=== PATIENT | male | born 1950 | race Caucasian/White ===

== ENCOUNTER 2024-01-21 08:42 | Inpatient (IN) | payer OTHER, SELFPAY ==
[2024-01-21] VITALS (15 sets, daily range): BP systolic 98–188; BP diastolic 59–109; PULSE 77–139; RESP 16–20; TEMP 36.5–36.8; O2SAT 96–98; BMI 24.4
--- NOTE | ~2024-01-21 | US_ITS ---
EXAMINATION: US arterial duplex LE RT CLINICAL INFORMATION: non healing foot ulcer r/o pad TECHNIQUE: Real-time ultrasound and Doppler techniques (integrating B-mode 2-D vascular images, Doppler spectral analysis and color flow Doppler imaging) were utilized to interrogate the right lower extremity. COMPARISON: None FINDINGS: RIGHT LEG: Common femoral artery: 198 cm/s, Triphasic. Thick eccentric soft plaque seen. Profunda femoris artery: 248 cm/s, Triphasic Superficial femoral artery (proximal): 52.7 cm/s, biphasic. Significant atherosclerotic plaque noted. Superficial femoral artery (mid): 44.1 cm/s, biphasic. Partially occluded. Superficial femoral artery (distal): Occluded Popliteal artery: 34.7 cm/s, monophasic. Significant atherosclerotic plaque noted. Posterior tibial artery: Occluded Peroneal artery: Occluded Anterior tibial artery: 17.8 cm/sec, monophasic Dorsalis pedis artery: 12 cm/sec, monophasic US/US arterial duplex LE RT IMPRESSION: There is occlusion of the distal superficial femoral artery, posterior tibial artery, and peroneal artery. There is reconstitution of flow within the popliteal artery with monophasic flow seen in the anterior tibial and dorsalis pedis arteries. Significant atherosclerotic plaque is seen in the common femoral artery, superficial femoral artery and popliteal artery. This critical result was discussed with Trang Bower MD by telephone on 01/21/2024 at 3:15 PM and it was ascertained that the content and urgency of the report was understood at the time of direct communication.
--- NOTE | ~2024-01-21 | MR_ITS ---
EXAMINATION: MR FOOT WITHOUT AND WITH CONTRAST, RIGHT CLINICAL INFORMATION: Nonhealing right fourth toe wound. Evaluate for osteomyelitis. COMPARISON: Right foot radiographs dated 01/21/2024. TECHNIQUE: MRI of the right foot was performed before and after the intravenous administration of 10 mL Gadavist on a high-field scanner. FINDINGS: Soft tissue ulceration along the distal/lateral aspect of the fourth toe measuring up to 1.9 cm with adjacent skin thickening and subcutaneous edema as well as subcutaneous enhancement, consistent with acute cellulitis. No organized fluid collection or abscess formation. Attenuation and irregularity of the distal phalanx with increased T2 and decreased T1 signal in both the distal and middle phalanges where there is mild postcontrast enhancement. Findings are consistent with acute osteomyelitis. No additional abnormal marrow signal. No metatarsal stress reaction or fracture. No concerning lytic or blastic osseous lesion. The visualized flexor and extensor tendons are intact. No transverse tendon tear or tendon retraction. Dorsal subcutaneous edema without enhancement or abscess formation. Intact Lisfranc ligament. MR/MR foot RT wo/w con IMPRESSION: 1. Soft tissue ulceration and cellulitis along the distal/lateral aspect of the fourth toe with associated acute osteomyelitis in the distal and middle phalanges. No abscess formation. 2. Dorsal subcutaneous edema without enhancement or abscess formation.
--- NOTE | ~2024-01-21 | XR_ITS ---
EXAMINATION: XR FOOT, RIGHT CLINICAL INFORMATION: Fourth toe wound with question of osteomyelitis COMPARISON: None available. TECHNIQUE: AP, lateral, and oblique views of the right foot. FINDINGS: There is loss of soft tissue at the tip of the distal phalanx of the fourth toe with a small area of distal phalanx seen with no overlying soft tissue. No definite bone destruction is seen. No periosteal reaction is noted. The remainder of the foot is unremarkable. XR/XR foot RT 2V IMPRESSION: Soft tissue loss at the tip of the fourth toe with no definite evidence of osteomyelitis.
--- NOTE | ~2024-01-21 | XR_ITS ---
EXAMINATION: XR CHEST CLINICAL INFORMATION: PICC line placement. COMPARISON: None available. TECHNIQUE: Frontal view of the chest was obtained. FINDINGS: Right-sided PICC line tip projects at the level of the superior cavoatrial junction. No evidence of pneumothorax. Enlarged cardiomediastinal silhouette. Diffusely increased interstitial markings. No consolidation, pleural effusion or pneumothorax. No acute osseous findings. XR/XR chest 1V IMPRESSION: 1. Right-sided PICC line tip projects at the level of the superior cavoatrial junction. 2. No pneumothorax. 3. Enlarged cardiomediastinal silhouette. 4. Diffusely increased interstitial markings, nonspecific, could be associated with small airways disease.
[2024-01-21 09:28] LABS: MANUAL DIFF FLAG NO
[2024-01-21 09:30] LABS: Basophils Absolute Auto 0.1 X10*3/uL (0.0-0.2); Basophils Percent Auto 0.6 % (0-2); Eosinophils Absolute Auto 0.1 X10*3/uL (0.0-0.4); Eosinophils Percent Auto 0.9 % (0-4); Hematocrit 48.5 % (42.0-52.0); Hemoglobin 16.4 g/dl (14.0-18.0); Imm Gran Abs Auto 0.05 X10*3/uL (0.00-0.03); Imm Gran Pct Auto 0.5 % (0.0-0.4); Lymphocytes Absolute Auto 1.6 X10*3/uL (1.2-4.9); Mean Corpuscular HGB Conc 33.8 g/dl (31.0-36.0); Mean Corpuscular Hemoglobin 31.1 pg (27.0-33.0); Mean Platelet Volume 11.2 fL (9.4-12.4); Monocytes Absolute Auto 0.6 X10*3/uL (0.1-1.2); Monocytes Percent Auto 5.6 % (2-11); Neutrophils Absolute Auto 7.5 x10*3/uL (2.0-8.3); Neutrophils Percent Auto 76.4 % (45-73); Platelet Count 267 X10*3/uL (160-400); Red Blood Count 5.27 X10*6/uL (4.60-5.80); Red Cell Distribution Width 12.5 % (11.0-16.0); White Blood Count 9.8 X10*3/uL (4.8-10.8)
--- NOTE | 2024-01-21 09:52 | ECG_ITS ---
Test Reason : tachycardia Blood Pressure : / mmHG Vent. Rate : 128 BPM Atrial Rate : 000 BPM P-R Int : 000 ms QRS Dur : 144 ms QT Int : 360 ms P-R-T Axes : 000 180 -22 degrees QTc Int : 525 ms Atrial fibrillation with rapid ventricular response Right bundle branch block T wave abnormality, consider inferior ischemia Abnormal ECG No previous ECGs available Referred By: Carmine Chin Electronically Signed By:DON CARPIO MD
[2024-01-21 09:54] LABS: Alanine Aminotransferase 17 U/L (0-40); Albumin Level 4.1 g/dL (3.5-5.0); Alkaline Phosphatase 90 U/L (39-117); Anion Gap 12 (12-20); Aspartate Amino Transferase 19 U/L (5-37); Bilirubin Total 0.6 mg/dL (0.0-1.0); Blood Urea Nitrogen 14 mg/dL (9-16); C Reactive Protein 0.21 mg/dL (< or = 0.50); Calcium 9.9 mg/dL (8.4-10.2); Carbon Dioxide 29 mmol/L (22-29); Chloride 97 mmol/L (96-108); Creatinine Clr Calc Pharmacy 75.4; Estimated Glomerular Filt Rate > 60; Potassium 5.3 mmol/L (3.3-5.1); Sodium 133 mmol/L (135-145); Total Protein 6.9 g/dL (6.5-8.0)
[2024-01-21 09:56] LABS: Glucose Random 590 mg/dL (60-115)
--- NOTE | 2024-01-21 10:00 | PC.NURSE ---
patient awake and alert. skin pwd, resp even and non labored. speaking in full, clear sentences. presented to ED today for c/o non healing would on right foot 4th toe x 1 month. patient does not see a primary care. upon reassessing vitals patients HR noted to be elevated in the 130's. Patient denies chest pain, palpiations or SOB. EKG completed, shows AFIB w/ RVR. provided aware and new ordered obtained.
--- NOTE | 2024-01-21 10:17 | ED_ITS ---
HPI - General Adult General Chief complaint: Extremity Injury, Lower Stated complaint: unhealed toe , swollen, sensitive to touch Time Seen by Provider: 01/21/24 09:29 Source: patient Mode of arrival: ambulatory Limitations: no limitations History of Present Illness HPI narrative: 74-year-old male who has not been to the doctor in 30 years presents to ED for right 4th toe chronic wound for the past month that has not healed. Patient states he hit his toe 1 month ago and started turning yellow and tender without any discharge pus or bluish black discoloration. Patient states no fever or chills. Patient states no other complaints Related Data Home Medications ?Medication ?Instructions ?Recorded ?Confirmed No Known Home Meds 01/21/24 01/21/24 Allergies Allergy/AdvReac Type Severity Reaction Status Date / Time No Known Allergies Allergy Verified 01/21/24 08:52 Review of Systems 2 Review of Systems: right 4th toe chronic wound not healing after trauma 1 month ago Yes all other systems are reviewed and are negative [facility] Past Medical History Medical History Type 2 diabetes mellitus Atrial fibrillation Social History Social History Household Members: None Housing: House Do you presently have visiting nurse or other home services: No Patient Tobacco Use Status: Current everyday Tobacco user Tobacco use type: Cigarette Smoked in Last 30 Days: Yes e-Cigarette/Vaping Use: Currently Using Patient Interested in Nicotine Replacement: No Use of substances other than those prescribed or required for medical reasons: No Currently Displaying Signs/Symptoms of Drug Intoxication Withdrawal: No Have you been hit, kicked, punched, or otherwise hurt by someone within the past year? If so, by whom?: No Do you feel safe in your current relationship?: No Current Relationship Is there a partner from a previous relationship who is making you feel unsafe now?: No Are you made to feel afraid or neglected: No Advance Directives: No Advance Directives Information Provided: No Recently lost weight without trying: No How much weight loss: Not applicable Eating poorly because of decreased appetite: No Nutrition screen score: 0 Nutrition Risks: No Nutritional Risk Poor oral hygiene: No service: No Physical Exam ED Vital Signs: Vital Signs - 24 hr 01/21/24 08:45 01/21/24 09:48 01/21/24 10:28 Temperature 98.1 F 98.2 F Pulse Rate 101 H 130 H 139 H Pulse Rate [Automated] Respiratory Rate 16 18 Blood Pressure 188/109 H 149/89 H 153/92 H Pulse Oximetry 97 98 Oxygen Delivery Method Room Air Room Air 01/21/24 10:29 01/21/24 10:33 01/21/24 10:49 Temperature Pulse Rate 139 H 123 H 95 Pulse Rate [Automated] Respiratory Rate 18 20 Blood Pressure 153/92 H 145/89 H 138/106 H Pulse Oximetry Oxygen Delivery Method 01/21/24 11:05 01/21/24 11:13 01/21/24 13:17 Temperature Pulse Rate 86 127 H Pulse Rate [Automated] 118 H Respiratory Rate 18 Blood Pressure 127/69 129/79 Pulse Oximetry Oxygen Delivery Method BMI result Body Mass Index 24.4 Const Orientation/consciousness: oriented to person, oriented to place, oriented to time and patient oriented x3 HENMT Head: Yes normal to inspection, Yes No palpable skull fracture present, Yes normocephalic and Yes atraumatic Eyes General: appearance normal, both eyes and all related structures Neck Neck: Yes normal visual inspection, Yes full ROM, Yes no lymphadenopathy, Yes no meningeal signs, Yes trachea midline, Yes supple, No anterior neck swelling and No tender Chest Chest palpation & inspection: normal inspection of the chest and normal palpation of entire chest wall Resp Effort & Inspection: normal respiratory effort and able to speak in complete sentences Auscultation: clear to auscultation bilaterally Cardio Jugular venous distension: no JVD Heart sounds: S1 normal heart sound present and S2 normal heart sound present GI Inspection: Yes normal to inspection Palpation (GI): Soft to palpation, not firm, nontender, no guarding and not rigid General: Yes no CVA tenderness Back/Spine/Pelvis Back: no CVA tenderness and No back tenderness Skin General skin exam: no rashes or lesions noted, elasticity normal and turgor normal Neuro General: oriented to person, oriented to place, oriented to time, patient oriented x3, gait normal, tone normal, moves all extremities, Normal light touch and pain sensation, no meningeal signs, no focal motor deficits, CN's II-XI intact bilaterally and normal sensation to monofilament Extrem Other: vascular motor and neuro exam of extremity intact. Negative for gangrene. Fourth toe tender on palpation. General: Yes normal to inspection, Yes full ROM and Yes capillary refill normal Psych Appearance: grossly normal, well kempt and not disheveled Medications Administered Generic Name Dose Route Start Last Admin Trade Name Freq PRN Reason Stop Dose Admin Acetaminophen 650 mg 01/21/24 13:24 01/22/24 20:55 Acetaminophen 325 Mg Tablet PO 650 mg Q6H PRN Administration Pain, Mild (Pain Scale 1-3) Apixaban 5 mg 01/21/24 13:30 01/22/24 20:49 Apixaban 5 Mg Tablet PO 5 mg BID STEPHANIE Administration Aspirin 81 mg 01/21/24 19:00 01/22/24 07:58 Aspirin Enteric Coated 81 Mg Tablet. PO 81 mg DAILY STEPHANIE Administration Piperacillin Sod/Tazobactam 100 mls @ 200 mls/hr 01/21/24 14:00 01/23/24 03:26 Sod 4.5 gm/ Sodium Chloride IV Infused Q6H STEPHANIE Infusion Vancomycin HCl 1,250 mg/ 250 mls @ 166.667 mls/hr 01/22/24 15:00 01/23/24 03:51 Sodium Chloride IV 166.67 mls/hr Q12H STEPHANIE Administration Insulin Human Lispro 0 unit 01/21/24 16:30 01/22/24 20:50 Insulin Lispro 100 Unit/Ml 3 Ml Vial SUBCUT 4 unit QIDACHS [facility] Administration Protocol Metoprolol Tartrate 50 mg 01/22/24 21:00 01/22/24 20:49 Metoprolol Tartrate 50 Mg Tablet PO 50 mg BID STEPHANIE Administration Protocol Nicotine 21 mg 01/21/24 13:30 01/22/24 08:29 Nicotine 21 Mg Patch.Td24 TRANSDERMA Not Given DAILY [facility] Oxycodone HCl 5 mg 01/23/24 01:09 01/23/24 01:41 Oxycodone Hcl Immed Release 5 Mg Tablet PO 5 mg Q4H PRN Administration Pain, Severe (Pain Scale 7-10) Sodium Chloride 3 ml 01/21/24 16:00 01/23/24 01:43 0.9 % Sodium Chloride Flush 3 Ml Syringe IVFLUSH 3 ml QSHIFT STEPHANIE Administration Discontinued Medications Generic Name Dose Route Start Last Admin Trade Name Freq PRN Reason Stop Dose Admin Diltiazem HCl 20 mg 01/21/24 10:10 01/21/24 10:28 Diltiazem Hcl 50 Mg/10 Ml Vial IVPUSH 01/21/24 10:11 20 mg STAT STA Administration Diltiazem HCl 10 mg 01/21/24 13:08 01/21/24 13:17 Diltiazem Hcl 50 Mg/10 Ml Vial IVPUSH 01/21/24 13:09 10 mg STAT STA Administration Gadobutrol 10 ml 01/21/24 18:44 01/21/24 18:45 Gadobutrol 10 Ml Vial IVPUSH 01/21/24 18:45 10 ml ONCE ONE Administration Sodium Chloride 1,000 mls @ 999 mls/hr 01/21/24 09:58 01/21/24 12:03 Ns IV 01/21/24 10:58 Infused .Q1H1M STA Infusion Sodium Chloride 1,000 mls @ 999 mls/hr 01/21/24 09:59 01/21/24 13:20 Ns IV 01/21/24 10:59 Infused .Q1H1M STA Infusion Sodium Chloride 1,000 mls @ 999 mls/hr 01/21/24 09:59 01/21/24 15:05 Ns IV 01/21/24 10:59 Infused .Q1H1M STA Infusion Sodium Chloride 1,000 mls @ 999 mls/hr 01/21/24 10:02 01/21/24 13:20 Ns IV 01/21/24 11:02 Infused .Q1H1M STA Infusion Vancomycin HCl 2,000 mg in 500 mls @ 250 mls/hr 01/21/24 13:45 01/21/24 17:00 Vancomycin/Ns IV 01/21/24 15:44 Infused ONCE ONE Infusion Vancomycin HCl 750 mg/ Sodium 265 mls @ 265 mls/hr 01/22/24 03:00 01/22/24 04:18 Chloride IV Infused Q12H STEPHANIE Infusion Insulin Glargine 16 unit 01/21/24 13:30 01/22/24 07:59 Insulin Glargine,Hum.Rec.Anlog 100 Unit/Ml 10 Ml Vial SUBCUT 16 unit DAILY STEPHANIE Administration Insulin Human Regular 5 unit 01/21/24 11:13 01/21/24 11:19 Insulin Regular, Human 100 Unit/Ml 3 Ml Vial IVPUSH 01/21/24 11:14 5 unit ONCE ONE Administration Metoprolol Tartrate 25 mg 01/21/24 14:15 01/22/24 07:58 Metoprolol Tartrate 25 Mg Tablet PO 25 mg BID STEPHANIE Administration Protocol Medical Decision Making Medical Decision Making [facility] Narrative: 74-year-old male unknown past medical history presents to ED for right 4th toe chronic nonhealing wound due to trauma a month ago. Patient found to be hyperglycemic of 590. Patient not in DKA. Fluids ordered insulin ordered. Patient found to be in AFib. Cardizem ordered. Thyroid level added. Lactic acid added. Blood cultures added. Negative white blood cell count. Presently no indication for insulin drip. Will re-evaluate patient. Patient admitted for HYperglycemia and Afib RVR. Xray negative oseteomylietits. ESR and CRP negative. NEgative WBC. Hospital state they will order the antibiotics.. Differential Diagnosis Differential Diagnoses: The differential diagnosis associated with the presentation includes (osteomyleitis, cellulitis, Afib, DKA, HHS, DM) Admission/Observation Consideration of admission/observation: Escalation of care including admission/observation considered Consult Healthcare Provider Management of the patient was discussed with: Hospitalist (Batsheva Gibbons) Lab Data [facility] Lab Attestation statement: I reviewed the patient's lab results. 01/22/24 06:15 01/23/24 06:16 Labs: Lab Results 01/21/24 01/21/24 01/21/24 Range/Units 09:14 10:20 10:39 WBC 9.8 (4.8-10.8) X10*3/uL RBC 5.27 (4.60-5.80) X10*6/uL Hgb 16.4 (14.0-18.0) g/dl Hct 48.5 (42.0-52.0) % MCV 92.0 (80.0-98.0) fL MCH 31.1 (27.0-33.0) pg MCHC 33.8 (31.0-36.0) g/dl RDW 12.5 (11.0-16.0) % Plt Count 267 (160-400) X10*3/uL MPV 11.2 (9.4-12.4) fL Immature Gran % (Auto) 0.5 H (0.0-0.4) % Neut % (Auto) 76.4 H (45-73) % Lymph % (Auto) 16.0 L (20-40) % [place] % (Auto) 5.6 (2-11) % Eos % (Auto) 0.9 (0-4) % Baso % (Auto) 0.6 (0-2) % Lymph # (Auto) 1.6 (1.2-4.9) X10*3/uL [place] # (Auto) 0.6 (0.1-1.2) X10*3/uL Eos # (Auto) 0.1 (0.0-0.4) X10*3/uL Baso # (Auto) 0.1 (0.0-0.2) X10*3/uL Abs Immat Gran (auto) 0.05 H (0.00-0.03) X10*3/uL Absolute Neuts (auto) 7.5 (2.0-8.3) x10*3/uL Absolute Nucleated RBC 0.000 (0.0-0.012) X10*3/uL Nucleated RBC % (auto) 0.0 (0.0-0.2) /100WBC ESR 5 (0-15) MM/HR PT 10.6 L (11.1-13.3) SEC INR 0.9 (0.9-1.1) APTT 28.2 (26.0-36.8) SEC Sodium 133 L (135-145) mmol/L Potassium 5.3 H (3.3-5.1) mmol/L Chloride 97 (96-108) mmol/L Carbon Dioxide 29 (22-29) mmol/L Anion Gap 12 (12-20) BUN 14 (9-16) mg/dL Creatinine 0.90 (0.5-1.4) mg/dL Estim Creat Clear Calc 75.4 Estimated GFR > 60 POC Glucose 375 H* (60-115) mg/dL Random Glucose 590 H* (60-115) mg/dL Lactic Acid 2.4 H* (0.5-2.0) mmol/L Calcium 9.9 (8.4-10.2) mg/dL Magnesium 2.2 (1.6-2.6) mg/dL Total Bilirubin 0.6 (0.0-1.0) mg/dL AST 19 (5-37) U/L ALT 17 (0-40) U/L Alkaline Phosphatase 90 (39-117) U/L Troponin I High Sens 13.7 (<3.5-35.0) ng/L C-Reactive Protein 0.21 (< or = 0.50) mg/dL B-Natriuretic Peptide 68 (<100) pg/mL Total Protein 6.9 (6.5-8.0) g/dL Albumin 4.1 (3.5-5.0) g/dL Beta-Hydroxybutyrate 0.18 (0.02-0.27) mmol/L TSH 1.84 (0.32-4.0) uIU/mL 01/21/24 01/21/24 01/21/24 Range/Units 11:13 11:48 13:23 WBC (4.8-10.8) X10*3/uL RBC (4.60-5.80) X10*6/uL Hgb (14.0-18.0) g/dl Hct (42.0-52.0) % MCV (80.0-98.0) fL MCH (27.0-33.0) pg MCHC (31.0-36.0) g/dl RDW (11.0-16.0) % Plt Count (160-400) X10*3/uL MPV (9.4-12.4) fL Immature Gran % (Auto) (0.0-0.4) % Neut % (Auto) (45-73) % Lymph % (Auto) (20-40) % [place] % (Auto) (2-11) % Eos % (Auto) (0-4) % Baso % (Auto) (0-2) % Lymph # (Auto) (1.2-4.9) X10*3/uL [place] # (Auto) (0.1-1.2) X10*3/uL Eos # (Auto) (0.0-0.4) X10*3/uL Baso # (Auto) (0.0-0.2) X10*3/uL Abs Immat Gran (auto) (0.00-0.03) X10*3/uL Absolute Neuts (auto) (2.0-8.3) x10*3/uL Absolute Nucleated RBC (0.0-0.012) X10*3/uL Nucleated RBC % (auto) (0.0-0.2) /100WBC ESR (0-15) MM/HR PT (11.1-13.3) SEC INR (0.9-1.1) APTT (26.0-36.8) SEC Sodium (135-145) mmol/L Potassium (3.3-5.1) mmol/L Chloride (96-108) mmol/L Carbon Dioxide (22-29) mmol/L Anion Gap (12-20) BUN (9-16) mg/dL Creatinine (0.5-1.4) mg/dL Estim Creat Clear Calc Estimated GFR POC Glucose 387 H* 319 H 221 H (60-115) mg/dL Random Glucose (60-115) mg/dL Lactic Acid (0.5-2.0) mmol/L Calcium (8.4-10.2) mg/dL Magnesium (1.6-2.6) mg/dL Total Bilirubin (0.0-1.0) mg/dL AST (5-37) U/L ALT (0-40) U/L Alkaline Phosphatase (39-117) U/L Troponin I High Sens (<3.5-35.0) ng/L C-Reactive Protein (< or = 0.50) mg/dL B-Natriuretic Peptide (<100) pg/mL Total Protein (6.5-8.0) g/dL Albumin (3.5-5.0) g/dL Beta-Hydroxybutyrate (0.02-0.27) mmol/L TSH (0.32-4.0) uIU/mL Independent Interpretation I performed an independent interpretation of an: EKG (Afib RVR 128) and Plain X- Ray Radiology Impression Discussion of test interpretation with radiology: I have reviewed the radiologist's reading. Independent Historian Clinical information obtained from an independent historian. History obtained from or confirmed by: Other (patient) External Record Review External record reviewed: Other (prior visits.) Critical Care Time Critical Care Time Critical Care Time: Yes Total Critical Care Time: 60 Attestation: Patient new onset diabetic hypoglycemic not in DKA. Insulin fluids ordered. Patient new onset AFib RVR. Cardizem ordered. Discharge Plan Discharge Clinical Impression: New onset atrial fibrillation, New onset type 2 diabetes mellitus, Cellulitis of right foot, Non-healing ulcer of foot Patient Disposition: Admitted As Inpatient Interventions: Admission Worksheet (ED) Last Done: 01/21/24 20:14 Discharge Date/Time: 01/21/24 21:05
[2024-01-21] MEDS: dilTIAZem HCL 50 MG/10 ML VIAL 20 MG IVPUSH (10:28)
[2024-01-21] MEDS: 0.9 % Sodium Chloride 1,000 ML 999 ML IV ×4 (10:28→12:31)
[2024-01-21 10:31] LABS: INTERNATIONAL NORM RATIO 0.9 (0.9-1.1); Prothrombin Time 10.6 SEC (11.1-13.3)
[2024-01-21 10:32] LABS: Beta-Hydroxybutyrate 0.18 mmol/L (0.02-0.27)
[2024-01-21 10:34] LABS: Partial Thromboplastin Time 28.2 SEC (26.0-36.8)
[2024-01-21 10:37] LABS: B Type Natriuretic Peptide 68 pg/mL (<100)
[2024-01-21 10:41] LABS: Erythrocyte Sedimentation Rate 5 MM/HR (0-15)
[2024-01-21 10:44] LABS: Glucose, Whole Blood 375 mg/dL (60-115)
[2024-01-21 10:48] LABS: Troponin-I High Sensitivity 13.7 ng/L (<3.5-35.0)
[2024-01-21 10:57] LABS: Lactic Acid 2.4 mmol/L (0.5-2.0)
[2024-01-21 11:02] LABS: TSH reflex Free T4 1.84 uIU/mL (0.32-4.0)
[2024-01-21 11:17] LABS: Glucose, Whole Blood 387 mg/dL (60-115)
[2024-01-21] MEDS: Insulin Regular, Human 100 UNIT/ML 3 ML VIAL IVPUSH (11:19)
[2024-01-21 11:52] LABS: Glucose, Whole Blood 319 mg/dL (60-115)
[2024-01-21 12:24] LABS: Reflex Lactate? Lactic Acid Added
[2024-01-21] MEDS: dilTIAZem HCL 50 MG/10 ML VIAL 10 MG IVPUSH (13:17)
[2024-01-21 13:32] LABS: Glucose, Whole Blood 221 mg/dL (60-115)
--- NOTE | 2024-01-21 13:33 | PM.IMHP ---
History of Present Illness Date of Service: 01/21/24 Attending physician on admission: Joanie Del Rosario Chief Complaint: toe infection 74-year-old male without any known past medical history as patient has not been seen by medical provider in over 30 years presented to the ED earlier today for evaluation of a toe injury/infection. He reports dropped a piece of wood on the right 4th toe and then stopped this toe several days later about 1 month ago. Since then, the toe has been swollen, intermittently painful with intermittent purulent drainage. Denies any fevers or chills. He reports he has been treating this with topical antibiotic ointment, hydrogen peroxide but has experienced no improvement. Since arrival, has been found to be in new onset atrial fibrillation with tachycardia up to 139. No hypotension or fevers. Hematology studies unremarkable. Renal function and electrolyte levels normal except for sodium 133 potassium 5.3. Initial glucose 590. Initial lactic acid 2.4, repeat 2.3. Troponin 13.7. CRP 0.21, ESR 5. Beta hydroxybutyrate 0.18. TSH 1.84, magnesium pending. X-ray of the foot negative for any acute osseous abnormality. EKG shows atrial fibrillation with RVR, rate 128 and right bundle branch block. No DINA or depressions. Pt will be admitted for further management of foot infection new onset afib rvr. In the ED has been treated with 3 L IV NS, 5 units regular insulin, and total of 30 mg IV diltiazem. Review of Systems Review of Systems: General: No fevers, malaise, unintentional weight loss HEENT: No blurred vision, diplopia. No sore throat, nasal congestion, rhinorrhea, sinus pain, ear pain Cardiovascular: No chest pain, palpitations, or leg edema Respiratory: No shortness of breath, wheezing, cough GI: No abdominal pain, nausea, vomiting, diarrhea, constipation, melena, hematochezia : No dysuria, hematuria, increased urinary frequency, decreased urinary output MSK: No myalgia, back pain. +toe infection/wound Neuro: No headaches, weakness, paresthesias Skin: No rashes or lesions [facility] Medical History Type 2 diabetes mellitus Atrial fibrillation Social History Household Members: None Housing: House Do you presently have visiting nurse or other home services: No Patient Tobacco Use Status: Current everyday Tobacco user Tobacco use type: Cigarette Smoked in Last 30 Days: Yes e-Cigarette/Vaping Use: Currently Using Patient Interested in Nicotine Replacement: No Use of substances other than those prescribed or required for medical reasons: No Currently Displaying Signs/Symptoms of Drug Intoxication Withdrawal: No Have you been hit, kicked, punched, or otherwise hurt by someone within the past year? If so, by whom?: No Do you feel safe in your current relationship?: No Current Relationship Is there a partner from a previous relationship who is making you feel unsafe now?: No Are you made to feel afraid or neglected: No Advance Directives: No Advance Directives Information Provided: No Recently lost weight without trying: No How much weight loss: Not applicable Eating poorly because of decreased appetite: No Nutrition screen score: 0 Nutrition Risks: No Nutritional Risk Poor oral hygiene: No service: No Meds Allergies Allergy/AdvReac Type Severity Reaction Status Date / Time No Known Allergies Allergy Verified 01/21/24 08:52 Active Medications: Current Medications Acetaminophen (Acetaminophen 325 Mg Tablet) 650 mg PO Q6H PRN PRN Reason: Pain, Mild (Pain Scale 1-3) Apixaban (Apixaban 5 Mg Tablet) 5 mg PO BID [facility] Glucose (Glucose Gel 15 Gm Gel..Gram.) 15 gm PO Q15M PRN; Protocol PRN Reason: per Hypoglycemia Standing Ord. Dextrose (D10) 250 mls @ 750 mls/hr IV Q15M PRN; Protocol PRN Reason: per Hypoglycemia Standing Ord. Piperacillin Sod/Tazobactam (Sod 4.5 gm/ Sodium Chloride) 100 mls @ 200 mls/hr IV Q6H [facility] Insulin Glargine (Insulin Glargine,Hum.Rec.Anlog 100 Unit/Ml 10 Ml Vial) 16 unit SUBCUT DAILY [facility] Insulin Human Lispro (Insulin Lispro 100 Unit/Ml 3 Ml Vial) 0 unit SUBCUT QIDACHS [facility]; Protocol Nicotine (Nicotine 21 Mg Patch.Td24) 21 mg TRANSDERMA DAILY [facility] Ondansetron HCl (Ondansetron Hcl 4 Mg/2 Ml Vial) 4 mg IVPUSH Q8H PRN PRN Reason: Nausea and Vomiting Pharmacy Consult (Consult Rx Vancomycin Dosing) 1 each MISCELLANE DAILY PRN PRN Reason: Consult order Senna (Sennosides 8.6 Mg Tablet) 17.2 mg PO BEDTIME PRN PRN Reason: Constipation Sodium Chloride (0.9 % Sodium Chloride Flush 3 Ml Syringe) 3 ml IVFLUSH QSHIFT [facility] Home Medications ?Medication ?Instructions ?Recorded ?Confirmed ?Last Taken ?Type No Known Home Meds 01/21/24 01/21/24 Unknown History Physical Exam Vital Signs and Narrative: Vital Signs: Last Vital Signs Temp 98.2 F 01/21/24 09:48 Pulse 127 H 01/21/24 13:17 Resp 18 01/21/24 11:13 BP 129/79 01/21/24 13:17 Pulse Ox 98 01/21/24 09:48 O2 Del Method Room Air 01/21/24 09:48 BMI result Body Mass Index 24.4 Constitutional - Awake and Alert, No apparent distress Eyes - PERRLA, EOMI Cardiovascular - S1S2, RRR, No edema, unable to palpate R pedal pulse due to edema, 1+ L pedal pulse Respiratory - Normal lung expansion, Normal respiratory effort, No respiratory distress, CTA bilaterally Gastrointestinal - NT / ND; +BS; No rebound or guarding Extremities - no calf tenderness bilaterally, no swelling Skin - Warm/Dry, lower extremities cool.Unstageable ulcer right 4th toe with surroudning erythema Neurological - Alert & oriented x3 Psychological - Appropriate affect Results Labs 01/22/24 06:15 01/22/24 06:15 Labs: Laboratory Results - last 24 hr 01/21/24 01/21/24 01/21/24 09:14 10:20 10:39 MCV 92.0 MCH 31.1 MCHC 33.8 RDW 12.5 Plt Count 267 MPV 11.2 Immature Gran % (Auto) 0.5 H Neut % (Auto) 76.4 H Lymph % (Auto) 16.0 L [place] % (Auto) 5.6 Eos % (Auto) 0.9 Baso % (Auto) 0.6 Lymph # (Auto) 1.6 [place] # (Auto) 0.6 Eos # (Auto) 0.1 Baso # (Auto) 0.1 Abs Immat Gran (auto) 0.05 H Absolute Neuts (auto) 7.5 Absolute Nucleated RBC 0.000 Nucleated RBC % (auto) 0.0 ESR 5 PT 10.6 L INR 0.9 APTT 28.2 Anion Gap 12 Estim Creat Clear Calc 75.4 Estimated GFR > 60 POC Glucose 375 H* Random Glucose 590 H* Lactic Acid 2.4 H* Calcium 9.9 Total Bilirubin 0.6 AST 19 ALT 17 Alkaline Phosphatase 90 Troponin I High Sens 13.7 C-Reactive Protein 0.21 B-Natriuretic Peptide 68 Total Protein 6.9 Albumin 4.1 Beta-Hydroxybutyrate 0.18 TSH 1.84 01/21/24 01/21/24 01/21/24 11:13 11:48 13:23 MCV MCH MCHC RDW Plt Count MPV Immature Gran % (Auto) Neut % (Auto) Lymph % (Auto) [place] % (Auto) Eos % (Auto) Baso % (Auto) Lymph # (Auto) [place] # (Auto) Eos # (Auto) Baso # (Auto) Abs Immat Gran (auto) Absolute Neuts (auto) Absolute Nucleated RBC Nucleated RBC % (auto) ESR PT INR APTT Anion Gap Estim Creat Clear Calc Estimated GFR POC Glucose 387 H* 319 H 221 H Random Glucose Lactic Acid Calcium Total Bilirubin AST ALT Alkaline Phosphatase Troponin I High Sens C-Reactive Protein B-Natriuretic Peptide Total Protein Albumin Beta-Hydroxybutyrate TSH Imaging Radiologist's Impressions: Impressions Foot X-Ray 01/21/24 10:42 IMPRESSION: Soft tissue loss at the tip of the fourth toe with no definite evidence of osteomyelitis. Assessment and Plan (1) Non-healing ulcer of foot: Status: Acute (2) Cellulitis of right foot: Status: Acute (3) New onset type 2 diabetes mellitus: Status: Acute (4) New onset atrial fibrillation: Status: Acute Plan 74-year-old male without any known past medical history as patient has not been seen by medical provider in over 30 years admitted for further management of non healing R toe wound with cellulitis and suspected osteomyelitis as well as non onset atrial fibrillation with rvr. #New onset atrial fibrillation with RVR -HR controlled on admission following total 30mg iv diltiazem -tsh/mag wnl -initiate metoprolol 25mg BID -initiate eliquis 5mg BID for AC (chads 2 Vasc score 2- more likely 3 suspected PAD) -echo -cardiac diet -cardiology consult -monitor on telemetry #Nonhealing stage 2 ulcer R 4th toe with cellulitis -IV vanco and zosyn (initiated 01/20) -Arterial doppler pending, suspect underlying PAD -MRI foot pending, suspect osteomyelitis -wound RN consult -Consider vascular vs ID consult pending results #Peripheral arterial disease -Arterial doppler RLE: occlusion of the distal superficial femoral artery, posterior tibial artery, and peroneal artery. There is reconstitution of flow within the popliteal artery with monophasic flow seen in the anterior tibial and dorsalis pedis arteries. Significant atherosclerotic plaque is seen in the common femoral artery, superficial femoral artery and popliteal artery. -discussed with attending. Vascular surgery consult placed. Continue eliquis, asa #New onset type 2 diabetes with hyperglycemia -HGB a1c pending -initial glucose 590, no DKA -Initiate lantus 16 units daily -admelog on ss -poc glucose, diabetic diet #Acute hyperkalemia -given IVF, follow lytes #Acute hyponetramia -likey pseudohyponatremia in setting of hyperglycemia -follow lytes DVT prophylaxis- tonia full code pt requires inpt stay at least 2 midnights for management of new onset atrial fibrillation requiring iv rate control, echo, and close cardiac monitoring. 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
[2024-01-21 13:52] LABS: ~Lactic Acid-LAB USE ONLY 2.3 mmol/L (0.5-2.0)
[2024-01-21 14:09] LABS: Magnesium 2.2 mg/dL (1.6-2.6)
[2024-01-21] MEDS: Insulin Glargine,Hum.rec.anlog 100 UNIT/ML 10 ML VIAL 16 UNIT SUBCUT (14:14)
[2024-01-21] MEDS: Piperacillin Sodium/Tazobactam 4.5 GM in 0.9 % Sodium Chloride 100 ML IV ×2 (14:14→20:08)
[2024-01-21] MEDS: Apixaban 5 MG TABLET PO ×2 (14:14→20:08)
[2024-01-21] MEDS: vancomycin/NS 2,000 MG/500 ML PLAST..BAG 250 MG IV (14:57)
[2024-01-21] MEDS: Metoprolol Tartrate 25 MG TABLET PO ×2 (15:04→20:07)
[2024-01-21 15:28] LABS: Reflex Lactate? 2 Y
--- NOTE | 2024-01-21 15:51 | PHA.MEDREC ---
Pharmacy Consult ? Medication Reconciliation Pharmacy has completed the medication reconciliation. Patient reports no medications at home. Jasmina Queen, LorraineD
[2024-01-21 16:19] LABS: Hemoglobin A1c % > 14.0 % (<6.0)
[2024-01-21 16:22] LABS: ~Lactic Acid-LAB USE ONLY 1.4 mmol/L (0.5-2.0)
[2024-01-21] MEDS: gadobutroL 10 ML VIAL IVPUSH (18:45)
[2024-01-21 19:48] LABS: Glucose, Whole Blood 260 mg/dL (60-115)
[2024-01-21] MEDS: Insulin Lispro 100 UNIT/ML 3 ML VIAL SUBCUT (20:06)
[2024-01-21] MEDS: 0.9 % Sodium Chloride Flush 3 ML SYRINGE IVFLUSH (20:07)
[2024-01-21] MEDS: Aspirin Enteric Coated 81 MG TABLET.DR PO (20:07)
[2024-01-21] MEDS: Acetaminophen 325 MG TABLET 650 MG PO (21:56)
[2024-01-21 23:22] LABS: Glucose, Whole Blood 174 mg/dL (60-115)
[2024-01-22] VITALS (7 sets, daily range): BP systolic 118–157; BP diastolic 59–95; PULSE 72–99; RESP 16–20; TEMP 36.3–37.1; O2SAT 98–99
[2024-01-22] MEDS: Piperacillin Sodium/Tazobactam 4.5 GM in 0.9 % Sodium Chloride 100 ML IV ×4 (02:20→20:50)
[2024-01-22] MEDS: vancomycin HCL 750 MG in 0.9 % Sodium Chloride 250 ML 265 MG IV (03:18)
[2024-01-22 03:49] LABS: Glucose, Whole Blood 115 mg/dL (60-115)
[2024-01-22] MEDS: Acetaminophen 325 MG TABLET 650 MG PO ×3 (06:02→20:55)
[2024-01-22 06:59] LABS: MANUAL DIFF FLAG NO
--- NOTE | 2024-01-22 07:00 | CA_ITS ---
Transthoracic Echocardiogram Patient (Last, First, Middle): Juvenal Kate C Gender: Male Date of : 1950 Age: 74 Procedure Date: 01/22/2024 Procedure Type: [place]ansthoracic [place] [facility] [place]: 177.8 cm Weight: 77.11 kg BSA: 1.95 m2 Heart Rate: bpm BP: 130 / 95 mmHg Advertising Account Executive: SB Referring MD: Trang MCCARTNEY Head Of Visual Merchandising: Jevon Montgomery MD Symptoms: afib rvr Study Quality: Adequate ECG Rhythm: Atrial Fibrillation w RVR Conclusions: - 1. [id number] LV systolic dysfunction with LVEF of 40-45% with mild LVH 2. At least moderate biatrial enlargement 3. Normal cardiac valvular Dopplers 4. Normal RV systolic pressure 5. Mildly dilated ascending aorta 3.7 cm 6. No gross pericardial effusion Findings Left Ventricle Normal left ventricular cavity size. There is mildly increased left ventricular wall thickness. The left ventricular systolic function is mild to moderately decreased. The visually estimated ejection fraction is between 40-45%. Diastolic function is indeterminate on the basis of available data. Right Ventricle Normal right ventricular cavity size. There is moderately decreased right ventricular systolic function. Atria The left atrium is moderately dilated. There is no evidence of interatrial shunt. The right atrium is moderately dilated. Aortic Valve Normal aortic valve structure and function. There is mild calcification of the aortic valve. There is no aortic valve stenosis. There is no aortic valve regurgitation. Mitral Valve Normal mitral valve structure and function. There is trace mitral valve regurgitation. There is no mitral valve stenosis. Pulmonic Valve The pulmonic valve was not well visualized. Tricuspid Valve Likely normal tricuspid valve structure and function. There is trace tricuspid valve regurgitation. The right ventricular systolic pressure is normal. The right ventricular systolic pressure is 27 mmHg. Normal right atrial pressure. There is no evidence of pulmonary hypertension. Great Vessels The pulmonary artery was not well visualized. There is mild dilatation of the ascending aorta measuring 3.70 cm. Venous The inferior vena cava is normal in size and collapses greater than 50% with inspiration. Pericardium/Pleural There is no evidence of pericardial effusion. Prior Study Comparison No prior study available for comparison. Measurements 2D Linear Measurements IVSd: 1.20 0.6-0.9/0.6-1.0 cm LVIDd: 5.15 3.9-5.3/4.2-5.9 cm LVIDd Index: 2.64 2.4-3.2/2.2-3.1 cm/m2 LVIDs: 3.51 2.0-3.6 cm LVPWd: 1.12 0.7-1.1 cm LA Diam: 4.90 2.7-3.8/3.0-4.0 cm LAIDs Index: 2.51 1.5-2.3 cm/m2 LV Mass: 291.45 67-162/88-224 g LV Mass Index: 149.46 43-95/49-115 g/m2 LVOT Diam: 2.20 3.0+(-)1.3 cm Mitral Valve MV Pk E: 0.80 E'Medial: 5.71 E/E' Med: 14.10 Aortic Valve AoV Pk Kan: 1.03 AoV Pk Grad: 4.00 KARLI: 2.79 LVOT LVOT Pk Kan: 0.76 LVOT Mn Kan: 0.56 LVOT VTI: 0.15 LVOT Pk Grad: 2.00 LVOT Mn Grad: 1.00 LVOT Diam: 2.20 LVOT Area: 3.80 Diastolic Function MV Pk E: 0.80 E'Medial: 5.71 E/E' Med: 14.10 Right Ventricle TAPSE (mm): 9.66 TVS' Kan: 9.14 Tricuspid Valve TR Pk Kan: 2.16 TR Pk Grad: 19.00 RA Press: 8.00 RVSP: 27.00 Great Vessels Aorta Sinus of Valsalva: 3.70 2.0-3.5 cm Ao Asc: 3.70 2.1-3.4 cm Pulmonary Valve PV Pk Kan: 0.75 Peak PV Grad: 2.00 Updated in Other Vendor System with Status of Final Jevon Montgomery MD electronically signed on 01/22/2024 12:19:16 PM with status of Final
[2024-01-22 07:17] LABS: Basophils Absolute Auto 0.1 X10*3/uL (0.0-0.2); Basophils Percent Auto 0.6 % (0-2); Eosinophils Absolute Auto 0.1 X10*3/uL (0.0-0.4); Eosinophils Percent Auto 1.2 % (0-4); Hematocrit 45.6 % (42.0-52.0); Hemoglobin 15.1 g/dl (14.0-18.0); Imm Gran Abs Auto 0.04 X10*3/uL (0.00-0.03); Imm Gran Pct Auto 0.4 % (0.0-0.4); Lymphocytes Absolute Auto 2.6 X10*3/uL (1.2-4.9); Lymphocytes Percent Auto 26.6 % (20-40); Mean Corpuscular HGB Conc 33.1 g/dl (31.0-36.0); Mean Corpuscular Hemoglobin 30.6 pg (27.0-33.0); Mean Corpuscular Volume 92.3 fL (80.0-98.0); Mean Platelet Volume 11.2 fL (9.4-12.4); Monocytes Absolute Auto 0.7 X10*3/uL (0.1-1.2); Monocytes Percent Auto 6.7 % (2-11); Neutrophils Absolute Auto 6.4 x10*3/uL (2.0-8.3); Neutrophils Percent Auto 64.5 % (45-73); Platelet Count 233 X10*3/uL (160-400); Red Blood Count 4.94 X10*6/uL (4.60-5.80); Red Cell Distribution Width 12.8 % (11.0-16.0); White Blood Count 9.9 X10*3/uL (4.8-10.8)
[2024-01-22 07:32] LABS: Glucose, Whole Blood 211 mg/dL (60-115)
[2024-01-22] MEDS: Metoprolol Tartrate 25 MG TABLET PO (07:58)
[2024-01-22] MEDS: Apixaban 5 MG TABLET PO ×2 (07:58→20:49)
[2024-01-22] MEDS: Aspirin Enteric Coated 81 MG TABLET.DR PO (07:58)
[2024-01-22] MEDS: Insulin Lispro 100 UNIT/ML 3 ML VIAL SUBCUT ×3 (07:59→20:50)
[2024-01-22] MEDS: Insulin Glargine,Hum.rec.anlog 100 UNIT/ML 10 ML VIAL 16 UNIT SUBCUT (07:59)
[2024-01-22] MEDS: 0.9 % Sodium Chloride Flush 3 ML SYRINGE IVFLUSH ×2 (08:00)
[2024-01-22 08:06] LABS: Anion Gap 9 (12-20); Blood Urea Nitrogen 12 mg/dL (9-16); Calcium 8.7 mg/dL (8.4-10.2); Carbon Dioxide 27 mmol/L (22-29); Chloride 107 mmol/L (96-108); Creatinine Clr Calc Pharmacy 83.8; Estimated Glomerular Filt Rate > 60; Glucose Random 142 mg/dL (60-115); Potassium 3.9 mmol/L (3.3-5.1); Sodium 139 mmol/L (135-145)
--- NOTE | 2024-01-22 09:34 | MHC.CM.PN ---
IMM 01/22/24, Pt lives alone, no home health services or DME. He does not have a HCP, CM discussed this with him and he said he will talk to his family and friend about it. He has a PCP that he has not seen yet, first appt. is 04/28/24. DC plan is home, self care. CM will follow and assist with DC plan.
--- NOTE | 2024-01-22 09:38 | PM.CNGS ---
History of Present Illness Consult details Consult date: 01/22/24 Reason for consult: wound care Narrative: Very pleasant 74-year-old gentleman with history of diabetes has a nonhealing right foot ulcer. It has been present for some time. 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 He is concerned about that toe but is eager to go back to work. Denies any significant pain. He does report difficulty ambulating long distances. Of note he is a smoker and diabetic. Review of Systems Review of Systems: Yes all other systems are reviewed and are negative Constitutional: Constitutional: Reports no additional constitutional complaints ENT: Reports Normal hearing present Cardiovascular: Cardiovascular: Denies chest pain, Denies chest pain at rest, Denies chest pain with activity and Denies pedal edema Respiratory: Respiratory: Denies cough Gastrointestinal: Gastrointestinal: Denies abdominal pain Musculoskeletal: Musculoskeletal: Denies abnormal gait, Denies muscle cramps and Denies radiating pain into limb Integumentary/Breasts: Skin/Breast: Denies skin ulcer and Denies wounds Neurologic: Reports Normal hearing present and Denies abnormal gait Psychiatric: Psychiatric: Reports no additional psychiatric complaints [facility] Past Medical History Medical History Type 2 diabetes mellitus Atrial fibrillation Social History Social History Household Members: None Housing: House Do you presently have visiting nurse or other home services: No Patient Tobacco Use Status: Current everyday Tobacco user Tobacco use type: Cigarette e-Cigarette/Vaping Use: Currently Using service: No Meds Allergies Allergy/AdvReac Type Severity Reaction Status Date / Time No Known Allergies Allergy Verified 01/21/24 08:52 Active Medications: Current Medications Acetaminophen (Acetaminophen 325 Mg Tablet) 650 mg PO Q6H PRN PRN Reason: Pain, Mild (Pain Scale 1-3) Last Admin: 01/22/24 06:02 Dose: 650 mg Apixaban (Apixaban 5 Mg Tablet) 5 mg PO BID [facility] Last Admin: 01/22/24 07:58 Dose: 5 mg Aspirin (Aspirin Enteric Coated 81 Mg Tablet.) 81 mg PO DAILY [facility] Last Admin: 01/22/24 07:58 Dose: 81 mg Glucose (Glucose Gel 15 Gm Gel..Gram.) 15 gm PO Q15M PRN; Protocol PRN Reason: per Hypoglycemia Standing Ord. Dextrose (D10) 250 mls @ 750 mls/hr IV Q15M PRN; Protocol PRN Reason: per Hypoglycemia Standing Ord. Piperacillin Sod/Tazobactam (Sod 4.5 gm/ Sodium Chloride) 100 mls @ 200 mls/hr IV Q6H [facility] Last Admin: 01/22/24 07:58 Dose: 200 mls/hr Vancomycin HCl 750 mg/ Sodium (Chloride) 265 mls @ 265 mls/hr IV Q12H [facility] Last Infusion: 01/22/24 04:18 Dose: Infused Insulin Glargine (Insulin Glargine,Hum.Rec.Anlog 100 Unit/Ml 10 Ml Vial) 16 unit SUBCUT DAILY [facility] Last Admin: 01/22/24 07:59 Dose: 16 unit Insulin Human Lispro (Insulin Lispro 100 Unit/Ml 3 Ml Vial) 0 unit SUBCUT QIDACHS [facility]; Protocol Last Admin: 01/22/24 07:59 Dose: 4 unit Metoprolol Tartrate (Metoprolol Tartrate 25 Mg Tablet) 25 mg PO BID [facility]; Protocol Last Admin: 01/22/24 07:58 Dose: 25 mg Nicotine (Nicotine 21 Mg Patch.Td24) 21 mg TRANSDERMA DAILY [facility] Last Admin: 01/22/24 08:29 Dose: Not Given Ondansetron HCl (Ondansetron Hcl 4 Mg/2 Ml Vial) 4 mg IVPUSH Q8H PRN PRN Reason: Nausea and Vomiting Pharmacy Consult (Consult Rx Vancomycin Dosing) 1 each MISCELLANE DAILY PRN PRN Reason: Consult order Senna (Sennosides 8.6 Mg Tablet) 17.2 mg PO BEDTIME PRN PRN Reason: Constipation Sodium Chloride (0.9 % Sodium Chloride Flush 3 Ml Syringe) 3 ml IVFLUSH QSHIFT [facility] Last Admin: 01/22/24 08:00 Dose: 3 ml Home Medications ?Medication ?Instructions ?Recorded ?Confirmed ?Last Taken ?Type No Known Home Meds 01/21/24 01/21/24 Unknown History Physical Exam Vital Signs: Vital Signs: Last Vital Signs Temp 97.8 F 01/22/24 07:41 Pulse 88 01/22/24 07:58 Resp 20 01/22/24 07:41 BP 130/95 H 01/22/24 07:58 Pulse Ox 99 04/23/24 07:41 O2 Del Method Room Air 01/22/24 07:41 BMI result Body Mass Index 24.4 Const: General: cooperative, healthy appearing and comfortable Orientation/consciousness: oriented to person, oriented to place and oriented to time HEENT: Head: Yes normal to inspection Neck: Neck: Yes normal visual inspection Carotids: no bruits Chest: Chest palpation & inspection: normal inspection of the chest Resp: Effort & Inspection: normal respiratory effort and able to speak in complete sentences Auscultation: clear to auscultation bilaterally, no crackles, no rales, no rhonchi and no wheezes Cardio: Other: Bilateral DP signal Rate: regular rate Rhythm: regular rhythm Heart sounds: S1 normal heart sound present and S2 normal heart sound present Bruits: no carotid bruits Peripheral pulses: Peripheral pulses 2+ throughout GI: Inspection: Yes normal to inspection Skin: Other: Right 3rd and 4th toe nonhealing ulcer Wounds: no wounds Hair: normal Neuro: General: oriented to person, oriented to place and oriented to time Cranial nerves: Yes CN's II-XII intact bilaterally and Yes Normal hearing present Cognition (Neuro): normal cognition Motor exam (neuro): 5/5 motor strength present throughout Extrem: Other: venous exam: No significant superficial varicosities or spider telangiectasias, minimal edema General: No clubbing, No cyanosis and No edema Psych: Appearance: grossly normal Mental Status: mental status grossly normal Speech and movement: Normal speech and movement present Results Labs 01/22/24 06:15 01/22/24 06:15 Labs: Abnormal lab results 01/21/24 01/21/24 01/21/24 Range/Units 09:14 10:20 10:39 Abs Immat Gran (auto) (0.00-0.03) X10*3/uL PT 10.6 L (11.1-13.3) SEC Sodium 133 L (135-145) mmol/L Potassium 5.3 H (3.3-5.1) mmol/L Anion Gap (12-20) POC Glucose 375 H* (60-115) mg/dL Random Glucose 590 H* (60-115) mg/dL Hemoglobin A1c % (<6.0) % Lactic Acid 2.4 H* (0.5-2.0) mmol/L Lactic Acid F/U @ 2Hr (0.5-2.0) mmol/L 01/21/24 01/21/24 01/21/24 Range/Units 11:13 11:48 13:23 Abs Immat Gran (auto) (0.00-0.03) X10*3/uL PT (11.1-13.3) SEC Sodium (135-145) mmol/L Potassium (3.3-5.1) mmol/L Anion Gap (12-20) POC Glucose 387 H* 319 H 221 H (60-115) mg/dL Random Glucose (60-115) mg/dL Hemoglobin A1c % (<6.0) % Lactic Acid (0.5-2.0) mmol/L Lactic Acid F/U @ 2Hr (0.5-2.0) mmol/L 01/21/24 01/21/24 01/21/24 Range/Units 13:24 15:45 19:44 Abs Immat Gran (auto) (0.00-0.03) X10*3/uL PT (11.1-13.3) SEC Sodium (135-145) mmol/L Potassium (3.3-5.1) mmol/L Anion Gap (12-20) POC Glucose 260 H (60-115) mg/dL Random Glucose (60-115) mg/dL Hemoglobin A1c % > 14.0 H (<6.0) % Lactic Acid (0.5-2.0) mmol/L Lactic Acid F/U @ 2Hr 2.3 H* (0.5-2.0) mmol/L 01/21/24 01/22/24 01/22/24 Range/Units 23:17 06:15 07:13 Abs Immat Gran (auto) 0.04 H (0.00-0.03) X10*3/uL PT (11.1-13.3) SEC Sodium (135-145) mmol/L Potassium (3.3-5.1) mmol/L Anion Gap 9 L (12-20) POC Glucose 174 H 211 H (60-115) mg/dL Random Glucose 142 H (60-115) mg/dL Hemoglobin A1c % (<6.0) % Lactic Acid (0.5-2.0) mmol/L Lactic Acid F/U @ 2Hr (0.5-2.0) mmol/L Short CBC 01/22/24 Range/Units 06:15 WBC 9.9 (4.8-10.8) X10*3/uL Hgb 15.1 (14.0-18.0) g/dl Hct 45.6 (42.0-52.0) % Plt Count 233 (160-400) X10*3/uL BMP 01/21/24 01/22/24 09:14 06:15 Sodium 133 L 139 Potassium 5.3 H 3.9 D Chloride 97 107 Carbon Dioxide 29 27 BUN 14 12 Creatinine 0.90 0.81 Calcium 9.9 8.7 D Liver Function 01/21/24 Range/Units 09:14 Total Bilirubin 0.6 (0.0-1.0) mg/dL AST 19 (5-37) U/L ALT 17 (0-40) U/L Alkaline Phosphatase 90 (39-117) U/L Albumin 4.1 (3.5-5.0) g/dL All other labs normal. Imaging Additional studies: Ultrasound demonstrates right SFA occlusion Assessment and Plan (1) PAD (peripheral artery disease): Status: Acute Plan In short patient has peripheral vascular disease with concern of an SFA occlusion. This appears to be chronic in nature. We will await results of the MRI. Should be positive would treat for osteo. In addition he can see us as an outpatient for endovascular intervention. This was all discussed with the patient and the hospitalist team. Thank you for allowing us to assist in his care. If there are any questions or concerns please do not hesitate to contact us. Procedures Date of Service Date of Service: 01/22/24
--- NOTE | 2024-01-22 09:41 | P.CONCA_ITS ---
History of Present Illness History of Present Illness Date of Service: 01/22/24 Requesting physician: Joanie Del Rosario Consult reason: atrial fibrillation Chief complaint: Diabetic Toe Infection Afib RVR New Diabetes Narrative: I was consulted to see Juvenal in cardiology consultation today for management of new onset atrial fibrillation. Patient 74-year-old male came to the hospital because pain in his right foot after stubbing his toe with a nonhealing ulcer and redness. Patient was noted to have nonhealing ulcer along with new onset diabetes. He also has cellulitis of the foot. Subsequent arterial study suggest peripheral vascular disease. Patient also incidentally was noted to be in atrial fibrillation with rapid ventricular response. Patient says he has had no cardiac symptoms in the recent past. He only came to the hospital because he had pain in his right foot after stubbing his toe. Was not aware of any heart condition. The last time he has seen a primary care physician's more than 30 years ago. 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 Denies any symptoms of shortness of breath, chest pain, palpitations, fatigue. Denies any prolonged palpitation irregular heartbeat or fast heart rate. No lightheadedness, syncope. No heart failure symptoms. Currently the heart rate has been better control but still the 90s to 120 range. Cardiology consult was sought for management of new onset atrial fibrillation. Review of Systems 2 Constitutional: Constitutional: Reports no additional constitutional complaints Eyes: Eyes: Reports no additional eye complaints Cardiovascular: Cardiovascular: Reports no additional cardiovascular complaints Respiratory: Respiratory: Reports no additional respiratory complaints Gastrointestinal: Gastrointestinal: Reports no additional gastrointestinal complaints Genitourinary: Genitourinary: Reports no additional male genitourinary complaints Musculoskeletal: Musculoskeletal: Reports no additional musculoskeletal complaints Integumentary/Breasts: Skin/Breast: Reports other (Right foot redness and nonhealing ulcer and pain) Neurologic: Reports system reviewed and no additional complaints, except as documented Psychiatric: Psychiatric: Reports no additional psychiatric complaints Endocrine: Endocrine: Reports no additional endocrine complaints Hematologic/Lymphatic: Hematologic/Lymphatic: Reports no additional hematologic/lymphatic complaints Allergic/Immunologic: Allergic/Immunologic: Reports no additional allergic/immunologic complaints PMFSH Past Medical History Medical History Type 2 diabetes mellitus Atrial fibrillation Social History Social History Household Members: None Housing: House Do you presently have visiting nurse or other home services: No Patient Tobacco Use Status: Current everyday Tobacco user Tobacco use type: Cigarette Smoked in Last 30 Days: Yes e-Cigarette/Vaping Use: Currently Using Patient Interested in Nicotine Replacement: No Use of substances other than those prescribed or required for medical reasons: No Currently Displaying Signs/Symptoms of Drug Intoxication Withdrawal: No Have you been hit, kicked, punched, or otherwise hurt by someone within the past year? If so, by whom?: No Do you feel safe in your current relationship?: No Current Relationship Is there a partner from a previous relationship who is making you feel unsafe now?: No Are you made to feel afraid or neglected: No Advance Directives: No Advance Directives Information Provided: No Recently lost weight without trying: No How much weight loss: Not applicable Eating poorly because of decreased appetite: No Nutrition screen score: 0 Nutrition Risks: No Nutritional Risk Poor oral hygiene: No service: No Meds Allergies Allergy/AdvReac Type Severity Reaction Status Date / Time No Known Allergies Allergy Verified 01/21/24 08:52 Active Medications: Current Medications Acetaminophen (Acetaminophen 325 Mg Tablet) 650 mg PO Q6H PRN PRN Reason: Pain, Mild (Pain Scale 1-3) Last Admin: 01/22/24 06:02 Dose: 650 mg Apixaban (Apixaban 5 Mg Tablet) 5 mg PO BID [facility] Last Admin: 01/22/24 07:58 Dose: 5 mg Aspirin (Aspirin Enteric Coated 81 Mg Tablet.Dr) 81 mg PO DAILY [facility] Last Admin: 01/22/24 07:58 Dose: 81 mg Glucose (Glucose Gel 15 Gm Gel..Gram.) 15 gm PO Q15M PRN; Protocol PRN Reason: per Hypoglycemia Standing Ord. Dextrose (D10) 250 mls @ 750 mls/hr IV Q15M PRN; Protocol PRN Reason: per Hypoglycemia Standing Ord. Piperacillin Sod/Tazobactam (Sod 4.5 gm/ Sodium Chloride) 100 mls @ 200 mls/hr IV Q6H [facility] Last Admin: 01/22/24 07:58 Dose: 200 mls/hr Vancomycin HCl 750 mg/ Sodium (Chloride) 265 mls @ 265 mls/hr IV Q12H [facility] Last Infusion: 01/22/24 04:18 Dose: Infused Insulin Glargine (Insulin Glargine,Hum.Rec.Anlog 100 Unit/Ml 10 Ml Vial) 16 unit SUBCUT DAILY [facility] Last Admin: 01/22/24 07:59 Dose: 16 unit Insulin Human Lispro (Insulin Lispro 100 Unit/Ml 3 Ml Vial) 0 unit SUBCUT QIDACHS [facility]; Protocol Last Admin: 01/22/24 07:59 Dose: 4 unit Metoprolol Tartrate (Metoprolol Tartrate 25 Mg Tablet) 25 mg PO BID [facility]; Protocol Last Admin: 01/22/24 07:58 Dose: 25 mg Nicotine (Nicotine 21 Mg Patch.Td24) 21 mg TRANSDERMA DAILY [facility] Last Admin: 01/22/24 08:29 Dose: Not Given Ondansetron HCl (Ondansetron Hcl 4 Mg/2 Ml Vial) 4 mg IVPUSH Q8H PRN PRN Reason: Nausea and Vomiting Pharmacy Consult (Consult Rx Vancomycin Dosing) 1 each MISCELLANE DAILY PRN PRN Reason: Consult order Senna (Sennosides 8.6 Mg Tablet) 17.2 mg PO BEDTIME PRN PRN Reason: Constipation Sodium Chloride (0.9 % Sodium Chloride Flush 3 Ml Syringe) 3 ml IVFLUSH QSHIFT [facility] Last Admin: 01/22/24 08:00 Dose: 3 ml Home Medications ?Medication ?Instructions ?Recorded ?Confirmed ?Last Taken ?Type No Known Home Meds 01/21/24 01/21/24 Unknown History Physical Exam 2 Vital Signs: Vital Signs: Last Vital Signs Temp 97.8 F 01/22/24 07:41 Pulse 88 01/22/24 07:58 Resp 20 01/22/24 07:41 BP 130/95 H 01/22/24 07:58 Pulse Ox 99 01/22/24 07:41 O2 Del Method Room Air 01/22/24 07:41 BMI result Body Mass Index 24.4 Const: General: cooperative, comfortable, no acute distress, well developed, alert and awake Nutritional Appearance: average body habitus and well nourished Orientation/consciousness: patient oriented x3 Limitations: no limitations HEENT: Head: Yes normocephalic and Yes atraumatic Neck: Neck: Yes trachea midline, Yes supple and Yes no JVD Resp: Effort & Inspection: normal respiratory effort Auscultation: clear to auscultation bilaterally Cardio: Jugular venous distension: no JVD Rate: tachycardic Rhythm: a bnormal rhythm irregularly irregular Heart sounds: S1 normal heart sound present, S2 normal heart sound present, no click, no gallops, no murmurs and no rubs GI: Auscultation: normal bowel sounds Skin: General skin exam: no rashes or lesions noted Neuro: General: patient oriented x3 and no focal motor deficits Extrem: General: Yes no clubbing, cyanosis or edema Objective Labs and Meds 01/22/24 06:15 01/22/24 06:15 Lab results: Laboratory Results - last 24 hr 01/21/24 01/21/24 01/21/24 09:14 10:20 10:39 WBC RBC Hgb Hct MCV MCH MCHC RDW Plt Count MPV Immature Gran % (Auto) Neut % (Auto) Lymph % (Auto) Castro % (Auto) Eos % (Auto) Baso % (Auto) Lymph # (Auto) Castro # (Auto) Eos # (Auto) Baso # (Auto) Abs Immat Gran (auto) Absolute Neuts (auto) Absolute Nucleated RBC Nucleated RBC % (auto) ESR 5 PT 10.6 L INR 0.9 APTT 28.2 Sodium 133 L Potassium 5.3 H Chloride 97 Carbon Dioxide 29 Anion Gap 12 BUN 14 Creatinine 0.90 Estim Creat Clear Calc 75.4 Estimated GFR > 60 POC Glucose 375 H* Random Glucose 590 H* Estimat Average Glucose Hemoglobin A1c % Lactic Acid 2.4 H* Lactic Acid F/U @ 2Hr Lactic Acid F/U @ 4Hr Calcium 9.9 Magnesium 2.2 Total Bilirubin 0.6 AST 19 ALT 17 Alkaline Phosphatase 90 Troponin I High Sens 13.7 C-Reactive Protein 0.21 B-Natriuretic Peptide 68 Total Protein 6.9 Albumin 4.1 Beta-Hydroxybutyrate 0.18 TSH 1.84 01/21/24 01/21/24 01/21/24 11:13 11:48 13:23 WBC RBC Hgb Hct MCV MCH MCHC RDW Plt Count MPV Immature Gran % (Auto) Neut % (Auto) Lymph % (Auto) Castro % (Auto) Eos % (Auto) Baso % (Auto) Lymph # (Auto) Castro # (Auto) Eos # (Auto) Baso # (Auto) Abs Immat Gran (auto) Absolute Neuts (auto) Absolute Nucleated RBC Nucleated RBC % (auto) ESR PT INR APTT Sodium Potassium Chloride Carbon Dioxide Anion Gap BUN Creatinine Estim Creat Clear Calc Estimated GFR POC Glucose 387 H* 319 H 221 H Random Glucose Estimat Average Glucose Hemoglobin A1c % Lactic Acid Lactic Acid F/U @ 2Hr Lactic Acid F/U @ 4Hr Calcium Magnesium Total Bilirubin AST ALT Alkaline Phosphatase Troponin I High Sens C-Reactive Protein B-Natriuretic Peptide Total Protein Albumin Beta-Hydroxybutyrate TSH 01/21/24 01/21/24 01/21/24 13:24 15:45 19:44 WBC RBC Hgb Hct MCV MCH MCHC RDW Plt Count MPV Immature Gran % (Auto) Neut % (Auto) Lymph % (Auto) Castro % (Auto) Eos % (Auto) Baso % (Auto) Lymph # (Auto) Castro # (Auto) Eos # (Auto) Baso # (Auto) Abs Immat Gran (auto) Absolute Neuts (auto) Absolute Nucleated RBC Nucleated RBC % (auto) ESR PT INR APTT Sodium Potassium Chloride Carbon Dioxide Anion Gap BUN Creatinine Estim Creat Clear Calc Estimated GFR POC Glucose 260 H Random Glucose Estimat Average Glucose TNP Hemoglobin A1c % > 14.0 H Lactic Acid Lactic Acid F/U @ 2Hr 2.3 H* Lactic Acid F/U @ 4Hr 1.4 Calcium Magnesium Total Bilirubin AST ALT Alkaline Phosphatase Troponin I High Sens C-Reactive Protein B-Natriuretic Peptide Total Protein Albumin Beta-Hydroxybutyrate TSH 01/21/24 01/22/24 01/22/24 23:17 03:43 06:15 WBC 9.9 RBC 4.94 Hgb 15.1 Hct 45.6 MCV 92.3 MCH 30.6 MCHC 33.1 RDW 12.8 Plt Count 233 MPV 11.2 Immature Gran % (Auto) 0.4 Neut % (Auto) 64.5 Lymph % (Auto) 26.6 Castro % (Auto) 6.7 Eos % (Auto) 1.2 Baso % (Auto) 0.6 Lymph # (Auto) 2.6 Castro # (Auto) 0.7 Eos # (Auto) 0.1 Baso # (Auto) 0.1 Abs Immat Gran (auto) 0.04 H Absolute Neuts (auto) 6.4 Absolute Nucleated RBC 0.000 Nucleated RBC % (auto) 0.0 ESR PT INR APTT Sodium 139 Potassium 3.9 D Chloride 107 Carbon Dioxide 27 Anion Gap 9 L BUN 12 Creatinine 0.81 Estim Creat Clear Calc 83.8 Estimated GFR > 60 POC Glucose 174 H 115 Random Glucose 142 H Estimat Average Glucose Hemoglobin A1c % Lactic Acid Lactic Acid F/U @ 2Hr Lactic Acid F/U @ 4Hr Calcium 8.7 D Magnesium Total Bilirubin AST ALT Alkaline Phosphatase Troponin I High Sens C-Reactive Protein B-Natriuretic Peptide Total Protein Albumin Beta-Hydroxybutyrate TSH 01/22/24 07:13 WBC RBC Hgb Hct MCV MCH MCHC RDW Plt Count MPV Immature Gran % (Auto) Neut % (Auto) Lymph % (Auto) Castro % (Auto) Eos % (Auto) Baso % (Auto) Lymph # (Auto) Castro # (Auto) Eos # (Auto) Baso # (Auto) Abs Immat Gran (auto) Absolute Neuts (auto) Absolute Nucleated RBC Nucleated RBC % (auto) ESR PT INR APTT Sodium Potassium Chloride Carbon Dioxide Anion Gap BUN Creatinine Estim Creat Clear Calc Estimated GFR POC Glucose 211 H Random Glucose Estimat Average Glucose Hemoglobin A1c % Lactic Acid Lactic Acid F/U @ 2Hr Lactic Acid F/U @ 4Hr Calcium Magnesium Total Bilirubin AST ALT Alkaline Phosphatase Troponin I High Sens C-Reactive Protein B-Natriuretic Peptide Total Protein Albumin Beta-Hydroxybutyrate TSH Imaging Radiologist's impression: Impressions Foot X-Ray 01/21/24 10:42 IMPRESSION: Soft tissue loss at the tip of the fourth toe with no definite evidence of osteomyelitis. Duplex Scan Lower Extremity Artery 01/21/24 14:23 IMPRESSION: There is occlusion of the distal superficial femoral artery, posterior tibial artery, and peroneal artery. There is reconstitution of flow within the popliteal artery with monophasic flow seen in the anterior tibial and dorsalis pedis arteries. Significant atherosclerotic plaque is seen in the common femoral artery, superficial femoral artery and popliteal artery. This critical result was discussed with Trang Bower MD by telephone on 01/21/2024 at 3:15 PM and it was ascertained that the content and urgency of the report was understood at the time of direct communication. Assessment and Plan (1) New onset atrial fibrillation: Status: Acute New onset atrial fibrillation of unclear duration. Patient has not seen a physician for long time. Also noted to be diabetic with having peripheral vascular disease with cellulitis/nonhealing ulcer. Patient has no current cardiac symptoms and no signs or symptoms of heart failure. Echocardiogram is being performed. Would need better rate control. Increase metoprolol to 50 mg b.i.d.. Agree with Eliquis 5 mg b.i.d. with CHADSVASc score of at least 3. Discussed with management of atrial fibrillation. At this point time will continue with rate control. Treat his underlying medical/surgical condition. Will set him up for follow-up as outpatient and will discuss about rhythm control approach given his age and better outcomes with normal sinus rhythm. This depends on his underlying structural heart issues as well as left atrial and right atrial chamber size. This was discussed with him. At this point time will sign of the case. Thank you for allowing me to partake in his care Procedures Date of Service Date of Service: 01/22/24
--- NOTE | 2024-01-22 10:35 | HO.WOUND ---
Wound Consult: Initial 74yr old?Male admitted to [facility] on 01/21/24 - See progress notes and H&P for detailed history.? Wound consult placed for Right 4th toe wound POA.? Patient agreeable to assessment and photo documentation.? Patient was seen by Dr. Gonzalez for vascular assessment - pending further testing results. He recommends outpt follow up with him. Recommend Wound Clinic Follow up outpatient. Etiology: ?Diabetic wound Measurements: see charting for detailed measurement Wound Bed: difficult to assess - pt was not able to tolerate cleansing. Animal hair noted along with adherent slough and what appears to be callused edges. Difficult to assess if bone exposed in wound bed or nail - will determine at tomorrows follow up assessment. Of note the whole toe was extremely painful - no dressing was in place - moist xeroform dressing applied to calm nerve endings down and attempt to loosen adherent debris from wound bed for better assessment Drainage / Odor: None noted Edges: ? macerated and callused [place] wound: red erythema and swelling noted, +pp noted - ? No Induration, Fluctuance noted Pain: patient reports significant pain Goals of Treatment: ? moist xeroform dressing applied to calm nerve endings down and attempt to loosen adherent debris from wound bed for better assessment Recommendations: 1. Maintain blood glucose levels per Providers order. 2. Right 4th Toe - Cleanse and irrigate with NS wound wash, pat dry. Cover wound bed with xeroform and dry gauze, ABD pad and wrap secure with tape. Change Daily. Recommend follow up out patient Wound Clinic at [address] [place] [id number] and to call for an appointment at time of discharge. [phone].? Re-consult wound care Nurse for wound deterioration or wound changes.
[2024-01-22 11:02] LABS: Glucose, Whole Blood 289 mg/dL (60-115)
--- NOTE | 2024-01-22 12:38 | HO.PM.IMPN ---
Subjective Subjective Date of Service: 01/22/24 Interval History: Seen and evaluated this morning RLE erythema and toe ulcer no fever or chills heart better controlled no other events Review of Systems Review of Systems: Yes all other systems are reviewed and are negative Physical Exam Vital Signs: Vital Signs: Last Vital Signs Temp 97.7 F 01/22/24 11:01 Pulse 89 01/22/24 11:01 Resp 20 01/22/24 11:01 BP 157/64 H 01/22/24 11:01 Pulse Ox 98 01/22/24 11:01 O2 Del Method Room Air 01/22/24 11:01 BMI result Body Mass Index 24.4 Const: Other: Constitutional : Awake, interactive, not in distress Neck : Normal inspection, Supple Cardiovascular : irregular, no JVP, no lower extremity edema Respiratory : good bilateral air entry, no crackles, wheezes or rhonchi Gastrointestinal: soft, lax, Normal bowel sounds, Non tender Skin : Warm, Dry, RLE erythema extending from foot to above ankle, toe tip ulcer Neurological : Alert & oriented x3, No focal deficit Objective Data Active Medications Acetaminophen (Acetaminophen 325 Mg Tablet) 650 mg PO Q6H PRN PRN Reason: Pain, Mild (Pain Scale 1-3) Last Admin: 01/22/24 06:02 Dose: 650 mg Documented By: EUGENE Apixaban (Apixaban 5 Mg Tablet) 5 mg PO BID [facility] Last Admin: 01/22/24 07:58 Dose: 5 mg Documented By: LATRICE Aspirin (Aspirin Enteric Coated 81 Mg Tablet.) 81 mg PO DAILY [facility] Last Admin: 01/22/24 07:58 Dose: 81 mg Documented By: LATRICE Glucose (Glucose Gel 15 Gm Gel..Gram.) 15 gm PO Q15M PRN; Protocol PRN Reason: per Hypoglycemia Standing Ord. Dextrose (D10) 250 mls @ 750 mls/hr IV Q15M PRN; Protocol PRN Reason: per Hypoglycemia Standing Ord. Piperacillin Sod/Tazobactam (Sod 4.5 gm/ Sodium Chloride) 100 mls @ 200 mls/hr IV Q6H [facility] Last Infusion: 01/22/24 09:43 Dose: Infused Documented By: LATRICE Vancomycin HCl 750 mg/ Sodium (Chloride) 265 mls @ 265 mls/hr IV Q12H [facility] Last Infusion: 01/22/24 04:18 Dose: Infused Documented By: EUGENE Insulin Glargine (Insulin Glargine,Hum.Rec.Anlog 100 Unit/Ml 10 Ml Vial) 16 unit SUBCUT DAILY [facility] Last Admin: 01/22/24 07:59 Dose: 16 unit Documented By: LATRICE Insulin Human Lispro (Insulin Lispro 100 Unit/Ml 3 Ml Vial) 0 unit SUBCUT QIDACHS [facility]; Protocol Last Admin: 01/22/24 11:40 Dose: 6 unit Documented By: LATRICE Metoprolol Tartrate (Metoprolol Tartrate 25 Mg Tablet) 25 mg PO BID [facility]; Protocol Last Admin: 01/22/24 07:58 Dose: 25 mg Documented By: LATRICE Nicotine (Nicotine 21 Mg Patch.Td24) 21 mg TRANSDERMA DAILY [facility] Last Admin: 01/22/24 08:29 Dose: Not Given Documented By: LATRICE Non-Admin Reason: Patient Refused Ondansetron HCl (Ondansetron Hcl 4 Mg/2 Ml Vial) 4 mg IVPUSH Q8H PRN PRN Reason: Nausea and Vomiting Pharmacy Consult (Consult Rx Vancomycin Dosing) 1 each MISCELLANE DAILY PRN PRN Reason: Consult order Senna (Sennosides 8.6 Mg Tablet) 17.2 mg PO BEDTIME PRN PRN Reason: Constipation Sodium Chloride (0.9 % Sodium Chloride Flush 3 Ml Syringe) 3 ml IVFLUSH QSHIFT [facility] Last Admin: 01/22/24 08:00 Dose: 3 ml Documented By: LATRICE Labs 01/22/24 06:15 01/22/24 06:15 Labs: Laboratory Results - last 24 hr 01/21/24 01/21/24 01/21/24 10:20 13:23 13:24 MCV MCH MCHC RDW Plt Count MPV Immature Gran % (Auto) Neut % (Auto) Lymph % (Auto) [place] % (Auto) Eos % (Auto) Baso % (Auto) Lymph # (Auto) [place] # (Auto) Eos # (Auto) Baso # (Auto) Abs Immat Gran (auto) Absolute Neuts (auto) Absolute Nucleated RBC Nucleated RBC % (auto) Anion Gap Estim Creat Clear Calc Estimated GFR POC Glucose 221 H Random Glucose Estimat Average Glucose Hemoglobin A1c % Lactic Acid F/U @ 2Hr 2.3 H* Lactic Acid F/U @ 4Hr Calcium Magnesium 2.2 01/21/24 01/21/24 01/21/24 15:45 19:44 23:17 MCV MCH MCHC RDW Plt Count MPV Immature Gran % (Auto) Neut % (Auto) Lymph % (Auto) [place] % (Auto) Eos % (Auto) Baso % (Auto) Lymph # (Auto) [place] # (Auto) Eos # (Auto) Baso # (Auto) Abs Immat Gran (auto) Absolute Neuts (auto) Absolute Nucleated RBC Nucleated RBC % (auto) Anion Gap Estim Creat Clear Calc Estimated GFR POC Glucose 260 H 174 H Random Glucose Estimat Average Glucose TNP Hemoglobin A1c % > 14.0 H Lactic Acid F/U @ 2Hr Lactic Acid F/U @ 4Hr 1.4 Calcium Magnesium 01/22/24 01/22/24 01/22/24 03:43 06:15 07:13 MCV 92.3 MCH 30.6 MCHC 33.1 RDW 12.8 Plt Count 233 MPV 11.2 Immature Gran % (Auto) 0.4 Neut % (Auto) 64.5 Lymph % (Auto) 26.6 [place] % (Auto) 6.7 Eos % (Auto) 1.2 Baso % (Auto) 0.6 Lymph # (Auto) 2.6 [place] # (Auto) 0.7 Eos # (Auto) 0.1 Baso # (Auto) 0.1 Abs Immat Gran (auto) 0.04 H Absolute Neuts (auto) 6.4 Absolute Nucleated RBC 0.000 Nucleated RBC % (auto) 0.0 Anion Gap 9 L Estim Creat Clear Calc 83.8 Estimated GFR > 60 POC Glucose 115 211 H Random Glucose 142 H Estimat Average Glucose Hemoglobin A1c % Lactic Acid F/U @ 2Hr Lactic Acid F/U @ 4Hr Calcium 8.7 D Magnesium 01/22/24 10:55 MCV MCH MCHC RDW Plt Count MPV Immature Gran % (Auto) Neut % (Auto) Lymph % (Auto) [place] % (Auto) Eos % (Auto) Baso % (Auto) Lymph # (Auto) [place] # (Auto) Eos # (Auto) Baso # (Auto) Abs Immat Gran (auto) Absolute Neuts (auto) Absolute Nucleated RBC Nucleated RBC % (auto) Anion Gap Estim Creat Clear Calc Estimated GFR POC Glucose 289 H Random Glucose Estimat Average Glucose Hemoglobin A1c % Lactic Acid F/U @ 2Hr Lactic Acid F/U @ 4Hr Calcium Magnesium Microbiology Microbiology Results: Microbiology 01/21/24 10:20 Blood Culture - Preliminary Blood - Venous No growth after 24 hours. Assessment and Plan (1) PAD (peripheral artery disease): Status: Acute (2) Non-healing ulcer of foot: Status: Acute (3) Osteomyelitis of toe of right foot: Status: Acute (4) Cellulitis of right foot: Status: Acute (5) New onset type 2 diabetes mellitus: Status: Acute Plan 74-year-old male without any known past medical history as patient has not been seen by medical provider in over 30 years admitted for further management of non healing R toe wound with cellulitis and suspected osteomyelitis as well as non onset atrial fibrillation with rvr. Better controlled Increase metoprolol to 50mg BID eliquis 5mg BID echo pending cardiology input appreciated monitor on telemetry # OSteomyelitis in Rt 4th toe 2/2 Nonhealing stage 2 ulcer with cellulitis continue IV vanco and zosyn (initiated 01/20) MRI foot showing osteomyelitis wound RN consult pending cultures ID consult Place PICC #Peripheral arterial disease Arterial doppler RLE: occlusion of the distal superficial femoral artery, posterior tibial artery, and peroneal artery. There is reconstitution of flow within the popliteal artery with monophasic flow seen in the anterior tibial and dorsalis pedis arteries. Significant atherosclerotic plaque is seen in the common femoral artery, superficial femoral artery and popliteal artery. Vascular surgery to do outpatient procedure for arterial blood supply Continue eliquis, asa #New onset type 2 diabetes with hyperglycemia HGB a1c >14 Increase lantus 20 units daily poc glucose, diabetic diet #Acute hyperkalemia resolved, follow BMP #Acute hyponetramia resolved follow lytes DVT prophylaxis - tonia full code pt requires inpt stay overnight for management of new onset atrial fibrillation requiring iv rate control, echo, and close cardiac monitoring. He will also require iv antibiotics for management of non healing ulcer of rle in uncontrolled type 2 diabetic with associated cellulitis and suspected osteomyelitis which will require expert consultation and probable nursing home amputation vs surgical intervention Quality Stroke Does the patient have a stroke diagnosis?: No VTE Prior VTE?: No VTE Risk Level:: Medical - moderate - high VTE Device Contraindication: Treatment Not Indicated VTE Drug Contraindication: N/A - Med Ordered
[2024-01-22 13:16] LABS: Vancomycin Random 7.8 mcg/mL (15-20)
--- NOTE | 2024-01-22 13:25 | HE.PHANOTE ---
RE: VANCO DOSING Trough came back as 7.8. Dose is increased to 1250 mg q12h, starting @1500 on 01/22/24 with predicted IAW=925 and trough=12.3. Next random is scheduled for 01/23/24 @1300.
[2024-01-22 16:01] LABS: Glucose, Whole Blood 84 mg/dL (60-115)
[2024-01-22] MEDS: vancomycin HCL 1,250 MG in 0.9 % Sodium Chloride 250 ML 166.67 MG IV (16:23)
[2024-01-22 20:20] LABS: Glucose, Whole Blood 222 mg/dL (60-115)
[2024-01-22] MEDS: Metoprolol Tartrate 50 MG TABLET PO (20:49)
--- NOTE | 2024-01-22 23:50 | P.CNID_ITS ---
History of Present Illness Data of Consult Service Date: 01/22/24 Requesting physician: Joanie Del Rosario Primary Care Provider: Josse Zuniga MD [facility] Reason for consult: right foot infection He presents with right foot discomfort and swelling. He has no fever or chills. He stubbed his toe last month and didnt heal fourth digit area. Review of Systems 2 Review of Systems: Yes all other systems are reviewed and are negative PMFSH Past Medical History Medical History Type 2 diabetes mellitus Atrial fibrillation Social History Social History Household Members: None Housing: House Do you presently have visiting nurse or other home services: No Patient Tobacco Use Status: Current everyday Tobacco user Tobacco use type: Cigarette Smoked in Last 30 Days: Yes e-Cigarette/Vaping Use: Currently Using Patient Interested in Nicotine Replacement: No Use of substances other than those prescribed or required for medical reasons: No Currently Displaying Signs/Symptoms of Drug Intoxication Withdrawal: No Have you been hit, kicked, punched, or otherwise hurt by someone within the past year? If so, by whom?: No Do you feel safe in your current relationship?: No Current Relationship Is there a partner from a previous relationship who is making you feel unsafe now?: No Are you made to feel afraid or neglected: No Advance Directives: No Advance Directives Information Provided: No Recently lost weight without trying: No How much weight loss: Not applicable Eating poorly because of decreased appetite: No Nutrition screen score: 0 Nutrition Risks: No Nutritional Risk Poor oral hygiene: No service: No Meds Allergies Allergy/AdvReac Type Severity Reaction Status Date / Time No Known Allergies Allergy Verified 01/21/24 08:52 Active Medications: Current Medications Acetaminophen (Acetaminophen 325 Mg Tablet) 650 mg PO Q6H PRN PRN Reason: Pain, Mild (Pain Scale 1-3) Last Admin: 01/22/24 20:55 Dose: 650 mg Apixaban (Apixaban 5 Mg Tablet) 5 mg PO BID [facility] Last Admin: 01/22/24 20:49 Dose: 5 mg Aspirin (Aspirin Enteric Coated 81 Mg Tablet.) 81 mg PO DAILY [facility] Last Admin: 01/22/24 07:58 Dose: 81 mg Glucose (Glucose Gel 15 Gm Gel..Gram.) 15 gm PO Q15M PRN; Protocol PRN Reason: per Hypoglycemia Standing Ord. Dextrose (D10) 250 mls @ 750 mls/hr IV Q15M PRN; Protocol PRN Reason: per Hypoglycemia Standing Ord. Piperacillin Sod/Tazobactam (Sod 4.5 gm/ Sodium Chloride) 100 mls @ 200 mls/hr IV Q6H [facility] Last Admin: 01/22/24 20:50 Dose: 100 mls/hr Vancomycin HCl 1,250 mg/ (Sodium Chloride) 250 mls @ 166.667 mls/hr IV Q12H [facility] Last Infusion: 01/22/24 18:00 Dose: Infused Insulin Glargine (Insulin Glargine,Hum.Rec.Anlog 100 Unit/Ml 10 Ml Vial) 20 unit SUBCUT DAILY [facility] Insulin Human Lispro (Insulin Lispro 100 Unit/Ml 3 Ml Vial) 0 unit SUBCUT QIDACHS [facility]; Protocol Last Admin: 01/22/24 20:50 Dose: 4 unit Metoprolol Tartrate (Metoprolol Tartrate 50 Mg Tablet) 50 mg PO BID [facility]; Protocol Last Admin: 01/22/24 20:49 Dose: 50 mg Nicotine (Nicotine 21 Mg Patch.Td24) 21 mg TRANSDERMA DAILY [facility] Last Admin: 01/22/24 08:29 Dose: Not Given Ondansetron HCl (Ondansetron Hcl 4 Mg/2 Ml Vial) 4 mg IVPUSH Q8H PRN PRN Reason: Nausea and Vomiting Pharmacy Consult (Consult Rx Vancomycin Dosing) 1 each MISCELLANE DAILY PRN PRN Reason: Consult order Senna (Sennosides 8.6 Mg Tablet) 17.2 mg PO BEDTIME PRN PRN Reason: Constipation Sodium Chloride (0.9 % Sodium Chloride Flush 3 Ml Syringe) 3 ml IVFLUSH QSHIFT [facility] Last Admin: 01/22/24 17:18 Dose: Not Given Home Medications ?Medication ?Instructions ?Recorded ?Confirmed ?Last Taken ?Type No Known Home Meds 01/21/24 01/21/24 Unknown History Physical Exam 2 Vital Signs: Vital Signs: Last Vital Signs Temp 98.7 F 01/22/24 19:06 Pulse 99 01/22/24 19:06 Resp 16 01/22/24 19:06 BP 125/90 H 01/22/24 19:06 Pulse Ox 99 01/22/24 19:06 O2 Del Method Room Air 01/22/24 19:06 BMI result Body Mass Index 24.4 Const: General: cooperative HEENT: Head: Yes normal to inspection Face and sinus: Yes normal facial exam Mouth: Normal oral and palatal mucosa present Teeth and gingiva: d entition normal Eyes: General: appearance normal, both eyes and all related structures P upils: Equal, round and reactive pupils present Resp: Effort & Inspection: normal respiratory effort Cardio: Rate: regular rate Rhythm: regular rhythm GI: Palpation (GI): Soft to palpation and nontender : General: Yes no CVA tenderness Back/Spine/Pelvis: Back: no CVA tenderness Skin: General skin exam: no rashes or lesions noted Neuro: General: moves all extremities Cranial nerves: Yes Equal, round and reactive pupils present Extrem: Other: right foot macerated area forefoot Psych: Appearance: grossly normal Results Labs 01/22/24 06:15 01/22/24 06:15 Labs: Short CBC 01/22/24 Range/Units 06:15 WBC 9.9 (4.8-10.8) X10*3/uL Hgb 15.1 (14.0-18.0) g/dl Hct 45.6 (42.0-52.0) % Plt Count 233 (160-400) X10*3/uL BMP 01/22/24 06:15 Sodium 139 Potassium 3.9 D Chloride 107 Carbon Dioxide 27 BUN 12 Creatinine 0.81 Calcium 8.7 D Microbiology Microbiology Results: Microbiology 01/21/24 10:57 Blood - Venous Blood Culture - Preliminary No growth after 24 hours. 01/21/24 10:20 Blood - Venous Blood Culture - Preliminary No growth after 24 hours. Assessment and Plan (1) Osteomyelitis of toe of right foot: Status: Acute Plan Right diabetic foot OM There is no organism so far Would continue piperacillin/tazobactam and Vancomycin ,duration likely six weeks but antibiotics depends on culture.
[2024-01-23] VITALS (7 sets, daily range): BP systolic 114–138; BP diastolic 57–89; PULSE 74–98; RESP 18–20; TEMP 36.2–36.7; O2SAT 96–100
[2024-01-23] MEDS: oxyCODONE HCl Immed Release 5 MG TABLET PO ×2 (01:41→20:53)
[2024-01-23] MEDS: 0.9 % Sodium Chloride Flush 3 ML SYRINGE IVFLUSH ×4 (01:43→20:54)
[2024-01-23] MEDS: Piperacillin Sodium/Tazobactam 4.5 GM in 0.9 % Sodium Chloride 100 ML IV ×3 (02:56→13:41)
[2024-01-23] MEDS: vancomycin HCL 1,250 MG in 0.9 % Sodium Chloride 250 ML 166.67 MG IV ×2 (03:51→14:29)
[2024-01-23 06:53] LABS: Blood Urea Nitrogen 10 mg/dL (9-16); Calcium 8.9 mg/dL (8.4-10.2); Creatinine Clr Calc Pharmacy 80.8; Estimated Glomerular Filt Rate > 60; Glucose Random 111 mg/dL (60-115)
[2024-01-23 07:11] LABS: Anion Gap 11 (12-20); Carbon Dioxide 28 mmol/L (22-29); Chloride 106 mmol/L (96-108); Potassium 4.9 mmol/L (3.3-5.1); Sodium 140 mmol/L (135-145)
[2024-01-23] MEDS: Apixaban 5 MG TABLET PO ×2 (07:52→20:53)
[2024-01-23] MEDS: Aspirin Enteric Coated 81 MG TABLET.DR PO (07:52)
[2024-01-23] MEDS: Metoprolol Tartrate 50 MG TABLET PO ×2 (07:53→20:53)
[2024-01-23] MEDS: Insulin Glargine,Hum.rec.anlog 100 UNIT/ML 10 ML VIAL 20 UNIT SUBCUT (07:54)
[2024-01-23 07:56] LABS: Glucose, Whole Blood 114 mg/dL (60-115)
--- NOTE | 2024-01-23 10:40 | MHC.CM.PN ---
Pt requires IV ABX for 6 weeks, he would like to have care for this at home. The barrier to this is that he is not active with a PCP, appt. is scheduled for March. CM has referred to [facility] and [facility], and attempting to call PCP office to determine if new appt can be moved to a sooner date.
[2024-01-23 12:04] LABS: Glucose, Whole Blood 205 mg/dL (60-115)
[2024-01-23] MEDS: Insulin Lispro 100 UNIT/ML 3 ML VIAL SUBCUT ×2 (12:08→17:48)
[2024-01-23 13:29] LABS: Vancomycin Random 14.2 mcg/mL (15-20)
--- NOTE | 2024-01-23 15:02 | HO.PM.IMPN ---
Subjective Subjective Date of Service: 01/23/24 Interval History: Seen and evaluated this morning MRI showing OM of right 4th toe no fever or chills heart rate better controlled no other events Review of Systems Review of Systems: Yes all other systems are reviewed and are negative Physical Exam Vital Signs: Vital Signs: Last Vital Signs Temp 97.6 F 01/23/24 12:16 Pulse 74 01/23/24 12:16 Resp 18 01/23/24 12:16 BP 135/66 01/23/24 12:16 Pulse Ox 96 01/23/24 12:16 O2 Del Method Room Air 01/23/24 12:16 BMI result Body Mass Index 24.4 Const: Other: Constitutional : Awake, interactive, not in distress Neck : Normal inspection, Supple Cardiovascular : irregular, no JVP, no lower extremity edema Respiratory : good bilateral air entry, no crackles, wheezes or rhonchi Gastrointestinal: soft, lax, Normal bowel sounds, Non tender Skin : Warm, Dry, RLE erythema extending from foot to above ankle, toe tip ulcer Neurological : Alert & oriented x3, No focal deficit Objective Data Active Medications Acetaminophen (Acetaminophen 325 Mg Tablet) 650 mg PO Q6H PRN PRN Reason: Pain, Mild (Pain Scale 1-3) Last Admin: 01/22/24 20:55 Dose: 650 mg Documented By: EUGENE Apixaban (Apixaban 5 Mg Tablet) 5 mg PO BID [facility] Last Admin: 01/23/24 07:52 Dose: 5 mg Documented By: ESTHER Aspirin (Aspirin Enteric Coated 81 Mg Tablet.) 81 mg PO DAILY [facility] Last Admin: 01/23/24 07:52 Dose: 81 mg Documented By: ESTHER Glucose (Glucose Gel 15 Gm Gel..Gram.) 15 gm PO Q15M PRN; Protocol PRN Reason: per Hypoglycemia Standing Ord. Dextrose (D10) 250 mls @ 750 mls/hr IV Q15M PRN; Protocol PRN Reason: per Hypoglycemia Standing Ord. Piperacillin Sod/Tazobactam (Sod 4.5 gm/ Sodium Chloride) 100 mls @ 200 mls/hr IV Q6H [facility] Last Infusion: 01/23/24 14:12 Dose: Infused Documented By: ESTHER Vancomycin HCl 1,250 mg/ (Sodium Chloride) 250 mls @ 166.667 mls/hr IV Q12H [facility] Last Admin: 01/23/24 14:29 Dose: 166.67 mls/hr Documented By: ESTHER Insulin Glargine (Insulin Glargine,Hum.Rec.Anlog 100 Unit/Ml 10 Ml Vial) 20 unit SUBCUT DAILY [facility] Last Admin: 01/23/24 07:54 Dose: 20 unit Documented By: ESTHER Insulin Human Lispro (Insulin Lispro 100 Unit/Ml 3 Ml Vial) 0 unit SUBCUT QIDACHS [facility]; Protocol Last Admin: 01/23/24 12:08 Dose: 4 unit Documented By: ESTHER Metoprolol Tartrate (Metoprolol Tartrate 50 Mg Tablet) 50 mg PO BID [facility]; Protocol Last Admin: 01/23/24 07:53 Dose: 50 mg Documented By: ESTHER Nicotine (Nicotine 21 Mg Patch.Td24) 21 mg TRANSDERMA DAILY [facility] Last Admin: 01/23/24 07:56 Dose: Not Given Documented By: ESTHER Non-Admin Reason: Patient Refused Ondansetron HCl (Ondansetron Hcl 4 Mg/2 Ml Vial) 4 mg IVPUSH Q8H PRN PRN Reason: Nausea and Vomiting Oxycodone HCl (Oxycodone Hcl Immed Release 5 Mg Tablet) 5 mg PO Q4H PRN PRN Reason: Pain, Severe (Pain Scale 7-10) Last Admin: 01/23/24 01:41 Dose: 5 mg Documented By: EUGENE Pharmacy Consult (Consult Rx Vancomycin Dosing) 1 each MISCELLANE DAILY PRN PRN Reason: Consult order Senna (Sennosides 8.6 Mg Tablet) 17.2 mg PO BEDTIME PRN PRN Reason: Constipation Sodium Chloride (0.9 % Sodium Chloride Flush 3 Ml Syringe) 3 ml IVFLUSH QSHIFT [facility] Last Admin: 01/23/24 07:53 Dose: 3 ml Documented By: ESTHER Labs 01/22/24 06:15 01/23/24 06:16 Labs: Laboratory Results - last 24 hr 01/22/24 01/22/24 01/23/24 15:49 20:07 06:16 Anion Gap 11 L Estim Creat Clear Calc 80.8 Estimated GFR > 60 POC Glucose 84 222 H Random Glucose 111 Calcium 8.9 Random Vancomycin 01/23/24 01/23/24 01/23/24 07:20 11:34 12:49 Anion Gap Estim Creat Clear Calc Estimated GFR POC Glucose 114 205 H Random Glucose Calcium Random Vancomycin 14.2 L Microbiology Microbiology Results: Microbiology 01/21/24 10:57 Blood Culture - Preliminary Blood - Venous No growth after 48 hours. 01/21/24 10:20 Blood Culture - Preliminary Blood - Venous No growth after 48 hours. Assessment and Plan (1) Osteomyelitis of toe of right foot: Status: Acute (2) Non-healing ulcer of foot: Status: Acute (3) Cellulitis of right foot: Status: Acute (4) New onset type 2 diabetes mellitus: Status: Acute (5) New onset atrial fibrillation: Status: Acute Plan 74-year-old male without any known past medical history as patient has not been seen by medical provider in over 30 years admitted for further management of non healing R toe wound with cellulitis and suspected osteomyelitis as well as non onset atrial fibrillation with rvr. # New diagnosed Afib w RvR Better controlled metoprolol to 50mg BID eliquis 5mg BID echo w decrease EF 40-45% cardiology input appreciated monitor on telemetry # OSteomyelitis in Rt 4th toe 2/2 Nonhealing stage 2 ulcer with cellulitis continue IV vanco and zosyn (initiated 01/20) MRI foot showing osteomyelitis wound RN consult negative cultures ID consult Place PICC #Peripheral arterial disease Arterial doppler RLE: occlusion of the distal superficial femoral artery, posterior tibial artery, and peroneal artery. There is reconstitution of flow within the popliteal artery with monophasic flow seen in the anterior tibial and dorsalis pedis arteries. Significant atherosclerotic plaque is seen in the common femoral artery, superficial femoral artery and popliteal artery. Vascular surgery to do outpatient procedure for arterial blood supply Continue eliquis, asa #New onset type 2 diabetes with hyperglycemia HGB a1c >14 Increase lantus 20 units daily poc glucose, diabetic diet #Acute hyperkalemia resolved, follow BMP #Acute hyponetramia resolved follow lytes DVT prophylaxis - eliquis full code pt requires inpt stay overnight for management of new onset atrial fibrillation requiring iv rate control, echo, and close cardiac monitoring. He will also require iv antibiotics for management of non healing ulcer of rle in uncontrolled type 2 diabetic with associated cellulitis and suspected osteomyelitis which will require expert consultation and probable senior care amputation vs surgical intervention Quality Stroke Does the patient have a stroke diagnosis?: No VTE Prior VTE?: No VTE Risk Level:: Medical - moderate - high VTE Device Contraindication: Treatment Not Indicated VTE Drug Contraindication: N/A - Med Ordered
--- NOTE | 2024-01-23 15:28 | P.CDIM_ITS ---
PROVIDER RESPONSE TEXT: To clarify, the appropriate diagnosis supported by the clinical indicators: Acute QUERY TEXT: PHYSICIAN'S DOCUMENTATION REQUEST Date of Query: 01/23/2024 10:03 AM EDT Patient Name: Juvenal Kate Admit Date: 01/21/2024 Dear Joanie Del Rosario, A review of the medical record indicates additional documentation may be needed. Please review below and update the documentation accordingly. Clinical Indicators: Per Hospitalist Progress Note 01/22/24: Osteomyelitis in Rt 4th toe 2/2 Nonhealing stage 2 ulcer with cellulitis continue IV vanco and zosyn (initiated 01/20) MRI foot showing osteomyelitis Clarify which of the following accurately represents the acuity of the Osteomyelitis. Possible options might include: Acute Acute on chronic Compensated Chronic stable condition Remission Other (explain) Clinically unable to determine (explain) Thank you, Eden Plascencia RN Use of terms such as suspected, likely, concern for, or probable (associated with a specific diagnosi s that is being evaluated, monitored, or treated as if it exists) are acceptable and can be coded in the inpatient se tting, when documented at the time of discharge. Please use your independent medical judgment in providing your response. THIS QUERY IS PART OF THE PERMANENT MEDICAL RECORD
--- NOTE | 2024-01-23 15:48 | PC.NURSE ---
pt to IR for PICC line
--- NOTE | 2024-01-23 17:07 | P.PICC_ITS ---
PICC Line Insertion NPICC Diagnosis: Osteomyelitis Indication: 6wks ABT Pertinent Labs: Reviewed Technique: Following informed consent including risks, benefits and alternatives and using sterile technique including cap and mask, sterile gown, glove and drape, the right arm was prepped and draped in the usual sterile fashion of full barrier technique with CHG. Following completion of [place] Protocol the skin and soft tissues were anesthetized with 1% Lidocaine plain. Using ultrasound guidance, right basilic vein access was obtained. Over an 0.018 wire through peel-away sheath, a 4FR single lumen PASV Power PICC line was positioned. Catheter length is 40cm internal length, 0cm external length, for a total trimmed length of 40cm . The procedure was performed in rm 272. Tip verification was with chest Xray as pt has history of A-fib. Tip located in SVC by Chest xray. Ultrasound was used to document vein patency and for needle entry. A formal ultrasound picture and cardiac rhythm strip was recorded. Dr Melgar notified of chest Xray, read and released the line for use and it is currently dressed with a StatLock, Tegaderm, and CHG disc. Verification has been performed for blood return and line patency. Arm Circumference: 29cm Equipment: Kickboard PowerPICC SOLO catheter Catheter Type: 4fr single lumen PASV PICC line catheter Lot #: [id number]
[2024-01-23 17:43] LABS: Glucose, Whole Blood 175 mg/dL (60-115)
[2024-01-23 20:50] LABS: Glucose, Whole Blood 118 mg/dL (60-115)
[2024-01-23] MEDS: 0.9 % Sodium Chloride Flush 10 ML SYRINGE 5 ML IVFLUSH (21:11)
[2024-01-24 03:48] VITALS: BP 144/73; PULSE 77; RESP 18; TEMP 36.7; O2SAT 95
[2024-01-24 07:04] LABS: Anion Gap 9 (12-20); Blood Urea Nitrogen 10 mg/dL (9-16); Carbon Dioxide 29 mmol/L (22-29); Chloride 107 mmol/L (96-108); Creatinine Clr Calc Pharmacy 88.2; Estimated Glomerular Filt Rate > 60; Glucose Random 93 mg/dL (60-115); Potassium 4.3 mmol/L (3.3-5.1); Sodium 141 mmol/L (135-145)
[2024-01-24 07:10] VITALS: BP 146/70; PULSE 89; RESP 18; TEMP 36.3; O2SAT 96
[2024-01-24] MEDS: Aspirin Enteric Coated 81 MG TABLET.DR PO (07:56)
[2024-01-24] MEDS: Apixaban 5 MG TABLET PO (07:57)
[2024-01-24] MEDS: Metoprolol Tartrate 50 MG TABLET PO (07:57)
[2024-01-24] MEDS: 0.9 % Sodium Chloride Flush 3 ML SYRINGE IVFLUSH (07:59)
[2024-01-24] MEDS: 0.9 % Sodium Chloride Flush 10 ML SYRINGE 5 ML IVFLUSH (08:00)
[2024-01-24 08:09] LABS: Glucose, Whole Blood 94 mg/dL (60-115)
[2024-01-24] MEDS: Insulin Glargine,Hum.rec.anlog 100 UNIT/ML 10 ML VIAL 20 UNIT SUBCUT (09:39)
--- NOTE | 2024-01-24 10:49 | MHC.CM.PN ---
Patient has declined STR. Per Daughter/HCP/Pamella, Patient lives with her and one of her children are with her at all times; MD is aware of and has approved home with services instead of STR. A referral has been made to [facility] and they are aware of today's dc.Pamella will transport Patient home today at 1PM.
[2024-01-24 10:56] LABS: Glucose, Whole Blood 199 mg/dL (60-115)
[2024-01-24 11:15] VITALS: BP 135/94; PULSE 98; RESP 18; TEMP 36.4; O2SAT 98
[2024-01-24] MEDS: Insulin Lispro 100 UNIT/ML 3 ML VIAL SUBCUT (11:34)
--- NOTE | 2024-01-24 12:35 | MHC.CM.PN ---
Dr. Chen has agreed to write orders for home IV ABT only. [facility] provided Patient with a bedside teach for the IV and per MD in ROUNDS, diabetic teaching (new DM) will be provided here at bedside. CM will follow.
[2024-01-24] MEDS: Ertapenem Sodium 1 GM in 0.9 % Sodium Chloride 50 ML IV (12:38)
[2024-01-24 13:37] LABS: Vancomycin Random 7.5 mcg/mL (15-20)
--- NOTE | 2024-01-24 14:06 | MHC.CM.PN ---
Per MD, Patient is medically cleared for dc to home today with [facility] for 6 weeks of IV ABT.
--- NOTE | 2024-01-24 14:16 | MHC.CM.PN ---
Last IMM addressed on 01/22/2024.
--- NOTE | 2024-01-24 14:35 | PC.NURSE ---
teaching was done with the pt how to inject insulin ,how to recognize s&s hypo and hyperglycemia , how to do wound care . pt was able to demonstrate back and verbalized understanding
--- NOTE | 2024-01-24 14:44 | MHC.CM.PN ---
[facility] pharmacy contacted by this CM, they will bring pt a glucometer that was ordered by and provide teaching for it at the bedside prior to pt discharging.
--- NOTE | 2024-01-24 15:01 | P.DS_ITS ---
DS: Providers Provider Date of Service: 01/24/24 Date of admission: 01/21/24 13:24 Date of discharge: 01/24/24 Primary care physician: Josse Zuniga MD Consults: 01/21/24 13:24 Consult to Cardiology Routine Consulting Provider: [facility] Cardiovascular Services Reason for consultation: new onset afib rvr 01/21/24 14:04 Consult to Wound Care Routine Reason for consultation: non healing ulcer right 4th toe 01/21/24 15:17 Consult to Vascular Surgery Routine Consulting Provider: [facility] Vascular Services Reason for consultation: singificant PAD RLE, nonhealing ulcer 01/22/24 12:36 Consult to Infectious Diseases Routine Consulting Provider: [facility] Infectious Disease Reason for consultation: Osteomyelitis for eval and rec. DS: Diagnosis Discharge Diagnosis (1) Osteomyelitis of toe of right foot: Status: Acute (2) Non-healing ulcer of foot: Status: Acute (3) Cellulitis of right foot: Status: Acute (4) New onset type 2 diabetes mellitus: Status: Acute (5) New onset atrial fibrillation: Status: Acute (6) Diabetic foot ulcer with osteomyelitis: Status: Acute (7) PAD (peripheral artery disease): Status: Acute (8) Chronic HFrEF (heart failure with reduced ejection fraction): Status: Acute DS: Summary Hospital Course Hospital Course: From the history and physical by the admitting hospitalist, BIB Diehl, 01/21/24: 74-year-old male without any known past medical history as patient has not been seen by medical provider in over 30 years presented to the ED earlier today for evaluation of a toe injury/infection. He reports dropped a piece of wood on the right 4th toe and then stopped this toe several days later about 1 month ago. Since then, the toe has been swollen, intermittently painful with intermittent purulent drainage. Denies any fevers or chills. He reports he has been treating this with topical antibiotic ointment, hydrogen peroxide but has experienced no improvement. Since arrival, has been found to be in new onset atrial fibrillation with tachycardia up to 139. No hypotension or fevers. Hematology studies unremarkable. Renal function and electrolyte levels normal except for sodium 133 potassium 5.3. Initial glucose 590. Initial lactic acid 2.4, repeat 2.3. Troponin 13.7. CRP 0.21, ESR 5. Beta hydroxybutyrate 0.18. TSH 1.84, magnesium pending. X-ray of the foot negative for any acute osseous abnormality. EKG shows atrial fibrillation with RVR, rate 128 and right bundle branch block. No DINA or depressions. Pt will be admitted for further management of foot infection new onset afib rvr. In the ED has been treated with 3 L IV NS, 5 units regular insulin, and total of 30 mg IV diltiazem. He was admitted to the telemetry for nonhealing ulcer suspicious for underlying osteomyelitis, new-onset AF, and new-onset DM2. Hospital course by problem: AF/RVR - Started on metoprolol for rate control and apixaban for stroke prevention. TTE showed EF decreased to 40-45% with mild LVH. Cardiology was consulted and he will need outpatient follow-up. He remained in persistent AF with good rate control. osteomyelitis of right 4th toe due to nonhealing diabetic ulcer - Started on IV vancomycin and piperacillin-tazobactam. Cultures negative. MRI showed underlying osteomyelitis. Wound Care and Infectious Disease were consulted. PICC was placed and he was discharged on 39 days of ertapenem. Wound Care instructions as below under Discharge Plan and will need follow-up with ID and the [facility] Wound Care Clinic. He was set up with outpatient daily ertapenem infusion services at home. PAD - RLE arterial duplex showed occlusion of the distal SFA, posterior tibila artery, and peroneal artery. Vascular Surgery was consulted and will see him as an outpatient for revascularization. He was started on aspirin and atorvastatin New-onset DM2 - A1c was >14. He was started on Lantus and discharged on Lantus plus metformin. He underwent diabetic education. He will follow-up with his new PCP on 01/30/24 and at that time, VNA services may be considered. Time Attestation Discharge Coordination Time (in mins): 35 Quality: Safe Use of Opioids Does Pt have an Active Cancer Diagnosis on the Problem List?: No Quality: Stroke Does the patient have a stroke diagnosis?: No Physical Exam Vital Signs: Vital Signs: Last Vital Signs Temp 97.6 F 01/24/24 11:15 Pulse 98 01/24/24 11:15 Resp 18 01/24/24 11:15 BP 135/94 H 01/24/24 11:15 Pulse Ox 98 01/24/24 11:15 O2 Del Method Room Air 01/24/24 11:15 BMI result Body Mass Index 24.4 Gen: in no acute distress HEENT: sclera anicteric, moist mucus membranes Neck: supple Lungs: clear to auscultation bilaterally Heart: regular rate and rhythm, no murmurs Abd: soft, non-tender, non-distended Ext: no edema Skin: warm/well-perfused, R 4th toe with dry ulcer Neuro: alert and oriented x3, no focal findings Psych: appropriate affect DS: Data Data Completed and Pending Completed studies during hospitalization [Text1]: Laboratory Results WBC 9.9 X10*3/uL (4.8-10.8) 01/22/24 06:15 RBC 4.94 X10*6/uL (4.60-5.80) 01/22/24 06:15 Hgb 15.1 g/dl (14.0-18.0) 01/22/24 06:15 Hct 45.6 % (42.0-52.0) 01/22/24 06:15 MCV 92.3 fL (80.0-98.0) 01/22/24 06:15 MCH 30.6 pg (27.0-33.0) 01/22/24 06:15 MCHC 33.1 g/dl (31.0-36.0) 01/22/24 06:15 RDW 12.8 % (11.0-16.0) 01/22/24 06:15 Plt Count 233 X10*3/uL (160-400) 01/22/24 06:15 MPV 11.2 fL (9.4-12.4) 01/22/24 06:15 Immature Gran % (Auto) 0.4 % (0.0-0.4) 01/22/24 06:15 Neut % (Auto) 64.5 % (45-73) 01/22/24 06:15 Lymph % (Auto) 26.6 % (20-40) 01/22/24 06:15 Hamilton % (Auto) 6.7 % (2-11) 01/22/24 06:15 Eos % (Auto) 1.2 % (0-4) 01/22/24 06:15 Baso % (Auto) 0.6 % (0-2) 01/22/24 06:15 Lymph # (Auto) 2.6 X10*3/uL (1.2-4.9) 01/22/24 06:15 Hamilton # (Auto) 0.7 X10*3/uL (0.1-1.2) 01/22/24 06:15 Eos # (Auto) 0.1 X10*3/uL (0.0-0.4) 01/22/24 06:15 Baso # (Auto) 0.1 X10*3/uL (0.0-0.2) 01/22/24 06:15 Abs Immat Gran (auto) 0.04 X10*3/uL (0.00-0.03) H 01/22/24 06:15 Absolute Neuts (auto) 6.4 x10*3/uL (2.0-8.3) 01/22/24 06:15 Absolute Nucleated RBC 0.000 X10*3/uL (0.0-0.012) 01/22/24 06:15 Nucleated RBC % (auto) 0.0 /100WBC (0.0-0.2) 01/22/24 06:15 ESR 5 MM/HR (0-15) 01/21/24 09:14 PT 10.6 SEC (11.1-13.3) L 01/21/24 10:20 INR 0.9 (0.9-1.1) 01/21/24 10:20 APTT 28.2 SEC (26.0-36.8) 01/21/24 10:20 Sodium 141 mmol/L (135-145) 01/24/24 06:01 Potassium 4.3 mmol/L (3.3-5.1) 01/24/24 06:01 Chloride 107 mmol/L (96-108) 01/24/24 06:01 Carbon Dioxide 29 mmol/L (22-29) 01/24/24 06:01 Anion Gap 9 (12-20) L 01/24/24 06:01 BUN 10 mg/dL (9-16) 01/24/24 06:01 Creatinine 0.77 mg/dL (0.5-1.4) 01/24/24 06:01 Estim Creat Clear Calc 88.2 01/24/24 06:01 Estimated GFR > 60 01/24/24 06:01 POC Glucose 199 mg/dL (60-115) H 01/24/24 10:51 Random Glucose 93 mg/dL (60-115) 01/24/24 06:01 Estimat Average Glucose TNP 01/21/24 15:45 Hemoglobin A1c % > 14.0 % (<6.0) H 01/21/24 15:45 Lactic Acid 2.4 mmol/L (0.5-2.0) H* 01/21/24 10:20 Lactic Acid F/U @ 2Hr 2.3 mmol/L (0.5-2.0) H* 01/21/24 13:24 Lactic Acid F/U @ 4Hr 1.4 mmol/L (0.5-2.0) 01/21/24 15:45 Calcium 9.0 mg/dL (8.4-10.2) 01/24/24 06:01 Magnesium 2.2 mg/dL (1.6-2.6) 01/21/24 10:20 Total Bilirubin 0.6 mg/dL (0.0-1.0) 01/21/24 09:14 AST 19 U/L (5-37) 01/21/24 09:14 ALT 17 U/L (0-40) 01/21/24 09:14 Alkaline Phosphatase 90 U/L (39-117) 01/21/24 09:14 Troponin I High Sens 13.7 ng/L (<3.5-35.0) 01/21/24 10:20 C-Reactive Protein 0.21 mg/dL (< or = 0.50) 01/21/24 09:14 B-Natriuretic Peptide 68 pg/mL (<100) 01/21/24 09:14 Total Protein 6.9 g/dL (6.5-8.0) 01/21/24 09:14 Albumin 4.1 g/dL (3.5-5.0) 01/21/24 09:14 Beta-Hydroxybutyrate 0.18 mmol/L (0.02-0.27) 01/21/24 09:14 TSH 1.84 uIU/mL (0.32-4.0) 01/21/24 10:20 Random Vancomycin 7.5 mcg/mL (15-20) L 01/24/24 13:00 Impressions Foot X-Ray 01/21/24 10:42 IMPRESSION: Soft tissue loss at the tip of the fourth toe with no definite evidence of osteomyelitis. Duplex Scan Lower Extremity Artery 01/21/24 14:23 IMPRESSION: There is occlusion of the distal superficial femoral artery, posterior tibial artery, and peroneal artery. There is reconstitution of flow within the popliteal artery with monophasic flow seen in the anterior tibial and dorsalis pedis arteries. Significant atherosclerotic plaque is seen in the common femoral artery, superficial femoral artery and popliteal artery. This critical result was discussed with Trang Bower MD by telephone on 01/21/2024 at 3:15 PM and it was ascertained that the content and urgency of the report was understood at the time of direct communication. Foot MRI 01/21/24 18:53 IMPRESSION: 1. Soft tissue ulceration and cellulitis along the distal/lateral aspect of the fourth toe with associated acute osteomyelitis in the distal and middle phalanges. No abscess formation. 2. Dorsal subcutaneous edema without enhancement or abscess formation. Chest X-Ray 01/23/24 17:17 IMPRESSION: 1. Right-sided PICC line tip projects at the level of the superior cavoatrial junction. 2. No pneumothorax. 3. Enlarged cardiomediastinal silhouette. 4. Diffusely increased interstitial markings, nonspecific, could be associated with small airways disease. TTE 01/22/24 1. [id number]-bn-sbscuyjt LV systolic dysfunction with LVEF of 40-45% with mild LVH 2. At least moderate biatrial enlargement 3. Normal cardiac valvular Dopplers 4. Normal RV systolic pressure 5. Mildly dilated ascending aorta 3.7 cm 6. No gross pericardial effusion Discharge Plan Discharge Anticipated Discharge Date/Time: 01/24/24 14:53 Patient Disposition: Home Health Service Discharge Diagnosis: diabetic osteomyelitis of toe peripheral arterial disease new-onset type 2 diabetes mellitus new-onset atrial fibrillation Referrals: [facility] [Other] - 1 Week [facility] Wound Care Management [Provider Group] - 1 Week Josse Zuniga MD [Primary Care Provider] - 1 Week Sarah Chen MD [Physician] - 1 Week Garret Gonzalez MD [Physician] - 1 Month Jevon Montgomery MD [Physician] - 2 Weeks Discharge Medications: New (DME) FreeStyle Lite Strips Strip Qty: 100 5RF Rx Instructions: Test four times a day or as directed. (DME) blood-glucose meter [FreeStyle Lite Meter] Kit Qty: 1 0RF Rx Instructions: As Directed alcohol swabs Pads, Medicated 1 pad TOPICAL QIDACHS Qty: 100 5RF Rx Instructions: Use four times a day or as directed. insulin glargine [Lantus Solostar U-100 Insulin] 100 unit/mL (3 mL) insulin pen 20 unit SUBCUT DAILY Qty: 15 5RF (DME) pen needle, diabetic 32 gauge x 1/4 needle Qty: 100 5RF Rx Instructions: Use four times a day or as directed. (DME) lancets [FreeStyle Lancets] 28 gauge misc Qty: 100 5RF Rx Instructions: Test four times a day or as directed. nicotine 21 mg/24 hr Patch 24 Hour 21 mg transdermal DAILY Qty: 30 0RF Eliquis 5 mg Tablet 5 mg PO BID Qty: 60 0RF aspirin 81 mg Tablet,Delayed Release (Dr/Ec) 81 mg PO DAILY Qty: 60 0RF metoprolol tartrate 50 mg Tablet 50 mg PO BID Qty: 60 0RF Protocol: Hold for SBP/HR < HOLD for SBP < : 90 HOLD for HR < : 60 oxycodone 5 mg Tablet 5 mg PO Q4H PRN (Reason: Pain, Severe (Pain Scale 7-10)) Qty: 12 0RF Rx Instructions: Partial Fill upon patient request. metformin 500 mg tablet 500 mg PO BID Qty: 60 0RF ertapenem 1 gram recon soln 1 g IV DAILY Qty: 39 0RF atorvastatin 40 mg tablet 40 mg PO BEDTIME Qty: 30 0RF Discharge Orders: Discharge Order (Routine); Ordered 01/24/24 Ordered By: Ghanshyam Gupta Diet: Diabetic diet Activity on Discharge: As tolerated Stand Alone Forms: Patient Portal Discharge page Print Language: Bengali Activity Restrictions/Additional Instructions: Recommend follow up out patient Wound Clinic at [address] [place] [id number] and to call for an appointment at time of discharge. [phone].? Care Plan Goals: cure of infection Health Concerns: diabetic osteomyelitis of toe peripheral arterial disease new-onset type 2 diabetes mellitus new-onset atrial fibrillation Plan of Treatment: ertapenem 1 gram daily via PICC line, end date 03/03/24; follow up with Dr Ruth Chen from [facility] Infectious Disease in 1 week follow up with [facility] Wound Care in 1 week. in the meanwhile: Right 4th Toe - Cleanse and irrigate with NS wound wash, pat dry. Cover wound bed with xeroform and dry gauze, ABD pad and wrap secure with tape. Change Da adali. take acetaminophen for mild-moderate pain, oxycodone for severe pain take aspirin 81 mg daily plus atorvastatin 40 mg daily follow up with Dr Garret Gonzalez from [facility] Vascular Surgery in 1 month take apixaban 5 mg twice daily to prevent strokes take metoprolol tartrate 50 mg twice daily to control heart rate follow up with Dr Jevon Montgomery from [facility] Cardiology in 2 weeks diabetic diet and exercise metformin 500 mg twice daily Lantus 20 units daily check blood glucose daily before breakfast; goal 80-140 check blood glucose 2 hours after largest meal of day; goal 80-200 Please follow up with your primary care doctor within 1 week. Return to the hospital if you experience recurrent or worsening symptoms. Assessment: See Discharge Summary. Patient Instructions: Metoprolol (By mouth), Aspirin (By mouth), Nicotine (Absorbed through the skin), Oxycodone, Rapid Release (By mouth), Metformin (By mouth), Atorvastatin (By mouth), Ertapenem (By injection), Insulin Glargine (By injection), Apixaban (By mouth), How to Stop Smoking (GEN), Hypoglycemia in a Person with Diabetes (GEN), Type 2 Diabetes in Adults: New Diagnosis (GEN), Type 2 Diabetes in Adults: New Diagnosis (IP)
== END 2024-01-24 16:28 | disposition home health service (06) | DRG 300 ==
LOC: HO.ED 09:33 → HO.EDOVER 13:41 → HO.IMC 19:26
PROVIDERS: Physician Assistant; Student in an Organized Health Care Education/Training Program; Admitting Provider Physician Assistant; Emergency Provider Emergency Medicine; PCP Family Medicine; Visit Provider Family Medicine
DX: E11.51 Type 2 diabetes mellitus with diabetic peripheral angiopathy without gangrene (principal); I48.19 Other persistent atrial fibrillation; I50.22 Chronic systolic (congestive) heart failure; L03.115 Cellulitis of right lower limb; M86.171 Other acute osteomyelitis, right ankle and foot; L97.519 Non-pressure chronic ulcer of other part of right foot with unspecified severity; E11.69 Type 2 diabetes mellitus with other specified complication; E11.628 Type 2 diabetes mellitus with other skin complications; L03.031 Cellulitis of right toe; I70.235 Atherosclerosis of native arteries of right leg with ulceration of other part of foot; E11.65 Type 2 diabetes mellitus with hyperglycemia; F17.210 Nicotine dependence, cigarettes, uncomplicated; E87.5 Hyperkalemia; Z71.6 Tobacco abuse counseling; Z79.4 Long term (current) use of insulin; Z79.84 Long term (current) use of oral hypoglycemic drugs; Z79.01 Long term (current) use of anticoagulants; Z79.899 Other long term (current) drug therapy
CPT/HCPCS: 36415; 36573; 71045; 73620; 73720; 80048; 80053; 80202; 82010; 82947; 83036; 83605; 83735; 83880; 84443; 84484; 85025; 85610; 85652; 85730; 86140; 87040; 93005; 93306; 93926; 99285; A9585; C1751; J1335; J2185; J2543; J3370; J3371

== ENCOUNTER → 2024-01-21 09:52 | Outpatient (BNV) | payer OTHER, SELFPAY | PROVIDERS: Admitting Provider Physician Assistant; Emergency Provider Emergency Medicine; PCP Family Medicine; Visit Provider Internal Medicine Cardiovascular Disease | DX: R00.0 Tachycardia, unspecified (principal); I48.0 Paroxysmal atrial fibrillation; I45.10 Unspecified right bundle-branch block | CPT/HCPCS: 93010 ==

== ENCOUNTER 2024-01-21 13:24 | Outpatient (BNV) | payer OTHER, SELFPAY | END 2024-01-22 07:00 | PROVIDERS: Admitting Provider Physician Assistant; Emergency Provider Emergency Medicine; PCP Family Medicine; Visit Provider Internal Medicine Cardiovascular Disease | DX: I35.8 Other nonrheumatic aortic valve disorders (principal) | CPT/HCPCS: 93306 ==

== ENCOUNTER → 2024-01-21 13:24 | Outpatient (BNV) | payer OTHER, SELFPAY | PROVIDERS: Admitting Provider Physician Assistant; Emergency Provider Emergency Medicine; PCP Family Medicine; Visit Provider Surgery Vascular Surgery | DX: I73.9 Peripheral vascular disease, unspecified (principal) | CPT/HCPCS: 99222 ==

== ENCOUNTER → 2024-01-21 13:24 | Outpatient (BNV) | payer OTHER, SELFPAY | PROVIDERS: Admitting Provider Physician Assistant; Emergency Provider Emergency Medicine; PCP Family Medicine; Visit Provider Internal Medicine | DX: M86.9 Osteomyelitis, unspecified (principal) | CPT/HCPCS: 99222 ==

== ENCOUNTER → 2024-01-21 13:24 | Outpatient (BNV) | payer OTHER, SELFPAY | PROVIDERS: Admitting Provider Physician Assistant; Emergency Provider Emergency Medicine; PCP Family Medicine; Visit Provider Physician Assistant | DX: E11.621 Type 2 diabetes mellitus with foot ulcer (principal); M86.9 Osteomyelitis, unspecified; L97.519 Non-pressure chronic ulcer of other part of right foot with unspecified severity; L03.115 Cellulitis of right lower limb; I48.91 Unspecified atrial fibrillation; I73.9 Peripheral vascular disease, unspecified; I50.22 Chronic systolic (congestive) heart failure | CPT/HCPCS: 99223; 99232; 99233; 99239 ==

== ENCOUNTER → 2024-01-21 13:24 | Outpatient (BNV) | payer OTHER, SELFPAY | PROVIDERS: Admitting Provider Physician Assistant; Emergency Provider Emergency Medicine; PCP Family Medicine; Visit Provider Internal Medicine Cardiovascular Disease | DX: I48.91 Unspecified atrial fibrillation (principal) | CPT/HCPCS: 99222 ==

== ENCOUNTER 2024-01-29 10:03 | Outpatient (AMB) | payer OTHER, SELFPAY ==
--- NOTE | 2024-01-29 10:12 | A.OFFVIS_ITS ---
Intake Visit Reasons: stat follow up per Lisa R 4th toe wound Intake Note: follow up right 4th toe non-healing wound, after stubbing his toe at home about a month ago. While inpt was dx w/ diabetes and AFIB. He is on IV Abx and does his own dressing changes. Had arterial US and foot MRI. Accompanied by: Self / Same As Patient Allergies No Known Allergies Allergy (Verified 01/29/24 10:20) HPI HPI stat follow up per Lisa R 4th toe wound: Details: Very pleasant 74-year-old gentleman who had seen in the hospital for nonhealing right 4th toe now presents for follow-up evaluation. Of note he had not seen a doctor in several years. He is a newly diagnosed diabetic. It appears that he was newly diagnosed with AFib as well. Has been on IV vanco and Zosyn in the hospital and was discharged on ertapenem. He has been following up with Infectious Disease as well. Now presents for vascular follow-up. [facility] Medical History New onset atrial fibrillation New onset type 2 diabetes mellitus Type 2 diabetes mellitus Atrial fibrillation Social History (Updated 01/29/24 @ 10:21 by LESLY Londono) Household Members: None Housing: House Do you presently have visiting nurse or other home services: No Patient Tobacco Use Status: Former Tobacco user Quit Date: 01/21/24 Tobacco use type: Cigarette e-Cigarette/Vaping Use: Currently Using service: No Review of Systems Const All systems reviewed & are unremarkable except as noted in HPI and below Reports no additional complaints ENT Reports Normal hearing present Card Denies chest pain, Denies chest pain at rest, Denies chest pain with activity and Denies pedal edema Resp Denies cough GI Denies abdominal pain Musc Denies abnormal gait, Denies muscle cramps and Denies radiating pain into limb Skin/Breast Denies skin ulcer and Denies wounds Neuro Reports Normal hearing present and Denies abnormal gait Psych Reports no additional complaints Physical Exam Const General: cooperative, healthy appearing and comfortable Orientation/consciousness: oriented to person, oriented to place and oriented to time HEENT Head: Yes normal to inspection Neck Neck: Yes normal visual inspection Carotids: no bruits Chest Chest palpation & inspection: normal inspection of the chest Resp Effort & Inspection: normal respiratory effort and able to speak in complete sentences Auscultation: clear to auscultation bilaterally, no crackles, no rales, no rhonchi and no wheezes Cardio Other: Bilateral DP signals Rate: regular rate Rhythm: regular rhythm Heart sounds: S1 normal heart sound present and S2 normal heart sound present Bruits: no carotid bruits Peripheral pulses: Peripheral pulses 2+ throughout GI Inspection: Yes normal to inspection Skin Other: Right 4th toe nonhealing ulcer Wounds: no wounds Hair: normal Neuro General: oriented to person, oriented to place and oriented to time Cranial nerves: Yes CN's II-XII intact bilaterally and Yes Normal hearing present Cognition (Neuro): normal cognition Motor exam (neuro): 5/5 motor strength present throughout Extrem Other: venous exam: No significant superficial varicosities or spider telangiectasias, minimal edema General: No clubbing, No cyanosis and No edema Psych Appearance: grossly normal Mental Status: mental status grossly normal Speech and movement: Normal speech and movement present Results Reviewed Results Reviewed: Arterial testing dated 01/21/2024 demonstrates SFA occlusion. Assessment & Plan Assessment & Plan (1) PAD (peripheral artery disease): Code(s): I73.9 - Peripheral vascular disease, unspecified Category: Medical Plan: Patient has a nonhealing right 4th toe ulcer. I have discussed the pathophysiology of peripheral vascular disease with the patient. I have also discussed risk factor modification. I have reviewed the patient's arterial testing which reveals right SFA disease. the patient would benefit from a right leg endovascular peripheral angiogram with possible angioplasty, stent, and/or atherectomy. This has been discussed in detail with the patient along with risks, benefits, and complications. This includes but is not limited to bleeding, infection, heart attack, need for emergent surgical repair, limb ischemia, blood vessel damage, bleeding, puncture, kidney injury, bruising, allergic reaction, and skin reaction. The patient demonstrates a clear understanding. We will schedule for the next appropriate time. In addition we have tried to expedite his outpatient primary care follow-up as he has not had a primary care doctor in some time. Thank you for allowing us to assist in this patient's care. Coding Level of Care Code Est Pt Level 4 (34308) Diagnoses PAD (peripheral artery disease) I73.9
== END 2024-01-29 10:52 | disposition home or self-care (01) ==
PROVIDERS: PCP Family Medicine; Visit Provider Surgery Vascular Surgery
DX: I73.9 Peripheral vascular disease, unspecified (principal)
CPT/HCPCS: 99214

== ENCOUNTER → 2024-01-29 10:03 | Outpatient (BNVA) | payer OTHER, SELFPAY | PROVIDERS: PCP Family Medicine; Visit Provider Surgery Vascular Surgery | DX: I73.9 Peripheral vascular disease, unspecified (principal) | CPT/HCPCS: 99212 ==

== ENCOUNTER 2024-02-01 13:02 | Outpatient (AMB) | payer OTHER, SELFPAY ==
--- NOTE | 2024-02-01 13:02 | A.OFFVIS_ITS ---
Vital Signs 02/01/24 13:10 Height 6 ft 1 in Weight 203 lb BMI 26.8 Pulse 63 Pulse Source Pulse Oximeter Temp 97.9 F Temp Source Oral Pulse Oximetry (%) 98 Oxygen Delivery Method Room Air Intake Visit Reasons: ref.[facility],Osteomyelitis Allergies No Known Allergies Allergy (Verified 02/01/24 13:11) HPI HPI ref.[facility],Osteomyelitis: Details: He finishes Ertapenem for right foot OM on 03/03. He has no complaints [facility] Medical History New onset atrial fibrillation New onset type 2 diabetes mellitus Type 2 diabetes mellitus Atrial fibrillation Social History Household Members: None Housing: House Do you presently have visiting nurse or other home services: No Patient Tobacco Use Status: Current everyday Tobacco user Tobacco use type: Cigarette e-Cigarette/Vaping Use: Currently Using service: No Review of Systems Const All systems reviewed & are unremarkable except as noted in HPI and below Physical Exam Vital Signs: Last Vital Signs Temp 97.9 F 02/01/24 13:10 Pulse 63 02/01/24 13:10 Pulse Ox 98 02/01/24 13:10 Oxygen Delivery Method Room Air 02/01/24 13:10 BMI result Body Mass Index 26.8 Const General: cooperative HEENT Head: Yes normal to inspection Face and sinus: Yes normal facial exam Mouth: Normal oral and palatal mucosa present Teeth and gingiva: dentition normal Eyes General: appearance normal, both eyes and all related structures Pupils: Equal, round and reactive pupils present Resp Effort & Inspection: normal respiratory effort Cardio Rate: regular rate Rhythm: regular rhythm GI Palpation (GI): Soft to palpation and nontender General: Yes no CVA tenderness Back/Spine/Pelvis Back: no CVA tenderness Skin General skin exam: no rashes or lesions noted Neuro General: moves all extremities Cranial nerves: Yes Equal, round and reactive pupils present Extrem General: Yes normal to inspection Psych Appearance: grossly normal Assessment & Plan Assessment & Plan (1) Diabetic osteomyelitis: Comment: He has been improving Code(s): E11.69 - Type 2 diabetes mellitus with other specified complication; M86.9 - Osteomyelitis, unspecified Category: Medical Plan Finish 03/03 See as scheduled. Coding Level of Care Code Est Pt Level 3 (66473) Diagnoses Diabetic osteomyelitis E11.69; M86.9
[2024-02-01 13:10] VITALS: PULSE 63; TEMP 36.6; O2SAT 98; BMI 26.8
== END 2024-02-01 13:44 | disposition home or self-care (01) ==
PROVIDERS: PCP Family Medicine; Visit Provider Internal Medicine
DX: E11.69 Type 2 diabetes mellitus with other specified complication (principal); M86.9 Osteomyelitis, unspecified
CPT/HCPCS: 99213

== ENCOUNTER → 2024-02-01 13:02 | Outpatient (BNVA) | payer OTHER, SELFPAY | PROVIDERS: PCP Family Medicine; Visit Provider Internal Medicine | DX: E11.69 Type 2 diabetes mellitus with other specified complication (principal); M86.9 Osteomyelitis, unspecified | CPT/HCPCS: 99212 ==

== ENCOUNTER 2024-02-06 07:12 | Day surgery (SDC) | payer OTHER, SELFPAY ==
[2024-02-06 07:27] VITALS: BMI 26.4
[2024-02-06 08:03] LABS: MANUAL DIFF FLAG NO
[2024-02-06 08:06] LABS: Basophils Absolute Auto 0.1 X10*3/uL (0.0-0.2); Basophils Percent Auto 0.7 % (0-2); Eosinophils Absolute Auto 0.1 X10*3/uL (0.0-0.4); Eosinophils Percent Auto 1.2 % (0-4); Imm Gran Abs Auto 0.04 X10*3/uL (0.00-0.03); Imm Gran Pct Auto 0.4 % (0.0-0.4); Lymphocytes Absolute Auto 1.8 X10*3/uL (1.2-4.9); Lymphocytes Percent Auto 19.8 % (20-40); Mean Corpuscular HGB Conc 33.3 g/dl (31.0-36.0); Mean Corpuscular Hemoglobin 31.2 pg (27.0-33.0); Mean Corpuscular Volume 93.6 fL (80.0-98.0); Monocytes Absolute Auto 0.5 X10*3/uL (0.1-1.2); Monocytes Percent Auto 5.7 % (2-11); Neutrophils Absolute Auto 6.5 x10*3/uL (2.0-8.3); Neutrophils Percent Auto 72.2 % (45-73); Platelet Count 237 X10*3/uL (160-400); Red Blood Count 5.13 X10*6/uL (4.60-5.80); Red Cell Distribution Width 12.5 % (11.0-16.0)
[2024-02-06 08:17] LABS: Blood Urea Nitrogen 22 mg/dL (9-16); Creatinine Clr Calc Pharmacy 74.3; Estimated Glomerular Filt Rate > 60
[2024-02-06 08:50] LABS: Glucose, Whole Blood 154 mg/dL (60-115)
--- NOTE | 2024-02-06 08:51 | PC.NURSE ---
pt with afib 110-130's asymptomatic bp 144/64
--- NOTE | 2024-02-06 08:52 | PC.NURSE ---
?'d if iv metoprolol to be given @ 1034
--- NOTE | 2024-02-06 08:53 | PC.NURSE ---
nonsustained returns to low 100's
--- NOTE | 2024-02-06 08:57 | PC.NURSE ---
coretext to Jed lu rn, who spoke to Dr. Garvey, to give no meds at this time.
--- NOTE | 2024-02-06 11:52 | W.PM.OPN ---
Operative Note Operative Note Date of Service: 02/06/24 Narrative: Angiogram report from [facility] Preoperative diagnosis: Atherosclerosis of right lower extremity with nonhealing ulcer Postoperative diagnosis: Same Procedure: 1. Ultrasound-guided left common femoral access 2. Aortogram with right lower extremity runoff 3. Right SFA plasty and stent placement Surgeon:Garret Gonzalez M.D., FACS, RPVI Flagsetter:None Anesthesia: Local with moderate conscious sedation. Total intraservice moderate sedation time was 67 minutes. I monitored the patient's level of consciousness and physiologic status continuously throughout the procedure. Specimens:none Drains:none Estimated blood loss: Less than 10 ml Implant: Medtronic Ev 3 stent 6 x 200; 6 x 150; 6 x 60. Medtronic Impact DCB 6 x 200; 6 x 200 Indications: Pleasant 74-year-old newly diagnosed diabetic presented with nonhealing ulcer of the right leg. It was discovered that he had SFA disease on ultrasound. He now presents for right lower extremity endovascular intervention The patient has signed the informed consent after reviewing risks, complications, benefits, and alternatives previously discussed with the patient. The patient was given the opportunity to ask any additional questions or voice any concerns. All questions were answered to the patient's satisfaction. Procedure in detail: Patient was brought to the angiography suite prior to which a time-out was called for patient identification and site verification. Bilateral groins were prepped and draped in the standard surgical fashion. Under ultrasound guidance left common femoral was punctured with micro puncture needle and wire. Subsequently a precision 4 Prydeinig sheath was then placed. Bentson wire was advanced to the level of the aorta. 4 Prydeinig Flush catheter was brought up and parked at the level of the renal arteries. Aortogram was then undertaken. Catheter was brought down to the level of the iliac bifurcation. Iliacs were subsequently imaged. Catheter was then brought in up and over to the right side SFA. Runoff study was then undertaken. It was discovered that he had a total SFA occlusion. Brought in up and over 6 Prydeinig sheath. Wire was brought through the SFA down to the popliteal. It took some difficulty but we were able to traverse this occlusion with a Glidewire Advantage. At this time we gave 7000 units of systemic heparin. Up and over 6 Prydeinig sheath was then placed. We 1st plasty this entire region with a 6 x 150 balloon. He was still significant stenosis. We then stented SFA. We 1st placed a more distally 6 x 200 stent then as we went more proximal it was 6 x 150 and finally 6 x 60. There was small regions of overlap. Once this was all accomplished we then post plasty to all the stents to obtain good wall apposition. We used a Medtronic DCB 6 x 200 more distally. This was brought into position in under 3 minutes and insufflated for a total of 3 minutes in duration. We did this more proximally as well. Once again with a 6 x 200 drug coated balloon. Once this was accomplished completion angiogram demonstrated excellent result. Catheter wire sheath was brought back to the ipsilateral side. We then placed a short 6 Prydeinig sheath. We then used a CELT closure device. Adequate hemostasis was achieved. Dermabond was used as sterile dressing. At the end the case sponge instrument counts were correct. Patient tolerated the procedure well Interpretation of films: 1. Ultrasound demonstrates appropriate femoral puncture. Image of which was saved. 2. Aortogram demonstrates appropriate caliber aorta. Minimal disease. Appropriate take-off of the renals. 3. Iliac images demonstrate no significant disease 4. Right Leg Common femoral artery: No significant disease Profundus Femoris: No significant disease Superficial femoral artery: Total occlusion Popliteal artery (p1,p2,p3): Reconstitutes between the P1 P2 Anterior tibial artery: Patent some mild stenosis at the origin goes down to the foot Peroneal artery: Occludes after the proximal 3rd Posterior tibial artery: Occluded Dorsalis pedis/plantar arch: Incomplete arch but does supply by the anterior tibial Conclusion: 1. Successful right SFA plasty and stent 2. Anticoagulation status: Will continue with Eliquis and will add baby aspirin to daily regimen This note is constructed using voice recognition software. While every effort has been made to ensure accuracy, acetylene burner errors may have been included. Thank you for allowing me to participate in the care of your patient. Yours sincerely, Garret Gonzalez MD, FACS, R.P.V.I.
[2024-02-06 12:05] VITALS: BP 140/93; PULSE 101; RESP 16; TEMP 36.2; O2SAT 99
[2024-02-06 12:20] VITALS: BP 127/59; PULSE 83; RESP 18; O2SAT 99
[2024-02-06 12:35] VITALS: BP 139/71; PULSE 80; RESP 17; O2SAT 97
[2024-02-06 12:50] VITALS: BP 148/85; PULSE 86; RESP 17; O2SAT 100
[2024-02-06 13:05] VITALS: BP 156/63; PULSE 96; RESP 17; O2SAT 100
[2024-02-06 13:20] VITALS: BP 160/70; PULSE 79; RESP 17; O2SAT 100
== END 2024-02-06 13:34 | disposition home or self-care (01) ==
PROVIDERS: PCP Family Medicine; Visit Provider Surgery Vascular Surgery
DX: E11.51 Type 2 diabetes mellitus with diabetic peripheral angiopathy without gangrene (principal); I70.235 Atherosclerosis of native arteries of right leg with ulceration of other part of foot; E11.621 Type 2 diabetes mellitus with foot ulcer; L97.519 Non-pressure chronic ulcer of other part of right foot with unspecified severity; I70.92 Chronic total occlusion of artery of the extremities; Z79.4 Long term (current) use of insulin; Z79.84 Long term (current) use of oral hypoglycemic drugs; I48.91 Unspecified atrial fibrillation; F17.210 Nicotine dependence, cigarettes, uncomplicated
CPT/HCPCS: 36415; 37226; 76937; 82565; 82947; 84520; 85025; 99152; 99153; A4364; C1760; C1769; C1876; C1887; C1894; C2623; J1644; J2250; J2270; J2310; J3010; Q9967

== ENCOUNTER → 2024-02-06 07:12 | Outpatient (BNV) | payer OTHER, SELFPAY | PROVIDERS: PCP Family Medicine; Visit Provider Surgery Vascular Surgery | DX: I70.239 Atherosclerosis of native arteries of right leg with ulceration of unspecified site (principal) | CPT/HCPCS: 37226; 75625; 75710; 76937; 99152 ==

== ENCOUNTER 2024-02-18 09:30 | Outpatient (AMB) | payer OTHER, SELFPAY ==
--- NOTE | 2024-02-18 09:37 | A.OFFPC_ITS ---
Vital Signs 02/18/24 09:45 Height 5 ft 9.29 in Weight 192 lb 6 oz BMI 28.2 BP 130/68 Blood Pressure Location Lt brachial Position Sitting Respiration 14 Pulse 60 Pulse Source Palpation Temp 97.3 F Temp Source Oral Intake Visit Reasons: [facility] discharge Intake Note: Hospital discharge. Infected toe on the right. Need refill on Eliquis, aspirin, Atorvastatin, Metformin, Metoprolol. Hands were too cold to get O2. Horse Racetrack Manager Required: No Allergies No Known Allergies Allergy (Verified 02/18/24 09:56) Medication List - Last Reconciled 02/18/24 by Lizzeth Beatty, SECONDARY ART TEACHER- alcohol swabs 1 pad topical QIDACHS apixaban (Eliquis) 5 mg PO BID aspirin 81 mg PO DAILY atorvastatin 40 mg PO BEDTIME blood sugar diagnostic (FreeStyle Lite Strips) Test four times a day or as directed. blood-glucose meter (FreeStyle Lite Meter kit) As Directed ertapenem 1 g IV DAILY insulin glargine (Lantus Solostar U-100 Insulin) 20 units (0.2 mL) subcut DAILY lancets (FreeStyle Lancets) Test four times a day or as directed. metformin 500 mg PO BID metoprolol tartrate 50 mg See Protocol PO BID pen needle, diabetic Use four times a day or as directed. Tobacco use date assessed: 02/18/24 Fall risk assessment: No Falls in past year Last assessed Fall Risk: 02/18/24 Dental Screening Dental Screen Date: 02/18/24 Did you have a dental visit in the last 12 months?: No Did you have a dental problem in the last 6 months where you did not have access to dental care?: No Was dental information given to patient?: No (Going through [facility]) HPI HPI Comments History of Present Illness Details 74-year-old male admitted to [facility] 01/21/2024 for osteomyelitis of toe of right foot. He was found to have a new onset of AFib with RVR and a right bundle branch block as well as new onset type 2 diabetes. For his AFib with RVR he was started on metoprolol for rate control and apixaban for stroke prevention. He had an echocardiogram which showed a decreased EF of 40-45% with mild LVH and mild dilated ascending aorta 3.7 cm. For the osteomyelitis of the right 4th toe due to nonhealing diabetic ulcer he was treated with IV vanco and Zosyn. Cultures were negative. A PICC line was placed and he was discharged home 01/24/24 on ertapenem. He had a right lower extremity arterial duplex which showed an occlusion of the distal SFA, posterior tibial artery, peroneal artery. Vascular surgery was consulted and he will need to follow up with him outpatient for revascularization. He was started on aspirin atorvastatin. His A1c was greater than 14 he was started on Lantus and discharged home on Lantus plus metformin. Referrals: [facility] - active, will complete therapy 03/03/24 [facility] W[facility] Management [Provider Group] - States he did not f/u with them, managing the dressings on his own. Sarah Chen MD [Physician] - 02/01/24 has f/u appt scheduled 02/29/24 Garret Gonzalez MD [Physician] - 01/29/24 & 02/06/24, next appt 02/21/24 Jevon Montgomery MD [Physician] - 2 Weeks -> no visit yet, has nuc stress test scheduled 03/27/24 with OV to follow Discharge Medications: New (DME) FreeStyle Lite Strips Strip Qty: 100 5RF Rx Instructions: Test four times a day or as directed. (DME) blood-glucose meter [FreeStyle Lite Meter] Kit Qty: 1 0RF Rx Instructions: As Directed alcohol swabs Pads, Medicated 1 pad TOPICAL QIDACHS Qty: 100 5RF Rx Instructions: Use four times a day or as directed. insulin glargine [Lantus Solostar U-100 Insulin] 100 unit/mL (3 mL) insulin pen 20 unit SUBCUT DAILY Qty: 15 5RF (DME) pen needle, diabetic 32 gauge x 1/4 needle Qty: 100 5RF Rx Instructions: Use four times a day or as directed. (DME) lancets [FreeStyle Lancets] [facility] Q[facility]: 100 5RF Rx Instructions: Test four times a day or as directed. nicotine 21 mg/24 hr Patch 24 Hour 21 mg transdermal DAILY Qty: 30 0RF Eliquis 5 mg Tablet 5 mg PO BID Qty: 60 0RF aspirin 81 mg Tablet,Delayed Release (Dr/Ec) 81 mg PO DAILY Qty: 60 0RF metoprolol tartrate 50 mg Tablet 50 mg PO BID Qty: 60 0RF Protocol: Hold for SBP/HR < HOLD for SBP < : 90 HOLD for HR < : 60 oxycodone 5 mg Tablet 5 mg PO Q4H PRN (Reason: Pain, Severe (Pain Scale 7-10)) Qty: 12 0RF Rx Instructions: Partial Fill upon patient request. metformin 500 mg tablet 500 mg PO BID Qty: 60 0RF ertapenem 1 gram recon soln 1 g IV DAILY Qty: 39 0RF atorvastatin 40 mg tablet 40 mg PO BEDTIME Qty: 30 0RF Plan of Treatment: ertapenem 1 gram daily via PICC line, end date 03/03/24; follow up with Dr Ruth Chen from [facility] Infectious Disease in 1 week follow up with [facility] Wound Care in 1 week. in the meanwhile: Right 4th Toe - Cleanse and irrigate with NS wound wash, pat dry. Cover wound bed with xeroform and dry gauze, ABD pad and wrap secure with tape. Change Daily. take acetaminophen for mild-moderate pain, oxycodone for severe pain take aspirin 81 mg daily plus atorvastatin 40 mg daily follow up with Dr Garret Gonzalez from [facility] Vascular Surgery in 1 month take apixaban 5 mg twice daily to prevent strokes take metoprolol tartrate 50 mg twice daily to control heart rate follow up with Dr Jevon Montgomery from [facility] Cardiology in 2 weeks diabetic diet and exercise metformin 500 mg twice daily Lantus 20 units daily check blood glucose daily before breakfast; goal 80-140 check blood glucose 2 hours after largest meal of day; goal 80-200 On 02/06/[address] Gonzalez Angiogram report from [facility] Preoperative diagnosis: Atherosclerosis of right lower extremity with nonhealing ulcer Procedure: 1. Ultrasound-guided left common femoral access 2. Aortogram with right lower extremity runoff 3. Right SFA plasty and stent placement Conclusion: 1. Successful right SFA plasty and stent 2. Anticoagulation status: Will continu e with Eliquis and will add baby aspirin to daily regimen Here today tolerant and compliant with treatments Testing glucose as directed, highest was 212mg/dl and lowest has been 80 mg/dl. Sister is a nurse so is helping him. No longer needing any medication for pain. Not weighing himself daily. Denies any swelling in his legs. Reports weight loss given his dietary changes. He is committed to the ADA diet. Health maintenance: Referred for DM eye exam today - [facility] TD[facility] 2022 Colon - has cologaurd at home. Has not completed as of this time. No longer smoking. Quit once admitted. Admits his health conditions scared him. Refer to lung cancer screening program. 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 1. Little interest or pleasure in doing things: not at all 2. Feeling down, depressed, or hopeless: not at all 3. Trouble falling or staying asleep, or sleeping too much: not at all 4. Feeling tired or having little energy: not at all 5. Poor appetite or overeating: not at all 6. Feeling bad about yourself - or that you are a failure or have let yourself or your family down: not at all 7. Trouble concentrating on things, such as reading the newspaper or watching television: not at all 8. Moving or speaking so slowly that other people could have noticed. Or the opposite - being so fidgety or restless that you have been moving around a lot more than usual: not at all 9. Thoughts that you would be better off or of hurting yourself in some way: not at all Total score: 0 Depression Screening Interpretation: Negative Depression Screening Done: Yes 05269 - PHQ-9 Billing: Yes Source: Developed by Drs. Pravin Reese, Tanya Benitez, Enoch Reno and colleagues, with an educational simeon from [employer]. Thrive Questionnaire Date Thrive assessed: 01/22/24 I am a: Patient What is your living situation today?: I have a steady place to live Within the past 12 months, did the food you bought not last and you didn't have the money to get more?: Never true Within the past 12 months, did you worry whether your food would run out before you got money to buy more?: Never true Do you have trouble paying for medicines?: No Do you have trouble getting transportation to medical appointments?: No Do you have trouble paying your heating and electricity bill?: No Do you have trouble taking care of your child, family member or friend?: No Do you have trouble with day-to-day activities such as bathing, preparing meals, shopping, managing finances, etc.?: No Are you currently unemployed and looking for a job?: No Are you interested in more education?: No Please select the resources that you would like help with: None Currently or been in a relationship where the following occur: no concerns reported THRIVE Score: 0 AUDIT C Alcohol Use Questionnaire (AUDIT-C) 1. How often do you have a drink containing alcohol?: Never 2. How many drinks containing alcohol do you have on a typical day when you are drinking?: 1 or 2 3. How often do you have six or more drinks on one occasion?: Never Total Score: 0 Score Reviewed/Action Taken: Yes CHING-7 AMB Questionnaire CHING-7 Date CHING - 7 assessed: 02/18/24 Feeling nervous, anxious, or on edge: 1 = Several days Not being able to stop or control worryin = Not at all Worrying too much about different things: 1 = Several days Trouble relaxin = Not at all Being so restless that it is hard to sit still: 0 = Not at all Becoming easily annoyed or irritable: 0 = Not at all Feeling afraid as if something awful might happen: 0 = Not at all Total CHING-7 score (0-4 normal; 5-9 mild; 10-14 moderate; 15-21 severe): 2 Source: Developed by Tanya Breaux, Enoch Reno and colleagues, with an educational simeon from [employer]. CHING-7 Assessment Billing CHING-7 Assessment Tool: CHING-7 Assessment 64181 Review of Systems Const All systems reviewed & are unremarkable except as noted in HPI and below Physical exam (Primary Care) Vital Signs: Last Vital Signs Temp 97.3 F 02/18/24 09:45 Pulse 60 02/18/24 09:45 Resp 14 02/18/24 09:45 BP 130/68 02/18/24 09:45 BMI result Body Mass Index 28.2 Tobacco/Smoking Status: Tobacco use Status Tobacco use date assessed 02/18/24 02/18/24 09:42 Patient Tobacco Use Status Former Tobacco user 02/18/24 09:44 Tobacco use type Cigarette 02/18/24 09:40 e-Cigarette/Vaping Use Never Used 02/18/24 09:44 PHQ-9: PHQ-9 Score PHQ-9: Total score 0 02/18/24 12:43 Depression Screening Interpretation: Negative Thrive Assessment: Date of Thrive Assessment Date Thrive assessed 01/22/24 02/18/24 09:40 Currently or been in a relationship where the following occur: no concerns reported Const Other: awake alert oriented PERRLA Hard to appreciate heart sounds as they are distant LS dim throughout w/ faint ins wheeze that clears w/ deep breathing, no cough PICC line in right arm without signs of infection Nonpalp pedal pulses bilat, skin hairless, dusky and cool to LLE and RLE. Right 4th toe with ulceration, thickened toe nails Assessment and Plan Assessment & Plan (1) Hospital discharge follow-up: Code(s): Z09 - Encounter for follow-up examination after completed treatment for conditions other than malignant neoplasm (2) CAD (coronary artery disease): Comment: On aspirin and atorvastatin. Active with Cardiology. Code(s): I25.10 - Atherosclerotic heart disease of [place] coronary artery without angina pectoris Qualifiers: Associated angina: without angina Coronary Disease-Associated Artery/Lesion type: [place] artery [place] vs. transplanted heart: grand [place] heart Qualified Code(s): I25.10 - Atherosclerotic heart disease of [place] coronary artery without angina pectoris (3) Atrial fibrillation: Comment: Rate controlled with metoprolol 50 mg p.o. b.i.d., on Eliquis 5 mg p.o. b.i.d.. Active with Cardiology. Code(s): I48.91 - Unspecified atrial fibrillation Qualifiers: Atrial fibrillation type: paroxysmal Qualified Code(s): I48.0 - Paroxysmal atrial fibrillation (4) DM (diabetes mellitus), type 2 with complications: Comment: diabetic diet and exercise metformin 500 mg twice daily Lantus 20 units daily check blood glucose daily before breakfast; goal 80-140 check blood glucose 2 hours after largest meal of day; goal 80-200 HgA1c 12/2023 14% Referred for diabetic eye exam Code(s): E11.8 - Type 2 diabetes mellitus with unspecified complications (5) Anticoagulated: Comment: On Eliquis due to secondary hypercoagulable state related to AFib Code(s): Z79.01 - medical terminologist (current) use of anticoagulants (6) Aortic aneurysm without rupture: Comment: mild dilated ascending aorta 3.7 cm 12/2023 Managed by cardiology as well as vascular. Goal will be to control blood pressure and hyperlipidemia. On statin, aspirin, Eliquis. We will need follow up imaging in the future. Code(s): I71.9 - Aortic aneurysm of unspecified site, without rupture Qualifiers: Aortic location: thoracic aorta Thoracic aorta location: ascending ao rta Qualified Code(s): I71.21 - Aneurysm of the ascending aorta, without rupture (7) Tobacco user: Comment: quit 12/2023, referred to lung ca screening program Code(s): Z72.0 - Tobacco use (8) Chronic HFrEF (heart failure with reduced ejection fraction): Comment: 12/2023 echocardiogram which showed a decreased EF of 40-45% with mild LVH Not weighing self QD Wt 192 lbs today, advised to weigh daily and call if 3 lbs gain in 24 hours or 5 lbs/week. Currently euvolemic, not on any anticoagulation. On beta-sae. Code(s): I50.22 - Chronic systolic (congestive) heart failure (9) Diabetic foot ulcer with osteomyelitis: Comment: Affecting the right 4th toe currently being treated with IV antibiotics. Managed by Infectious Disease. We will complete IV antibiotic therapy 03/03/2024. I have advised him to follow up with the wound care center at [facility]. He wishes to ask Dr. Amador if this is necessary. I have placed a referral for him. If he does not wish to keep this he can cancel the appointment. Until then he can continue the current dressing care. Code(s): E11.621 - Type 2 diabetes mellitus with foot ulcer; E11.69 - Type 2 diabetes mellitus with other specified complication; L97.509 - Non-pressure chronic ulcer of other part of unspecified foot with unspecified severity; M86.9 - Osteomyelitis, unspecified (10) Secondary hypercoagulable state: Comment: On Eliquis due to secondary hypercoagulable state related to AFib Code(s): D68.69 - Other thrombophilia Plan This note is constructed using voice recognition software. While every effort has been made to ensure accuracy in smoke and flame specialist, still errors may have been included Sometimes, these errors may affect the content or meaning of the given sentence . Total time spent caring for the patient today was 55 minutes. This includes time spent before the visit reviewing the chart, time spent during the visit, and time spent after the visit on documentation Orders: Orders Lipid Panel 03/24/24 E11.8 - Type 2 diabetes mellitus with unspecified co mplications, I25.10 - Atherosclerotic heart disease of [place] coronary artery without angina pectoris, I50.22 - Chronic systolic (congestive) heart failure Comprehensive [place]. Panel Fast 03/24/24 E11.8 - Type 2 diabetes mellitus with unspecified complications, I25.10 - Atherosclerotic heart disease of [place] coronary artery without angina pectoris, I50.22 - Chronic systolic (congestive) heart failure Hemoglobin A1c 03/24/24 E11.8 - Type 2 diabetes mellitus with unspecified complications, I25.10 - Atherosclerotic heart disease of [place] coronary artery without angina pectoris, I50.22 - Chronic systolic (congestive) heart failure Microalbumin, Random (w Creat) 03/24/24 E11.8 - Type 2 diabetes mellitus with unspecified complications, I25.10 - Atherosclerotic heart disease of [place] coronary artery without angina pectoris, I50.22 - Chronic systolic (congestive) heart failure Referrals Ophthalmology Referral E11.8 - Type 2 diabetes mellitus with unspecified complications Lung Cancer Screening Referral Z72.0 - Tobacco use Wound Care Referral E11.69 - Type 2 diabetes mellitus with other specified complication, M86.9 - Osteomyelitis, unspecified Medications: Changed From atorvastatin 40 mg PO BEDTIME 30 tabs 0RF To atorvastatin 40 mg PO BEDTIME 90 tabs 0RF 3 months From metformin 500 mg PO BID 60 tabs 0RF To metformin 500 mg PO BID 180 tabs 0RF 3 months From apixaban (Eliquis) 5 mg PO BID 60 tabs 0RF To apixaban (Eliquis) 5 mg PO BID 180 tabs 0RF 3 months From aspirin 81 mg PO DAILY 60 tabs 0RF To aspirin 81 mg PO DAILY 90 tabs 2RF 3 months From metoprolol tartrate 50 mg See Protocol PO BID 60 tabs 0RF To metoprolol tartrate 50 mg See Protocol PO BID 180 tabs 0RF 3 months Patient Instructions: RTO FIRST WEEK OF MARCH WITH ME FU CHRONIC CONDITIONS, SOONER NEEDED. PLEASE BE SURE TO GET LABS DONE 1 WEEK BEFORE, FASTING. Coding Level of Care Code New Pt Level 5 (90916) Complex EM visit Add On G2211 Diagnoses Hospital discharge follow-up Z09 Coronary artery disease involving [place] coronary artery of [place] heart without angina pectoris I25.10 Associated angina: without angina Coronary Disease-Associated Artery/Lesion type: [place] artery [place] vs. transplanted heart: [place] heart Paroxysmal atrial fibrillation I48.0 Atrial fibrillation type: paroxysmal DM (diabetes mellitus), type 2 with complications E11.8 Anticoagulated Z79.01 Aneurysm of ascending aorta without rupture I71.21 Aortic location: thoracic aorta Thoracic aorta location: ascending aorta Tobacco user Z72.0 Chronic HFrEF (heart failure with reduced ejection fraction) I50.22 Diabetic foot ulcer with osteomyelitis E11.621; E11.69; L97.509; M86.9 Secondary hypercoagulable state D68.69 Additional Codes CHING-7 Assessment Billing - CHING-7 Assessment Tool: CHING-7 Assessment 83030 ([id number])
[2024-02-18 09:45] VITALS: BP 130/68; PULSE 60; RESP 14; TEMP 36.3; BMI 28.2
== END 2024-02-18 10:31 | disposition home or self-care (01) ==
PROVIDERS: PCP Family Medicine; Visit Provider Nurse Practitioner Family
DX: I48.0 Paroxysmal atrial fibrillation (principal); E11.8 Type 2 diabetes mellitus with unspecified complications; I71.21 Aneurysm of the ascending aorta, without rupture; E11.621 Type 2 diabetes mellitus with foot ulcer; I50.22 Chronic systolic (congestive) heart failure; E11.69 Type 2 diabetes mellitus with other specified complication; L97.509 Non-pressure chronic ulcer of other part of unspecified foot with unspecified severity; D68.69 Other thrombophilia; M86.9 Osteomyelitis, unspecified; Z09 Encounter for follow-up examination after completed treatment for conditions other than malignant neoplasm; I25.10 Atherosclerotic heart disease of native coronary artery without angina pectoris; Z79.01 Long term (current) use of anticoagulants
CPT/HCPCS: 99205; G2211

== ENCOUNTER 2024-02-21 10:12 | Outpatient (AMB) | payer OTHER, SELFPAY ==
[2024-02-21 10:14] VITALS: BMI 28.4
--- NOTE | 2024-02-21 10:14 | MHC.OFFVIS ---
Vital Signs 02/21/24 10:14 Height 5 ft 9 in Weight 192 lb BMI 28.4 Intake Visit Reasons: Right angio follow up Intake Note: follow up Right Angio 02/06/24, pt states that he is walking better and sleeping better. STates that his toe is still a bit painful but the procedure pain itself is gone. Right 4th toe wound dressing daily. Xeroform over the wound. Accompanied by: Self / Same As Patient Allergies No Known Allergies Allergy (Verified 02/21/24 10:18) HPI HPI Right angio follow up: Details: Pleasant 74-year-old gentleman presents for follow-up status post endovascular intervention. Reports he is doing significantly better and pain has decreased. He is currently getting antibiotics through a PICC line and has 3 weeks remaining. Continues to have a nonhealing right 4th toe. He is newly diagnosed diabetic and appears to be doing better with that. Scheduled for hemoglobin A1c soon. 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 Current occupational exposures/hazards: No Cognitive needs: No Hearing needs: No Vision needs: No Review of Systems Const All systems reviewed & are unremarkable except as noted in HPI and below Reports no additional complaints ENT Reports Normal hearing present Card Denies chest pain, Denies chest pain at rest, Denies chest pain with activity and Denies pedal edema Resp Denies cough GI Denies abdominal pain Musc Denies abnormal gait, Denies muscle cramps and Denies radiating pain into limb Skin/Breast Denies skin ulcer and Denies wounds Neuro Reports Normal hearing present and Denies abnormal gait Psych Reports no additional complaints Physical Exam Vital Signs: BMI result Body Mass Index 28.4 Const General: cooperative, healthy appearing and comfortable Orientation/consciousness: oriented to person, oriented to place and oriented to time HEENT Head: Yes normal to inspection Neck Neck: Yes normal visual inspection Carotids: no bruits Chest Chest palpation & inspection: normal inspection of the chest Resp Effort & Inspection: normal respiratory effort and able to speak in complete sentences Auscultation: clear to auscultation bilaterally, no crackles, no rales, no rhonchi and no wheezes Cardio Rate: regular rate Rhythm: regular rhythm Heart sounds: S1 normal heart sound present and S2 normal heart sound present Bruits: no carotid bruits Peripheral pulses: Peripheral pulses 2+ throughout GI Inspection: Yes normal to inspection Skin Other: Right 4th toe bone exposed Wounds: no wounds Hair: normal Neuro General: oriented to person, oriented to place and oriented to time Cranial nerves: Yes CN's II-XII intact bilaterally and Yes Normal hearing present Cognition (Neuro): normal cognition Motor exam (neuro): 5/5 motor strength present throughout Extrem Other: venous exam: No significant superficial varicosities or spider telangiectasias, minimal edema General: No clubbing, No cyanosis and No edema Psych Appearance: grossly normal Mental Status: mental status grossly normal Speech and movement: Normal speech and movement present Assessment & Plan Assessment & Plan (1) PAD (peripheral artery disease): Comment: 02/06/2024 - right SFA plasty and stent placement Code(s): I73.9 - Peripheral vascular disease, unspecified Category: Medical Plan: In short patient is doing well status post endovascular intervention. The concern here is the right 4th toe. It does have exposed bone and may need resection. He continues to be on antibiotics. We will allow for trial of conservative management. Should it not be healing will amputate that toe. This was discussed in detail with the patient. He agreed. We will see him back in approximately 3 weeks time. Coding Level of Care Code Est Pt Level 3 (28833) Diagnoses PAD (peripheral artery disease) I73.9
== END 2024-02-21 10:52 | disposition home or self-care (01) ==
PROVIDERS: PCP Family Medicine; Visit Provider Surgery Vascular Surgery
DX: I73.9 Peripheral vascular disease, unspecified (principal)
CPT/HCPCS: 99213

== ENCOUNTER → 2024-02-21 10:12 | Outpatient (BNVA) | payer OTHER, SELFPAY | PROVIDERS: PCP Family Medicine; Visit Provider Surgery Vascular Surgery | DX: I73.9 Peripheral vascular disease, unspecified (principal) | CPT/HCPCS: 99212 ==

== ENCOUNTER 2024-02-29 13:08 | Outpatient (AMB) | payer OTHER, SELFPAY ==
--- NOTE | 2024-02-29 13:10 | MHC.OFFVISPN ---
Intake Vital Signs 02/29/24 13:20 Height 5 ft 9 in Weight 200 lb BMI 29.5 Temp 97.5 F Temp Source Oral Intake Visit Reasons: F/U 3 WKS Allergies No Known Allergies Allergy (Verified 02/29/24 13:20) [facility] Medical History (Updated 02/28/24 @ 15:16 by Trang Emery PA-C) New onset atrial fibrillation (~12/2023) New onset type 2 diabetes mellitus (~12/2023) Type 2 diabetes mellitus Atrial fibrillation Nicotine dependence, cigarettes, uncomplicated Surgical History (Updated 02/28/24 @ 15:16 by Trang Emery PA-C) History of angioplasty Social History Household Members: None Housing: House Do you presently have visiting nurse or other home services: No Patient Tobacco Use Status: Former Tobacco user Tobacco use type: Cigarette Years Smoked: 30 e-Cigarette/Vaping Use: Never Used Second Hand Smoke Exposure: No service: No Current occupational status: employed and retired 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
[2024-02-29 13:20] VITALS: TEMP 36.4; BMI 29.5
[2024-02-29 13:26] VITALS: TEMP 36.4; BMI 29.5
--- NOTE | 2024-02-29 13:26 | A.OFFVIS_ITS ---
Vital Signs 3 02/29/24 13:20 02/29/24 13:26 Height 5 ft 9 in 5 ft 9 in Weight 200 lb 200 lb BMI 29.5 29.5 Temp 97.5 F 97.5 F Temp Source Oral Oral Intake Visit Reasons: F/U 3 WKS Allergies No Known Allergies Allergy (Verified 02/29/24 13:30) HPI HPI F/U 3 WKS: Details: He has area healing COUNT [facility]CLUD[facility] Medical History New onset atrial fibrillation (~12/2023) New onset type 2 diabetes mellitus (~12/2023) Type 2 diabetes mellitus Atrial fibrillation Nicotine dependence, cigarettes, uncomplicated Surgical History History of angioplasty Social History Household Members: None Housing: House Do you presently have visiting nurse or other home services: No Patient Tobacco Use Status: Former Tobacco user Tobacco use type: Cigarette Years Smoked: 30 e-Cigarette/Vaping Use: Never Used Second Hand Smoke Exposure: No service: No Current occupational status: employed and retired 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 Current occupational exposures/hazards: No Cognitive needs: No Hearing needs: No Vision needs: No Review of Systems Const All systems reviewed & are unremarkable except as noted in HPI and below Physical Exam Vital Signs: Last Vital Signs Temp 97.5 F 02/29/24 13:26 BMI result Body Mass Index 29.5 Const General: cooperative Orientation/consciousness: patient oriented x3 HEENT Head: Yes normal to inspection Mouth: Normal oral and palatal mucosa present Eyes General: appearance normal, both eyes and all related structures Pupils: Equal, round and reactive pupils present Resp Effort & Inspection: normal respiratory effort Cardio Rate: regular rate Rhythm: regular rhythm GI Palpation (GI): Soft to palpation and nontender General: Yes no CVA tenderness Back/Spine/Pelvis Back: no CVA tenderness Skin General skin exam: no rashes or lesions noted Neuro General: patient oriented x3 Cranial nerves: Yes CN's II-XII intact bilaterally and Yes Equal, round and reactive pupils present Extrem Other: foot about same General: Yes normal to inspection Psych Appearance: grossly normal Assessment & Plan Assessment & Plan (1) Diabetic osteomyelitis: Comment: Same Code(s): E11.69 - Type 2 diabetes mellitus with other specified complication; M86.9 - Osteomyelitis, unspecified Category: Medical Plan: He may have need of surgical treatment. Finish antibiotics Coding Level of Care Code Est Pt Level 3 (59442) Diagnoses Diabetic osteomyelitis E11.69; M86.9
== END 2024-02-29 13:38 | disposition home or self-care (01) ==
LOC: HO.HID 13:08
PROVIDERS: PCP Family Medicine; Visit Provider Internal Medicine
DX: E11.69 Type 2 diabetes mellitus with other specified complication (principal); M86.9 Osteomyelitis, unspecified
CPT/HCPCS: 99213

== ENCOUNTER → 2024-02-29 13:08 | Outpatient (BNVA) | payer OTHER, SELFPAY | PROVIDERS: PCP Family Medicine; Visit Provider Internal Medicine | DX: E11.69 Type 2 diabetes mellitus with other specified complication (principal); M86.9 Osteomyelitis, unspecified | CPT/HCPCS: 99212 ==

== ENCOUNTER 2024-03-18 07:56 | Outpatient (RCR) | payer OTHER, SELFPAY ==
--- NOTE | ~2024-03-18 | XR_ITS ---
EXAMINATION: XR FOOT, RIGHT CLINICAL INFORMATION: 4th toe infection. Evaluate for osteomyelitis. COMPARISON: 01/21/2024 TECHNIQUE: AP, lateral, and oblique views of the right foot. FINDINGS: Soft tissue irregularity and air at the distal aspect of the 4th toe status post amputation of the distal phalanx. There is lucency and cortical disruption at the lateral/distal aspect of the middle phalanx compatible with osteomyelitis. Otherwise unremarkable. XR/XR foot RT min 3V IMPRESSION: Soft tissue irregularity and air at the distal aspect of the 4th toe status post amputation of the distal phalanx. Osteomyelitis of the 4th middle phalanx. Electronically signed by: Cosmo Tan MD 06/18/2024 10:00 AM EDT
== END 2024-08-08 15:05 | disposition admitted as inpatient to this hospital (09) ==
LOC: HO.WCC 07:56
PROVIDERS: PCP Family Medicine; Visit Provider Physician Assistant
DX: E11.621 Type 2 diabetes mellitus with foot ulcer (principal); E11.51 Type 2 diabetes mellitus with diabetic peripheral angiopathy without gangrene; L97.514 Non-pressure chronic ulcer of other part of right foot with necrosis of bone; E11.69 Type 2 diabetes mellitus with other specified complication; M86.471 Chronic osteomyelitis with draining sinus, right ankle and foot; I25.10 Atherosclerotic heart disease of native coronary artery without angina pectoris; Z79.84 Long term (current) use of oral hypoglycemic drugs; Z79.899 Other long term (current) drug therapy
CPT/HCPCS: 11042; 11044; 73630; 88304; 88305; 88311; 97597; 99212

== ENCOUNTER 2024-03-24 07:43 | Outpatient (REF) | payer OTHER, SELFPAY ==
[2024-03-24 12:45] LABS: Estimated Average Glucose 209 mg/dL; Hemoglobin A1c % 8.9 % (<6.0)
[2024-03-24 12:58] LABS: Alanine Aminotransferase 38 U/L (0-40); Albumin Level 4.2 g/dL (3.5-5.0); Alkaline Phosphatase 60 U/L (39-117); Anion Gap 14 (12-20); Aspartate Amino Transferase 29 U/L (5-37); Bilirubin Total 0.9 mg/dL (0.0-1.0); Blood Urea Nitrogen 24 mg/dL (9-16); Calcium 9.5 mg/dL (8.4-10.2); Carbon Dioxide 27 mmol/L (22-29); Chloride 104 mmol/L (96-108); Cholesterol 135 mg/dL (<200); Estimated Glomerular Filt Rate > 60; Glucose Fasting 119 mg/dL (60-99); HDL Cholesterol 42 mg/dL (>40); LDL Cholesterol Calculated 82 mg/dL (<100); Potassium 4.4 mmol/L (3.3-5.1); Sodium 141 mmol/L (135-145); Total Protein 6.7 g/dL (6.5-8.0); Triglycerides 58 mg/dL (<150)
[2024-03-24 13:54] LABS: Creatinine Urine 57.12 mg/dL; Microalbum/Creatinine Ratio Ur 10.5 ug/mg cr (<30)
== END 2024-03-24 07:44 | disposition home or self-care (01) ==
LOC: HO.WFDLDS 07:43
PROVIDERS: Visit Provider Nurse Practitioner Family
DX: E11.8 Type 2 diabetes mellitus with unspecified complications (principal); I25.10 Atherosclerotic heart disease of native coronary artery without angina pectoris; I50.22 Chronic systolic (congestive) heart failure
CPT/HCPCS: 36415; 80053; 80061; 82043; 82570; 83036

== ENCOUNTER → 2024-03-27 10:21 | Outpatient (REF) | payer OTHER, SELFPAY ==
--- NOTE | ~2024-03-27 | NM_ITS ---
Myocardial perfusion study Indication: Atherosclerotic heart disease to evaluate for myocardial ischemia Technique: The patient was brought in for a Lexiscan perfusion study on 03/27/2024. Patient performed low-level exercise and was injected 0.4 mg of Lexiscan intravenously. Within a minute of injection, 35 mCi of sestamibi was given intravenously. Images were obtained using the SPECT gamma camera interlaced with the gating device. Images were obtained in supine position. Resting perfusion study was performed on 03/28/2024. Patient was administered 35 mCi of sestamibi intravenously at rest. Images were then obtained in supine position. Images obtained with and without CT attenuation. Total DLP 91 mGy-cm. Images were processed with the software and compared side to side in short axis, horizontal long axis and vertical long axis views. Findings: The stress perfusion study showed non attenuated images show focal mildly reduced uptake in the apex of the LV myocardium. Attenuation corrected images also show focal reduced uptake in the apex of the LV myocardium.. The gated study shows normal LV systolic function with visually estimated LVEF of greater than 50%. LV cavity is mildly dilated size. The gated study shows normal systolic wall thickening and contraction of segments. Resting study shows no change in perfusion pattern compared to stress perfusion study. Gating at rest reveals normal systolic wall motion with ejection fraction at 55%. The findings are consistent with fixed apical defect most likely attenuation artifact. Nontransmural infarct cannot be ruled out. There is no evidence of reversible ischemia. AL/AL cardiolite stress test Impression: 1. Myocardial perfusion imaging study shows no reversible ischemia 2. Gated LVEF is 55% 3. Transient ischemic dilatation not present but LV cavity is dilated EKG is nondiagnostic for ischemia
--- NOTE | 2024-03-27 10:24 | CA_ITS ---
Acquisition Time: 2024-03-27 10:20:29 Total Exercise Time: 00:02:00 Test Indications: HEART FAILURE AFIB Medications: SEE DISCHSRGE SUMMARY Protocol: LEXISCAN Max HR: 139 BPM 94% of Pred: 147 BPM Max BP: 128/064 mmHG Max Work Load: 1.0 METS Pharmacological stress test with Lexiscan injection while sitting without movement, without anginal symptoms, with isolayed PVCs, with normotensive response to injection, with nondiagonstic EKGs. Aminophylline 75mg IVP given to reverse Lexiscan. Nuclear images pending, Test reviewed with Dr. Montgomery Patient took medications at end of test. Referred By: Jevon Montgomery Overread By: Soco Jenkins
--- NOTE | 2024-03-27 10:24 | HM_ITS ---
Conclusion: 1. Patient was monitored for total period of 3 days 2. Baseline was normal atrial fibrillation with average heart of 83 beats per minute with adequate rate control 3. No significant pauses greater than 3 seconds noted 4. Occasional PVCs noted with 1 4 beat run of nonsustained VT at 167 beats per minute 5. Patient did not lula any events MTDD
== END ==
LOC: HO.CARD 10:21
PROVIDERS: PCP Family Medicine; Visit Provider Internal Medicine Cardiovascular Disease
DX: I25.10 Atherosclerotic heart disease of native coronary artery without angina pectoris (principal); I48.91 Unspecified atrial fibrillation; I50.22 Chronic systolic (congestive) heart failure
CPT/HCPCS: 78452; 93017; 93242; 99212; A9500; J0280; J2785

== ENCOUNTER 2024-03-27 11:52 | Outpatient (AMB) | payer OTHER, SELFPAY ==
[2024-03-27 11:57] VITALS: BMI 29.5
--- NOTE | 2024-03-27 11:57 | A.OFFVIS_ITS ---
Vital Signs 03/27/24 11:57 Height 5 ft 9 in Weight 200 lb BMI 29.5 Intake Visit Reasons: 3w wound check Intake Note: 3 wk follow up Right 4th toe wound, pt goes to wound care 1 time per week, changes dressing daily. Pt states [facility] may discharge him next week, they took the bone that was sticking out, out of his toe in the office at bedside and has been healing well since. Accompanied by: Self / Same As Patient Allergies No Known Allergies Allergy (Verified 03/27/24 11:59) HPI HPI 3w wound check: Details: Very pleasant 74-year-old gentleman presents for follow-up regarding his right 4th toe. Reports that he is toe remains nonhealing. He did report that the [facility] did take off the distal bone. Continues to be nonhealing. He has nearly a 2 cm opening. Now presents for routine follow-up [facility] Medical History CAD (coronary artery disease) Chronic HFrEF (heart failure with reduced ejection fraction) PAD (peripheral artery disease) Atrial fibrillation (~12/2023) Anticoagulated Aortic aneurysm without rupture DM (diabetes mellitus), type 2 with complications (~12/2023) Diabetic foot ulcer with osteomyelitis Nicotine dependence, cigarettes, uncomplicated Surgical History History of angioplasty Social History Household Members: None Housing: House Do you presently have visiting nurse or other home services: No Patient Tobacco Use Status: Former Tobacco user Tobacco use type: Cigarette Years Smoked: 30 e-Cigarette/Vaping Use: Never Used Second Hand Smoke Exposure: No service: No Current occupational status: employed and retired 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 Current occupational exposures/hazards: No Cognitive needs: No Hearing needs: No Vision needs: No Review of Systems Const All systems reviewed & are unremarkable except as noted in HPI and below Reports no additional complaints ENT Reports Normal hearing present Card Denies chest pain, Denies chest pain at rest, Denies chest pain with activity and Denies pedal edema Resp Denies cough GI Denies abdominal pain Musc Denies abnormal gait, Denies muscle cramps and Denies radiating pain into limb Skin/Breast Denies skin ulcer and Denies wounds Neuro Reports Normal hearing present and Denies abnormal gait Psych Reports no additional complaints Physical Exam Vital Signs: BMI result Body Mass Index 29.5 Const General: cooperative, healthy appearing and comfortable Orientation/consciousness: oriented to person, oriented to place and oriented to time HEENT Head: Yes normal to inspection Neck Neck: Yes normal visual inspection Carotids: no bruits Chest Chest palpation & inspection: normal inspection of the chest Resp Effort & Inspection: normal respiratory effort and able to speak in complete sentences Auscultation: clear to auscultation bilaterally, no crackles, no rales, no rhonchi and no wheezes Cardio Rate: regular rate Rhythm: regular rhythm Heart sounds: S1 normal heart sound present and S2 normal heart sound present Bruits: no carotid bruits Peripheral pulses: Peripheral pulses 2+ throughout GI Inspection: Yes normal to inspection Skin Other: Right 4th toe 2 cm opening. Bone still present in wound bed. Wounds: no wounds Hair: normal Neuro General: oriented to person, oriented to place and oriented to time Cranial nerves: Yes CN's II-XII intact bilaterally and Yes Normal hearing present Cognition (Neuro): normal cognition Motor exam (neuro): 5/5 motor strength present throughout Extrem Other: venous exam: No significant superficial varicosities or spider telangiectasias, minimal edema General: No clubbing, No cyanosis and No edema Psych Appearance: grossly normal Mental Status: mental status grossly normal Speech and movement: Normal speech and movement present Assessment & Plan Assessment & Plan (1) PAD (peripheral artery disease): Comment: (02/06/2024 - right SFA plasty and stent placement) Code(s): I73.9 - Peripheral vascular disease, unspecified Category: Medical Plan: In short patient has nonhealing right 4th toe. I do think the end result will be an amputation of the toe I did discuss this in detail with the patient as there is bone present in the wound bed. I have taken the liberty of ordering repeat arterial testing as it is nearly 3 months since his initial intervention. We will continue to monitor the status of this wound. Once again should it be nonhealing will plan for amputation. Thank you for allowing us to assist in his care. Orders: Orders US arterial duplex LE BI 1 Month I73.9 - Peripheral vascular disease, unspecified Coding Level of Care Code Est Pt Level 4 (96454) Diagnoses PAD (peripheral artery disease) I73.9
== END 2024-03-27 12:09 | disposition home or self-care (01) ==
LOC: HO.HVS 11:52
PROVIDERS: PCP Family Medicine; Visit Provider Surgery Vascular Surgery
DX: I73.9 Peripheral vascular disease, unspecified (principal)
CPT/HCPCS: 99214

== ENCOUNTER 2024-03-28 10:24 | Outpatient (AMB) | payer OTHER, SELFPAY ==
--- NOTE | 2024-03-28 07:52 | MHC.OFFVIS ---
Intake Visit Reasons: Former Smoker Allergies No Known Allergies Allergy (Verified 03/27/24 11:59) HPI HPI Former Smoker: Details: Initial visit for this 74yo former smoker with a 40PYH. Patient started smoking at age 31 for 43 years at 1ppd. Quit 12/2023 . Denies marijuana use. Denies second hand smoke exposure. 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 . Denies known family history of lung cancer. Denies personal history of cancers. Denies chest CT in last year. . Denies recent travel outside the [place]. Denies recent respiratory illness or recent hospitalization for respiratory issues. Denies testing positive for COVID. Admits receiving COVID Vaccine. x 2. . New onset Afib and DM2 dx 12/2023 leading him to quit smoking. Currently has holter monitor as part of work up Denies fever, chills, new/worsening cough, hemoptysis, hoarseness or dysphagia. Denies significant chest pain, significant dyspnea or unintentional weight loss. Patient Lung Cancer Screening Questionnaire reviewed with patient by provider. . Shared Decision Making Completed. Patient meets criteria. Discussed in detail with patient, the risk vs benefit of LDCT screening. Patient consents to proceed with scan. Discussed and encouraged continued smoking cessation. [facility] Medical History CAD (coronary artery disease) Chronic HFrEF (heart failure with reduced ejection fraction) PAD (peripheral artery disease) Atrial fibrillation (~12/2023) Anticoagulated Aortic aneurysm without rupture DM (diabetes mellitus), type 2 with complications (~12/2023) Diabetic foot ulcer with osteomyelitis Nicotine dependence, cigarettes, uncomplicated Surgical History (Updated 03/28/24 @ 10:52 by Trang Emery PA-C) History of angioplasty Social History Household Members: None Housing: House Do you presently have visiting nurse or other home services: No Patient Tobacco Use Status: Former Tobacco user Tobacco use type: Cigarette Years Smoked: 30 e-Cigarette/Vaping Use: Never Used Second Hand Smoke Exposure: No service: No Current occupational status: employed and retired 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 - Patient meets criteria for LDCT for lung cancer screening purposes and is asymptomatic. - Smoking cessation counseling offered. Patients can always call [phone]. - Will arrange for a LDCT scan of the chest for screening purposes at [facility]. - Risks, benefits, and alternatives were discussed in detail and the patient agrees to proceed. - Risks discussed include but are not limited to: radiation exposure, anxiety during testing and while awaiting results, false negatives, false positives and possibility of additional intervention such as further imaging or surgical procedures for benign disease. - Benefits are obviously detection of lung cancer at an early stage which can lead to improved outcomes. - Discussed the importance of screening program compliance with adherence to yearly LDCT scan as scheduled - or sooner interval scans for personalized screening regimen. - Discussed follow up plan. Our office will send a letter discussing results and if needed set up phone call and office visit based on CT findings. - Patient educated on results categorization and the management decisions for suspicious findings potentially found on the screening LDCT scan. Any patient with a Lung RADS score of 3 or 4 will be reviewed by a multidisciplinary team at [facility] to form a plan of action in regards to scan findings. - If further work up is warranted for a suspicious lung finding this will be followed by the Lung Cancer Screening program in conjunction with the Thoracic Surgery Department at [facility]. - A copy of the office note and LDCT will be sent to the patient's PCP - as well as documentation on any associated further plans of care. - Incidental findings on LDCT are the PCP's responsibility. These findings are indicated with an S finding on the LDCT Assessment. A note discussing the findings will be sent to the PCP who is then responsible for further management. - All questions answered.? Coding Level of Care Code Lung Cancer Screening G0296 Diagnoses Nicotine dependence, cigarettes, uncomplicated F17.210
== END 2024-03-28 10:44 | disposition home or self-care (01) ==
PROVIDERS: PCP Family Medicine; Referring Provider Family Medicine; Visit Provider Physician Assistant Medical
DX: F17.210 Nicotine dependence, cigarettes, uncomplicated (principal)
CPT/HCPCS: G0296

== ENCOUNTER 2024-03-28 10:55 | Outpatient (REF) | payer OTHER, SELFPAY ==
--- NOTE | ~2024-03-28 | CT_ITS ---
EXAMINATION: CT LOW-DOSE SCREENING CHEST WITHOUT CONTRAST CLINICAL INFORMATION: Nicotine dependence, cigarettes, uncomplicated. The patient has a 32 pack-year history of smoking, having quit 2 months ago. COMPARISON: X-ray chest 01/23/2024. TECHNIQUE: Multidetector volumetric CT imaging of the chest is performed on a Siemens SOMATOM Definition scanner without contrast using low dose technique. Additional 2D coronal and sagittal reformatted images and axial 3D maximum intensity projection (MIP) images are generated on the CT workstation. This CT examination was performed using dose optimization techniques as appropriate, variously including the following: *Automated exposure control *Adjustment of mA and/or kV according to patient size (this includes techniques or standardized protocols for targeted exams where dose is matched to indication/reason for exam; i.e. extremities or head) *Use of iterative reconstruction technique TOTAL EXAM DLP: 70 mGy-cm. CTDIvol: 1.88 mGy. FINDINGS: PULMONARY NODULES: Scattered punctate calcified granulomas are seen. There is a single noncalcified left lower lobe 3 mm nodule (5:360). No worrisome lung masses are seen. LUNGS: Lungs bilaterally symmetrically expanded. Minimal emphysematous changes are seen. Guud-de-soxzwodh bronchial thickening is present. There is some minimal subpleural reticulation along with minimal ground-glass change. No effusion or pneumothorax. Central airways patent. MEDIASTINUM: No mediastinal, hilar or axillary adenopathy or free fluid collection. CORONARY ARTERY CALCIFICATION: Moderate. THYROID GLAND: Unremarkable to the extent seen. CARDIOVASCULAR STRUCTURES: Aortic and heart size normal. No pericardial effusion. CHEST WALL/AXILLA: Unremarkable. UPPER ABDOMEN: Included portions of the solid organs in the upper abdomen unremarkable on noncontrast imaging. OSSEOUS STRUCTURES: No suspicious focal findings. CT/CT lung screening IMPRESSION: No evidence of pulmonary malignancy. ASSESSMENT: 1. Lung-RADS Category 2: Benign appearance or behavior of nodules. N/A 2. Lung-RADS Category S: Negative. There are no clinically significant or potentially clinically significant findings not related to the lungs requiring urgent additional evaluation. RECOMMENDATION: Continued routine annual low-dose CT lung screening in 1 year is recommended. An order for CT CHEST LOW-DOSE CANCER SCREENING ([id number]) can be placed.
== END 2024-03-28 10:56 | disposition home or self-care (01) ==
LOC: HO.CT 10:55
PROVIDERS: PCP Family Medicine; Visit Provider Physician Assistant Medical
DX: Z12.2 Encounter for screening for malignant neoplasm of respiratory organs (principal); F17.210 Nicotine dependence, cigarettes, uncomplicated
CPT/HCPCS: 71271; G0296

== ENCOUNTER 2024-03-31 08:19 | Outpatient (AMB) | payer OTHER, SELFPAY ==
--- NOTE | 2024-03-31 08:23 | MHC.PC.OV ---
Vital Signs 03/31/24 08:24 03/31/24 09:00 Height 6 ft 1 in Weight 196 lb BMI 25.9 BP 102/62 110/58 L Blood Pressure Location Lt brachial Rt brachial Position Sitting Sitting Respiration 12 Pulse 86 Pulse Source Pulse Oximeter Pulse Oximetry (%) 98 Oxygen Delivery Method Room Air Intake Visit Reasons: fu complex Dz Intake Note: Patient is here to discuss having dizzy spells he states may be because his blood pressure is low at times. Patient states his dizzy spells begins after taking morning medications and insulin. Appliances Sample Maker Required: No Allergies No Known Allergies Allergy (Verified 03/31/24 08:32) Medication List - Last Reconciled 03/31/24 by MARYCRUZ Cabral-MARTA alcohol swabs 1 pad topical QIDACHS apixaban (Eliquis) 5 mg PO BID 3 months aspirin 81 mg PO DAILY 3 months atorvastatin 40 mg PO BEDTIME 3 months blood sugar diagnostic (FreeStyle Lite Strips) Test four times a day or as directed. blood-glucose meter (FreeStyle Lite Meter kit) As Directed doxycycline hyclate 100 mg PO BID 30 days insulin glargine (Lantus Solostar U-100 Insulin) 20 units (0.2 mL) subcut DAILY lancets (FreeStyle Lancets) Test four times a day or as directed. metformin 500 mg PO BID 3 months metoprolol tartrate 50 mg See Protocol PO BID 3 months pen needle, diabetic Use four times a day or as directed. Tobacco use date assessed: 02/18/24 Fall risk assessment: No Falls in past year Last assessed Fall Risk: 03/31/24 Dental Screening Dental Screen Date: 02/18/24 HPI HPI Comments History of Present Illness Details 74-year-old male with AFib with secondary hypercoagulable state, diabetes type 2 with complication, dilated ascending aorta 3.7 cm, CAD, former tobacco user, CHF with reduced ejection fraction and secondary hyperaldosteronism, diabetic foot ulcer with osteomyelitis, PAD Health maintenance: Referred for DM eye exam today - [facility] TDap 2022 Colon - has cologaurd at home. Has not completed as of this time. Lung cancer screening: CT scan 03/28/2024, read is pending at this time No longer smoking. Quit once admitted. Specialists: [facility] - completed therapy 03/03/24 [facility] [place] Management: March consult note reviewed next appointment in 2 weeks Sarah Chen MD - January consult note reviewed, next appointment in March Garret Gonzalez MD -note from 02/20 and 03/27 reviewed > arterial imaging ordered Jevon Montgomery MD: Stress test complete 03/28/2020 Optho - [facility], has not made appt yet, encouraged to do so KIMO Here today for chronic disease mgmt: He is tolerating compliant of his current medications. He has routine follow up with his care team. Today he reports feeling dizzy at times, liseth in the AM and after being active. Has not tested glucose at the time of these events, however admits he feels much better after eating an apple or crackers. Does not endorse any symptoms related to orthostasis. Has not made eye Dr appt yet - his sister in [place] 1 week ago and he reports he has been distracted. He remains at risk for right 4th toe amputation. This is being managed by wound care as well as vascular. Labs from 03/24/2024 show hemoglobin A1c of 8.9%, normal electrolytes, normal renal function, normal LFTs, total cholesterol 135, LDL 82, HDL 42, triglycerides 58, normal urine microalbumin creatinine ratio Plan His A1c has improved to 8.9%. It sounds like he was having some symptomatic hypoglycemia even with an A1c of 8.9%. The plan will be to discontinue the Lantus and the metformin. Start Synjardy XR 5 mg-a 1000 mg 1 tab p.o. daily. Recheck A1c in 3 months. Schedule eye exam Continue follow up with wound care as well as vascular Continue all other medications as ordered RTO in 3 months w/ fasting labs done 1 week before, sooner as needed. [facility] Medical History CAD (coronary artery disease) Chronic HFrEF (heart failure with reduced ejection fraction) PAD (peripheral artery disease) Atrial fibrillation (~12/2023) Anticoagulated Aortic aneurysm without rupture DM (diabetes mellitus), type 2 with complications (~12/2023) Diabetic foot ulcer with osteomyelitis Nicotine dependence, cigarettes, uncomplicated Surgical History (Updated 03/28/24 @ 10:52 by Trang Emery PA-C) History of angioplasty Social History Household Members: None Housing: House Do you presently have visiting nurse or other home services: No Patient Tobacco Use Status: Former Tobacco user Tobacco use type: Cigarette Years Smoked: 30 e-Cigarette/Vaping Use: Never Used Second Hand Smoke Exposure: No service: No Current occupational status: employed and retired 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 Pravin Reese, Tanya Benitez, Enoch Reno and colleagues, with an educational simeon from [employer]. Review of Systems Const All systems reviewed & are unremarkable except as noted in HPI and below Physical exam (Primary Care) Vital Signs: Last Vital Signs Pulse 86 03/31/24 08:24 Resp 12 03/31/24 08:24 BP 102/62 03/31/24 08:24 Pulse Ox 98 03/31/24 08:24 Oxygen Delivery Method Room Air 03/31/24 08:24 BMI result Body Mass Index 25.9 Tobacco/Smoking Status: Tobacco use Status Tobacco use date assessed 02/18/24 02/18/24 09:42 Patient Tobacco Use Status Former Tobacco user 02/18/24 09:44 Tobacco use type Cigarette 02/18/24 09:40 e-Cigarette/Vaping Use Never Used 02/18/24 09:44 Thrive Assessment: Date of Thrive Assessment Date Thrive assessed 01/22/24 02/18/24 09:40 Const Other: awake alert oriented PERRLA Afib LS CTAB Nonpalp pedal pulses bilat, skin hairless, dusky and cool to LLE and RLE. Right 4th toe with ulceration NOT EXAMINED TODAY, thickened toe nails Assessment and Plan Assessment & Plan (1) PAD (peripheral artery disease): Comment: (02/06/2024 - right SFA plasty and stent placement) Code(s): I73.9 - Peripheral vascular disease, unspecified (2) DM (diabetes mellitus), type 2 with complications: Onset Date: ~12/2023 Comment: diabetic diet and exercise metformin 500 mg twice daily Lantus 20 units daily check blood glucose daily before breakfast; goal 80-140 check blood glucose 2 hours after largest meal of day; goal 80-200 HgA1c 12/2023 14% Referred for diabetic eye exam Code(s): E11.8 - Type 2 diabetes mellitus with unspecified complications Plan: This note is constructed using voice recognition software. While every effort has been made to ensure accuracy in encephalographer, still errors may have been included Sometimes, these errors may affect the content or meaning of the given sentence . Total time spent caring for the patient today was 42 minutes. This includes time spent before the visit reviewing the chart, time spent during the visit, and time spent after the visit on documentation Orders: Orders Hemoglobin A1c 07/01/24 E11.8 - Type 2 diabetes mellitus with unspecified complications, I73.9 - Peripheral vascular disease, unspecified Lipid Panel 07/01/24 E11.8 - Type 2 diabetes mellitus with unspecified complications, I73.9 - Peripheral vascular disease, unspecified Comprehensive Met. Panel 07/01/24 E11.8 - Type 2 diabetes mellitus with unspecified complications, I73.9 - Peripheral vascular disease, unspecified Medications: New empagliflozin-metformin 5-1,000 mg ER (Synjardy XR) 1 tab PO DAILY 90 ea 1RF Discontinued insulin glargine (Lantus Solostar U-100 Insulin) Discontinued Reason: Doctor's Order 20 units (0.2 mL) subcut DAILY 15 mL 5RF pen needle, diabetic Discontinued Reason: Doctor's Order Use four times a day or as directed. 100 ea 5RF E11.9 - Type 2 diabetes mellitus without complications metformin Discontinued Reason: Doctor's Order 500 mg PO BID 3 months 180 tabs 0RF Patient Instructions: Plan His A1c has improved to 8.9%. It sounds like he was having some symptomatic hypoglycemia even with an A1c of 8.9%. The plan will be to discontinue the Lantus and the metformin. Start Synjardy XR 5 mg-a 1000 mg 1 tab p.o. daily. Recheck A1c in 3 months. Schedule eye exam Continue follow up with wound care as well as vascular Continue all other medications as ordered RTO in 3 months w/ fasting labs done 1 week before, sooner as needed. Coding Level of Care Code Est Pt Level 5 (15141) Complex EM visit Add On G2211 Diagnoses PAD (peripheral artery disease) I73.9 DM (diabetes mellitus), type 2 with complications E11.8
[2024-03-31 08:24] VITALS: BP 102/62; PULSE 86; RESP 12; O2SAT 98; BMI 25.9
[2024-03-31 09:00] VITALS: BP 110/58
== END 2024-03-31 08:57 | disposition home or self-care (01) ==
PROVIDERS: PCP Family Medicine; Visit Provider Nurse Practitioner Family
DX: I73.9 Peripheral vascular disease, unspecified (principal); E11.8 Type 2 diabetes mellitus with unspecified complications
CPT/HCPCS: 99215; G2211

== ENCOUNTER 2024-04-14 13:26 | Outpatient (AMB) | payer OTHER, SELFPAY ==
--- NOTE | 2024-04-14 13:48 | MHC.OFFVIS ---
Vital Signs 04/14/24 13:49 Height 5 ft 9 in Weight 194 lb BMI 28.6 Pulse 74 Pulse Source Pulse Oximeter Temp 97.5 F Temp Source Oral Pulse Oximetry (%) 99 Oxygen Delivery Method Room Air Intake Visit Reasons: f/u 6 wks osteomyelitis Allergies No Known Allergies Allergy (Verified 04/14/24 13:59) HPI HPI f/u 6 wks osteomyelitis: Details: He has right foot infection. He feels improved. He has yet to find Market Research Consultant [facility] Medical History CAD (coronary artery disease) Chronic HFrEF (heart failure with reduced ejection fraction) PAD (peripheral artery disease) Atrial fibrillation (~12/2023) Anticoagulated Aortic aneurysm without rupture DM (diabetes mellitus), type 2 with complications (~12/2023) Diabetic foot ulcer with osteomyelitis Nicotine dependence, cigarettes, uncomplicated Surgical History History of angioplasty Social History Household Members: None Housing: House Do you presently have visiting nurse or other home services: No Patient Tobacco Use Status: Former Tobacco user Tobacco use type: Cigarette Years Smoked: 30 e-Cigarette/Vaping Use: Never Used Second Hand Smoke Exposure: No service: No Current occupational status: employed and retired 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 Current occupational exposures/hazards: No Cognitive needs: No Hearing needs: No Vision needs: No Physical Exam Vital Signs: Last Vital Signs Temp 97.5 F 04/14/24 13:49 Pulse 74 04/14/24 13:49 Pulse Ox 99 04/14/24 13:49 Oxygen Delivery Method Room Air 04/14/24 13:49 BMI result Body Mass Index 28.6 Const Other: General: cooperative Orientation/consciousness: patient oriented x3 HEENT Head: Yes normal to inspection Face and sinus: Yes normal facial exam Mouth: Normal oral and palatal mucosa present Teeth and gingiva: dentition normal Eyes General: appearance normal, both eyes and all related structures Pupils: Equal, round and reactive pupils present Resp Effort & Inspection: normal respiratory effort Cardio Rate: regular rate Rhythm: regular rhythm GI Palpation (GI): Soft to palpation and nontender General: Yes no CVA tenderness Back/Spine/Pelvis Back: no CVA tenderness Skin General skin exam: no rashes or lesions noted Neuro General: patient oriented x3 and moves all extremities Cranial nerves: Yes Equal, round and reactive pupils present Extrem Other: improving foot General: Yes normal to inspection Psych Appearance: grossly normal Assessment & Plan Assessment & Plan (1) Diabetic foot ulcer with osteomyelitis: Comment: Stable at this time Code(s): E11.621 - Type 2 diabetes mellitus with foot ulcer; E11.69 - Type 2 diabetes mellitus with other specified complication; L97.509 - Non-pressure chronic ulcer of other part of unspecified foot with unspecified severity; M86.9 - Osteomyelitis, unspecified Category: Medical Plan: Finish antibiotics. Coding Level of Care Code Est Pt Level 3 (08944) Diagnoses Diabetic foot ulcer with osteomyelitis E11.621; E11.69; L97.509; M86.9
[2024-04-14 13:49] VITALS: PULSE 74; TEMP 36.4; O2SAT 99; BMI 28.6
== END 2024-04-14 14:27 | disposition home or self-care (01) ==
LOC: HO.HID 13:26
PROVIDERS: PCP Nurse Practitioner Family; Visit Provider Internal Medicine
DX: E11.621 Type 2 diabetes mellitus with foot ulcer (principal); E11.69 Type 2 diabetes mellitus with other specified complication; L97.509 Non-pressure chronic ulcer of other part of unspecified foot with unspecified severity; M86.9 Osteomyelitis, unspecified
CPT/HCPCS: 99213

== ENCOUNTER → 2024-04-14 13:26 | Outpatient (BNVA) | payer OTHER, SELFPAY | PROVIDERS: PCP Nurse Practitioner Family; Visit Provider Internal Medicine | DX: E11.621 Type 2 diabetes mellitus with foot ulcer (principal); E11.69 Type 2 diabetes mellitus with other specified complication; L97.509 Non-pressure chronic ulcer of other part of unspecified foot with unspecified severity; M86.9 Osteomyelitis, unspecified | CPT/HCPCS: 99212 ==

== ENCOUNTER 2024-04-22 08:44 | Outpatient (AMB) | payer OTHER, SELFPAY ==
[2024-04-22 08:49] VITALS: BP 114/62; PULSE 68; BMI 28.6
--- NOTE | 2024-04-22 08:49 | A.OFFVIS_ITS ---
Vital Signs 04/22/24 08:49 Height 5 ft 9 in Weight 193 lb 9.054 oz BMI 28.6 BP 114/62 Blood Pressure Location Rt brachial Position Sitting Pulse 68 Pulse Source Monitor Intake Visit Reasons: follow-up [facility] [place] Helmet Binder Required: No Allergies No Known Allergies Allergy (Verified 04/22/24 08:51) Medication List - Last Reconciled 04/22/24 by HARIS King alcohol swabs 1 pad topical QIDACHS apixaban (Eliquis) 5 mg PO BID 3 months aspirin 81 mg PO DAILY 3 months atorvastatin 40 mg PO BEDTIME 3 months blood sugar diagnostic (FreeStyle Lite Strips) Test four times a day or as directed. blood-glucose meter (FreeStyle Lite Meter kit) As Directed empagliflozin-metformin 5-1,000 mg ER (Synjardy XR) 1 tab PO DAILY lancets (FreeStyle Lancets) Test four times a day or as directed. metoprolol tartrate 50 mg See Protocol PO BID 3 months HPI HPI follow-up [facility] [place]kg: Details: Juvenal is a 74-year-old male with past medical history of smoking who was recently admitted to [facility] with a nonhealing wound on his foot, then diagnosed with diabetes, peripheral vascular disease and new finding atrial fibrillation. For his AFib he was treated with heart rate control using metoprolol. He was put on Eliquis for anticoagulation. He was set up with vascular for his peripheral vascular disease and has undergone right SFA stent placement. Outpatient Holter monitor and stress test have been completed any now presents for follow-up. Today he reports he has been feeling well with no concerning symptoms. He denies any chest discomfort at rest or with activity. No shortness of breath, palpitations, lightheadedness, presyncope, syncope, falls. No bleeding issues reported. 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 He has been tolerating this well. He continues to have issues with a wound on his right foot. He is following with [facility]. [facility] Medical History CAD (coronary artery disease) Chronic HFrEF (heart failure with reduced ejection fraction) PAD (peripheral artery disease) Atrial fibrillation (~12/2023) Anticoagulated Aortic aneurysm without rupture DM (diabetes mellitus), type 2 with complications (~12/2023) Diabetic foot ulcer with osteomyelitis Nicotine dependence, cigarettes, uncomplicated Surgical History History of angioplasty Social History Household Members: None Housing: House Do you presently have visiting nurse or other home services: No Patient Tobacco Use Status: Former Tobacco user Tobacco use type: Cigarette Years Smoked: 30 e-Cigarette/Vaping Use: Never Used Second Hand Smoke Exposure: No service: No Current occupational status: employed and retired 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 Current occupational exposures/hazards: No Cognitive needs: No Hearing needs: No Vision needs: No Review of Systems Const All systems reviewed & are unremarkable except as noted in HPI and below ENT Denies dizziness Card Denies chest pain, Denies chest pain at rest, Denies chest pain with activity, Denies rapid heart rate, Denies pedal edema, Denies edema, Denies leg edema, Denies lightheadedness, Denies palpitations, Denies dyspnea, Denies dyspnea on exertion and Denies orthopnea Resp Denies cough, Denies dyspnea and Denies dyspnea on exertion GI Denies hematochezia and Denies change in stool character Musc Denies abnormal gait, Denies limited range of motion, Denies muscle cramps, Denies muscle weakness, Denies numbness, Denies radiating pain into limb, Denies stiffness and Denies tingling Neuro Denies abnormal gait, Denies dizziness, Denies numbness and Denies tingling Endo Denies palpitations Physical Exam Vital Signs: Last Vital Signs Pulse 68 04/22/24 08:49 BP 114/62 04/22/24 08:49 BMI result Body Mass Index 28.6 Const General: cooperative, healthy appearing, comfortable and no acute distress Orientation/consciousness: patient oriented x3 Neck Neck: Yes normal visual inspection and Yes no JVD Resp Effort & Inspection: normal respiratory effort Auscultation: clear to auscultation bilaterally, no rales, no rhonchi and no wheezes Cardio Jugular venous distension: no JVD Rate: regular rate Rhythm: abnormal rhythm Heart sounds: S1 normal heart sound present, S2 normal heart sound present, no murmurs and no rubs Neuro General: patient oriented x3 Extrem General: Yes normal to inspection, No no pedal edema and No calf tenderness Psych Appearance: grossly normal Mental Status: mental status grossly normal Speech and movement: Normal speech and movement present Office Procedures EKG Details: Today, read by me, atrial fibrillation, right bundle branch block, rate 68, QTC 427 milliseconds [id number], Complete Assessment & Plan Assessment & Plan (1) Atrial fibrillation: Onset Date: ~12/2023 Comment: Rate controlled with metoprolol 50 mg p.o. b.i.d., on Eliquis 5 mg p.o. b.i.d.. Active with Cardiology. Code(s): I48.91 - Unspecified atrial fibrillation Category: Medical Qualifiers: Atrial fibrillation type: paroxysmal Qualified Code(s): I48.0 - Paroxysmal atrial fibrillation Plan: Newer finding of atrial fibrillation during hospitalization December 2023. It was an incidental finding. He presented with noncardiac issue. An echocardiogram showed EF 40-45%, mild LVH, moderate biatrial enlargement. Unknown how long the AFib has been present. Patient denied any issues with fatigue, palpitations or shortness of breath. He was not in heart failure. He was put on metoprolol for heart rate control. He was started on Eliquis for anticoagulation. Outpatient Holter monitor done 03/27/2024 for 3 days shows AFib average heart rate 83, occasional PVCs, one 4 beat NSVT. A pharmacological nuclear stress test done 03/27/2024 shows no ischemia, there is a fixed apical defect most likely attenuation artifact. Today he reports feeling well with no concerning symptoms. EKG shows atrial fibrillation with right bundle branch block, rate 68. He has been on anticoagulation without interruption for greater than 1 month. He did hold it for his vascular procedure in January. Since then he tells me he has not missed any doses. Will set him up for a cardioversion with Dr. Montgomery in the near future. Procedure, risks reviewed with patient in detail and he is agreeable to proceed. Cardiology follow-up 2 weeks post procedure. (2) Cardiomyopathy: Code(s): I42.9 - Cardiomyopathy, unspecified Category: Medical Plan: New finding of cardiomyopathy with EF 40-45%. He has new finding of AFib. It is possible that he was having issues with heart rate control prior to diagnosis. Rate is now well controlled with use of metoprolol. We will be doing cardioversion as above. Will plan to recheck a limited echo in the near future to reassess EF. 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 Orders: Orders Cardioversion Today I48.0 - Paroxysmal atrial fibrillation Coding Level of Care Code Est Pt Level 4 (72758) Diagnoses Paroxysmal atrial fibrillation I48.0 Atrial fibrillation type: paroxysmal Cardiomyopathy I42.9 Anticoagulated Z79.01 Hospital discharge follow-up Z09 CPT Codes EKG - CPT: 38121-[id number], Complete ([id number]) Time Spent (min) 30
== END 2024-04-22 09:28 | disposition home or self-care (01) ==
PROVIDERS: PCP Nurse Practitioner Family; Visit Provider Nurse Practitioner Family
DX: I48.0 Paroxysmal atrial fibrillation (principal); I42.9 Cardiomyopathy, unspecified; Z79.01 Long term (current) use of anticoagulants; Z09 Encounter for follow-up examination after completed treatment for conditions other than malignant neoplasm
CPT/HCPCS: 93010; 99214

== ENCOUNTER → 2024-04-22 08:44 | Outpatient (BNVA) | payer OTHER, SELFPAY | PROVIDERS: PCP Nurse Practitioner Family; Visit Provider Nurse Practitioner Family | DX: I48.0 Paroxysmal atrial fibrillation (principal); I42.9 Cardiomyopathy, unspecified; Z79.01 Long term (current) use of anticoagulants | CPT/HCPCS: 93005; 99212 ==

== ENCOUNTER 2024-04-28 09:59 | Outpatient (AMB) | payer OTHER, SELFPAY ==
--- NOTE | 2024-04-28 10:03 | MHC.PC.OV ---
Vital Signs 04/28/24 10:07 Height 5 ft 9 in Weight 190 lb BMI 28.1 BP 110/82 Blood Pressure Location Lt brachial Position Sitting Respiration 16 Pulse 56 Pulse Source Pulse Oximeter Pulse Oximetry (%) 98 Oxygen Delivery Method Room Air Intake Visit Reasons: Cardiac surgery 05/03 Intake Note: Cardioversion on 05/07/24 at [facility] [employer]. Patient is being asked to hold Diabetic medication 4 days prior. Allergies No Known Allergies Allergy (Verified 04/28/24 10:06) Medication List - Last Reconciled 04/28/24 by MARYCRUZ Cabral- alcohol swabs 1 pad topical QIDACHS apixaban (Eliquis) 5 mg PO BID 3 months aspirin 81 mg PO DAILY 3 months atorvastatin 40 mg PO BEDTIME 3 months blood sugar diagnostic (FreeStyle Lite Strips) Test four times a day or as directed. blood-glucose meter (FreeStyle Lite Meter kit) As Directed empagliflozin-metformin 5-1,000 mg ER (Synjardy XR) 1 tab PO DAILY lancets (FreeStyle Lancets) Test four times a day or as directed. metoprolol tartrate 50 mg See Protocol PO BID 3 months Tobacco use date assessed: 02/18/24 Dental Screening Dental Screen Date: 02/18/24 HPI HPI Comments History of Present Illness Details 74-year-old male with AFib with secondary hypercoagulable state, diabetes type 2 with complication, dilated ascending aorta 3.7 cm, CAD, former tobacco user, CHF with reduced ejection fraction and secondary hyperaldosteronism, diabetic foot ulcer with osteomyelitis, PAD, cataracts Health maintenance: DM eye exam today [facility], 04/25/24 + cataracts he states negative retinopathy bilat * report pending TDap 2022 Colon - has cologaurd at home. Has not completed as of this time. Lung cancer screening: CT scan 03/28/2024, read is pending at this time No longer smoking. Quit once admitted. Specialists: [facility] Wound Care Management: March consult note reviewed next appointment in 2 weeks Sarah Chen MD - March consult note reviewed, cleared from further f/u Garret Gonzalez MD -note from 02/20 and 03/27 reviewed > arterial imaging ordered, remains at risk of losing distal right 5th toe Jevon Montgomery MD: Stress test complete, 03/2024 consult note reviewed. Optho Here today for routine follow up of chronic conditions. Tolerating compliant of all of his medications. Has a appropriate follow up with his specialists. Of note today he would like to discuss the need for cardioversion for his AFib scheduled with Dr. Montgomery 05/07/24. He is very nervous about this procedure. He wonders if he really needs this. He feels like he does not have any cardiac symptoms. He reports that he is feeling well. He is ready to get back to work. He is very fearful worsening outcome. In regards to cardiac symptoms, he endorses some short-lived dizziness upon standing 1st thing in the morning. He was has a his blood glucose at the time of the dizziness, reports that it is normal. He has never monitored his blood pressure. Other than that he denies any cardiac symptoms. In regards to his diabetes, he has great concern about holding his Synjardy for 3 days prior with his last dose being Sunday05/03/24. He has worked really hard to gain control of his diabetes and does not want to have hyperglycemia. He is testing as directed, reports his fasting glucose was 147 mg/dL this morning. Denies any hypoglycemia. He does admit a fungal rash of the tip of his penis has started a few days ago. He is on an SGLT2. He is interested in speaking with the diabetic fuel cell assembler. He is currently receiving meals on wears. He would like to start cooking for himself and prepare proper diabetic meals. He continues with intentional weight loss related to lifestyle changes. Of note he has not had a colonoscopy. Encouraged strongly to get his Cologuard done KIMO to rule out any other cause for his weight loss, although he has been very active in changing his lifestyle, to include being smoke-free since December of 2023. Made aware that he remains at risk for amputation of the distal part of his right toe after review of the note from vascular as well as wound care. Reviewed this with him. Talked about the benefits of having this prophylactically removed versus watching and waiting and potentially having complications. He states that he will follow up with vascular and Wound Care as directed, however he is considering having this removed sooner rather than later. The following were reviewed with him today: Labs from 03/24/2024 show hemoglobin A1c of 8.9%, normal electrolytes, normal renal function, normal LFTs, total cholesterol 135, LDL 82, HDL 42, triglycerides 58, normal urine microalbumin creatinine ratio Plan: Lots of time was spent reviewing the need for cardioversion, the risks and benefits. Answered all of his questions. After this, was agreeable to proceed. Reassured about holding Synjardy for a few days; hold his Synjardy for 3 days prior with his last dose being Sunday05/03/24 Referral to diabetes education New RX for diflucan x 2 doses, increase h20 intake. Complete cologaurd FU with vascular and wound care for right toe. RTO in Jul as scheduled, sooner PRN EXAM: awake alert oriented PERRLA Afib LS wih faint exp wheezes scattered, improved w/ cont deep breaths Nonpalp pedal pulses bilat, skin hairless, dusky and cool to LLE and RLE. Right 4th toe with ulceration NOT EXAMINED TODAY, thickened toe nails This note is constructed using voice recognition software. While every effort has been made to ensure accuracy in chip drier, still errors may have been included Sometimes, these errors may affect the content or meaning of the given sentence . Total time spent caring for the patient today was 46 minutes. This includes time spent before the visit reviewing the chart, time spent during the visit, and time spent after the visit on documentation [facility] Medical History (Updated 04/28/24 @ 15:12 by Lizzeth Beatty, [facility]) CAD (coronary artery disease) Chronic HFrEF (heart failure with reduced ejection fraction) PAD (peripheral artery disease) Atrial fibrillation (~12/2023) Anticoagulated Aortic aneurysm without rupture DM (diabetes mellitus), type 2 with complications (~12/2023) Diabetic foot ulcer with osteomyelitis Nicotine dependence, cigarettes, uncomplicated Surgical History History of angioplasty Social History Household Members: None Housing: House Do you presently have visiting nurse or other home services: No Patient Tobacco Use Status: Former Tobacco user Tobacco use type: Cigarette Years Smoked: 30 e-Cigarette/Vaping Use: Never Used Second Hand Smoke Exposure: No service: No Current occupational status: employed and retired 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 Pravin Reese, Tanya Benitez, Enoch Reno and colleagues, with an educational simeon from [employer]. Physical exam (Primary Care) Vital Signs: Last Vital Signs Pulse 56 04/28/24 10:07 Resp 16 04/28/24 10:07 BP 110/82 04/28/24 10:07 Pulse Ox 98 04/28/24 10:07 Oxygen Delivery Method Room Air 04/28/24 10:07 BMI result Body Mass Index 28.1 Tobacco/Smoking Status: Tobacco use Status Tobacco use date assessed 02/18/24 04/28/24 10:13 Patient Tobacco Use Status Former Tobacco user 04/28/24 10:13 Tobacco use type Cigarette 04/28/24 10:13 e-Cigarette/Vaping Use Never Used 04/28/24 10:13 Thrive Assessment: Date of Thrive Assessment Date Thrive assessed 01/22/24 04/28/24 10:13 Assessment and Plan Assessment & Plan (1) DM (diabetes mellitus), type 2 with complications: Onset Date: ~12/2023 Code(s): E11.8 - Type 2 diabetes mellitus with unspecified complications (2) Emphysema with chronic bronchitis: Comment: noted on ct of chest 03/28/24 Code(s): J44.89 - Other specified chronic obstructive pulmonary disease (3) Lung nodule seen on imaging study: Comment: ct chest 03/28/24 benign; annual LDCT Code(s): R91.1 - Solitary pulmonary nodule (4) Atrial fibrillation: Onset Date: ~12/2023 Comment: Rate controlled with metoprolol 50 mg p.o. b.i.d., on Eliquis 5 mg p.o. b.i.d.. Active with Cardiology. Code(s): I48.91 - Unspecified atrial fibrillation Qualifiers: Atrial fibrillation type: paroxysmal Qualified Code(s): I48.0 - Paroxysmal atrial fibrillation Orders: Referrals Service Att[employer] Referral E11.8 - Type 2 diabetes mellitus with unspecified complications Medications: New fluconazole take 1 tab day 1, repeat second dose on day 3 150 mg PO Q3D 2 tabs 0RF 2 doses Refilled metoprolol tartrate 50 mg See Protocol PO BID 180 tabs 0RF 3 months apixaban (Eliquis) 5 mg PO BID 180 tabs 0RF 3 months atorvastatin 40 mg PO BEDTIME 90 tabs 0RF 3 months aspirin 81 mg PO DAILY 90 tabs 2RF 3 months Coding Level of Care Code Est Pt Level 5 (01076) Diagnoses DM (diabetes mellitus), type 2 with complications E11.8 Emphysema with chronic bronchitis J44.89 Lung nodule seen on imaging study R91.1 Paroxysmal atrial fibrillation I48.0 Atrial fibrillation type: paroxysmal
[2024-04-28 10:07] VITALS: BP 110/82; PULSE 56; RESP 16; O2SAT 98; BMI 28.1
== END 2024-04-28 12:04 | disposition home or self-care (01) ==
PROVIDERS: PCP Nurse Practitioner Family; Visit Provider Nurse Practitioner Family
DX: E11.8 Type 2 diabetes mellitus with unspecified complications (principal); J44.89 Other specified chronic obstructive pulmonary disease; R91.1 Solitary pulmonary nodule; I48.0 Paroxysmal atrial fibrillation
CPT/HCPCS: 99215

== ENCOUNTER 2024-04-29 08:07 | Outpatient (REF) | payer OTHER, SELFPAY ==
--- NOTE | ~2024-04-29 | US_ITS ---
EXAMINATION: Noninvasive assessment of the bilateral lower extremities with ARTERIAL DUPLEX and ANKLE BRACHIAL INDICES (ABIs). CLINICAL INFORMATION: PVD TECHNIQUE: Duplex Doppler techniques with waveform analysis and measurement of velocities in the bilateral common femoral, profunda femoris, superficial femoral, popliteal and tibial arteries were performed. Additionally, ankle pulse volume recordings, ankle pressure measurements and ankle brachial indices were obtained of the lower extremity arterial system bilaterally. The study was performed only at rest. COMPARISON: Ultrasound arterial duplex of the left lower extremity dated 01/21/2024 FINDINGS: DIRECT DUPLEX DOPPLER FINDINGS: RIGHT LEG: Common femoral artery: 124 cm/s, phasicity: Biphasic Profunda femoris artery: 71 cm/s, phasicity: Biphasic There is a stent graft from the proximal superficial femoral artery to the distal superficial femoral artery. [place] artery proximal to stent: 124 cm/s, phasicity: Biphasic Proximal stent: 86 cm/s, phasicity: Biphasic Mid stent: 53 cm/s, phasicity: Biphasic Distal stent: 48 cm/s, phasicity: Biphasic [place] artery distal to stent: 61 cm/s, phasicity: Biphasic Popliteal artery: 154 cm/s, phasicity: Biphasic Posterior tibial artery: 24 cm/s, phasicity: Monophasic Peroneal artery: 44 cm/s, phasicity: Biphasic Anterior tibial artery: 38 cm/s, phasicity: Biphasic LEFT LEG: Common femoral artery: 88 cm/s, phasicity: Biphasic Profunda femoris artery: 81 cm/s, phasicity: Monophasic Superficial femoral artery (proximal): Occluded Superficial femoral artery (mid): Occluded Superficial femoral artery (distal): 41 cm/s, phasicity: Monophasic Popliteal artery: 33 cm/s, phasicity: Monophasic Posterior tibial artery: 14 cm/s, phasicity: Monophasic Peroneal artery: 18 cm/s, phasicity: Monophasic Anterior tibial artery: Occluded ANKLE-BRACHIAL INDEX: Right: 0.89? Left: 0.52 ANKLE PRESSURES: Right: Brachial 123, PT 109, DP 91 Left: Brachial 114, PT?64, DP?61 ANKLE PVR WAVEFORMS: Right: Abnormal Left: Abnormal US/US JADE complete IMPRESSION: Right leg: Patent right superficial femoral artery stent. Diffuse dampening waveforms in the arteries of the right lower extremity, including dampened velocity and monophasic waveform of the right posterior tibial artery. Left leg: Occluded proximal and mid left superficial femoral artery, which was previously only occluded in the distal segment. However, the distal segment now appears patent but with a dampened velocity and monophasic waveform. There is reconstitution of the left popliteal artery, however with a dampened and monophasic waveform. The left anterior tibial artery is newly occluded when compared to prior. Dampened velocities and monophasic waveforms of the posterior tibial artery and peroneal artery. JADE Reference: - >1.4 = calcified vessels - 0.9 - 1.4 = normal - no significant arterial disease - 0.7 - 0.89 = mild peripheral arterial disease - 0.51 - 0.69 = moderate peripheral arterial disease - ? 0.50 = severe peripheral arterial disease - < .30 = critical arterial disease
--- NOTE | ~2024-04-29 | US_ITS ---
EXAMINATION: Noninvasive assessment of the bilateral lower extremities with ARTERIAL DUPLEX and ANKLE BRACHIAL INDICES (ABIs). CLINICAL INFORMATION: PVD TECHNIQUE: Duplex Doppler techniques with waveform analysis and measurement of velocities in the bilateral common femoral, profunda femoris, superficial femoral, popliteal and tibial arteries were performed. Additionally, ankle pulse volume recordings, ankle pressure measurements and ankle brachial indices were obtained of the lower extremity arterial system bilaterally. The study was performed only at rest. COMPARISON: Ultrasound arterial duplex of the left lower extremity dated 01/21/2024 FINDINGS: DIRECT DUPLEX DOPPLER FINDINGS: RIGHT LEG: Common femoral artery: 124 cm/s, phasicity: Biphasic Profunda femoris artery: 71 cm/s, phasicity: Biphasic There is a stent graft from the proximal superficial femoral artery to the distal superficial femoral artery. [place] artery proximal to stent: 124 cm/s, phasicity: Biphasic Proximal stent: 86 cm/s, phasicity: Biphasic Mid stent: 53 cm/s, phasicity: Biphasic Distal stent: 48 cm/s, phasicity: Biphasic [place] artery distal to stent: 61 cm/s, phasicity: Biphasic Popliteal artery: 154 cm/s, phasicity: Biphasic Posterior tibial artery: 24 cm/s, phasicity: Monophasic Peroneal artery: 44 cm/s, phasicity: Biphasic Anterior tibial artery: 38 cm/s, phasicity: Biphasic LEFT LEG: Common femoral artery: 88 cm/s, phasicity: Biphasic Profunda femoris artery: 81 cm/s, phasicity: Monophasic Superficial femoral artery (proximal): Occluded Superficial femoral artery (mid): Occluded Superficial femoral artery (distal): 41 cm/s, phasicity: Monophasic Popliteal artery: 33 cm/s, phasicity: Monophasic Posterior tibial artery: 14 cm/s, phasicity: Monophasic Peroneal artery: 18 cm/s, phasicity: Monophasic Anterior tibial artery: Occluded ANKLE-BRACHIAL INDEX: Right: 0.89? Left: 0.52 ANKLE PRESSURES: Right: Brachial 123, PT 109, DP 91 Left: Brachial 114, PT?64, DP?61 ANKLE PVR WAVEFORMS: Right: Abnormal Left: Abnormal US/US arterial duplex LE BI IMPRESSION: Right leg: Patent right superficial femoral artery stent. Diffuse dampening waveforms in the arteries of the right lower extremity, including dampened velocity and monophasic waveform of the right posterior tibial artery. Left leg: Occluded proximal and mid left superficial femoral artery, which was previously only occluded in the distal segment. However, the distal segment now appears patent but with a dampened velocity and monophasic waveform. There is reconstitution of the left popliteal artery, however with a dampened and monophasic waveform. The left anterior tibial artery is newly occluded when compared to prior. Dampened velocities and monophasic waveforms of the posterior tibial artery and peroneal artery. JADE Reference: - >1.4 = calcified vessels - 0.9 - 1.4 = normal - no significant arterial disease - 0.7 - 0.89 = mild peripheral arterial disease - 0.51 - 0.69 = moderate peripheral arterial disease - ? 0.50 = severe peripheral arterial disease - < .30 = critical arterial disease
== END 2024-04-29 08:08 | disposition home or self-care (01) ==
LOC: HO.US 08:07
PROVIDERS: PCP Nurse Practitioner Family; Visit Provider Surgery Vascular Surgery
DX: I73.9 Peripheral vascular disease, unspecified (principal)
CPT/HCPCS: 93923; 93925

== ENCOUNTER 2024-05-07 11:47 | Day surgery (SDC) | payer OTHER, SELFPAY ==
--- NOTE | 2024-05-05 14:10 | P.CONAN_ITS ---
Documented by User: Loly Garcia NP 05/05/24 14:11 HPI - Anesthesia Eval Consult details Narrative: 74yo M for Cardioversion PMFSH Active Problems Active Problems: All Active Problems Lung nodule seen on imaging study (Acute) Emphysema with chronic bronchitis (Acute) Cardiomyopathy (Acute) CAD (coronary artery disease) (Acute) Chronic HFrEF (heart failure with reduced ejection fraction) (Acute) PAD (peripheral artery disease) (Acute) Atrial fibrillation (Acute ~12/2023) Anticoagulated (Acute) Secondary hypercoagulable state (Acute) Aortic aneurysm without rupture (Acute) DM (diabetes mellitus), type 2 with complications (Acute ~12/2023) Diabetic foot ulcer with osteomyelitis (Acute) Diabetic osteomyelitis (Acute) Osteomyelitis of toe of right foot (Acute) Non-healing ulcer of foot (Acute) Nicotine dependence, cigarettes, uncomplicated (Acute) Tobacco user (Acute) Past Medical History Medical History Nicotine dependence, cigarettes, uncomplicated CAD (coronary artery disease) DM (diabetes mellitus), type 2 with complications (~12/2023) Anticoagulated Aortic aneurysm without rupture Chronic HFrEF (heart failure with reduced ejection fraction) Diabetic foot ulcer with osteomyelitis PAD (peripheral artery disease) Atrial fibrillation (~12/2023) Surgical History Surgical History History of tonsillectomy History of angioplasty Social History Social History Household Members: None Housing: House Do you presently have visiting nurse or other home services: No Patient Tobacco Use Status: Former Tobacco user Tobacco use type: Cigarette Years Smoked: 30 e-Cigarette/Vaping Use: Never Used Second Hand Smoke Exposure: No Are you DNR?: No Advance Directives: No Advance Directives Information Provided: Yes Nutrition Risks: No Nutritional Risk service: No Current occupational status: employed and retired 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 Myocardial perfusion imaging study shows no reversible ischemia 2. Gated LVEF is 55% 3. Transient ischemic dilatation not present but LV cavity is dilated EKG is nondiagnostic for ischemia Assessment and Plan Assessment Anesthesia Assessment: Chart Reviewed Documented by User: Yu Adams MD 05/07/24 14:11 [facility] Past Medical History Medical History Nicotine dependence, cigarettes, uncomplicated CAD (coronary artery disease) DM (diabetes mellitus), type 2 with complications (~12/2023) Anticoagulated Aortic aneurysm without rupture Chronic HFrEF (heart failure with reduced ejection fraction) Diabetic foot ulcer with osteomyelitis PAD (peripheral artery disease) Atrial fibrillation (~12/2023) Surgical History Surgical History History of tonsillectomy History of angioplasty History of Problems with Anesthesia: No Social History Social History Household Members: None Housing: House Do you presently have visiting nurse or other home services: No Patient Tobacco Use Status: Former Tobacco user Tobacco use type: Cigarette Years Smoked: 30 e-Cigarette/Vaping Use: Never Used Second Hand Smoke Exposure: No Are you DNR?: No Advance Directives: No Advance Directives Information Provided: Yes Nutrition Risks: No Nutritional Risk service: No Current occupational status: employed and retired 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 Current occupational exposures/hazards: No Cognitive needs: No Hearing needs: No Vision needs: No Meds Allergies Allergy/AdvReac Type Severity Reaction Status Date / Time No Known Allergies Allergy Verified 05/07/24 12:06 Exam Airway Mallampati Class: III (globally poor dentition) TM Dist: >3cm Loose/Missing/Broken Teeth: Yes, Upper and Lower Heart: RRR Lungs: CTA Assessment and Plan Assessment Anesthesia Assessment: Anesthesia Plan Discussed Final Anesthetic Review History of Problems with Anesthesia: No NPO: Yes ASA Class: III Final Preanesthetic Review: Meds/Allgs Chart Reviewed, Consent Obtained/Reviewed and Anes Risks/Benef Reviewed Patient Risk: Intermediate Procedure Risk: Low Anesthetic Plan Anesthetic Plan: MAC: Disposition: Standard PACU
[2024-05-07 12:02] VITALS: BMI 24.8
[2024-05-07] MEDS: Lactated Ringers 1,000 ML 50 ML IVCONT (12:16)
[2024-05-07 12:25] LABS: Glucose, Whole Blood 113 mg/dL (60-115)
[2024-05-07 12:41] VITALS: BP 155/89; PULSE 90; RESP 18; TEMP 36.7; O2SAT 96
--- NOTE | 2024-05-07 12:56 | MHC.SHP ---
Pre-Procedural Eval Section A - 24 Hr Update-Section A only Date of Service: 05/07/24 The patient is an INPATIENT: No Changes since office visit: Yes Patient answered all questions; No Cold of Flu in the past 2 weeks, No New Medical Problems and No Changes in Medication The patient has been examined within 24 hours of the surgical procedure. The History & Physical has been completed within 30 days and I have reviewed it.: Yes Section B - Complete if H&P > 30 days Chief Complaint: Paroxysmal atrial fibrillation Allergies: Allergies Allergy/AdvReac Type Severity Reaction Status Date / Time No Known Allergies Allergy Verified 05/07/24 12:06 Plan I have reviewed the history and physical and performed a pertinent physical examination on my patient. No changes have occurred unless specified. Time Spent With Patient Time: Total time managing care of this patient today ____ minutes.
--- NOTE | 2024-05-07 14:31 | ECG_ITS ---
Test Reason : s/p cardioversion Blood Pressure : / mmHG Vent. Rate : 064 BPM Atrial Rate : 064 BPM P-R Int : 216 ms QRS Dur : 144 ms QT Int : 484 ms P-R-T Axes : 036 046 -54 degrees QTc Int : 499 ms Sinus rhythm with 1st degree A-V block with premature supra-ventricular complexes Right bundle branch block T wave abnormality, consider inferior ischemia Abnormal ECG When compared with ECG of 21-JAN-2024 09:55, Sinus rhythm has replaced Atrial fibrillation Vent. rate has decreased BY 64 BPM T wave inversion no longer evident in Anterior leads Referred By: Jevon Montgomery Electronically Signed By:JEVON MONTGOMERY MD
--- NOTE | 2024-05-07 14:31 | HO.CARDIVERS ---
Cardioversion Procedure Note Cardioversion Date of Procedure: Today Ordering Provider: Brina Taylor Performing Provider: Braulio Wild Indication for Procedure: Persistent atrial fibrillation and cardiomyopathy Pre-Op Diagnosis: Same Performed with Transesophageal Echo: No History: See the office note Consent: Verbal and Written consent was obtained from the patient before starting. The patient was made aware of the risk of synchronized cardioversion including benefits and alternatives Procedure: After consent obtained, cardioversion pads were attached and the patient was sedated by the anesthesia team. Once adequate sedation achieved, patient was delivered 200 joules of biphasic synchronized energy in anteroposterior configuration. Subsequently patient was noted to be back in atrial fibrillation was given another synchronized attempt. Complications: None Impression: Successful conversion with sinus bradycardia with PACs and junctional escape Recommendations: 1. 12 lead EKG 2. Continue full oral anticoagulation 3. Follow up in the office after Holter monitor
[2024-05-07 14:32] VITALS: BP 119/62; PULSE 54; RESP 18; TEMP 36.3; O2SAT 100
[2024-05-07 14:35] VITALS: BP 121/54; PULSE 49; RESP 18; O2SAT 100
[2024-05-07 14:40] VITALS: BP 112/53; PULSE 49; RESP 18; O2SAT 100
[2024-05-07 14:45] VITALS: BP 122/62; PULSE 65; RESP 18; O2SAT 100
[2024-05-07 15:00] VITALS: BP 133/63; PULSE 53; RESP 16; TEMP 36.1; O2SAT 99
== END 2024-05-07 15:40 | disposition home or self-care (01) ==
PROVIDERS: PCP Nurse Practitioner Family; Visit Provider Internal Medicine Cardiovascular Disease
PROC: 5A2204Z Restoration of Cardiac Rhythm, Single (ICD-10-PCS; principal; 2024-05-07 13:30)
DX: I48.19 Other persistent atrial fibrillation (principal); I42.9 Cardiomyopathy, unspecified; I48.0 Paroxysmal atrial fibrillation; Z79.01 Long term (current) use of anticoagulants
CPT/HCPCS: 82947; 92960; 93005; J2704

== ENCOUNTER → 2024-05-07 11:47 | Outpatient (BNV) | payer OTHER, SELFPAY | PROVIDERS: PCP Nurse Practitioner Family; Visit Provider Internal Medicine Cardiovascular Disease | DX: I48.91 Unspecified atrial fibrillation (principal) | CPT/HCPCS: 92960; 93010 ==

== ENCOUNTER → 2024-05-16 08:25 | Outpatient (BNVA) | payer OTHER, SELFPAY | PROVIDERS: PCP Nurse Practitioner Family; Visit Provider Nurse Practitioner | DX: I48.91 Unspecified atrial fibrillation (principal) ==

== ENCOUNTER 2024-05-22 08:25 | Outpatient (AMB) | payer OTHER, SELFPAY ==
[2024-05-22 08:29] VITALS: BP 124/62; PULSE 76; BMI 24.8
--- NOTE | 2024-05-22 08:29 | MHC.OFFVIS ---
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 blood-glucose meter (FreeStyle Lite Meter kit) As Directed empagliflozin-metformin 5-1,000 mg ER (Synjardy XR) 1 tab PO DAILY lancets (FreeStyle Lancets) Test four times a day or as directed. metoprolol tartrate 50 mg See Protocol PO BID 3 months HPI HPI 2 wk fu after cv: Details: Juvenal is a 74-year-old male with past medical history of smoking who was admitted to [facility], December 2023, with a nonhealing wound on his foot, then diagnosed with diabetes, peripheral vascular disease and new finding atrial fibrillation. For his AFib he was treated with heart rate control using metoprolol. He was put on Eliquis for anticoagulation. He was set up with vascular for his peripheral vascular disease and has undergone right SFA stent placement. Outpatient Holter monitor confirmed ongoing atrial fibrillation. He underwent a cardioversion on 05/07/2024 and now presents for follow-up. Today he reports he noticed that his pulse was steady for about 1-2 days after the cardioversion then it went back to feeling irregular. He does not notice any heart palpitations. He has been checking his pulse radially to feel how steady it is. He tells me that when his pulse was steady he felt absolutely no different. Describes good activity tolerance, no fatigue or shortness of breath. He denies any chest discomfort at rest or with activity. No lightheadedness, presyncope, syncope, falls. No bleeding issues reported. 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 He has been tolerating this well. [facility] Medical History Nicotine dependence, cigarettes, uncomplicated CAD (coronary artery disease) DM (diabetes mellitus), type 2 with complications (~12/2023) Anticoagulated Aortic aneurysm without rupture Chronic HFrEF (heart failure with reduced ejection fraction) Diabetic foot ulcer with osteomyelitis PAD (peripheral artery disease) Atrial fibrillation (~12/2023) Surgical History History of tonsillectomy History of angioplasty Social History Household Members: None Housing: House Do you presently have visiting nurse or other home services: No Patient Tobacco Use Status: Former Tobacco user Tobacco use type: Cigarette Years Smoked: 30 e-Cigarette/Vaping Use: Never Used Second Hand Smoke Exposure: No service: No Current occupational status: employed and retired 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 Current occupational exposures/hazards: No Cognitive needs: No Hearing needs: No Vision needs: No Review of Systems Const All systems reviewed & are unremarkable except as noted in HPI and below ENT Denies dizziness Card Denies chest pain, Denies chest pain at rest, Denies chest pain with activity, Denies rapid heart rate, Denies pedal edema, Denies edema, Denies leg edema, Denies lightheadedness, Denies palpitations, Denies dyspnea, Denies dyspnea on exertion and Denies orthopnea Resp Denies cough, Denies dyspnea and Denies dyspnea on exertion GI Denies hematochezia and Denies change in stool character Musc Denies abnormal gait, Denies limited range of motion, Denies muscle cramps, Denies muscle weakness, Denies numbness, Denies radiating pain into limb, Denies stiffness and Denies tingling Neuro Denies abnormal gait, Denies dizziness, Denies numbness and Denies tingling Endo Denies palpitations Physical Exam Vital Signs: Last Vital Signs Pulse 76 05/22/24 08:29 BP 124/62 05/22/24 08:29 BMI result Body Mass Index 24.8 Const General: cooperative, healthy appearing, comfortable and no acute distress Orientation/consciousness: patient oriented x3 Neck Neck: Yes normal visual inspection and Yes no JVD Resp Effort & Inspection: normal respiratory effort Auscultation: clear to auscultation bilaterally, no crackles, no rales, no rhonchi and no wheezes Cardio Jugular venous distension: no JVD Rate: regular rate Rhythm: abnormal rhythm Heart sounds: S1 normal heart sound present, S2 normal heart sound present, no gallops, no murmurs and no rubs Neuro General: patient oriented x3 Extrem General: Yes normal to inspection, No no pedal edema and No calf tenderness Psych Appearance: grossly normal Mental Status: mental status grossly normal Speech and movement: Normal speech and movement present Office Procedures EKG Details: Today, read by me, atrial fibrillation with right bundle branch block, ST and T-wave abnormality inferior lateral leads, rate 76, QTC 481 millisecond [id number], Complete Assessment & Plan Assessment & Plan (1) Atrial fibrillation: Onset Date: ~12/2023 Comment: Rate controlled with metoprolol 50 mg p.o. b.i.d., on Eliquis 5 mg p.o. b.i.d.. Active with Cardiology. Code(s): I48.91 - Unspecified atrial fibrillation Category: Medical Qualifiers: Atrial fibrillation type: paroxysmal Qualified Code(s): I48.0 - Paroxysmal atrial fibrillation Plan: Newer finding of atrial fibrillation during hospitalization December 2023. It was an incidental finding. He presented with noncardiac issue. An echocardiogram showed EF 40-45%, mild LVH, moderate biatrial enlargement. Unknown how long the AFib has been present. Patient denied any issues with fatigue, palpitations or shortness of breath. He was not in heart failure. He was put on metoprolol for heart rate control. He was started on Eliquis for anticoagulation. Outpatient Holter monitor done 03/27/2024 for 3 days shows AFib average heart rate 83, occasional PVCs, one 4 beat NSVT. A pharmacological nuclear stress test done 03/27/2024 shows no ischemia, there is a fixed apical defect most likely attenuation artifact. He did undergo a cardioversion with Dr. Montgomery on 05/07/2024. It required 2 shocks in order to achieve sinus rhythm. Patient tells me that his pulse was steady for 1-2 days after the cardioversion during which time he felt completely unchanged. He then started to notice irregular radial pulses. EKG done today confirms atrial fibrillation with right bundle branch block, rate 76. He reports no concerning symptoms and has good activity tolerance. Discussed options for rate versus rhythm control. He says he is fine the way he is. His initial echo did show mildly reduced EF. Will recheck a limited echo to assess EF. EF reduction could have been rate related. Will recheck a Holter monitor to reassess rate control. If EF has normalized and heart rate well controlled and will continue to pursue rate control. If EF has not improved then will check a CTA of the coronary arteries to better ensure there is no obstructive CAD and will need further medication for neurohormonal modulation. He is agreeable to this plan. Continue metoprolol and Eliquis. Cardiology follow-up 2-3 months, sooner if needed. (2) Cardiomyopathy: Code(s): I42.9 - Cardiomyopathy, unspecified Category: Medical Plan: New finding of cardiomyopathy with EF 40-45%. He has new finding of AFib. It is possible that he was having issues with heart rate control prior to diagnosis. Rate is now well controlled with use of metoprolol. Will plan to recheck a limited echo in the near future to reassess EF. (3) Anticoagulated: Comment: On Eliquis due to secondary hypercoagulable state related to AFib Code(s): Z79.01 - assisted (current) use of anticoagulants Category: Medical Plan: As above Plan Time spent on chart review, documentation, interview and assessment. Orders: Orders ECG 3 day holter monitor Today I48.0 - Paroxysmal atrial fibrillation CA Echo Limited Today I42.9 - Cardiomyopathy, unspecified Coding Level of Care Code Est Pt Level 4 (31037) Diagnoses Paroxysmal atrial fibrillation I48.0 Atrial fibrillation type: paroxysmal Cardiomyopathy I42.9 Anticoagulated Z79.01 CPT Codes EKG - CPT: 88532-[id number], Complete ([id number]) Time Spent (min) 30
== END 2024-05-22 09:07 | disposition home or self-care (01) ==
PROVIDERS: PCP Nurse Practitioner Family; Visit Provider Nurse Practitioner Family
DX: I48.0 Paroxysmal atrial fibrillation (principal); I42.9 Cardiomyopathy, unspecified; Z79.01 Long term (current) use of anticoagulants
CPT/HCPCS: 93010; 99214

== ENCOUNTER → 2024-05-22 08:25 | Outpatient (BNVA) | payer OTHER, SELFPAY | PROVIDERS: PCP Nurse Practitioner Family; Visit Provider Nurse Practitioner Family | DX: I48.19 Other persistent atrial fibrillation (principal); I42.9 Cardiomyopathy, unspecified; Z79.01 Long term (current) use of anticoagulants; Z87.891 Personal history of nicotine dependence | CPT/HCPCS: 93005; 99212 ==

== ENCOUNTER 2024-05-27 08:43 | Outpatient (AMB) | payer OTHER, SELFPAY ==
[2024-05-27 09:12] VITALS: BMI 25.1
--- NOTE | 2024-05-27 09:12 | A.OFFVIS_ITS ---
VS Expanded 05/27/24 09:12 06/03/24 12:24 Height 6 ft 1 in 6 ft 1 in Weight 190 lb 0.615 oz 190 lb BMI 25.1 25.1 Intake Visit Reasons: T2DM/CONFIRMED Allergies No Known Allergies Allergy (Verified 05/27/24 09:51) Nutrition Presentation Details: Pt presents for MNT for T2DM BS Monitoring Most Recent Diabetes Results: No Data to Display MLW-Wuzuqxw-Lq.Jeor Equation Height: 6 ft 1 in Weight: 190 lb Resting Metabolic Rate: 1665.68 Calculated Activity Level: Mild Activity Calories Needed to Maintain Weight: 2290.31 Diagnosis Nutrition problem #1: food nutri know defi As related to (etiology) #1: diagnosis As evidenced by (sign/symptom) #1: knowledge deficit of diet [facility] Medical History Nicotine dependence, cigarettes, uncomplicated CAD (coronary artery disease) DM (diabetes mellitus), type 2 with complications (~12/2023) Anticoagulated Aortic aneurysm without rupture Chronic HFrEF (heart failure with reduced ejection fraction) Diabetic foot ulcer with osteomyelitis PAD (peripheral artery disease) Atrial fibrillation (~12/2023) Surgical History History of tonsillectomy History of angioplasty Social History Household Members: None Housing: House Do you presently have visiting nurse or other home services: No Patient Tobacco Use Status: Former Tobacco user Tobacco use type: Cigarette Years Smoked: 30 e-Cigarette/Vaping Use: Never Used Second Hand Smoke Exposure: No service: No Current occupational status: employed and retired 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 Current occupational exposures/hazards: No Cognitive needs: No Hearing needs: No Vision needs: No Assessment & Plan Assessment & Plan (1) Diabetic osteomyelitis: Comment: Same Code(s): E11.69 - Type 2 diabetes mellitus with other specified complication; M86.9 - Osteomyelitis, unspecified Category: Medical Plan: Wt: 86 Kg ( 06/2024 ) Est kcal needs as per MSJ: 2300 (40% carb, 30% protein/fat) Est fluid needs as per 25-30 ml/d: 2600 Est prot per day as per 1 g/kg bw: 86 Recommend fiber intake : 8-10 g per day and gradually increase to 25-28 g per day for women and 35-38 g for men or as tolerated Recommend sodium intake per day : less than 2000 mg Educated patient on: ( R = reviewed V = verbalizes understanding N/R = needs review N/A = not applicable * Food sources of carbohydrate, adequate serving sizes and its role in various health conditions: R * Differences between complex carbohydrates a simple carbohydrates, role of fiber in diet: R V N/R * Lean protein sources of foods: R V NR * Differences between types of fats and role in diet (mono on saturated fat fatty acids, saturated fatty acids, trans fats): R V N/R * Food sources of sodium in salt and healthy modifications for heart health in kidney health: R V R/V * Vitamins and minerals: R V N/R * Healthy plate method concept: R * Physical activity: Benefits a precaution: R V N/R * Hypoglycemia protocol (rule of 15): R V N/R * Dietary prevention of Hyperglycemia: R Patient Instructions: Follow healthy plate method Include unsalted nuts /seeds as snack ,r educing on high sugar/high salt snacks Keep hydrated , choosing water/infused beverages Coding Level of Care Code Nutr Indiv Intake (21415) Diagnoses Diabetic osteomyelitis E11.69; M86.9 Time Spent (min) 30
[2024-06-03 12:24] VITALS: BMI 25.1
== END 2024-05-27 09:37 | disposition home or self-care (01) ==
PROVIDERS: PCP Nurse Practitioner Family; Visit Provider Dietitian, Registered
DX: E11.69 Type 2 diabetes mellitus with other specified complication (principal); M86.9 Osteomyelitis, unspecified

== ENCOUNTER → 2024-05-27 08:43 | Outpatient (BNVA) | payer OTHER, SELFPAY | PROVIDERS: PCP Nurse Practitioner Family; Visit Provider Dietitian, Registered | DX: E11.621 Type 2 diabetes mellitus with foot ulcer (principal); E11.51 Type 2 diabetes mellitus with diabetic peripheral angiopathy without gangrene; E11.69 Type 2 diabetes mellitus with other specified complication; M86.9 Osteomyelitis, unspecified; L97.519 Non-pressure chronic ulcer of other part of right foot with unspecified severity; I48.91 Unspecified atrial fibrillation; Z71.3 Dietary counseling and surveillance; Z79.01 Long term (current) use of anticoagulants | CPT/HCPCS: 97802; 99212 ==

== ENCOUNTER 2024-05-27 09:42 | Outpatient (AMB) | payer OTHER, SELFPAY ==
[2024-05-27 09:43] VITALS: BMI 25.1
--- NOTE | 2024-05-27 09:43 | MHC.OFFVIS ---
Vital Signs 05/27/24 09:43 Height 6 ft 1 in Weight 190 lb BMI 25.1 Intake Visit Reasons: follow up Arterial US 04/29/24 Intake Note: Follow up Right 4th toe wound, goes to wound care every week. They are waiting for a prior authorization for a skin substitute. Today following up on Arterial US 04/29/24 results. Accompanied by: Self / Same As Patient Allergies No Known Allergies Allergy (Verified 05/27/24 09:51) HPI HPI follow up Arterial US 04/29/24: Details: Very pleasant 74-year-old gentleman presents for follow-up regarding nonhealing right 4th toe ulcer. He has been followed by the [facility]. It appears that they are suggesting skin substitute. He has undergone endovascular intervention by us nearly 3 months ago and now presents for routine surveillance. Of note in the interim he has developed AFib and has undergone cardioversion. He is currently being maintained on Eliquis [facility] Medical History Nicotine dependence, cigarettes, uncomplicated CAD (coronary artery disease) DM (diabetes mellitus), type 2 with complications (~12/2023) Anticoagulated Aortic aneurysm without rupture Chronic HFrEF (heart failure with reduced ejection fraction) Diabetic foot ulcer with osteomyelitis PAD (peripheral artery disease) Atrial fibrillation (~12/2023) Surgical History History of tonsillectomy History of angioplasty Social History Household Members: None Housing: House Do you presently have visiting nurse or other home services: No Patient Tobacco Use Status: Former Tobacco user Tobacco use type: Cigarette Years Smoked: 30 e-Cigarette/Vaping Use: Never Used Second Hand Smoke Exposure: No service: No Current occupational status: employed and retired 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 Current occupational exposures/hazards: No Cognitive needs: No Hearing needs: No Vision needs: No Review of Systems Const All systems reviewed & are unremarkable except as noted in HPI and below Reports no additional complaints ENT Reports Normal hearing present Card Denies chest pain, Denies chest pain at rest, Denies chest pain with activity and Denies pedal edema Resp Denies cough GI Denies abdominal pain Musc Denies abnormal gait, Denies muscle cramps and Denies radiating pain into limb Skin/Breast Denies skin ulcer and Denies wounds Neuro Reports Normal hearing present and Denies abnormal gait Psych Reports no additional complaints Physical Exam Vital Signs: BMI result Body Mass Index 25.1 Const General: cooperative, healthy appearing and comfortable Orientation/consciousness: oriented to person, oriented to place and oriented to time HEENT Head: Yes normal to inspection Neck Neck: Yes normal visual inspection Carotids: no bruits Chest Chest palpation & inspection: normal inspection of the chest Resp Effort & Inspection: normal respiratory effort and able to speak in complete sentences Auscultation: clear to auscultation bilaterally, no crackles, no rales, no rhonchi and no wheezes Cardio Other: Bilateral DP signals Rate: regular rate Rhythm: regular rhythm Heart sounds: S1 normal heart sound present and S2 normal heart sound present Bruits: no carotid bruits Peripheral pulses: Peripheral pulses 2+ throughout GI Inspection: Yes normal to inspection Skin Other: Right 4th toe opening measuring 0.7 x 0.7 x 0.5 cm it does penetrate down to bone. Wounds: no wounds Hair: normal Neuro General: oriented to person, oriented to place and oriented to time Cranial nerves: Yes CN's II-XII intact bilaterally and Yes Normal hearing present Cognition (Neuro): normal cognition Motor exam (neuro): 5/5 motor strength present throughout Extrem Other: venous exam: No significant superficial varicosities or spider telangiectasias, minimal edema General: No clubbing, No cyanosis and No edema Psych Appearance: grossly normal Mental Status: mental status grossly normal Speech and movement: Normal speech and movement present Results Reviewed Results Reviewed: Noninvasive arterial testing measure JADE on the right of 0.89 and on the left of 0.52 right stent is patent with biphasic flow. Written report and images were reviewed. Assessment & Plan Assessment & Plan (1) PAD (peripheral artery disease): Comment: 02/06/2024 - right SFA plasty and stent placement Code(s): I73.9 - Peripheral vascular disease, unspecified Category: Medical Plan: In short patient appears to be doing relatively well from a vascular standpoint. Wound is being followed by wound care center. In terms of his left lower extremity I would like to revisit this once his AFib situation appears to be in better control. And I would like to ensure that the right foot goes on to heal. We did discuss routine risk factor modification. Patient will follow up with us in approximately 3 months time to ensure that the wound is progressing in the right direction and will need a surveillance arterial follow-up in approximately 6 months time. Thank you for allowing us to assist in his care. If there are any questions or concerns please do not hesitate to contact us Please note a longitudinal relationship has been created with the patient and we have been following and surveillance this chronic condition. Coding Level of Care Code Est Pt Level 4 (53579) Complex EM visit Add On G2211 Diagnoses PAD (peripheral artery disease) I73.9
== END 2024-05-27 10:26 | disposition home or self-care (01) ==
PROVIDERS: PCP Nurse Practitioner Family; Visit Provider Surgery Vascular Surgery
DX: I73.9 Peripheral vascular disease, unspecified (principal)
CPT/HCPCS: 99214; G2211

== ENCOUNTER 2024-06-12 10:06 | Outpatient (AMB) | payer OTHER, SELFPAY ==
--- NOTE | 2024-06-12 10:13 | A.OFFVIS_ITS ---
Intake Visit Reasons: toe amp consultation/scheduled 06/16/24 Intake Note: Patient presents for non healing 4th right toe. Patient has been seeing wound care every 1-2 weeks. Accompanied by: Self / Same As Patient Allergies No Known Allergies Allergy (Verified 06/12/24 10:15) [facility] toe amp consultation/scheduled 06/16/24: Details: Very pleasant 74-year-old gentleman presents for follow-up regarding nonhealing right 4th toe. He has undergone previous endovascular intervention has been followed by the [facility]. Wound care center notes that it is penetrating down to bone and is nonhealing. Of note he did get an x-ray this morning. He now presents for follow-up. [facility] Medical History Nicotine dependence, cigarettes, uncomplicated CAD (coronary artery disease) DM (diabetes mellitus), type 2 with complications (~12/2023) Anticoagulated Aortic aneurysm without rupture Chronic HFrEF (heart failure with reduced ejection fraction) Diabetic foot ulcer with osteomyelitis PAD (peripheral artery disease) Atrial fibrillation (~12/2023) Surgical History History of tonsillectomy History of angioplasty Social History Household Members: None Housing: House Do you presently have visiting nurse or other home services: No Patient Tobacco Use Status: Former Tobacco user Tobacco use type: Cigarette Years Smoked: 30 e-Cigarette/Vaping Use: Never Used Second Hand Smoke Exposure: No service: No Current occupational status: employed and retired 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 Current occupational exposures/hazards: No Cognitive needs: No Hearing needs: No Vision needs: No Review of Systems Const All systems reviewed & are unremarkable except as noted in HPI and below Reports no additional complaints ENT Reports Normal hearing present Card Denies chest pain, Denies chest pain at rest, Denies chest pain with activity and Denies pedal edema Resp Denies cough GI Denies abdominal pain Musc Denies abnormal gait, Denies muscle cramps and Denies radiating pain into limb Skin/Breast Denies skin ulcer and Denies wounds Neuro Reports Normal hearing present and Denies abnormal gait Psych Reports no additional complaints Physical Exam Const General: cooperative, healthy appearing and comfortable Orientation/consciousness: oriented to person, oriented to place and oriented to time HEENT Head: Yes normal to inspection Neck Neck: Yes normal visual inspection Carotids: no bruits Chest Chest palpation & inspection: normal inspection of the chest Resp Effort & Inspection: normal respiratory effort and able to speak in complete sentences Auscultation: clear to auscultation bilaterally, no crackles, no rales, no rhonchi and no wheezes Cardio Rate: regular rate Rhythm: regular rhythm Heart sounds: S1 normal heart sound present and S2 normal heart sound present Bruits: no carotid bruits Peripheral pulses: Peripheral pulses 2+ throughout GI Inspection: Yes normal to inspection Skin Other: Nonhealing right 4th toe ulcer Wounds: no wounds Hair: normal Neuro General: oriented to person, oriented to place and oriented to time Cranial nerves: Yes CN's II-XII intact bilaterally and Yes Normal hearing present Cognition (Neuro): normal cognition Motor exam (neuro): 5/5 motor strength present throughout Extrem Other: venous exam: No significant superficial varicosities or spider telangiectasias, minimal edema General: No clubbing, No cyanosis and No edema Psych Appearance: grossly normal Mental Status: mental status grossly normal Speech and movement: Normal speech and movement present Results Reviewed Results Reviewed: Noninvasive testing demonstrates right JADE of 0.89 Assessment & Plan Assessment & Plan (1) Diabetic foot ulcer with osteomyelitis: Code(s): E11.621 - Type 2 diabetes mellitus with foot ulcer; E11.69 - Type 2 diabetes mellitus with other specified complication; L97.509 - Non-pressure chronic ulcer of other part of unspecified foot with unspecified severity; M86.9 - Osteomyelitis, unspecified Category: Medical Plan: In short patient has nonhealing right 4th toe ulcer with underlying osteomyelitis. He will require right 4th toe amputation. Risks benefits complications were discussed in detail with the patient. He understood and consented. Please note a longitudinal relationship has been created with the patient and we have been following and surveillance this chronic condition. Coding Level of Care Code Est Pt Level 4 (93803) Complex EM visit Add On G2211 Diagnoses Diabetic foot ulcer with osteomyelitis E11.621; E11.69; L97.509; M86.9
== END 2024-06-12 10:32 | disposition home or self-care (01) ==
PROVIDERS: PCP Nurse Practitioner Family; Visit Provider Surgery Vascular Surgery
DX: E11.621 Type 2 diabetes mellitus with foot ulcer (principal); E11.69 Type 2 diabetes mellitus with other specified complication; L97.509 Non-pressure chronic ulcer of other part of unspecified foot with unspecified severity; M86.9 Osteomyelitis, unspecified
CPT/HCPCS: 99214; G2211

== ENCOUNTER → 2024-06-12 10:06 | Outpatient (BNVA) | payer OTHER, SELFPAY | PROVIDERS: PCP Nurse Practitioner Family; Visit Provider Surgery Vascular Surgery | DX: E11.621 Type 2 diabetes mellitus with foot ulcer (principal); E11.69 Type 2 diabetes mellitus with other specified complication; L97.519 Non-pressure chronic ulcer of other part of right foot with unspecified severity; M86.9 Osteomyelitis, unspecified; I73.9 Peripheral vascular disease, unspecified | CPT/HCPCS: 99212 ==

== ENCOUNTER 2024-06-16 09:40 | Day surgery (SDC) | payer OTHER, SELFPAY ==
--- NOTE | 2024-06-13 14:30 | P.CONAN_ITS ---
Documented by User: Loly Garcia NP 06/13/24 14:35 HPI - Anesthesia Eval Consult details Narrative: 74yo M for Right 4th Toe Amputation s/p cardioversion 05/2024 with MAC Follows [facility] [place] Cardiology for afib on eliquis, CAD, chronic HF, PAD Pt returned to afib 2 days post CV. Eval by cardiology. Pending ECHO and holter, but ok to proceed with toe amp. Last office visit note will be addended by MICHELLE Gonsalves. Anesthesia Pre-Procedure Meds Is the patient on any of the following meds?: SGLT2 Inhib PMFSH Active Problems Active Problems: All Active Problems Lung nodule seen on imaging study (Acute) Emphysema with chronic bronchitis (Acute) Cardiomyopathy (Acute) Secondary hypercoagulable state (Acute) Tobacco user (Acute) Diabetic osteomyelitis (Acute) Osteomyelitis of toe of right foot (Acute) Non-healing ulcer of foot (Acute) CAD (coronary artery disease) (Acute) Chronic HFrEF (heart failure with reduced ejection fraction) (Acute) PAD (peripheral artery disease) (Acute) Atrial fibrillation (Acute ~12/2023) Anticoagulated (Acute) Aortic aneurysm without rupture (Acute) DM (diabetes mellitus), type 2 with complications (Acute ~12/2023) Diabetic foot ulcer with osteomyelitis (Acute) Nicotine dependence, cigarettes, uncomplicated (Acute) Past Medical History Medical History History of cardioversion Nicotine dependence, cigarettes, uncomplicated CAD (coronary artery disease) DM (diabetes mellitus), type 2 with complications (~12/2023) Anticoagulated Aortic aneurysm without rupture Chronic HFrEF (heart failure with reduced ejection fraction) Diabetic foot ulcer with osteomyelitis PAD (peripheral artery disease) Atrial fibrillation (~12/2023) Surgical History Surgical History History of tonsillectomy History of angioplasty History of Problems with Anesthesia: No Social History Social History Household Members: None Housing: House Are you a primary urgent care nurse practitioner to a significant other at home: No Do you presently have visiting nurse or other home services: No Patient Tobacco Use Status: Former Tobacco user Tobacco use type: Cigarette Years Smoked: 30 e-Cigarette/Vaping Use: Never Used Second Hand Smoke Exposure: No Have you been hit, kicked, punched, or otherwise hurt by someone within the past year? 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 Current occupational exposures/hazards: No Cognitive needs: No Hearing needs: No Vision needs: No Meds Allergies Allergy/AdvReac Type Severity Reaction Status Date / Time No Known Allergies Allergy Verified 06/16/24 10:03 Exam Pertinent Lab Results Pertinent Lab Results: Laboratory Tests 02/06/24 03/24/24 08:00 07:44 WBC 9.0 Hgb 16.0 Hct 48.0 Plt Count 237 Sodium 141 Potassium 4.4 Chloride 104 Carbon Dioxide 27 BUN 24 H Creatinine 0.86 Narrative Narrative: EKG 05/2024 atrial fibrillation with right bundle branch block, ST and T-wave abnormality inferior lateral leads, rate 76, QTC 481 millisecond ECHO 12/2023 Conclusions: - 1. [id number] LV systolic dysfunction with LVEF of 40-45% with mild LVH 2. At least moderate biatrial enlargement 3. Normal cardiac valvular Dopplers 4. Normal RV systolic pressure 5. Mildly dilated ascending aorta 3.7 cm 6. No gross pericardial effusion Holter 03/2024 1. Patient was monitored for total period of 3 days 2. Baseline was normal atrial fibrillation with average heart of 83 beats per minute with adequate rate control 3. No significant pauses greater than 3 seconds noted 4. Occasional PVCs noted with 1 4 beat run of nonsustained VT at 167 beats per minute 5. Patient did not lula any events Assessment and Plan Assessment Anesthesia Assessment: Chart Reviewed Final Anesthetic Review History of Problems with Anesthesia: No Documented by User: Lupe Billings MD 06/16/24 11:54 PMFSH Past Medical History Medical History History of cardioversion Nicotine dependence, cigarettes, uncomplicated CAD (coronary artery disease) DM (diabetes mellitus), type 2 with complications (~12/2023) Anticoagulated Aortic aneurysm without rupture Chronic HFrEF (heart failure with reduced ejection fraction) Diabetic foot ulcer with osteomyelitis PAD (peripheral artery disease) Atrial fibrillation (~12/2023) Family History Family history of problems with anesthesia: No Surgical History Surgical History History of tonsillectomy History of angioplasty Social History Social History Household Members: None Housing: House Are you a primary urgent care nurse practitioner to a significant other at home: No Do you presently have visiting nurse or other home services: No Patient Tobacco Use Status: Former Tobacco user Tobacco use type: Cigarette Years Smoked: 30 e-Cigarette/Vaping Use: Never Used Second Hand Smoke Exposure: No Have you been hit, kicked, punched, or otherwise hurt by someone within the past year? 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 Current occupational exposures/hazards: No Cognitive needs: No Hearing needs: No Vision needs: No Meds Allergies Allergy/AdvReac Type Severity Reaction Status Date / Time No Known Allergies Allergy Verified 06/16/24 10:03 Exam Airway Mallampati Class: II TM Dist: >3cm Neck ROM: Limited Heart: rrr Lungs: cta Assessment and Plan Assessment Anesthesia Assessment: Anesthesia Plan Discussed Final Anesthetic Review Family History of Problems with Anesthesia: No NPO: Yes ASA Class: III Final Preanesthetic Review: No Changes in Pt Med Stat, Meds/Allgs Chart Reviewed, Consent Obtained/Reviewed and Anes Risks/Benef Reviewed Patient Risk: Intermediate Procedure Risk: Low Anesthetic Plan Anesthetic Plan: GA Disposition: Standard PACU
[2024-06-16] VITALS (10 sets, daily range): BP systolic 109–139; BP diastolic 64–88; PULSE 66–105; RESP 12–18; TEMP 36.3–36.7; O2SAT 97–100; BMI 23.7
--- NOTE | 2024-06-16 07:27 | MHC.SHP ---
Pre-Procedural Eval Section A - 24 Hr Update-Section A only Date of Service: 06/16/24 The patient is an INPATIENT: No Changes since office visit: Yes Patient answered all questions The patient has been examined within 24 hours of the surgical procedure. The History & Physical has been completed within 30 days and I have reviewed it.: Yes Section B - Complete if H&P > 30 days Chief Complaint: Osteomyelitis, unspecified Allergies: Allergies Allergy/AdvReac Type Severity Reaction Status Date / Time No Known Allergies Allergy Verified 06/12/24 10:15 Plan I have reviewed the history and physical and performed a pertinent physical examination on my patient. No changes have occurred unless specified. Time Spent With Patient Time: Total time managing care of this patient today ____ minutes.
[2024-06-16 10:28] LABS: Glucose, Whole Blood 144 mg/dL (60-115)
--- NOTE | 2024-06-16 12:14 | P.OP_ITS ---
Operative Note Operative Note Date of Service: 06/16/24 Narrative: Operative note by [facility] Preoperative diagnosis: 1. Nonhealing right foot diabetic ulcer of the 4th toe 2. Osteomyelitis Postoperative diagnosis: Same Procedure: Right 4th toe amputation Surgeon:Garret Gonzalez M.D. Assembler Billiard Table: Viet Anesthesia: General Specimens: 1 Drains: None Estimated blood loss: Minimal Indications: 74-year-old gentleman with a known history of peripheral vascular disease nonhealing ulcer right 4th toe which penetrated down to bone. It was identified to have osteomyelitis. He now presents for amputation. The patient has signed the informed consent after reviewing risks, complications, benefits, and alternatives previously discussed with the patient. The patient was given the opportunity to ask any additional questions or voice any concerns. All questions were answered to the patient's satisfaction. Procedure in detail: Patient was brought to the operating room prior to which a time-out was called for patient identification and site verification. [place] incision was carried out over the right 4th toe. This was taken down through the skin subcu tissue down to the metatarsal head. We used then electrocautery to dissect around. Once through we are able to remove this. There was minimal bleeding. But it did look like healthy viable tissue. We then once we removed the specimen the wound was thoroughly irrigated out. Deep layer was r eapproximated using 2-0 Polysorb. Superficial layer with a 3-0 nylon in a mattress fashion and finally skin with skin clips. Xeroform and a sterile dressing were applied. At the end the case sponge instrument counts were correct. Patient tolerated the procedure well. Returned to recovery with stable vitals. This note is constructed using voice recognition software. While every effort has been made to ensure accuracy, boilermaker central steam plant errors may have been included. Thank you for allowing me to participate in the care of your patient. Yours sincerely, Garret Gonzalez MD, FACS, R.P.V.I.
== END 2024-06-16 14:11 | disposition home or self-care (01) ==
PROVIDERS: PCP Nurse Practitioner Family; Visit Provider Surgery Vascular Surgery
PROC: (CPT 28820; principal; 2024-06-16 11:30)
DX: M86.9 Osteomyelitis, unspecified (principal); E11.621 Type 2 diabetes mellitus with foot ulcer; I73.9 Peripheral vascular disease, unspecified; L97.516 Non-pressure chronic ulcer of other part of right foot with bone involvement without evidence of necrosis; Z79.84 Long term (current) use of oral hypoglycemic drugs
CPT/HCPCS: 28820; 82947; 88305; 88311; J0690; J1596; J2250; J2405; J2704; J3010

== ENCOUNTER → 2024-06-16 09:40 | Outpatient (BNV) | payer OTHER, SELFPAY | PROVIDERS: PCP Nurse Practitioner Family; Visit Provider Surgery Vascular Surgery | DX: E11.621 Type 2 diabetes mellitus with foot ulcer (principal); L97.514 Non-pressure chronic ulcer of other part of right foot with necrosis of bone | CPT/HCPCS: 28810 ==

== ENCOUNTER 2024-06-20 09:53 | Outpatient (AMB) | payer OTHER, SELFPAY ==
--- NOTE | 2024-06-20 09:59 | AM.OFFWIN_ITS ---
Intake Vital Signs 06/20/24 10:08 Weight 191 lb 6 oz BP 114/68 Blood Pressure Location Lt brachial Position Sitting Respiration 16 Pulse 62 Pulse Source Pulse Oximeter Temp 97.4 F Temp Source Oral Pulse Oximetry (%) 94 Oxygen Delivery Method Room Air Intake Visit Reasons: est/ right toe possibly infected Intake Note: patient here c/o possible infected right toe. Patient Tobacco Use Status: Former Tobacco user Industrial Refrigeration Mechanic Required: No Allergies No Known Allergies Allergy (Verified 06/20/24 10:23) Medication List - Last Reconciled 06/20/24 by Lizzeth Beatty, DRIER BELT CONVEYOR- apixaban (Eliquis) 5 mg PO BID 3 months atorvastatin 40 mg PO BEDTIME 3 months blood sugar diagnostic (FreeStyle Lite Strips) Test four times a day or as directed. blood-glucose meter (FreeStyle Lite Meter kit) As Directed empagliflozin-metformin 5-1,000 mg ER (Synjardy XR) 1 tab PO DAILY lancets (FreeStyle Lancets) Test four times a day or as directed. metoprolol tartrate 50 mg See Protocol PO BID 3 months Do you need a note to return to daycare/school/sports/work: No HPI HPI Comments History of Present Illness Details 74-year-old male with AFib with secondar y hypercoagulable state, diabetes type 2 with complication, dilated ascending aorta 3.7 cm, CAD, former tobacco user, CHF with reduced ejection fraction and secondary hyperaldosteronism, diabetic foot ulcer with osteomyelitis, PAD Here today with concerns for infection in his right foot. On Sunday the he underwent amputation of his right 4th toe due to a nonhealing diabetic ulcer which did have a complication of osteomyelitis which did require IV antibiotics in the past. He reports that over the last 24-48 hours he has noticed redness on the top of the foot. He has been performing dressing changes himself. He denies any drainage. He denies any fever. He has a follow up with the surgeon scheduled. He also tells me that his insurance will not be offered in the state [facility] in the year of 2024. EXAM: awake alert oriented Nonpalp pedal pulses bilat, skin hairless, dusky and cool to LLE and RLE. Right 4th toe amp site with intact juliet, edges well approx, no drainage, on the top of the foot there is a 59o80st area of erythema that is mildly arm to the touch. There is no streaking. +1 edema to the foot, thickened toe nails. He denies pain with palp. The area was cleansed, a nonadherent pad was placed followed by a gauze wrap and secured with tape at the time of the visit. PLAN Discussed with him today that this could be an infection or it could be deep tissue injury from the surgery, as he is on Eliquis. But given his history of the osteomyelitis in the quick decompensation, the decision is made to start him on, Doxycycline p.o. b.i.d. times 10 days. Dressing care instructions provided. Educated to monitor for extending redness outside of the resendiz placed on the foot today. Return to office in 1 week for a close interim follow up, sooner as needed. Information given for the [facility] program at the [facility] on aging to help him pick an insurance plan that will work for him. This note is constructed using voice recognition software. While every effort has been made to ensure accuracy in malt house operator, still errors may have been included Sometimes, these errors may affect the content or meaning of the given sentence . Total time spent caring for the patient today was 45 minutes. This includes time spent before the visit reviewing the chart, time spent during the visit, and time spent after the visit on documentation [facility] Medical History History of cardioversion Nicotine dependence, cigarettes, uncomplicated CAD (coronary artery disease) DM (diabetes mellitus), type 2 with complications (~12/2023) Anticoagulated Aortic aneurysm without rupture Chronic HFrEF (heart failure with reduced ejection fraction) Diabetic foot ulcer with osteomyelitis PAD (peripheral artery disease) Atrial fibrillation (~12/2023) Surgical History History of tonsillectomy History of angioplasty Social History Household Members: None Housing: House Are you a primary children's zoo caretaker to a significant other at home: No Do you presently have visiting nurse or other home services: No Patient Tobacco Use Status: Former Tobacco user Tobacco use type: Cigarette Years Smoked: 30 e-Cigarette/Vaping Use: Never Used Second Hand Smoke Exposure: No service: No Current occupational status: employed and retired 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 (2) PAD (peripheral artery disease): Comment: 02/06/2024 - right SFA plasty and stent placement Code(s): I73.9 - Peripheral vascular disease, unspecified Plan: . Medications: New doxycycline hyclate 100 mg PO BID 10 days 20 caps 0RF Coding Level of Care Code Est Pt Level 5 (24323) Diagnoses Status post amputation of toe Z89.429 PAD (peripheral artery disease) I73.9
[2024-06-20 10:08] VITALS: BP 114/68; PULSE 62; RESP 16; TEMP 36.3; O2SAT 94
== END 2024-06-20 10:47 | disposition home or self-care (01) ==
PROVIDERS: PCP Nurse Practitioner Family; Visit Provider Nurse Practitioner Family
DX: I73.9 Peripheral vascular disease, unspecified (principal); Z89.421 Acquired absence of other right toe(s)

== ENCOUNTER → 2024-06-20 09:53 | Outpatient (BNVA) | payer OTHER, SELFPAY | PROVIDERS: PCP Nurse Practitioner Family | DX: I73.9 Peripheral vascular disease, unspecified (principal); Z89.429 Acquired absence of other toe(s), unspecified side | CPT/HCPCS: 99212 ==

== ENCOUNTER 2024-06-27 08:26 | Outpatient (AMB) | payer OTHER, SELFPAY ==
--- NOTE | 2024-06-27 08:28 | MHC.PC.OV ---
Vital Signs 06/27/24 08:30 Height 6 ft 1 in Weight 187 lb 2 oz BMI 24.7 BP 132/70 Blood Pressure Location Rt brachial Position Sitting Respiration 14 Temp 97.8 F Temp Source Oral Comment unable to get patient o2 or pulse Intake Visit Reasons: 1 week fu RLE cellulitis Intake Note: one week follow up Allergies No Known Allergies Allergy (Verified 06/27/24 08:30) Medication List - Last Reconciled 06/27/24 by Lizzeth Beatty, RESOURCE DIRECTOR- apixaban (Eliquis) 5 mg PO BID 3 months atorvastatin 40 mg PO BEDTIME 3 months blood sugar diagnostic (FreeStyle Lite Strips) Test four times a day or as directed. blood-glucose meter (FreeStyle Lite Meter kit) As Directed doxycycline hyclate 100 mg PO BID 10 days empagliflozin-metformin 5-1,000 mg ER (Synjardy XR) 1 tab PO DAILY lancets (FreeStyle Lancets) Test four times a day or as directed. metoprolol tartrate 50 mg See Protocol PO BID 3 months Tobacco use date assessed: 02/18/24 Dental Screening Dental Screen Date: 02/18/24 HPI HPI Comments History of Present Illness Details 74-year-old male with AFib with secondary hypercoagulable state, diabetes type 2 with complication, dilated ascending aorta 3.7 cm, CAD, former tobacco user, CHF with reduced ejection fraction and secondary hyperaldosteronism, diabetic foot ulcer with osteomyelitis, PAD Here today for close f/u R foot Taking doxy as prescribed. Redness decreased. Has been doing DCD dressings at home. Has noticed increase in drainage and some opening of the surgical site. Denies fever, chills. Other notes: c/o urinary yeast. He is on Synjardy. This is second c/o yeast since starting. EXAM: awake alert oriented Nonpalp pedal pulses bilat, skin hairless, dusky and cool to LLE and RLE. Right 4th toe amp site with intact juliet and sutures, there is moist healthy tissue noted, scant serosang drainage on dressing, the area on the top of the foot [id number] area of erythema is resolved, trace edema to the foot, thickened toe nails. He denies pain with palp. The area was cleansed, a nonadherent pad was placed followed by a gauze wrap and secured with tape at the time of the visit. Plan: Ogilvie Text with image sent to Dr Gonzalez - no treatment change indicated. FU with Dr Gonzalez 07/01 Cont doxy until complete. Cont wound care. Start fluconazole STOP Synjardy as this is causing recurrent yeast START Metformin ER 1000mg po BID RTO as scheduled for routine fu, sooner PRN This note is constructed using voice recognition software. While every effort has been made to ensure accuracy in butcher's assistant, still errors may have been included Sometimes, these errors may affect the content or meaning of the given sentence . Total time spent caring for the patient today was 30 minutes. This includes time spent before the visit reviewing the chart, time spent during the visit, and time spent after the visit on documentation [facility] Medical History History of cardioversion Nicotine dependence, cigarettes, uncomplicated CAD (coronary artery disease) DM (diabetes mellitus), type 2 with complications (~12/2023) Anticoagulated Aortic aneurysm without rupture Chronic HFrEF (heart failure with reduced ejection fraction) Diabetic foot ulcer with osteomyelitis PAD (peripheral artery disease) Atrial fibrillation (~12/2023) Surgical History History of tonsillectomy History of angioplasty Social History Household Members: None Housing: House Are you a primary healthcare science specialist to a significant other at home: No Do you presently have visiting nurse or other home services: No Patient Tobacco Use Status: Former Tobacco user Tobacco use type: Cigarette Years Smoked: 30 e-Cigarette/Vaping Use: Never Used Second Hand Smoke Exposure: No service: No Current occupational status: employed and retired 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 Pravin Reese, Tanya Benitez, Enoch Reno and colleagues, with an educational simeon from [employer]. Physical exam (Primary Care) Vital Signs: Last Vital Signs Temp 97.8 F 06/27/24 08:30 Resp 14 06/27/24 08:30 BP 132/70 06/27/24 08:30 BMI result Body Mass Index 24.7 Tobacco/Smoking Status: Tobacco use Status Tobacco use date assessed 02/18/24 06/27/24 08:31 Patient Tobacco Use Status Former Tobacco user 06/27/24 08:31 Tobacco use type Cigarette 06/27/24 08:31 e-Cigarette/Vaping Use Never Used 06/27/24 08:31 Thrive Assessment: Date of Thrive Assessment Date Thrive assessed 01/22/24 06/27/24 08:31 Results AMB Hemoglobin A1c AMB Hemoglobin A1c 7.1 % Last Edit by Fausto Crystal MA on 06/27/24 09:08 Results Reviewed Results Reviewed: Laboratory Last Values Hgb A1c (Clinic) 7.1 % (4.0-6.0) H 06/27/24 08:51 Assessment and Plan Assessment & Plan (1) Status post amputation of toe: Comment: right 4th toe, 06/16/24 Dr Gonzalez [facility] Code(s): Z89.429 - Acquired absence of other toe(s), unspecified side (2) DM (diabetes mellitus), type 2 with complications: Onset Date: ~12/2023 Code(s): E11.8 - Type 2 diabetes mellitus with unspecified complications (3) PAD (peripheral artery disease): Comment: 02/06/2024 - right SFA plasty and stent placement Code(s): I73.9 - Peripheral vascular disease, unspecified (4) Medication side effect: Comment: recurrent yeast caused by SGLT2 Code(s): T88.7XXA - Unspecified adverse effect of drug or medicament, initial encounter (5) Yeast infection: Code(s): B37.9 - Candidiasis, unspecified Orders: Orders AMB Hemoglobin A1c Today E11.8 - Type 2 diabetes mellitus with unspecified complications Medications: New fluconazole take 1 tab day 1, repeat second dose on day 3 150 mg PO Q3D 2 tabs 0RF 2 doses metformin ER 1,000 mg (2 x 500 mg) PO BID 360 tabs 1RF 90 days Discontinued empagliflozin-metformin 5-1,000 mg ER (Synjardy XR) Discontinued Reason: Doctor's Order 1 tab PO DAILY 90 ea 1RF Coding Level of Care Code Est Pt Level 4 (58070) Complex EM visit Add On G2211 Diagnoses Status post amputation of toe Z89.429 DM (diabetes mellitus), type 2 with complications E11.8 PAD (peripheral artery disease) I73.9 Medication side effect T88.7XXA Yeast infection B37.9
[2024-06-27 08:30] VITALS: BP 132/70; RESP 14; TEMP 36.6; BMI 24.7
== END 2024-06-27 14:00 | disposition home or self-care (01) ==
PROVIDERS: PCP Nurse Practitioner Family; Visit Provider Nurse Practitioner Family
DX: E11.8 Type 2 diabetes mellitus with unspecified complications (principal); I73.9 Peripheral vascular disease, unspecified; Z89.421 Acquired absence of other right toe(s); B37.9 Candidiasis, unspecified

== ENCOUNTER → 2024-06-27 08:26 | Outpatient (BNVA) | payer OTHER, SELFPAY | PROVIDERS: PCP Nurse Practitioner Family; Visit Provider Nurse Practitioner Family | DX: E11.8 Type 2 diabetes mellitus with unspecified complications (principal); I73.9 Peripheral vascular disease, unspecified; B37.9 Candidiasis, unspecified; Z79.84 Long term (current) use of oral hypoglycemic drugs | CPT/HCPCS: 83036; 99212 ==

== ENCOUNTER → 2024-07-02 07:42 | Outpatient (REF) | payer OTHER, SELFPAY ==
--- NOTE | 2024-07-02 07:47 | CA_ITS ---
Transthoracic Echocardiogram Limited Patient (Last, First, Middle): Juvenal Kate C Gender: Male Date of : 1950 Age: 74 Procedure Date: 07/02/2024 Procedure Type: Transthoracic Echocardiogram Limited Location: OP Height: 185.42 cm Weight: 87.09 kg BSA: 2.11 m2 Heart Rate: bpm BP: 124 / 70 mmHg Hay Stacker Operator: Referring MD: Brina Taylor FLEXOGRAPHIC PRINTING MACHINIST-C Vocational Training Director: Jevon Montgomery MD Symptoms: I42.9 - Cardiomyopathy, unspecified Study Quality: Good ECG Rhythm: Atrial Fibrillation Conclusions: - Low normal LVEF, 50-55% with mild LVH Findings Left Ventricle Normal left ventricular cavity size. There is mildly increased left ventricular wall thickness. The left ventricular systolic function is low normal. The visually estimated ejection fraction is between 50-55%. Diastolic function is indeterminate on the basis of available data. Prior Study Comparison Changes noted compared to prior study dated: 01/22/2024. LVEF is improved Measurements 2D Linear Measurements IVSd: 1.36 0.6-0.9/0.6-1.0 cm LVIDd: 4.01 3.9-5.3/4.2-5.9 cm LVIDd Index: 1.90 2.4-3.2/2.2-3.1 cm/m2 LVIDs: 3.14 2.0-3.6 cm LVPWd: 1.34 0.7-1.1 cm LV Mass: 247.14 67-162/88-224 g LV Mass Index: 117.13 43-95/49-115 g/m2 LVOT Diam: 2.00 3.0+(-)1.3 cm 2D Systolic Function EF 4C: 55.00 >55% EF 2C: 50.10 >55% EF BiP: 51.70 >55% LVOT LVOT Pk Kan: 0.86 LVOT Mn Kan: 0.50 LVOT VTI: 0.15 LVOT Pk Grad: 3.00 LVOT Mn Grad: 1.00 LVOT Diam: 2.00 LVOT Area: 3.14 Updated in Other Vendor System with Status of Final Jevon Montgomery MD electronically signed on 07/03/2024 11:57:20 AM with status of Final
--- NOTE | 2024-07-02 07:47 | HM_ITS ---
* Total monitoring time 3 days. * Underlying rhythm is atrial fibrillation. Average ventricular rate 93/Min. About 28% of the time, rate >100/min. * Rare ventricular ectopy. Cannot exclude aberrantly conducted beats. Very brief runs, longest 3 beats. * Brief pauses noted in the morning hours; unclear if sleep time or not. Longest 2.9 seconds. Does not reach significance. * No patient markers or diary events. * Overall, atrial fibrillation with inadequate rate control. MTDD
== END ==
LOC: HO.CARD 07:42
PROVIDERS: PCP Nurse Practitioner Family; Visit Provider Nurse Practitioner Family
DX: I48.0 Paroxysmal atrial fibrillation (principal); I42.9 Cardiomyopathy, unspecified
CPT/HCPCS: 93242; 93308

== ENCOUNTER → 2024-07-02 07:47 | Outpatient (BNV) | payer OTHER, SELFPAY | PROVIDERS: PCP Nurse Practitioner Family; Visit Provider Internal Medicine Cardiovascular Disease | DX: I48.91 Unspecified atrial fibrillation (principal) | CPT/HCPCS: 93244; 93308 ==

== ENCOUNTER 2024-07-03 14:45 | Outpatient (AMB) | payer OTHER, SELFPAY ==
--- NOTE | 2024-07-03 14:51 | MHC.OFFVIS ---
Intake Visit Reasons: 2w follow up s/p toe amp Intake Note: Patient presents for right second toe amp follow up. States he is doing fine . Questioning when he will be healed as to return to work. Accompanied by: Self / Same As Patient Allergies No Known Allergies Allergy (Verified 07/03/24 14:53) HPI HPI 2w follow up s/p toe amp: Details: Very pleasant 74-year-old gentleman status post right 4th toe amputation. Overall appears to be doing relatively well. He did have some concerns of an infection and did get antibiotics from primary care team. Overall appears to be doing extremely well. No interval issues. [facility] Medical History History of cardioversion Nicotine dependence, cigarettes, uncomplicated CAD (coronary artery disease) DM (diabetes mellitus), type 2 with complications (~12/2023) Anticoagulated Aortic aneurysm without rupture Chronic HFrEF (heart failure with reduced ejection fraction) Diabetic foot ulcer with osteomyelitis PAD (peripheral artery disease) Atrial fibrillation (~12/2023) Surgical History History of tonsillectomy History of angioplasty Social History Household Members: None Housing: House Are you a primary childcare provider to a significant other at home: No Do you presently have visiting nurse or other home services: No Patient Tobacco Use Status: Former Tobacco user Tobacco use type: Cigarette Years Smoked: 30 e-Cigarette/Vaping Use: Never Used Second Hand Smoke Exposure: No service: No Current occupational status: employed and retired 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 Current occupational exposures/hazards: No Cognitive needs: No Hearing needs: No Vision needs: No Review of Systems Const All systems reviewed & are unremarkable except as noted in HPI and below Reports no additional complaints ENT Reports Normal hearing present Card Denies chest pain, Denies chest pain at rest, Denies chest pain with activity and Denies pedal edema Resp Denies cough GI Denies abdominal pain Musc Denies abnormal gait, Denies muscle cramps and Denies radiating pain into limb Skin/Breast Denies skin ulcer and Denies wounds Neuro Reports Normal hearing present and Denies abnormal gait Psych Reports no additional complaints Physical Exam Const General: cooperative, healthy appearing and comfortable Orientation/consciousness: oriented to person, oriented to place and oriented to time HEENT Head: Yes normal to inspection Neck Neck: Yes normal visual inspection Carotids: no bruits Chest Chest palpation & inspection: normal inspection of the chest Resp Effort & Inspection: normal respiratory effort and able to speak in complete sentences Auscultation: clear to auscultation bilaterally, no crackles, no rales, no rhonchi and no wheezes Cardio Rate: regular rate Rhythm: regular rhythm Heart sounds: S1 normal heart sound present and S2 normal heart sound present Bruits: no carotid bruits Peripheral pulses: Peripheral pulses 2+ throughout GI Inspection: Yes normal to inspection Skin Other: Right 4th toe nonhealing incision line approximately 0.2 cm some mild serous drainage but overall appears to be doing extremely well. Wounds: no wounds Hair: normal Neuro General: oriented to person, oriented to place and oriented to time Cranial nerves: Yes CN's II-XII intact bilaterally and Yes Normal hearing present Cognition (Neuro): normal cognition Motor exam (neuro): 5/5 motor strength present throughout Extrem Other: venous exam: No significant superficial varicosities or spider telangiectasias, minimal edema General: No clubbing, No cyanosis and No edema Psych Appearance: grossly normal Mental Status: mental status grossly normal Speech and movement: Normal speech and movement present Assessment & Plan Assessment & Plan (1) PAD (peripheral artery disease): Comment: 02/06/2024 - right SFA plasty and stent placement In their 06/16/2024 - right 4th toe amputation Code(s): I73.9 - Peripheral vascular disease, unspecified Category: Medical Plan: In short patient has right 4th toe amputation appears to be doing relatively well. Will continue with local wound care. Will start with alginate dressings. Follow-up in 2 weeks with us for routine wound check. Thank you for allowing us to assist in his care. Please note a longitudinal relationship has been created with the patient and we have been following and surveillance this chronic condition. Coding Level of Care Code Est Pt Level 3 (12695) Complex EM visit Add On G2211 Diagnoses PAD (peripheral artery disease) I73.9
== END 2024-07-03 15:03 | disposition home or self-care (01) ==
PROVIDERS: PCP Nurse Practitioner Family; Visit Provider Surgery Vascular Surgery
DX: I73.9 Peripheral vascular disease, unspecified (principal)
CPT/HCPCS: 99024

== ENCOUNTER → 2024-07-03 14:45 | Outpatient (BNVA) | payer OTHER, SELFPAY | PROVIDERS: PCP Nurse Practitioner Family; Visit Provider Surgery Vascular Surgery | DX: I73.9 Peripheral vascular disease, unspecified (principal) | CPT/HCPCS: 99212 ==

== ENCOUNTER 2024-07-07 09:12 | Outpatient (AMB) | payer OTHER, SELFPAY ==
--- NOTE | 2024-07-07 09:19 | MHC.PC.OV ---
Vital Signs 07/07/24 09:22 Height 6 ft 1 in Weight 191 lb BMI 25.2 BP 118/68 Blood Pressure Location Lt brachial Position Sitting Respiration 14 Temp 96.9 F Temp Source Oral Comment unable to get a o2 and pulse on patient. Intake Visit Reasons: fu chronic DZ Intake Note: follow up on his toe and patient is wondering if he needs blood work today. Allergies No Known Allergies Allergy (Verified 07/07/24 09:49) Medication List - Last Reconciled 07/07/24 by Lizzeth Beatty, DIRECTOR [employer]IGENCE- apixaban (Eliquis) 5 mg PO BID 3 months atorvastatin 40 mg PO BEDTIME 3 months blood sugar diagnostic (FreeStyle Lite Strips) Test four times a day or as directed. blood-glucose meter (FreeStyle Lite Meter kit) As Directed lancets (FreeStyle Lancets) Test four times a day or as directed. metformin ER 1,000 mg (2 x 500 mg) PO BID 90 days metoprolol tartrate 50 mg See Protocol PO BID 3 months Tobacco use date assessed: 02/18/24 Dental Screening Dental Screen Date: 02/18/24 HPI HPI Comments History of Present Illness Details 74-year-old male with AFib with secondary hypercoagulable state, diabetes type 2 with complication, dilated ascending aorta 3.7 cm, CAD, former tobacco user, CHF with reduced ejection fraction and secondary hyperaldosteronism, diabetic foot ulcer with osteomyelitis, PAD s/p cardioversion for Afib with Dr Montgomery 05/07/24 - reverted back to Afib, status post right 4th toe amputation 06/16/24 Dr Gonzalez Health maintenance: DM eye exam today [facility]: DM Eye Exam: 04/25/24 [facility], negative for DM retinopathy bilat TDap 2022, Declined flu shot. Recommend Shingles at the pharmacy. Declined PCV. Colon - has cologaurd at home. Has not completed as of this time. Lung cancer screening: CT scan 03/28/2024, There is a single noncalcified left lower lobe 3 mm nodule 03/28/[address] Specialists: [facility] Wound Care Management Sarah Chen MD - March consult note reviewed, cleared from further f/u Garret Gonzalez MD -note from 02/20 and 03/27 reviewed > arterial imaging ordered, remains at risk of losing distal right 5th toe Jevon Montgomery MD: Stress test complete, 03/2024 consult note reviewed. Optho Podiatry Here today for routine fu chronic conditions: Cont healing from R 4th toe amp, cont to be managed by Vasc Note 07/03/24 reviewed Next visit in 2 weeks Referred today to Dr Tyler for DM foot care, recommended Diabetic shoes Completed 2 doses of fluconazole for yeast caused by SGLT which was stopped. His metformin was increased at the last office visit and he is taking as directed. He is testing as directed. 140-150mg/dl in the AM. At current regimen, he is not having any hypoglycemia. Wt is stable. Cont to be smoke free. Has routine follow up with his care team Isn't active with Podiatry, does not have diabetic shoes. Has fungal toenails Exam: awake alert oriented PERRLA No carotid bruit Afib LS clear throughout Abd soft, nontedner Nonpalp pedal pulses bilat, skin hairless, dusky and cool to LLE and RLE. R 4th toe amp site looks good, thickened toe nails Plan Labs done today after the office visit and reviewed after the patient left. Labs are stable and acceptable. Continue all medications as currently prescribed. Discussed goal today for a1c, I would like to see him between 6.7-7.5% Refer to podiatry for diabetic foot care and to prescribe diabetic shoes and treat toenails Continue routine follow up with care team Return to office in 4-5 months for routine follow up, sooner as needed This note is constructed using voice recognition software. While every effort has been made to ensure accuracy in training and development assistant, still errors may have been included Sometimes, these errors may affect the content or meaning of the given sentence . Total time spent caring for the patient today was 45 minutes. This includes time spent before the visit reviewing the chart, time spent during the visit, and time spent after the visit on documentation [facility] Medical History (Updated 07/07/24 @ 17:59 by Lizzeth Beatty, [facility]-) Yeast infection History of cardioversion Nicotine dependence, cigarettes, uncomplicated CAD (coronary artery disease) DM (diabetes mellitus), type 2 with complications (~12/2023) Anticoagulated Aortic aneurysm without rupture Chronic HFrEF (heart failure with reduced ejection fraction) Diabetic foot ulcer with osteomyelitis PAD (peripheral artery disease) Atrial fibrillation (~12/2023) Surgical History History of tonsillectomy History of angioplasty Social History Household Members: None Housing: House Are you a primary medical care manager to a significant other at home: No Do you presently have visiting nurse or other home services: No Patient Tobacco Use Status: Former Tobacco user Tobacco use type: Cigarette Years Smoked: 30 e-Cigarette/Vaping Use: Never Used Second Hand Smoke Exposure: No service: No Current occupational status: employed and retired 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 Pravin Reese, Tanya Benitez, Enoch Reno and colleagues, with an educational simeon from [employer]. Physical exam (Primary Care) Vital Signs: Last Vital Signs Temp 96.9 F 07/07/24 09:22 Resp 14 07/07/24 09:22 BP 118/68 07/07/24 09:22 BMI result Body Mass Index 25.2 Tobacco/Smoking Status: Tobacco use Status Tobacco use date assessed 02/18/24 07/07/24 09:20 Patient Tobacco Use Status Former Tobacco user 07/07/24 09:20 Tobacco use type Cigarette 07/07/24 09:20 e-Cigarette/Vaping Use Never Used 07/07/24 09:20 Thrive Assessment: Date of Thrive Assessment Date Thrive assessed 01/22/24 07/07/24 09:20 Results Reviewed Results Reviewed: [address] [address] Cardiology Report Signed Patient: Juvenal Kate MR#: [id number] : 1950 Acct:[id number] Age/Sex: 74 / M ADM Date: 07/02/24 Loc: HO.CARD Attending Dr: Brina CARBALLO Ordering Physician: Brina Taylor Date of Service: 07/02/24 Procedure(s): CA Echo Limited Accession Number(s): cc: Brina Taylor~ Transthoracic Echocardiogram Limited Patient (Last, First, Middle): Juvenal Kate C Gender: Male Date of : 1950 Age: 74 Procedure Date: 07/02/2024 Procedure Type: Transthoracic Echocardiogram Limited Location: OP Height: 185.42 cm Weight: 87.09 kg BSA: 2.11 m2 Heart Rate: bpm BP: 124 / 70 mmHg Facilitator: BINH Referring MD: Brina CARBALLO Outcomes Specialist: Jevon Montgomery MD Symptoms: I42.9 - Cardiomyopathy, unspecified Study Quality: Good ECG Rhythm: Atrial Fibrillation Conclusions: - Low normal LVEF, 50-55% with mild LVH Findings Left Ventricle Normal left ventricular cavity size. There is mildly increased left ventricular wall thickness. The left ventricular systolic function is low normal. The visually estimated ejection fraction is between 50-55%. Diastolic function is indeterminate on the basis of available data. Prior Study Comparison Changes noted compared to prior study dated: 01/22/2024. LVEF is improved Measurements 2D Linear Measurements IVSd: 1.36 0.6-0.9/0.6-1.0 cm LVIDd: 4.01 3.9-5.3/4.2-5.9 cm LVIDd Index: 1.90 2.4-3.2/2.2-3.1 cm/m2 LVIDs: 3.14 2.0-3.6 cm LVPWd: 1.34 0.7-1.1 cm LV Mass: 247.14 67-162/88-224 g LV Mass Index: 117.13 43-95/49-115 g/m2 LVOT Diam: 2.00 3.0+(-)1.3 cm 2D Systolic Function EF 4C: 55.00 >55% EF 2C: 50.10 >55% EF BiP: 51.70 >55% LVOT LVOT Pk Kan: 0.86 LVOT Mn Kan: 0.50 LVOT VTI: 0.15 LVOT Pk Grad: 3.00 LVOT Mn Grad: 1.00 LVOT Diam: 2.00 LVOT Area: 3.14 Updated in Other Vendor System with Status of Final Jevon Montgomery MD electronically signed on 07/03/2024 11:57:20 AM with status of Final Dictated By: Jevon Montgomery MD Signed By: <Electronically signed by Jevon Montgomery MD in OV> 07/03/24 1157 DD/ 0758 TD/TT: Supervisor [employer] Rec[employer]: Coding Level of Care Code Est Pt Level 5 (73786) Complex EM visit Add On G2211 Diagnoses DM (diabetes mellitus), type 2 with complications E11.8 Onychomycosis B35.1 Medication side effect T88.7XXA Status post amputation of toe Z89.429 Assessment & Plan Assessment & Plan (1) DM (diabetes mellitus), type 2 with complications: Onset Date: ~12/2023 Code(s): E11.8 - Type 2 diabetes mellitus with unspecified complications Category: Medical Plan: . (2) Onychomycosis: Code(s): B35.1 - Tinea unguium Category: Medical Plan: . (3) Medication side effect: Comment: recurrent yeast caused by SGLT2 Code(s): T88.7XXA - Unspecified adverse effect of drug or medicament, initial encounter Category: Medical Plan: . (4) Status post amputation of toe: Comment: right 4th toe, 06/16/24 Dr Gonzalez [facility] Code(s): Z89.429 - Acquired absence of other toe(s), unspecified side Category: Surgical Plan: . Orders: Referrals Podiatry Referral B35.1 - Tinea unguium, E11.8 - Type 2 diabetes mellitus with unspecified complications
[2024-07-07 09:22] VITALS: BP 118/68; RESP 14; TEMP 36.1; BMI 25.2
== END 2024-07-07 10:14 | disposition home or self-care (01) ==
PROVIDERS: PCP Nurse Practitioner Family; Visit Provider Nurse Practitioner Family
DX: E11.8 Type 2 diabetes mellitus with unspecified complications (principal); T88.7XXA Unspecified adverse effect of drug or medicament, initial encounter; B35.1 Tinea unguium; Z89.421 Acquired absence of other right toe(s)

== ENCOUNTER → 2024-07-07 09:12 | Outpatient (BNVA) | payer OTHER, SELFPAY | PROVIDERS: PCP Nurse Practitioner Family; Visit Provider Nurse Practitioner Family | DX: E11.8 Type 2 diabetes mellitus with unspecified complications (principal); B35.1 Tinea unguium; Z89.429 Acquired absence of other toe(s), unspecified side | CPT/HCPCS: 99212 ==

== ENCOUNTER 2024-07-07 10:16 | Outpatient (REF) | payer OTHER, SELFPAY ==
[2024-07-07 14:39] LABS: Alanine Aminotransferase 46 U/L (0-40); Albumin Level 4.2 g/dL (3.5-5.0); Alkaline Phosphatase 139 U/L (39-117); Anion Gap 12 (12-20); Aspartate Amino Transferase 34 U/L (5-37); Bilirubin Total 0.7 mg/dL (0.0-1.0); Blood Urea Nitrogen 24 mg/dL (9-16); Calcium 9.8 mg/dL (8.4-10.2); Carbon Dioxide 27 mmol/L (22-29); Chloride 103 mmol/L (96-108); Cholesterol 130 mg/dL (<200); Estimated Glomerular Filt Rate > 60; Glucose Random 195 mg/dL (60-115); HDL Cholesterol 45 mg/dL (>40); LDL Cholesterol Calculated 61 mg/dL (<100); Potassium 4.3 mmol/L (3.3-5.1); Sodium 138 mmol/L (135-145); Total Protein 7.1 g/dL (6.5-8.0); Triglycerides 120 mg/dL (<150)
== END 2024-07-07 10:17 | disposition home or self-care (01) ==
LOC: HO.WFDLDS 10:16
PROVIDERS: Visit Provider Nurse Practitioner Family
DX: E11.8 Type 2 diabetes mellitus with unspecified complications (principal); I73.9 Peripheral vascular disease, unspecified
CPT/HCPCS: 36415; 80053; 80061

== ENCOUNTER 2024-07-10 14:09 | Outpatient (AMB) | payer OTHER, SELFPAY ==
[2024-07-10 14:18] VITALS: BP 114/62; PULSE 113; BMI 25.0
--- NOTE | 2024-07-10 14:18 | A.OFFVIS_ITS ---
Vital Signs 07/10/24 14:18 Height 6 ft 1 in Weight 189 lb 9.561 oz BMI 25.0 BP 114/62 Blood Pressure Location Lt brachial Position Sitting Pulse 113 H Pulse Source Pulse Oximeter Intake Visit Reasons: 2-3m follow up [employer] Required: No Allergies No Known Allergies Allergy (Verified 07/10/24 14:20) Medication List - Last Reconciled 07/10/24 by HARIS King apixaban (Eliquis) 5 mg PO BID 3 months atorvastatin 40 mg PO BEDTIME 3 months blood sugar diagnostic (FreeStyle Lite Strips) Test four times a day or as directed. blood-glucose meter (FreeStyle Lite Meter kit) As Directed lancets (FreeStyle Lancets) Test four times a day or as directed. metformin ER 1,000 mg (2 x 500 mg) PO BID 90 days metoprolol tartrate 50 mg See Protocol PO BID 3 months HPI HPI 2-3m follow up: Details: Juvenal is a 74-year-old male with past medical history of smoking who was admitted to [facility], December 2023, with a nonhealing wound on his foot, then diagnosed with diabetes, peripheral vascular disease and new finding atrial fibrillation. For his AFib he was treated with heart rate control using metoprolol. He was put on Eliquis for anticoagulation. He was set up with vascular for his peripheral vascular disease and has undergone right SFA stent placement. Outpatient Holter monitor confirmed ongoing atrial fibrillation. He underwent a cardioversion on 05/07/2024 and on follow-up was noted to have recurrent AFib that was treated with heart rate control. Today he reports that since his last visit he underwent amputation of 1 of his toes on right foot. He says he has been feeling well otherwise. No heart palpitations, shortness of breath, PND, orthopnea or edema. No chest discomfort at rest or with activity. No lightheadedness, presyncope, syncope. He reports good activity tolerance. He states he helped his friend load his truck with would today. He did wear the Holter monitor and sent it back a few days ago. He has had no bleeding issues. He takes his meds as directed. 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 He has been tolerating this well. [facility] Medical History Yeast infection History of cardioversion Nicotine dependence, cigarettes, uncomplicated CAD (coronary artery disease) DM (diabetes mellitus), type 2 with complications (~12/2023) Anticoagulated Aortic aneurysm without rupture Chronic HFrEF (heart failure with reduced ejection fraction) Diabetic foot ulcer with osteomyelitis PAD (peripheral artery disease) Atrial fibrillation (~12/2023) Surgical History History of tonsillectomy History of angioplasty Social History Household Members: None Housing: House Are you a primary anesthesiologist and critical care to a significant other at home: No Do you presently have visiting nurse or other home services: No Patient Tobacco Use Status: Former Tobacco user Tobacco use type: Cigarette Years Smoked: 30 e-Cigarette/Vaping Use: Never Used Second Hand Smoke Exposure: No service: No Current occupational status: employed and retired 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 Current occupational exposures/hazards: No Cognitive needs: No Hearing needs: No Vision needs: No Review of Systems Const All systems reviewed & are unremarkable except as noted in HPI and below ENT Denies dizziness Card Denies chest pain, Denies chest pain at rest, Denies chest pain with activity, Denies rapid heart rate, Denies pedal edema, Denies edema, Denies leg edema, Denies lightheadedness, Denies palpitations, Denies dyspnea, Denies dyspnea on exertion and Denies orthopnea Resp Denies cough, Denies dyspnea and Denies dyspnea on exertion GI Denies hematochezia and Denies change in stool character Musc Denies abnormal gait, Denies limited range of motion, Denies muscle cramps, Denies muscle weakness, Denies numbness, Denies radiating pain into limb, Denies stiffness and Denies tingling Neuro Denies abnormal gait, Denies dizziness, Denies numbness and Denies tingling Endo Denies palpitations Physical Exam Vital Signs: Last Vital Signs Pulse 113 H 07/10/24 14:18 BP 114/62 07/10/24 14:18 BMI result Body Mass Index 25.0 Const General: cooperative, healthy appearing, comfortable and no acute distress Orientation/consciousness: patient oriented x3 Neck Neck: Yes normal visual inspection and Yes no JVD Resp Effort & Inspection: normal respiratory effort Auscultation: clear to auscultation bilaterally, no rales, no rhonchi and no wheezes Cardio Rate: regular rate Heart sounds: S1 normal heart sound present, S2 normal heart sound present, no murmurs and no rubs Neuro General: patient oriented x3 Extrem General: Yes normal to inspection, No no pedal edema and No calf tenderness Psych Appearance: grossly normal Mental Status: mental status grossly normal Speech and movement: Normal speech and movement present Assessment & Plan Assessment & Plan (1) Atrial fibrillation: Onset Date: ~12/2023 Comment: Rate controlled with metoprolol 50 mg p.o. b.i.d., on Eliquis 5 mg p.o. b.i.d.. Active with Cardiology. Code(s): I48.91 - Unspecified atrial fibrillation Category: Medical Qualifiers: Atrial fibrillation type: paroxysmal Qualified Code(s): I48.0 - Paroxysmal atrial fibrillation Plan: Newer finding of atrial fibrillation during hospitalization December 2023. It was an incidental finding. He presented with noncardiac issue. An echocardiogram showed EF 40-45%, mild LVH, moderate biatrial enlargement. Unknown how long the AFib has been present. Patient denied any issues with fatigue, palpitations or shortness of breath. He was not in heart failure. He was put on metoprolol for heart rate control. He was started on Eliquis for anticoagulation. Outpatient Holter monitor done 03/27/2024 for 3 days shows AFib average heart rate 83, occasional PVCs, one 4 beat NSVT. A pharmacological nuclear stress test done 03/27/2024 shows no ischemia, there is a fixed apical defect most likely attenuation artifact. He did undergo a cardioversion with Dr. Montgomery on 05/07/2024. It required 2 shocks in order to achieve sinus rhythm. Patient tells me that his pulse was steady for 1-2 days after the cardioversion during which time he felt completely unchanged. He then started to notice irregular radial pulses. EKG done last visit confirms atrial fibrillation with right bundle branch block, rate 76. He reported no concerning symptoms and had good activity tolerance. Plan was for rate control. A repeat echocardiogram done 07/02/2024 showed EF 50-55%. A Holter monitor was ordered to re-evaluate rate control however result is not available at the time of this visit. His pulse was elevated at the start of the visit, recheck done by me was 92 beats per minute. Plan to review Holter results once available and call him with any adjustment to his metoprolol. Continue metoprolol and Eliquis. Cardiology follow-up 4 months, sooner if needed. (2) Cardiomyopathy: Code(s): I42.9 - Cardiomyopathy, unspecified Category: Medical Plan: New finding of cardiomyopathy with EF 40-45%. He has new finding of AFib. It is most likely that he was having issues with heart rate control prior to diagnosis. Rate is now better controlled with use of metoprolol. Holter results pending. Repeat echo shows improvement in EF up to 50-55%. Patient informed. (3) Anticoagulated: Comment: On Eliquis due to secondary hypercoagulable state related to AFib Code(s): Z79.01 - longterm (current) use of anticoagulants Category: Medical Plan: As above. No bleeding issues reported. Plan Time spent on chart review, documentation, interview and assessment. Coding Level of Care Code Est Pt Level 4 (20748) Complex EM visit Add On G2211 Diagnoses Paroxysmal atrial fibrillation I48.0 Atrial fibrillation type: paroxysmal Cardiomyopathy I42.9 Anticoagulated Z79.01 Time Spent (min) 28
== END 2024-07-10 14:55 | disposition home or self-care (01) ==
PROVIDERS: PCP Nurse Practitioner Family; Visit Provider Nurse Practitioner Family
DX: I48.0 Paroxysmal atrial fibrillation (principal); I42.9 Cardiomyopathy, unspecified; Z79.01 Long term (current) use of anticoagulants
CPT/HCPCS: 99214; G2211

== ENCOUNTER → 2024-07-10 14:09 | Outpatient (BNVA) | payer OTHER, SELFPAY | PROVIDERS: PCP Nurse Practitioner Family; Visit Provider Nurse Practitioner Family | DX: I48.0 Paroxysmal atrial fibrillation (principal); I42.9 Cardiomyopathy, unspecified; I73.9 Peripheral vascular disease, unspecified; Z79.01 Long term (current) use of anticoagulants | CPT/HCPCS: 99212 ==

== ENCOUNTER 2024-07-17 09:26 | Outpatient (AMB) | payer OTHER, SELFPAY ==
[2024-07-17 09:27] VITALS: BMI 24.9
--- NOTE | 2024-07-17 09:27 | A.OFFVIS_ITS ---
Vital Signs 07/17/24 09:27 Height 6 ft 1 in Weight 189 lb BMI 24.9 Intake Visit Reasons: 2w wound check Intake Note: 2 wk follow up for Right 4th toe amp wound check. Pt uses alginate over wound and does dressing. Accompanied by: Self / Same As Patient Allergies No Known Allergies Allergy (Verified 07/17/24 09:31) HPI HPI 2w wound check: Details: Pleasant 74-year-old gentleman presents for follow-up status post right 4th toe amputation overall appears to be doing well. He did have concerns of infection was given antibiotics by the primary care team. Appears to have been completed he now presents for routine follow-up. He reports no discomfort in terms of the amputation. His only concern is his inability to work and pay bills. He is anxious to return to work. [facility] Medical History Yeast infection History of cardioversion Nicotine dependence, cigarettes, uncomplicated CAD (coronary artery disease) DM (diabetes mellitus), type 2 with complications (~12/2023) Anticoagulated Aortic aneurysm without rupture Chronic HFrEF (heart failure with reduced ejection fraction) Diabetic foot ulcer with osteomyelitis PAD (peripheral artery disease) Atrial fibrillation (~12/2023) Surgical History History of tonsillectomy History of angioplasty Social History Household Members: None Housing: House Are you a primary neonatal intensive care unit nurse to a significant other at home: No Do you presently have visiting nurse or other home services: No Patient Tobacco Use Status: Former Tobacco user Tobacco use type: Cigarette Years Smoked: 30 e-Cigarette/Vaping Use: Never Used Second Hand Smoke Exposure: No service: No Current occupational status: employed and retired 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 Current occupational exposures/hazards: No Cognitive needs: No Hearing needs: No Vision needs: No Review of Systems Const All systems reviewed & are unremarkable except as noted in HPI and below Reports no additional complaints ENT Reports Normal hearing present Card Denies chest pain, Denies chest pain at rest, Denies chest pain with activity and Denies pedal edema Resp Denies cough GI Denies abdominal pain Musc Denies abnormal gait, Denies muscle cramps and Denies radiating pain into limb Skin/Breast Denies skin ulcer and Denies wounds Neuro Reports Normal hearing present and Denies abnormal gait Psych Reports no additional complaints Physical Exam Vital Signs: BMI result Body Mass Index 24.9 Const General: cooperative, healthy appearing and comfortable Orientation/consciousness: oriented to person, oriented to place and oriented to time HEENT Head: Yes normal to inspection Neck Neck: Yes normal visual inspection Carotids: no bruits Chest Chest palpation & inspection: normal inspection of the chest Resp Effort & Inspection: normal respiratory effort and able to speak in complete sentences Auscultation: clear to auscultation bilaterally, no crackles, no rales, no rhonchi and no wheezes Cardio Rate: regular rate Rhythm: regular rhythm Heart sounds: S1 normal heart sound present and S2 normal heart sound present Bruits: no carotid bruits Peripheral pulses: Peripheral pulses 2+ throughout GI Inspection: Yes normal to inspection Skin Other: Right 4th toe amputation site measures 2 x 1 x 0.3 cm. It does have some depth to it reasonable granulation bed. There is some bleeding. Wounds: no wounds Hair: normal Neuro General: oriented to person, oriented to place and oriented to time Cranial nerves: Yes CN's II-XII intact bilaterally and Yes Normal hearing present Cognition (Neuro): normal cognition Motor exam (neuro): 5/5 motor strength present throughout Extrem Other: venous exam: No significant superficial varicosities or spider telangiectasias, minimal edema General: No clubbing, No cyanosis and No edema Psych Appearance: grossly normal Mental Status: mental status grossly normal Speech and movement: Normal speech and movement present Assessment & Plan Assessment & Plan (1) PAD (peripheral artery disease): Comment: 02/06/2024 - right SFA plasty and stent placement In their 06/16/2024 - right 4th toe amputation Code(s): I73.9 - Peripheral vascular disease, unspecified Category: Medical Plan: In short patient is doing well status post 4th toe amp. He has about a month out. At the current time would continue local wound care with alginate dressings. We did discuss routine conservative measures including increasing nutrition and protein. Appropriate wound care. And he will follow up with us in approximately 2 weeks time. I did okay him to return to limited work. Thank you for allowing us to assist in his care. If there are any questions or concerns please do not hesitate to contact us. Please note a longitudinal relationship has been created with the patient and we have been following and surveillance this chronic condition. Coding Level of Care Code Est Pt Level 3 (90248) Complex EM visit Add On G2211 Diagnoses PAD (peripheral artery disease) I73.9
== END 2024-07-17 09:47 | disposition home or self-care (01) ==
PROVIDERS: PCP Nurse Practitioner Family; Visit Provider Surgery Vascular Surgery
DX: I73.9 Peripheral vascular disease, unspecified (principal)
CPT/HCPCS: 99024

== ENCOUNTER → 2024-07-17 09:26 | Outpatient (BNVA) | payer OTHER, SELFPAY | PROVIDERS: PCP Nurse Practitioner Family; Visit Provider Surgery Vascular Surgery | DX: I73.9 Peripheral vascular disease, unspecified (principal); Z09 Encounter for follow-up examination after completed treatment for conditions other than malignant neoplasm; Z89.421 Acquired absence of other right toe(s) | CPT/HCPCS: 99212 ==

== ENCOUNTER 2024-07-22 08:22 | Outpatient (AMB) | payer OTHER, SELFPAY ==
--- NOTE | 2024-07-22 08:58 | A.OFFVIS_ITS ---
VS Expanded 07/22/24 11:23 Height 6 ft 1 in Weight 189 lb 2.4 oz BMI 25.0 Intake Visit Reasons: T2DM Allergies No Known Allergies Allergy (Verified 07/17/24 09:31) Nutrition Presentation Details: Pt presents for MNT f/u for T2DM Pt has questions regarding nutrition for wound healing, Pt has 4th right toe amputated. Pt did not bring BG record to this appt Pt reports working on meal planning and following healthy plate method Verbalizes understanding relationship of some carbs to BG level Verbalizes food sources of carbs and foods sources of protein. Pt reports working on reducing empty calorie snacks for its high content of sodium and carbs Today will review role of protein, amino acids and glucose control for wound healing and glucose control BS Monitoring Most Recent Diabetes Results: Cholesterol 130 mg/dL (<200) 07/07/24 HDL Cholesterol 45 mg/dL (>40) 07/07/24 Triglycerides 120 mg/dL (<150) 07/07/24 Creatinine 0.85 mg/dL (0.5-1.4) 07/07/24 Blood Urea Nitrogen 24 mg/dL (9-16) H 07/07/24 Sodium 138 mmol/L (135-145) 07/07/24 Potassium 4.3 mmol/L (3.3-5.1) 07/07/24 Chloride 103 mmol/L (96-108) 07/07/24 Carbon Dioxide 27 mmol/L (22-29) 07/07/24 Calcium 9.8 mg/dL (8.4-10.2) 07/07/24 AST 34 U/L (5-37) 07/07/24 ALT 46 U/L (0-40) H 07/07/24 Total Protein 7.1 g/dL (6.5-8.0) 07/07/24 Albumin 4.2 g/dL (3.5-5.0) 07/07/24 [facility] Medical History Yeast infection History of cardioversion Nicotine dependence, cigarettes, uncomplicated CAD (coronary artery disease) DM (diabetes mellitus), type 2 with complications (~12/2023) Anticoagulated Aortic aneurysm without rupture Chronic HFrEF (heart failure with reduced ejection fraction) Diabetic foot ulcer with osteomyelitis PAD (peripheral artery disease) Atrial fibrillation (~12/2023) Surgical History History of tonsillectomy History of angioplasty Social History Household Members: None Housing: House Are you a primary childcare center administrator to a significant other at home: No Do you presently have visiting nurse or other home services: No Patient Tobacco Use Status: Former Tobacco user Tobacco use type: Cigarette Years Smoked: 30 e-Cigarette/Vaping Use: Never Used Second Hand Smoke Exposure: No service: No Current occupational status: employed and retired 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 Current occupational exposures/hazards: No Cognitive needs: No Hearing needs: No Vision needs: No Assessment & Plan Assessment & Plan (1) Diabetic osteomyelitis: Code(s): E11.69 - Type 2 diabetes mellitus with other specified complication; M86.9 - Osteomyelitis, unspecified Category: Medical Plan: Wt: 86 Kg ( 06/2024 ) Est kcal needs as per MSJ: 2300 (40% carb, 30% protein/fat) Est fluid needs as per 25-30 ml/d: 2600 Est prot per day as per 1 g/kg bw: 86 Recommend fiber intake : 8-10 g per day and gradually increase to 25-28 g per day for women and 35-38 g for men or as tolerated Recommend sodium intake per day : less than 2000 mg Educated patient on: ( R = reviewed V = verbalizes understanding N/R = needs review N/A = not applicable * Food sources of carbohydrate, adequate serving sizes and its role in various health conditions: R * Differences between complex carbohydrates a simple carbohydrates, role of fiber in diet: R V N/R * Lean protein sources of foods: R * Differences between types of fats and role in diet (mono on saturated fat fatty acids, saturated fatty acids, trans fats): R * Food sources of sodium in salt and healthy modifications for heart health in kidney health: R * Vitamins and minerals: R V N/R * Healthy plate method concept: R * Physical activity: Benefits a precaution: R V N/R * Hypoglycemia protocol (rule of 15): R V N/R * Dietary prevention of Hyperglycemia: R Patient Instructions: Choose low sodium protein sources of foods (low sodium cheese, low sodium tuna , eggs with no added salt as example) Work on reducing total carb at bedtime snack to less than 45 g example: 1 cup of milk , 1 apple and 1 cup of low sodium cottage cheese or 1 cup of milk and 1/2 egg salad sandwich on whole wheat bread or 1 cup of yogurt and 1 fruit Consider taking Tito 2 packets per day for 4-6 weeks for wound healing Coding Level of Care Code Nutr Indiv Subseq (81332) Diagnoses Diabetic osteomyelitis E11.69; M86.9 Time Spent (min) 30
[2024-07-22 11:23] VITALS: BMI 25.0
== END 2024-07-22 09:11 | disposition home or self-care (01) ==
PROVIDERS: PCP Nurse Practitioner Family; Visit Provider Dietitian, Registered
DX: E11.69 Type 2 diabetes mellitus with other specified complication (principal); M86.9 Osteomyelitis, unspecified

== ENCOUNTER → 2024-07-22 08:22 | Outpatient (BNVA) | payer OTHER, SELFPAY | PROVIDERS: PCP Nurse Practitioner Family; Visit Provider Dietitian, Registered | DX: E11.69 Type 2 diabetes mellitus with other specified complication (principal); E11.621 Type 2 diabetes mellitus with foot ulcer; M86.9 Osteomyelitis, unspecified; I73.9 Peripheral vascular disease, unspecified; Z71.3 Dietary counseling and surveillance | CPT/HCPCS: 97803 ==

== ENCOUNTER 2024-07-31 08:42 | Outpatient (AMB) | payer OTHER, SELFPAY ==
--- NOTE | 2024-07-31 08:44 | A.OFFVIS_ITS ---
Intake Visit Reasons: 2w wound check Intake Note: Patient presents for 2 week wound check . Patient states no pain. Small amount of discharge upon removing bandage. Allergies No Known Allergies Allergy (Verified 07/31/24 08:46) HPI HPI 2w wound check: Details: Juvenal is doing well. He is here for 2 week follow-up status post R4 toe amp on June 16. He continues to have daily dressing changes with calcium alginate and Kerlix wrap. He states the pain has decreased significantly. He states he has been working carefully and trying not to drop anything on his foot. He does continue to use the boot for the shower. He states he is a little frustrated that the site has not healed by now. [facility] Medical History Yeast infection History of cardioversion Nicotine dependence, cigarettes, uncomplicated CAD (coronary artery disease) DM (diabetes mellitus), type 2 with complications (~12/2023) Anticoagulated Aortic aneurysm without rupture Chronic HFrEF (heart failure with reduced ejection fraction) Diabetic foot ulcer with osteomyelitis PAD (peripheral artery disease) Atrial fibrillation (~12/2023) Surgical History History of tonsillectomy History of angioplasty Social History Household Members: None Housing: House Are you a primary rn wound care to a significant other at home: No Do you presently have visiting nurse or other home services: No Patient Tobacco Use Status: Former Tobacco user Tobacco use type: Cigarette Years Smoked: 30 e-Cigarette/Vaping Use: Never Used Second Hand Smoke Exposure: No service: No Current occupational status: employed and retired 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 Current occupational exposures/hazards: No Cognitive needs: No Hearing needs: No Vision needs: No Review of Systems Const Reports as per HPI and Denies weakness ENT Reports Normal hearing present and Denies dizziness Card Reports as per HPI, Denies chest pain, Denies chest pain at rest, Denies chest pain with activity, Denies dyspnea and Denies dyspnea on exertion Resp Reports as per HPI, Denies cough, Denies dyspnea and Denies dyspnea on exertion GI Reports as per HPI, Denies abdominal pain, Denies nausea and Denies vomiting Musc Denies numbness Skin/Breast Reports as per HPI, Denies erythema and Denies wounds Neuro Reports Normal hearing present, Denies dizziness, Denies numbness, Denies Sensory deficit (Neuro) and Denies weakness Psych Reports no additional complaints Endo Reports no additional complaints Physical Exam Const General: healthy appearing and no acute distress Orientation/consciousness: patient oriented x3 HEENT Head: Yes normal to inspection Ears: hearing grossly normal bilaterally Mouth: Normal oral and palatal mucosa present Resp Effort & Inspection: normal respiratory effort and able to speak in complete sentences Auscultation: clear to auscultation bilaterally Cardio Jugular venous distension: no JVD Rate: regular rate Rhythm: regular rhythm Heart sounds: S1 normal heart sound present and S2 normal heart sound present Bruits: no abdominal aortic bruits, no carotid bruits, no femoral bruits and no renal bruits Peripheral pulses: Peripheral pulses 2+ throughout GI Inspection: Yes normal to inspection Palpation (GI): No Abdominal aortic bruit present Skin General skin exam: no rashes or lesions noted Wounds: no wounds Hair: normal Neuro General: patient oriented x3 Cranial nerves: Yes Normal hearing present Cognition (Neuro): normal cognition Gait exam (Neuro): Normal gait present Motor exam (neuro): 5/5 motor strength present throughout Sensory Exam: No Sensory deficit (Neuro) Extrem Other: R4 toe: Proximally 1.5 cm circumferential open area. [place] granulation tissue for wound bed. No bleeding noted. Minimal drainage noted on bandage. General: Yes normal to inspection, Yes full ROM, Yes capillary refill normal and Yes normal gait Assessment & Plan Assessment & Plan (1) Status post amputation of toe: Comment: right 4th toe, 06/16/24 Dr Gonzalez [facility] Code(s): Z89.429 - Acquired absence of other toe(s), unspecified side Category: Surgical Plan: Juvenal is doing well status post R4 toe amputation on June 16. The site is healing in the granulation tissue is nice and pink. There is minimal drainage. We will have him continue with the alginate dressing with Kerlix wrap daily. We will have him continue to wear the boot while he is taking a shower until the site completely closes over. He can continue to work as long as he is careful. I did discuss with him that healing from these type of surgeries can take upwards of several months, which can be frustrating. We will have him follow up in 2 weeks. If there are any questions or concerns please do not hesitate to reach out to our office. Coding Level of Care Code Global (45454) Diagnoses Status post amputation of toe Z89.429
== END 2024-07-31 08:56 | disposition home or self-care (01) ==
LOC: HO.HVS 08:42
PROVIDERS: PCP Nurse Practitioner Family; Visit Provider Physician Assistant Surgical
DX: Z89.429 Acquired absence of other toe(s), unspecified side (principal)
CPT/HCPCS: 99024

== ENCOUNTER → 2024-07-31 08:42 | Outpatient (BNVA) | payer OTHER, SELFPAY | PROVIDERS: PCP Nurse Practitioner Family; Visit Provider Physician Assistant Surgical | DX: Z47.81 Encounter for orthopedic aftercare following surgical amputation (principal); Z89.421 Acquired absence of other right toe(s) | CPT/HCPCS: 99212 ==

== ENCOUNTER 2024-08-14 09:02 | Outpatient (AMB) | payer OTHER, SELFPAY ==
[2024-08-14 09:06] VITALS: BMI 24.9
--- NOTE | 2024-08-14 09:06 | A.OFFVIS_ITS ---
Vital Signs 08/14/24 09:06 Height 6 ft 1 in Weight 189 lb BMI 24.9 Intake Visit Reasons: 2 week wound check Intake Note: 2 week follow up Right 4th toe amp 06/16/24, pt states no pain and seems to be fine, still not healed. Accompanied by: Self / Same As Patient Allergies No Known Allergies Allergy (Verified 08/14/24 09:09) HPI HPI 2 week wound check: Details: Juvenal is presenting today as a wound care check status post R4 toe amputation on 06/16. He states he is doing really well he is doing his daily dressing changes and wrapping it daily. He states he is wrapping up his foot when he takes a shower and is not getting it wet. He states he continues to work in his wearing work boots and denies any issues. He is very safe at work and making sure he is not dropping anything on that foot. He denies any pain at the site [facility] Medical History Yeast infection History of cardioversion Nicotine dependence, cigarettes, uncomplicated CAD (coronary artery disease) DM (diabetes mellitus), type 2 with complications (~12/2023) Anticoagulated Aortic aneurysm without rupture Chronic HFrEF (heart failure with reduced ejection fraction) Diabetic foot ulcer with osteomyelitis PAD (peripheral artery disease) Atrial fibrillation (~12/2023) Surgical History History of tonsillectomy History of angioplasty Social History Household Members: None Housing: House Are you a primary hospice care sales consultant to a significant other at home: No Do you presently have visiting nurse or other home services: No Patient Tobacco Use Status: Former Tobacco user Tobacco use type: Cigarette Years Smoked: 30 e-Cigarette/Vaping Use: Never Used Second Hand Smoke Exposure: No service: No Current occupational status: employed and retired 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 Current occupational exposures/hazards: No Cognitive needs: No Hearing needs: No Vision needs: No Review of Systems Const Reports as per HPI and Denies weakness ENT Reports Normal hearing present and Denies dizziness Card Reports as per HPI, Denies chest pain, Denies chest pain at rest, Denies chest pain with activity, Denies dyspnea and Denies dyspnea on exertion Resp Reports as per HPI, Denies cough, Denies dyspnea and Denies dyspnea on exertion GI Reports as per HPI, Denies abdominal pain, Denies nausea and Denies vomiting Musc Denies numbness Skin/Breast Reports as per HPI, Denies erythema and Denies wounds Neuro Reports Normal hearing present, Denies dizziness, Denies numbness, Denies Sensory deficit (Neuro) and Denies weakness Psych Reports no additional complaints Endo Reports no additional complaints Physical Exam Vital Signs: BMI result Body Mass Index 24.9 Const General: healthy appearing and no acute distress Orientation/consciousness: patient oriented x3 HEENT Head: Yes normal to inspection Ears: hearing grossly normal bilaterally Mouth: Normal oral and palatal mucosa present Resp Effort & Inspection: normal respiratory effort and able to speak in complete sentences Auscultation: clear to auscultation bilaterally Cardio Jugular venous distension: no JVD Rate: regular rate Rhythm: regular rhythm Heart sounds: S1 normal heart sound present and S2 normal heart sound present Bruits: no abdominal aortic bruits, no carotid bruits, no femoral bruits and no renal bruits Peripheral pulses: Peripheral pulses 2+ throughout GI Inspection: Yes normal to inspection Palpation (GI): No Abdominal aortic bruit present Skin General skin exam: no rashes or lesions noted Wounds: no wounds Hair: normal Neuro General: patient oriented x3 Cranial nerves: Yes Normal hearing present Cognition (Neuro): normal cognition Gait exam (Neuro): Normal gait present Motor exam (neuro): 5/5 motor strength present throughout Sensory Exam: No Sensory deficit (Neuro) Extrem Other: R4 toe amp site: Approximate 1.5 cm circumferential open area. [place] granulation tissue in the wound bed. No bleeding noted. No drainage noted on the bandage. General: Yes normal to inspection, Yes full ROM, Yes capillary refill normal and Yes normal gait Assessment & Plan Assessment & Plan (1) Status post amputation of toe: Comment: right 4th toe, 06/16/24 Dr Gonzalez [facility] [place] Code(s): Z89.429 - Acquired absence of other toe(s), unspecified side Category: Surgical Plan: Juvenal is status post R4 toe amputation on 06/[address] Gonzalez. Patient is a little frustrated with how long the site is taking to heal; however, we talked about due to the diabetes healing takes much longer and it could be months before it completely heals over. We discussed continued wound care daily. We discussed keeping the area clean and dry and covering it when he takes a shower. The site is healing and there is no discharge or bleeding noted on the bandage this morning. We had a discussion about follow up and the patient would like to follow up with us in about 3w - 1m. We did discuss that if there are any concerns or questions, he can call our office and get in sooner. If he gets any redness, swelling, or any other issues with the site, he is to reach out to our office immediately. Coding Level of Care Code Global (62747) Diagnoses Status post amputation of toe Z89.429
== END 2024-08-14 09:30 | disposition home or self-care (01) ==
PROVIDERS: PCP Nurse Practitioner Family; Visit Provider Physician Assistant Surgical
DX: Z89.429 Acquired absence of other toe(s), unspecified side (principal)
CPT/HCPCS: 99024

== ENCOUNTER → 2024-08-14 09:02 | Outpatient (BNVA) | payer OTHER, SELFPAY | PROVIDERS: PCP Nurse Practitioner Family; Visit Provider Physician Assistant Surgical | DX: Z89.421 Acquired absence of other right toe(s) (principal) | CPT/HCPCS: 99212 ==

== ENCOUNTER 2024-08-22 11:13 | Emergency (ER) | payer OTHER, SELFPAY ==
[2024-08-22] VITALS (7 sets, daily range): BP systolic 118–155; BP diastolic 55–75; PULSE 65–75; RESP 18–20; TEMP 36.4–36.9; O2SAT 97–98; BMI 26.7
[2024-08-22 11:22] LABS: Glucose, Whole Blood 181 mg/dL (60-115)
[2024-08-22 11:23] LABS: Prothrombin Time Whole Bld POC 13.3 sec (11.1-13.5); ~PT, ~INR - Anti Coag Clinic 1.1 (0.9-1.1)
--- NOTE | 2024-08-22 11:35 | ECG_ITS ---
Test Reason : SYNCOPE Blood Pressure : / mmHG Vent. Rate : 072 BPM Atrial Rate : 000 BPM P-R Int : 000 ms QRS Dur : 134 ms QT Int : 434 ms P-R-T Axes : 000 108 -50 degrees QTc Int : 475 ms Atrial fibrillation Right bundle branch block T wave abnormality, consider inferior ischemia Abnormal ECG When compared with ECG of 07-MAY-2024 14:46, Atrial fibrillation has replaced Sinus rhythm Referred By: Generic ED Physician Electronically Signed By:DON CARPIO MD
--- NOTE | 2024-08-22 11:49 | PC.NURSE ---
pt comes to ED via EMS. He was hanging out with some fiends and when walking to his car he felt dizzy, lightheaded and that he was about to pass out. He quickly sat down and did not lose consciousness. He did not his his head. He takes eliquis for afib, also metoprolol, lipitor and metformin. EMS called in a stroke alert. Upon arrival symptoms had subsided. He no longer reports dizziness. Neuros intact, no unilateral weakness or facial deficits. AOx4. GCS 15. Dr. Espinal evaluated pt and did not order stroke workup. Pt brought to ED 09 for triage. Labs and EKG done.
[2024-08-22 12:12] LABS: MANUAL DIFF FLAG NO
[2024-08-22 12:16] LABS: Basophils Percent Auto 0.6 % (0-2); Eosinophils Absolute Auto 0.1 X10*3/uL (0.0-0.4); Eosinophils Percent Auto 1.7 % (0-4); Hematocrit 41.7 % (42.0-52.0); Hemoglobin 14.1 g/dl (14.0-18.0); Imm Gran Abs Auto 0.02 X10*3/uL (0.00-0.03); Imm Gran Pct Auto 0.3 % (0.0-0.4); Lymphocytes Absolute Auto 1.6 X10*3/uL (1.2-4.9); Mean Corpuscular HGB Conc 33.8 g/dl (31.0-36.0); Mean Corpuscular Hemoglobin 31.2 pg (27.0-33.0); Mean Corpuscular Volume 92.3 fL (80.0-98.0); Mean Platelet Volume 11.1 fL (9.4-12.4); Monocytes Absolute Auto 0.5 X10*3/uL (0.1-1.2); Monocytes Percent Auto 7.3 % (2-11); Neutrophils Absolute Auto 4.9 x10*3/uL (2.0-8.3); Neutrophils Percent Auto 68.1 % (45-73); Platelet Count 186 X10*3/uL (160-400); Red Blood Count 4.52 X10*6/uL (4.60-5.80); White Blood Count 7.2 X10*3/uL (4.8-10.8)
--- NOTE | 2024-08-22 12:16 | ED_ITS ---
HPI - Syncope General Chief Complaint: Syncope Stated Complaint: sudden dizziness Time Seen by Provider: 08/22/24 12:16 Source: patient and EMS Mode of arrival: EMS Limitations: no limitations History of Present Illness ED Provider: Asiya Stewart PA-C HPI narrative: 74 yo male with history of permanent afib/aflutter on eliquis, COPD, CAD, PAD, CHF (EF 50%), DM with history of osteomyelitis of the right foot s/p toe amputation who presents to the ER via EMS for evaluation of dizziness and lightheadedness. He states he was at the gas station with his friends this morning when he stood up from sitting and went to walk to his car, he became dizzy and lightheaded. He states he felt off balance and his legs became wobbly. he got to his car and symptoms persisted so his friends helped lower him to the ground. No LOC. He then sat in his car for 5 minutes while EMS was called. He states by the time he was transferred to the stretcher his symptoms resolved. He denies any associated chest pain, SOB, numbness, tingling, N/V, abdominal pain, headache. He reports intermittent episodes of dizziness that last 10 seconds or so but not this long. He had a Holter monitor in July and follows w/ cardiology here. he states his metoprolol dose was increased about 2 months ago. He has had unsuccessful cardioversions in the past. complaint: felt faint and almost passed out Onset (ago): minute(s) Duration of episode: 10 -: minutes(s) Prodromal symptoms: lightheaded Witnessed: Yes - by Bystander Context: standing up Injuries sustained associated with event: none Current symptoms: back to baseline Treatments prior to arrival: none Related Data Previous Rx's ?Medication ?Instructions ?Recorded blood sugar diagnostic (FreeStyle #100 ea 01/24/24 Lite Strips) blood-glucose meter (FreeStyle #1 ea 01/24/24 Lite Meter kit) lancets 28 gauge (FreeStyle #100 ea 01/24/24 Lancets) metformin 500 mg tablet,extended 1,000 mg (2 x 500 mg) PO BID 90 06/27/24 release 24 hr days #360 tabs metoprolol tartrate 50 mg tablet 75 mg PO BID 90 days #270 tabs 07/21/24 apixaban 5 mg tablet (Eliquis) 5 mg PO BID #180 tabs 07/30/24 atorvastatin 40 mg tablet 40 mg PO BEDTIME #90 ea 07/30/24 Allergies Allergy/AdvReac Type Severity Reaction Status Date / Time No Known Allergies Allergy Verified 08/22/24 11:31 Review of Systems 2 Review of Systems: Yes all other systems are reviewed and are negative [facility] Past Medical History Medical History Yeast infection History of cardioversion Nicotine dependence, cigarettes, uncomplicated CAD (coronary artery disease) DM (diabetes mellitus), type 2 with complications (~12/2023) Anticoagulated Aortic aneurysm without rupture Chronic HFrEF (heart failure with reduced ejection fraction) Diabetic foot ulcer with osteomyelitis PAD (peripheral artery disease) Atrial fibrillation (~12/2023) Surgical History History of tonsillectomy History of angioplasty Social History Social History Household Members: None Housing: House Are you a primary child care worker to a significant other at home: No Do you presently have visiting nurse or other home services: No Patient Tobacco Use Status: Former Tobacco user Tobacco use type: Cigarette Years Smoked: 30 Smoked in Last 30 Days: Yes e-Cigarette/Vaping Use: Never Used Second Hand Smoke Exposure: No Use of substances other than those prescribed or required for medical reasons: No Advance Directives: No Advance Directives Information Provided: Yes service: No Current occupational status: employed and retired 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 Oriented X3. No acute distress. Head: normocephalic, atraumatic. Eyes: Pupils equal, round and reactive to light. EOMI, no nystagmus ENT: Pharynx normal. No tonsillar swelling or exudate. normal TMs bilaterally. Neck: Normal inspection. Neck supple. CVS: irreguarly irregular, regular rate. no appreciated murmur Pulses normal. Respiratory: No respiratory distress. Breath sounds diminished at the bases. Abdomen: Soft and nontender. +BS x4 Skin: Skin warm and dry. Normal skin color. Normal skin turgor. No rashes. Extremities: No lower extremity edema. No joint swelling. hand cool wtih 1+ radial pulses bilaterally. Neuro/psych: Oriented X 3. No motor deficit. No sensory deficit. CN II-XII intact. Normal speech and cognition. steady gait NIH Stroke Scale Internal: Initial- Upon Arrival Level of Consciousness: Alert Level of Consciousness Questions: Answers both questions correctly Level of Consciousness Commands: Performs both tasks correctly Best Gaze: Normal Visual: No visual loss Facial Palsy: Normal Motor Arm (Right): No drift Motor Arm (Left): No drift Motor Leg (Right): No drift Motor Leg (Left): No drift Limb Ataxia: Absent Sensory: Normal Best Language: No aphasia Dysarthia: Normal Extinction and Inattention: No abnormality Score: 0 Medical Decision Making Medical Decision Making MDM Narrative: 74 yo male with history of permanent afib/aflutter on eliquis, COPD, CAD, PAD, CHF (EF 50%), DM with history of osteomyelitis of the right foot s/p toe amputation who presents to the ER via EMS for evaluation of dizziness and lightheadedness after standing up. symptoms resolved on arrival to the ER. NIH is 0. He is nonfocal and back to baseline. He reports episodes of dizziness in the past but they did not last as long. His vital signs are stable. He remains in AFib. He is anticoagulated. Lab workup today shows no major metabolic derangement. No signs of dehydration. His orthostatic vital signs are negative. He had a Holter monitor done in July that showed episodes of AFib up to the 160s. His Lopressor dose has been increased. His blood pressure is stable in the 120s. He is due to see Cardiology again in October. Doubt TIA. Patient's symptoms most likely related to episode of orthostatic hypotension versus transient AFib with RVR causing dizziness. Case d/w Dr. Espinal. patient would like to be discharged home. We discussed the importance changing positions slowly, staying adequately hydrated and following up with his supervisor pleating closely. Was advised to return to the ER if he had any recurrent or worsening symptoms. Comfortable w/ discharge home Differential Diagnosis Differential Diagnoses: The differential diagnosis associated with the presentation includes pre-syncope, orthostatic hypotension, transient afib w/ RVR, dehydration, cardiac arrythmia, TIA, vasovagal episode Admission/Observation Consideration of admission/observation: Escalation of care including admission/observation considered Lab Data MDM Lab Attestation statement: I reviewed the patient's lab results. nonischemic trop 08/22/24 12:07 08/22/24 12:07 Labs: Lab Results 08/22/24 08/22/24 08/22/24 Range/Units 11:18 11:19 12:07 WBC 7.2 (4.8-10.8) X10*3/uL RBC 4.52 L (4.60-5.80) X10*6/uL Hgb 14.1 (14.0-18.0) g/dl Hct 41.7 L (42.0-52.0) % MCV 92.3 (80.0-98.0) fL MCH 31.2 (27.0-33.0) pg MCHC 33.8 (31.0-36.0) g/dl RDW 13.0 (11.0-16.0) % Plt Count 186 (160-400) X10*3/uL MPV 11.1 (9.4-12.4) fL Immature Gran % (Auto) 0.3 (0.0-0.4) % Neut % (Auto) 68.1 (45-73) % Lymph % (Auto) 22.0 (20-40) % Cook % (Auto) 7.3 (2-11) % Eos % (Auto) 1.7 (0-4) % Baso % (Auto) 0.6 (0-2) % Lymph # (Auto) 1.6 (1.2-4.9) X10*3/uL Cook # (Auto) 0.5 (0.1-1.2) X10*3/uL Eos # (Auto) 0.1 (0.0-0.4) X10*3/uL Baso # (Auto) 0.0 (0.0-0.2) X10*3/uL Abs Immat Gran (auto) 0.02 (0.00-0.03) X10*3/uL Absolute Neuts (auto) 4.9 (2.0-8.3) x10*3/uL Absolute Nucleated RBC 0.000 (0.0-0.012) X10*3/uL Nucleated RBC % (auto) 0.0 (0.0-0.2) /100WBC PT 14.0 H (10.9-12.4) SEC Whole Blood PT 13.3 (11.1-13.5) sec INR 1.2 H (0.9-1.1) Whole Blood INR 1.1 (0.9-1.1) Sodium 137 (135-145) mmol/L Potassium 4.6 (3.3-5.1) mmol/L Chloride 105 (96-108) mmol/L Carbon Dioxide 26 (22-29) mmol/L Anion Gap 11 L (12-20) BUN 21 H (9-16) mg/dL Creatinine 0.87 (0.5-1.4) mg/dL Estim Creat Clear Calc 85.4 Estimated GFR > 60 POC Glucose 181 H (60-115) mg/dL Random Glucose 184 H (60-115) mg/dL Calcium 9.4 (8.4-10.2) mg/dL Magnesium 2.0 (1.6-2.6) mg/dL Troponin I High Sens 11.5 (<3.5-35.0) ng/L Independent Interpretation I performed an independent interpretation of an: EKG Interpretation: EKG with atrial fibrillation with right bundle-branch block, ventricular rate 72 beats per minute, no ST segment elevations Independent Historian Clinical information obtained from an independent historian. History obtained from or confirmed by: EMS External Record Review External record reviewed: Office record, Outpatient record, Prior outpatient labs and Prior outpatient radiology Tests considered The following testing was considered but not selected: CT head considered Chronic Conditions Patient?s care impacted by: Other (afib, DM) Critical Care Time Critical Care Time Critical Care Time: No Discharge Plan Discharge Clinical Impression: Pre-syncope, Dizziness Patient Disposition: Home, Self-Care Instructions: Dizziness (ED), Near Syncope (ED) Additional Instructions: Your workup today in the emergency department was unremarkable and reassuring. Recommend changing positions slowly, drinking plenty of fluids and staying hydrated. Following up with your supervisor pleating as important as well as your primary care doctor. You have any new or worsening symptoms call 911 or come back to the ER for further evaluation Prescriptions: No Action metoprolol tartrate 50 mg tablet 75 mg PO BID 90 Days Qty: 270 1RF Protocol: Hold for SBP/HR < HOLD for SBP < : 90 HOLD for HR < : 60 Rx Instructions: Dose increased: 1.5 tablets twice daily Eliquis 5 mg tablet 5 mg PO BID Qty: 180 2RF atorvastatin 40 mg tablet 40 mg PO BEDTIME Qty: 90 2RF (DME) FreeStyle Lite Strips Strip Qty: 100 5RF Rx Instructions: Test four times a day or as directed. (DME) blood-glucose meter [FreeStyle Lite Meter] Kit Qty: 1 0RF Rx Instructions: As Directed (DME) lancets [FreeStyle Lancets] 28 gauge misc Qty: 100 5RF Rx Instructions: Test four times a day or as directed. metformin 500 mg tablet extended release 24 hr 1,000 mg PO BID 90 Days Qty: 360 1RF Referrals: [facility] [place] [Provider Group] Josse Zuniga MD [Primary Care Provider] - Print Language: Bruneian
[2024-08-22 12:26] LABS: Anion Gap 11 (12-20); Blood Urea Nitrogen 21 mg/dL (9-16); Calcium 9.4 mg/dL (8.4-10.2); Carbon Dioxide 26 mmol/L (22-29); Chloride 105 mmol/L (96-108); Creatinine Clr Calc Pharmacy 85.4; Estimated Glomerular Filt Rate > 60; Glucose Random 184 mg/dL (60-115); Potassium 4.6 mmol/L (3.3-5.1); Sodium 137 mmol/L (135-145)
[2024-08-22 12:28] LABS: INTERNATIONAL NORM RATIO 1.2 (0.9-1.1)
[2024-08-22 12:33] LABS: Troponin-I High Sensitivity 11.5 ng/L (<3.5-35.0)
[2024-08-22 12:57] LABS: Influenza A PCR NEGATIVE (Negative); Influenza B PCR NEGATIVE (Negative); Resp Syncy Virus RNA Qual PCR NEGATIVE (Negative); SARS COV2 PCR INHOUSE NEGATIVE (Negative)
== END 2024-08-22 13:17 | disposition home or self-care (01) ==
PROVIDERS: Emergency Provider Emergency Medicine; PCP Family Medicine
DX: R55 Syncope and collapse (principal); R42 Dizziness and giddiness; Z03.818 Encounter for observation for suspected exposure to other biological agents ruled out; R29.700 NIHSS score 0; E11.9 Type 2 diabetes mellitus without complications; J44.9 Chronic obstructive pulmonary disease, unspecified; I48.91 Unspecified atrial fibrillation; Z79.01 Long term (current) use of anticoagulants; Z87.891 Personal history of nicotine dependence
CPT/HCPCS: 0241U; 36415; 80048; 82947; 83735; 84484; 85025; 85610; 93005; 99283; 99284

== ENCOUNTER → 2024-08-22 11:35 | Outpatient (BNV) | payer OTHER, SELFPAY | PROVIDERS: Emergency Provider Emergency Medicine; PCP Family Medicine; Visit Provider Internal Medicine Cardiovascular Disease | DX: R55 Syncope and collapse (principal); I48.91 Unspecified atrial fibrillation; I45.10 Unspecified right bundle-branch block; R94.31 Abnormal electrocardiogram [ECG] [EKG] | CPT/HCPCS: 93010 ==

== ENCOUNTER 2024-09-02 08:30 | Outpatient (AMB) | payer OTHER, SELFPAY ==
[2024-09-02 08:44] VITALS: BMI 26.1
--- NOTE | 2024-09-02 08:44 | A.OFFVIS_ITS ---
VS Expanded 09/02/24 08:44 Height 6 ft 1 in Weight 198 lb 3 oz BMI 26.1 Intake Visit Reasons: T2DM Allergies No Known Allergies Allergy (Verified 08/22/24 11:31) Nutrition Presentation Details: Pt presents for MNT f/u for T2DM Pt reports doing well. Pt did not bring glucometer to this appt, reports bg in the morning in the 150s. Admits to diet indiscretion during holiday celebration. Food frequency fish: twice/wk fruits: 0-1/d veg: daily , reports including salads, spinach 4-5 times/wk dairy: 5+ physical activity: daily life activities BS Monitoring Most Recent Diabetes Results: Cholesterol 130 mg/dL (<200) 07/07/24 HDL Cholesterol 45 mg/dL (>40) 07/07/24 Triglycerides 120 mg/dL (<150) 07/07/24 Creatinine 0.87 mg/dL (0.5-1.4) 08/22/24 Blood Urea Nitrogen 21 mg/dL (9-16) H 08/22/24 Sodium 137 mmol/L (135-145) 08/22/24 Potassium 4.6 mmol/L (3.3-5.1) 08/22/24 Chloride 105 mmol/L (96-108) 08/22/24 Carbon Dioxide 26 mmol/L (22-29) 08/22/24 Calcium 9.4 mg/dL (8.4-10.2) 08/22/24 AST 34 U/L (5-37) 07/07/24 ALT 46 U/L (0-40) H 07/07/24 Total Protein 7.1 g/dL (6.5-8.0) 07/07/24 Albumin 4.2 g/dL (3.5-5.0) 07/07/24 [facility] Medical History Yeast infection History of cardioversion Nicotine dependence, cigarettes, uncomplicated CAD (coronary artery disease) DM (diabetes mellitus), type 2 with complications (~12/2023) Anticoagulated Aortic aneurysm without rupture Chronic HFrEF (heart failure with reduced ejection fraction) Diabetic foot ulcer with osteomyelitis PAD (peripheral artery disease) Atrial fibrillation (~12/2023) Surgical History History of tonsillectomy History of angioplasty Social History Household Members: None Housing: House Are you a primary care partner to a significant other at home: No Do you presently have visiting nurse or other home services: No Patient Tobacco Use Status: Former Tobacco user Tobacco use type: Cigarette Years Smoked: 30 e-Cigarette/Vaping Use: Never Used Second Hand Smoke Exposure: No service: No Current occupational status: employed and retired 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 [employer] Current occupational exposures/hazards: No Cognitive needs: No Hearing needs: No Vision needs: No Assessment & Plan Assessment & Plan (1) Diabetic osteomyelitis: Code(s): E11.69 - Type 2 diabetes mellitus with other specified complication; M86.9 - Osteomyelitis, unspecified Category: Medical Plan: Wt: 86 Kg ( 06/2024 ), 90 kg (09/23) Est kcal needs as per MSJ: 2300 (40% carb, 30% protein/fat) Est fluid needs as per 25-30 ml/d: 2600 Est prot per day as per 1 g/kg bw: 86 Recommend fiber intake : 8-10 g per day and gradually increase to 25-28 g per day for women and 35-38 g for men or as tolerated Recommend sodium intake per day : less than 2000 mg Educated patient on: ( R = reviewed V = verbalizes understanding N/R = needs review N/A = not applicable * Food sources of carbohydrate, adequate serving sizes and its role in various health conditions: R * Differences between complex carbohydrates a simple carbohydrates, role of fiber in diet: R * Lean protein sources of foods: R * Differences between types of fats and role in diet (mono on saturated fat fatty acids, saturated fatty acids, trans fats): R * Food sources of sodium in salt and healthy modifications for heart health in kidney health: R * Vitamins and minerals: R V N/R * Healthy plate method concept: R * Physical activity: Benefits a precaution: R * Hypoglycemia protocol (rule of 15): R V N/R * Dietary prevention of Hyperglycemia: R Patient Instructions: Resume reducing on pastries and high sugar foods Incorporate fruits at least 2 serving /day include omega 3 sources of foods (nuts, seeds, nut /seeds butter, seafood, olive oil, avocado) Coding Level of Care Code Nutr Indiv Subseq (12137) Diagnoses Diabetic osteomyelitis E11.69; M86.9 Time Spent (min) 30
== END 2024-09-02 09:24 | disposition home or self-care (01) ==
PROVIDERS: PCP Nurse Practitioner Family; Visit Provider Dietitian, Registered
DX: E11.69 Type 2 diabetes mellitus with other specified complication (principal); M86.9 Osteomyelitis, unspecified

== ENCOUNTER → 2024-09-02 08:30 | Outpatient (BNVA) | payer OTHER, SELFPAY | PROVIDERS: PCP Nurse Practitioner Family; Visit Provider Dietitian, Registered | DX: E11.69 Type 2 diabetes mellitus with other specified complication (principal); M86.9 Osteomyelitis, unspecified; Z71.3 Dietary counseling and surveillance | CPT/HCPCS: 97803 ==

== ENCOUNTER 2024-09-11 09:00 | Outpatient (AMB) | payer OTHER, SELFPAY ==
--- NOTE | 2024-09-11 09:04 | A.OFFVIS_ITS ---
Intake Visit Reasons: 1 month wound check follow up Intake Note: Patient presents for wound follow up. No complaints. Accompanied by: Self / Same As Patient Allergies No Known Allergies Allergy (Verified 09/11/24 09:06) HPI HPI 1 month wound check follow up: Details: Juvenal, a pleasant 74-year-old male patient, is presenting for a 1 month check of status post R4 toe amputation. He is very happy with the healing and it continues with covering it daily. He does continue to work, but is careful. He continues wearing a boot while showering. He denies any pain at the site. [facility] Medical History Yeast infection History of cardioversion Nicotine dependence, cigarettes, uncomplicated CAD (coronary artery disease) DM (diabetes mellitus), type 2 with complications (~12/2023) Anticoagulated Aortic aneurysm without rupture Chronic HFrEF (heart failure with reduced ejection fraction) Diabetic foot ulcer with osteomyelitis PAD (peripheral artery disease) Atrial fibrillation (~12/2023) Surgical History History of tonsillectomy History of angioplasty Social History Household Members: None Housing: House Are you a primary residential care facility manager to a significant other at home: No Do you presently have visiting nurse or other home services: No Patient Tobacco Use Status: Former Tobacco user Tobacco use type: Cigarette Years Smoked: 30 e-Cigarette/Vaping Use: Never Used Second Hand Smoke Exposure: No service: No Current occupational status: employed and retired 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 Current occupational exposures/hazards: No Cognitive needs: No Hearing needs: No Vision needs: No Review of Systems Const Reports as per HPI and Denies weakness ENT Reports Normal hearing present and Denies dizziness Card Reports as per HPI, Denies chest pain, Denies chest pain at rest, Denies chest pain with activity, Denies dyspnea and Denies dyspnea on exertion Resp Reports as per HPI, Denies cough, Denies dyspnea and Denies dyspnea on exertion GI Reports as per HPI, Denies abdominal pain, Denies nausea and Denies vomiting Musc Denies numbness Skin/Breast Reports as per HPI, Denies erythema and Denies wounds Neuro Reports Normal hearing present, Denies dizziness, Denies numbness, Denies Sensory deficit (Neuro) and Denies weakness Psych Reports no additional complaints Endo Reports no additional complaints Physical Exam Const General: healthy appearing and no acute distress Orientation/consciousness: patient oriented x3 HEENT Head: Yes normal to inspection Ears: hearing grossly normal bilaterally Mouth: Normal oral and palatal mucosa present Resp Effort & Inspection: normal respiratory effort and able to speak in complete sentences Auscultation: clear to auscultation bilaterally Cardio Jugular venous distension: no JVD Rate: regular rate Rhythm: regular rhythm Heart sounds: S1 normal heart sound present and S2 normal heart sound present Bruits: no abdominal aortic bruits, no carotid bruits, no femoral bruits and no renal bruits Peripheral pulses: Peripheral pulses 2+ throughout GI Inspection: Yes normal to inspection Palpation (GI): No Abdominal aortic bruit present Skin General skin exam: no rashes or lesions noted Wounds: no wounds Hair: normal Neuro General: patient oriented x3 Cranial nerves: Yes Normal hearing present Cognition (Neuro): normal cognition Gait exam (Neuro): Normal gait present Motor exam (neuro): 5/5 motor strength present throughout Sensory Exam: No Sensory deficit (Neuro) Extrem Other: R4 toe amp site: Approximately 1 cm circumferential open area. [place] granulation tissue in the wound bed. No bleeding noted. No discharge noted on the bandage. General: Yes normal to inspection, Yes full ROM, Yes capillary refill normal and Yes normal gait Assessment & Plan Assessment & Plan (1) Status post amputation of toe: Comment: right 4th toe, 06/16/24 Dr Gonzalez [facility] Code(s): Z89.429 - Acquired absence of other toe(s), unspecified side Category: Surgical Plan: Juvenal is status post a right 4th toe amputation on 06/[address] Gonzalez. He states he is happy with how it is healing, but states he knows it will take a while. He is keeping the area clean and dry and keeping a bandage on it. We discussed to continue keeping it covered, particularly when he is working. We discussed continuing with the boot in the shower until the site is completely healed over. We will follow up with him in 1m. We advised him to reach out to us sooner if anything changed. If he has any other questions or concerns, he can reach out to us at any point. Coding Level of Care Code Global (28696) Diagnoses Status post amputation of toe Z89.429
== END 2024-09-11 09:22 | disposition home or self-care (01) ==
PROVIDERS: PCP Nurse Practitioner Family; Visit Provider Physician Assistant Surgical
DX: Z89.429 Acquired absence of other toe(s), unspecified side (principal)
CPT/HCPCS: 99024

== ENCOUNTER → 2024-09-11 09:00 | Outpatient (BNVA) | payer OTHER, SELFPAY | PROVIDERS: PCP Nurse Practitioner Family; Visit Provider Physician Assistant Surgical | DX: Z47.81 Encounter for orthopedic aftercare following surgical amputation (principal); Z89.421 Acquired absence of other right toe(s) | CPT/HCPCS: 99212 ==

== ENCOUNTER 2024-10-08 09:06 | Outpatient (AMB) | payer OTHER, SELFPAY ==
--- NOTE | 2024-10-08 09:09 | A.OFFVIS_ITS ---
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 blood-glucose meter (FreeStyle Lite Meter kit) As Directed lancets (FreeStyle Lancets) Test four times a day or as directed. metformin ER 1,000 mg (2 x 500 mg) PO BID 90 days metoprolol tartrate 75 mg See Protocol PO BID 90 days Do you need a note to return to daycare/school/sports/work: No HPI HPI Comments 2 History of Present Illness0 Details 74-year-old male with AFib with secondar y hypercoagulable state, diabetes type 2 with complication, dilated ascending aorta 3.7 cm, CAD, former tobacco user, CHF with reduced ejection fraction and secondary hyperaldosteronism, diabetic foot ulcer with osteomyelitis, PAD s/p cardioversion for Afib with Dr Montgomery 05/07/24 - reverted back to Afib, status post right 4th toe amputation 06/16/24 Dr Gonzalez Health maintenance: DM eye exam today [facility]: DM Eye Exam: 04/25/24 [facility], negative for DM retinopathy bilat TDap 2022, Declined flu shot. Shingles at the pharmacy. Declined PCV. Colon - has cologaurd at home. Has not completed as of this time. Lung cancer screening: CT scan 03/28/2024, There is a single noncalcified left lower lobe 3 mm nodule 03/28/[address] Specialists: [facility] Management Sarah Chen MD - March consult note reviewed, cleared from further f/u Garret Gonzalez MD -note from 02/20 and 03/27 reviewed > arterial imaging ordered, remains at risk of losing distal right 5th toe Jevon Montgomery MD: Stress test complete, 03/2024 consult note reviewed. [facility]tho Podiatry Consult notes reviewed Cards 07/2024 [facility] 08/2024 [facility] ED visit 08/22/24 Here today for AWV & FU of chronic diseases. The Medicare Annual Wellness Visit (AWV) is a yearly appointment with a health professional to identify health risks and help reduce them and to create or update a personalized prevention plan. During a Medicare AWV, health professionals should also review any current opioid prescriptions, detect any cognitive impairment, and establish or update medical and family history. SurgHx: Y FHx: Y SocHx: Y Health Maintenance: See scanned preventative medicine assessment with personalized health plan and screening schedule. DM eye exam today [facility]: DM Eye Exam: 04/25/24 [facility], negative for DM retinopathy bilat TDap 2022, Declined flu shot. Recommend Shingles at the pharmacy. Declined PCV. Colon - has cologaurd at home. Has not completed as of this time. Lung cancer screening: CT scan 03/28/2024, There is a single noncalcified left lower lobe 3 mm nodule 03/28/[address] . Vaccines: declined flu, Tdap UTD, AAA screen: has known AAA EKG: managed by Cards Visual Acuity: done today, active w/ Optho, last eye exam 2023 Hearing Screening: ACP: info provided, will return Dietary/Nutrition/Exercise Edu provided: Y During the course of the visit the patient was educated and counseled about appropriate screening and preventative services. Patient instructions were provided to the patient in written or electronic format. I have reviewed and verified the above information. The patient is a 74-year-old male presenting for a Medicare annual wellness visit and follow-up of chronic diseases. He has a history of type 2 diabetes mellitus with prior complications affecting his A1c levels. He reported dietary indiscretions during the holiday period, with A1c recorded at 7.6, following a reduction to 7.1 from an earlier level of 8.9 in March. Previous management adjustments included discontinuation of a diabetes medication due to yeast infections, with current treatment consisting of metformin. The patient's diabetes management is stable with recent challenges in dietary adherence over the holidays. The patient has atrial fibrillation, previously managed with metoprolol prescribed by cardiology, and is awaiting a follow-up appointment scheduled for November. He experienced orthostatic hypotension in August, resulting in a fall but has not had recurrent episodes. Additionally, hypertension is managed with existing medicaments. He describes past bronchitis symptoms, present for 2 weeks, observing congestion in the lungs.hx chronic smoking. The patient's hyperlipidemia is treated with atorvastatin, and his Amputated limb relates to peripheral arterial disease. Results - Labs: Hemoglobin A1c: 7.6% - Diagnostic Tests: Cognitive screen wit h minor recall difficulties LABS FROM TODAY SHOW LIPID PROFILE AT GOAL, PSA PENDING, NORMAL B12 AND FOLATE, NORMAL TSH, NORMAL URINE MICROALBUMIN CREATININE RATIO Exam: awake alert oriented PERRLA TM intact clouding bilat Nares patent turbinatews wnl No carotid bruit pharynx wnl Afib LS coarse ins/exp wheeze throughout Nonpalp pedal pulses bilat, skin hairless, dusky and cool to LLE and RLE. R 4th toe amp site looks good, thickened toe nails - see picture I discussed with the patient the management goals for type 2 diabetes, advising that A1c stability, diet modification, and lifestyle adjustments can help maintain target glycemic levels. We discussed the significance of consistent cardiac follow-up for atrial fibrillation management. Emphasizing the importance of foot care and the use of diabetic footwear will help prevent complications. The risks of unmanaged bronchitis were detailed, and I advocated for the use of prescribed medications to prevent infection exacerbation. We discussed the importance of regular screenings, the nuances of diabetic eye exams, and the necessity for cholesterol monitoring due to hyperlipidemia. Return precautions and follow-up appointments were delineated, and the patient was receptive to discussed plans and verbalized understanding. Plan Continue management of type 2 diabetes with current metformin regimen; maintain A1c closer to 7% - Cardiology follow-up for atrial fibril lation in November; monitor metoprolol effects and discuss alternative cardiovascular interventions - Reinforce dietary management - bronchitis; prescribed azithromycin an d inhaler for symptomatic relief - Hyperlipidemia management with atorvas tatin; update cholesterol profile through planned lab work - Monitor blood pressure and symptoms of orthostatic changes; maintain hydration and gradual positional changes - Reinforce diabetic foot care; plan for diabetic footwear fitting to prevent foot complications Patient was informed and verbally consented to the use of an ambient scribe for clinic note documentation during this visit. Patient Instructions - Continue taking metformin as prescribe d. Aim to maintain A1c levels closer to 7%. - Complete all labs including cholestero l and prostate screening today. - Use the inhaler as directed: 1 puff, f our times daily. Rinse mouth post-use. - Follow the azithromycin regimen (two t ablets on the first day, then one tablet daily) for five days. - Monitor for dizziness, especially when changing positions. Stay hydrated and rise gradually. - Arrange for diabetic foot exam and fit ting for diabetic shoes to prevent complications. - Collaborate with cardiology as schedul ed on November 03. Report any heart rate irregularities. - Discuss dietary habits with a dietitia n, considering modifications to manage blood sugar. - Call or visit the clinic if experienci ng new or worsening symptoms of dizziness, respiratory distress, or if questions arise. RTO 3-4 MONTHS FOR ROUTINE FU, SOONER PRN An additional 30 minutes was spent addressing the problem(s) noted at todays visit. This includes time spent before the visit reviewing the chart, time spent during the visit, and time spent after the visit on documentation [facility] Medical History Yeast infection History of cardioversion Nicotine dependence, cigarettes, uncomplicated CAD (coronary artery disease) DM (diabetes mellitus), type 2 with complications (~12/2023) Anticoagulated Aortic aneurysm without rupture Chronic HFrEF (heart failure with reduced ejection fraction) Diabetic foot ulcer with osteomyelitis PAD (peripheral artery disease) Atrial fibrillation (~12/2023) Surgical History History of tonsillectomy History of angioplasty Social History Household Members: None Housing: House Are you a primary career information specialist to a significant other at home: No Do you presently have visiting nurse or other home services: No Patient Tobacco Use Status: Former Tobacco user Tobacco use type: Cigarette Years Smoked: 30 e-Cigarette/Vaping Use: Never Used Second Hand Smoke Exposure: No service: No Current occupational status: employed and retired 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 Current occupational exposures/hazards: No Cognitive needs: No Hearing needs: No Vision needs: No Questionnaire Medicare Wellness Checkup What [age]?: [age] What gender do you identify with?: male During the past 4 weeks, how much have you been bothered by emotional problems such as feeling anxious, depressed, irritable, sad or downhearted, and blue?: m oderately During the past 4 weeks, has your physical & emotional health limited your social activities with family, friends, neighbors, or groups?: not at all During the past 4 weeks, how much bodily pain have you generally had?: no pain During the past 4 weeks, was someone available to help you if you needed & wanted help?: yes, as much as I wanted During the past 4 weeks, what was the hardest physical activity you could do for at least 2 minutes?: moderate Can you get to places out of walking distance without help? (For eg., can you travel alone on buses, taxis or drive your car?): Yes Can you go shopping for groceries or clothes without someone's help?: Yes Can you prepare your own meals?: Yes Can you do your housework without help?: Yes Because of any health problems, do you need the help of another person with your personal care needs such as eating, bathing, dressing or getting around the house?: Yes Can you handle your own money without help?: Yes During the past 4 weeks, how would you rate your health in general?: good During the past 4 weeks how have things been going for you?: pretty well Are you having difficulties driving your car?: no Do you always fasten your seat belt when you are in a car?: yes, usually During past 4 weeks, have you been bothered by the following: never: Sexual problems?, Trouble eating well?, Teeth or denture problems? and Problems using the telephone?, seldom: Tiredness or fatigue? (related to care of dog who is sick) and sometimes: Falling or dizzy when standing up Have you fallen 2 or more times in the past year?: No Are you afraid of falling?: No Are you a smoker?: no During the past 4 weeks, how many drinks of wine, beer, or other alcoholic beverages did you have?: no alcohol at all Do you exercise for about 20 minutes 3 or more times a week?: yes, some of the time Have you been given information to help with the following?: no: Hazards in your house that might hurt you? and no: Keeping track of your medications? How often do you have trouble taking medicines the way you have been told to take them?: I always take medicine as prescribed How confident are you that you can control & manage most of your health problems?: very confident What is your race?: White Activity of Daily Living Bathing - sponge bath, tub bath or shower: receives no assistance (gets in/out by self, if usual bathing means Dressing - getting clothes from closets & drawers, including inner/outer garments & fasteners.: gets clothes & gets completely dressed without help Toileting - going to the 'toilet room' for urine/bowel elimination & cleaning self/arranging clothes: goes to toilet room, cleans self, arranges clothes without help Transfer: moves in & out of bed and chair without help (may use support object) Continence: controls urination/bowel movements completely by self Feeding: feeds self without help Total Score: 0 Information obtained from: patient Using telephone: independent Traveling: independent Shopping: independent Preparing meals: independent Housework: independent Taking medicine: independent Managing money: independent PHQ-9 Over the last 2 weeks, how often have you been bothered by any of the following problems? 1. Little interest or pleasure in doing things: not at all 2. Feeling down, depressed, or hopeless: not at all 3. Trouble falling or staying asleep, or sleeping too much: not at all 4. Feeling tired or having little energy: not at all 5. Poor appetite or overeating: not at all 6. Feeling bad about yourself - or that you are a failure or have let yourself or your family down: not at all 7. Trouble concentrating on things, such as reading the newspaper or watching television: not at all 8. Moving or speaking so slowly that other people could have noticed. Or the opposite - being so fidgety or restless that you have been moving around a lot more than usual: not at all 9. Thoughts that you would be better off or of hurting yourself in some way: not at all Total score: 0 Depression Screening Interpretation: Negative Depression Screening Done: Yes 71050 - PHQ-9 Billing: Yes Source: Developed by Drs. Pravin Reese, Tanya Benitez, Enoch Reno and colleagues, with an educational simeon from [employer]. Physical Exam Vital Signs: Last Vital Signs Pulse 50 10/08/24 09:14 Resp 12 10/08/24 09:14 BP 124/72 10/08/24 09:14 Pulse Ox 99 10/08/24 09:14 Oxygen Delivery Method Room Air 10/08/24 09:14 BMI result Body Mass Index 25.9 Office Procedures Vision Screening Right Eye: 20/50 Left Eye: 20/40 Bilateral: 20/40 Color: Pass 38629 - Vision Screening Results AMB Hemoglobin A1c 2 AMB Hemoglobin A1c 7.6 % Last Edit by Fausto Crystal MA on 10/08/24 09:26 Results Reviewed Results Reviewed: Laboratory Last Values Hgb A1c (Clinic) 7.6 % (4.0-6.0) H 10/08/24 09:10 Assessment & Plan Assessment & Plan (1) Encounter for subsequent annual wellness visit (AWV) in Medicare patient: Code(s): Z00.00 - Encounter for general adult medical examination without abnormal findings (2) Aortic aneurysm without rupture: Comment: mild dilated ascending aorta 3.7 cm 12/2023 Managed by cardiology as well as vascular. Goal will be to control blood pressure and hyperlipidemia. On statin, aspirin, Eliquis. We will need follow up imaging in the future. Code(s): I71.9 - Aortic aneurysm of unspecified site, without rupture Qualifiers: Aortic location: thoracic aorta Thoracic aorta location: ascending aorta Qualified Code(s): I71.21 - Aneurysm of the ascending aorta, without rupture (3) Atrial fibrillation: Onset Date: ~12/2023 Comment: Rate controlled with metoprolol 50 mg p.o. b.i.d., on Eliquis 5 mg p.o. b.i.d.. Active with Cardiology. Code(s): I48.91 - Unspecified atrial fibrillation Qualifiers: Atrial fibrillation type: paroxysmal Qualified Code(s): I48.0 - Paroxysmal atrial fibrillation (4) Cardiomyopathy: Code(s): I42.9 - Cardiomyopathy, unspecified Qualifiers: Cardiomyopathy type: unspecified Qualified Code(s): I42.9 - Cardiomyopathy, unspecified (5) Chronic HFrEF (heart failure with reduced ejection fraction): Comment: 12/2023 echocardiogram which showed a decreased EF of 40-45% with mild LVH Not weighing self QD advised to weigh daily and call if 3 lbs gain in 24 hours or 5 lbs/week. Currently euvolemic, not on any anticoagulation. On beta-sae. Code(s): I50.22 - Chronic systolic (congestive) heart failure (6) DM (diabetes mellitus), type 2 with complications: Onset Date: ~12/2023 Code(s): E11.8 - Type 2 diabetes mellitus with unspecified complications (7) PAD (peripheral artery disease): Comment: 02/06/2024 - right SFA plasty and stent placement 06/16/2024 - right 4th toe amputation Code(s): I73.9 - Peripheral vascular disease, unspecified (8) Secondary hypercoagulable state: Comment: On Eliquis due to secondary hypercoagulable state related to AFib Code(s): D68.69 - Other thrombophilia (9) Status post amputation of toe: Comment: right 4th toe, 06/16/24 Dr Gonzalez [facility] Code(s): Z89.429 - Acquired absence of other toe(s), unspecified side (10) CAD (coronary artery disease): Comment: On aspirin and atorvastatin. Active with Cardiology. Moderate CAD on CT of chest 03/28/24 Code(s): I25.10 - Atherosclerotic heart disease of solomon coronary artery without angina pectoris Qualifiers: Associated angina: without angina Coronary Disease-Associated Artery/Lesion type: solomon artery [place] vs. transplanted heart: solomon heart Qualified Code(s): I25.10 - Atherosclerotic heart disease of solomon coronary artery without angina pectoris (11) Emphysema with chronic bronchitis: Comment: noted on ct of chest 03/28/24 Code(s): J44.89 - Other specified chronic obstructive pulmonary disease (12) Prostate cancer screening: Code(s): Z12.5 - Encounter for screening for malignant neoplasm of prostate (13) Bronchitis: Code(s): J40 - Bronchitis, not specified as acute or chronic Plan . Orders: Orders 2 AMB Hemoglobin A1c Today Z13.9 - Encounter for screening, unspecified Vitamin B12 and Folate Today E11.8 - Type 2 diabetes mellitus with unspecified complications, I25.10 - Atherosclerotic heart disease of solomon coronary artery without angina pectoris, I73.9 - Peripheral vascular disease, unspecified, Z12.5 - Encounter for screening for malignant neoplasm of prostate TSH reflex Free T4 Today E11.8 - Type 2 diabetes mellitus with unspecified complications, I25.10 - Atherosclerotic heart disease of solomon coronary artery without angina pectoris, I73.9 - Peripheral vascular disease, unspecified, Z12.5 - Encounter for screening for malignant neoplasm of prostate PSA, Ultra Sensitive Today E11.8 - Type 2 diabetes mellitus with unspecified complications, I25.10 - Atherosclerotic heart disease of solomon coronary artery without angina pectoris, I73.9 - Peripheral vascular disease, unspecified, Z12.5 - Encounter for screening for malignant neoplasm of prostate Lipid Panel Today E11.8 - Type 2 diabetes mellitus with unspecified complications, I25.10 - Atherosclerotic heart disease of solomon coronary artery without angina pectoris, I73.9 - Peripheral vascular disease, unspecified, Z12.5 - Encounter for screening for malignant neoplasm of prostate Microalbumin, Random (w Creat) Today E11.8 - Type 2 diabetes mellitus with unspecified complications, I25.10 - Atherosclerotic heart disease of solomon coronary artery without angina pectoris, I73.9 - Peripheral vascular disease, unspecified, Z12.5 - Encounter for screening for malignant neoplasm of prostate Referrals 2 Cologuard Test Z12.11 - Encounter for screening for malignant neoplasm of colon, Z12.12 - Encounter for screening for malignant neoplasm of rectum Medications: New 2 azithromycin For 250 mg dose pack: take 500 mg today (day 1), then 250 mg for 4 days (days 2-5) PO 5 days 6 tabs 0RF ipratropium-albuterol 20-100 mcg/actuation (Combivent Respimat) space evenly during waking hours 1 puff inhalation QID 4 grams 0RF Refilled 2 metformin ER 1,000 mg (2 x 500 mg) PO BID 90 days 360 tabs 1RF atorvastatin 40 mg PO BEDTIME 90 ea 2RF Quality Reporting (2019) Adult ([facility] 138/2/) Smoking risk assessment performed?: Yes Patient Tobacco Use Status: Former Tobacco user Depression screening performed: Yes Screen Results: Yes Negative screen Systolic BP not done?: No Diastolic BP not done?: No BMI screening not done: No Sexual Activity Screening ([facility] 153) Sexually active?: No Immunizations ([facility] 147, 117) Annual Influenza Vaccine: No Flu Vaccine not done: patient reason Measles Antibody Test: No Mumps Antibody Test: No Rubella Antibody Test: No Varicella Antibody Test: No Anti Hepatitis A IgG Antigen test: No Anti Hepatitis B Virus Surface Ab test: No Diabetes ([facility] 131/134/142) Date of last retinal or dilated eye exam: 04/25/24 Macular exam performed: Yes (negative for retinopathy bilat ) Fall Risk Screening ([facility] 139) Last assessed Fall Risk: 10/08/24 Fall risk assessment: 1 Fall in past year Dementia Assessment ([facility] 149) Cognitive assessment recorded: Yes Assessment of cognition with standardized tool: Yes (6 cit 11/28) Depression/Bipolar (159/160/161/177) PHQ-9: Total score: 0 Ophthalmol:Cataracts Visual Acuity (133) Visual acuity exam performed: Yes (see results ) Coding Level of Care Code Medicare Subsequent (G0439) Est Pt Level 4 (44159) Diagnoses Encounter for subsequent annual wellness visit (AWV) in Medicare patient Z00.00 Aneurysm of ascending aorta without rupture I71.21 Aortic location: thoracic aorta Thoracic aorta location: ascending aorta Paroxysmal atrial fibrillation I48.0 Atrial fibrillation type: paroxysmal Cardiomyopathy, unspecified type I42.9 Cardiomyopathy type: unspecified Chronic HFrEF (heart failure with reduced ejection fraction) I50.22 DM (diabetes mellitus), type 2 with complications E11.8 PAD (peripheral artery disease) I73.9 Secondary hypercoagulable state D68.69 Status post amputation of toe Z89.429 Coronary artery disease involving solomon coronary artery of solomon heart without angina pectoris I25.10 Associated angina: without angina Coronary Disease-Associated Artery/Lesion type: solomon artery [place] vs. transplanted heart: solomon heart Emphysema with chronic bronchitis J44.89 Prostate cancer screening Z12.5 Bronchitis J40 CPT Codes Advance Care Planning - Time spent: 1-15 minutes, not on file ([id number]) Vision Screening - Vision Screenin - Vision Screening ([id number]) Additional Codes PHQ-9 - 42734 - PHQ-9 Billing: Yes ([id number]) Advance Care Planning Advance Care Planning discussion: Exists, not on file Date of discussion: 10/08/24 Who was present: self Forms completed: Health Care Proxy, MOLST and Living will Time spent: 1-15 minutes, not on file Actual minutes spent: 10
[2024-10-08 09:14] VITALS: BP 124/72; PULSE 50; RESP 12; O2SAT 99; BMI 25.9
== END 2024-10-08 10:06 | disposition home or self-care (01) ==
PROVIDERS: PCP Nurse Practitioner Family; Visit Provider Nurse Practitioner Family
DX: Z00.00 Encounter for general adult medical examination without abnormal findings (principal); I71.21 Aneurysm of the ascending aorta, without rupture; I48.0 Paroxysmal atrial fibrillation; I42.9 Cardiomyopathy, unspecified; I50.22 Chronic systolic (congestive) heart failure; E11.8 Type 2 diabetes mellitus with unspecified complications; I73.9 Peripheral vascular disease, unspecified; D68.69 Other thrombophilia; Z89.429 Acquired absence of other toe(s), unspecified side; J44.89 Other specified chronic obstructive pulmonary disease; I25.10 Atherosclerotic heart disease of native coronary artery without angina pectoris; Z12.5 Encounter for screening for malignant neoplasm of prostate

== ENCOUNTER → 2024-10-08 09:06 | Outpatient (BNVA) | payer OTHER, SELFPAY | PROVIDERS: PCP Nurse Practitioner Family; Visit Provider Nurse Practitioner Family | DX: Z00.00 Encounter for general adult medical examination without abnormal findings (principal); I71.21 Aneurysm of the ascending aorta, without rupture; I48.0 Paroxysmal atrial fibrillation; I42.9 Cardiomyopathy, unspecified; I50.22 Chronic systolic (congestive) heart failure; E11.9 Type 2 diabetes mellitus without complications; I73.9 Peripheral vascular disease, unspecified; D68.69 Other thrombophilia; I25.10 Atherosclerotic heart disease of native coronary artery without angina pectoris; J44.89 Other specified chronic obstructive pulmonary disease; Z79.01 Long term (current) use of anticoagulants; Z79.82 Long term (current) use of aspirin; Z79.899 Other long term (current) drug therapy; Z89.421 Acquired absence of other right toe(s) | CPT/HCPCS: 83036; 96127 ==

== ENCOUNTER 2024-10-08 10:11 | Outpatient (REF) | payer OTHER, SELFPAY ==
[2024-10-08 11:57] LABS: Creatinine Urine 213.55 mg/dL; Microalbum/Creatinine Ratio Ur 14.9 ug/mg cr (<30)
[2024-10-08 11:58] LABS: Cholesterol 128 mg/dL (<200); HDL Cholesterol 39 mg/dL (>40); LDL Cholesterol Calculated 62 mg/dL (<100); Triglycerides 135 mg/dL (<150)
[2024-10-08 12:16] LABS: Folate 10.2 ng/mL (> or = 4.0); Vitamin B12 362 pg/mL (200-900)
[2024-10-12 15:48] LABS: PSA, Ultra Sensitive 5.56 ng/mL
== END 2024-10-08 10:12 | disposition home or self-care (01) ==
LOC: HO.WFDLDS 10:11
PROVIDERS: Visit Provider Nurse Practitioner Family
DX: Z12.5 Encounter for screening for malignant neoplasm of prostate (principal); E11.8 Type 2 diabetes mellitus with unspecified complications; I73.9 Peripheral vascular disease, unspecified; I25.10 Atherosclerotic heart disease of native coronary artery without angina pectoris
CPT/HCPCS: 36415; 80061; 82043; 82570; 82607; 82746; 84153; 84443

== ENCOUNTER 2024-10-09 08:51 | Outpatient (AMB) | payer OTHER, SELFPAY ==
--- NOTE | 2024-10-09 08:57 | A.OFFVIS_ITS ---
Intake Visit Reasons: 1 month wound check follow up Intake Note: Patient presents for 1 month wound check. Patient has a bandaid on his wound. Wound has no redness , no pain. Accompanied by: Self / Same As Patient Allergies No Known Allergies Allergy (Verified 10/09/24 09:00) HPI HPI 1 month wound check follow up: Details: Juvenal is presenting today for a one-month follow-up for wound check status post right 4th toe amputation on 06/16/2024. He has been keeping the area clean and dry and applying a Band-Aid daily. He denies any drainage or bleeding from the site. He denies any pain at the site. [facility] Medical History Yeast infection History of cardioversion Nicotine dependence, cigarettes, uncomplicated CAD (coronary artery disease) DM (diabetes mellitus), type 2 with complications (~12/2023) Anticoagulated Aortic aneurysm without rupture Chronic HFrEF (heart failure with reduced ejection fraction) Diabetic foot ulcer with osteomyelitis PAD (peripheral artery disease) Atrial fibrillation (~12/2023) Surgical History History of tonsillectomy History of angioplasty Social History Household Members: None Housing: House Are you a primary resident caregiver to a significant other at home: No Do you presently have visiting nurse or other home services: No Patient Tobacco Use Status: Former Tobacco user Tobacco use type: Cigarette Years Smoked: 30 e-Cigarette/Vaping Use: Never Used Second Hand Smoke Exposure: No service: No Current occupational status: employed and retired 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 Current occupational exposures/hazards: No Cognitive needs: No Hearing needs: No Vision needs: No Review of Systems Const Reports as per HPI and Denies weakness ENT Reports Normal hearing present and Denies dizziness Card Reports as per HPI, Denies chest pain, Denies chest pain at rest, Denies chest pain with activity, Denies dyspnea and Denies dyspnea on exertion Resp Reports as per HPI, Denies cough, Denies dyspnea and Denies dyspnea on exertion GI Reports as per HPI, Denies abdominal pain, Denies nausea and Denies vomiting Musc Denies numbness Skin/Breast Reports as per HPI, Denies erythema and Denies wounds Neuro Reports Normal hearing present, Denies dizziness, Denies numbness, Denies Sensory deficit (Neuro) and Denies weakness Psych Reports no additional complaints Endo Reports no additional complaints Physical Exam Const General: healthy appearing and no acute distress Orientation/consciousness: patient oriented x3 HEENT Head: Yes normal to inspection Ears: hearing grossly normal bilaterally Mouth: Normal oral and palatal mucosa present Resp Effort & Inspection: normal respiratory effort and able to speak in complete sentences Auscultation: clear to auscultation bilaterally Cardio Jugular venous distension: no JVD Rate: regular rate Rhythm: regular rhythm Heart sounds: S1 normal heart sound present and S2 normal heart sound present Bruits: no abdominal aortic bruits, no carotid bruits, no femoral bruits and no renal bruits Peripheral pulses: Peripheral pulses 2+ throughout GI Inspection: Yes normal to inspection Palpation (GI): No Abdominal aortic bruit present Skin General skin exam: no rashes or lesions noted Wounds: no wounds Hair: normal Neuro General: patient oriented x3 Cranial nerves: Yes Normal hearing present Cognition (Neuro): normal cognition Gait exam (Neuro): Normal gait present Motor exam (neuro): 5/5 motor strength present throughout Sensory Exam: No Sensory deficit (Neuro) Extrem Other: Right four toe amputation site: Site is scabbed over. No bleeding or drainage noted. General: Yes normal to inspection, Yes full ROM, Yes capillary refill normal and Yes normal gait Quality Reporting (2019) Adult ([facility] 138/11/22/68) Smoking risk assessment performed?: Yes Patient Tobacco Use Status: Former Tobacco user Assessment & Plan Assessment & Plan (1) Status post amputation of toe: Comment: right 4th toe, 06/16/24 Dr [place] [facility] [place]s): Z89.429 - Acquired absence of other toe(s), unspecified side Category: Medical Plan: Juvenal is presenting today for a one-month follow-up status post right 4th toe amputation on 06/16/2024. He states he has been putting a Band-Aid on it daily for the last couple of weeks. He states he is happy with the way that is healing. The site is completely healed over and scabbed. We discussed continuing a Band-Aid on it for the next week or so for extra protection, especially while wearing his work boots. We discussed at this point, there is no need for further follow-up for this toe amputation site wound. We discussed the importance of continuing with a healthy well-balanced diet and physical activity. I discussed with him the importance of foot care and he has an appointment with Podiatry in the upcoming weeks. We discussed with the patient that if he has any concerns or any new problems that come up, he can reach out to us any point. Coding Level of Care Code Est Pt Level 3 (29236) Diagnoses Status post amputation of toe Z89.429
== END 2024-10-09 09:10 | disposition home or self-care (01) ==
PROVIDERS: PCP Nurse Practitioner Family; Visit Provider Physician Assistant Surgical
DX: Z89.429 Acquired absence of other toe(s), unspecified side (principal)
CPT/HCPCS: 99213

== ENCOUNTER → 2024-10-09 08:51 | Outpatient (BNVA) | payer OTHER, SELFPAY | PROVIDERS: PCP Nurse Practitioner Family; Visit Provider Physician Assistant Surgical | DX: I73.9 Peripheral vascular disease, unspecified (principal); Z89.421 Acquired absence of other right toe(s) | CPT/HCPCS: 99212 ==

== ENCOUNTER 2024-11-03 13:48 | Outpatient (AMB) | payer OTHER, SELFPAY ==
[2024-11-03 14:01] VITALS: BP 128/62; PULSE 94; BMI 25.5
--- NOTE | 2024-11-03 14:01 | MHC.OFFVIS ---
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 blood-glucose meter (FreeStyle Lite Meter kit) As Directed ipratropium-albuterol 20-100 mcg/actuation (Combivent Respimat) 1 puff inhalation QID lancets (FreeStyle Lancets) Test four times a day or as directed. metformin ER 1,000 mg (2 x 500 mg) PO BID 90 days metoprolol tartrate 75 mg See Protocol PO BID 90 days HPI HPI 4 mth f/up: Details: Juvenal is a 74-year-old male with past medical history of smoking who was admitted to [facility], December 2023, with a nonhealing wound on his foot, then diagnosed with diabetes, peripheral vascular disease and new finding atrial fibrillation. For his AFib he was treated with heart rate control using metoprolol. He was put on Eliquis for anticoagulation. He was set up with vascular for his peripheral vascular disease and has undergone right SFA stent placement. Outpatient Holter monitor confirmed ongoing atrial fibrillation. He underwent a cardioversion on 05/07/2024 and on follow-up was noted to have recurrent AFib that was then treated with heart rate control. He now presents for follow-up. Today he reports that he is still waiting to undergo umbilical hernia repair. He says he is scheduled for 11/24/2024. He has not noticed any heart palpitations. No shortness of breath, PND, orthopnea or edema. No chest discomfort at rest or with activity. He has had no bleeding issues. He recalls 1 episode of dizziness back in August. He was sitting at a table drinking coffee then got up and walked out of the restaurant to his car. He felt very lightheaded and then collapsed to his knees. He did not have full syncope. EMS was called and ER evaluation completed without significant findings. He takes his meds as directed. 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 He has been tolerating this well. [facility] Medical History Yeast infection History of cardioversion Nicotine dependence, cigarettes, uncomplicated CAD (coronary artery disease) DM (diabetes mellitus), type 2 with complications (~12/2023) Anticoagulated Aortic aneurysm without rupture Chronic HFrEF (heart failure with reduced ejection fraction) Diabetic foot ulcer with osteomyelitis PAD (peripheral artery disease) Atrial fibrillation (~12/2023) Surgical History History of tonsillectomy History of angioplasty Social History Household Members: None Housing: House Are you a primary career based intervention coordinator to a significant other at home: No Do you presently have visiting nurse or other home services: No Patient Tobacco Use Status: Former Tobacco user Tobacco use type: Cigarette Years Smoked: 30 e-Cigarette/Vaping Use: Never Used Second Hand Smoke Exposure: No service: No Current occupational status: employed and retired 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 Current occupational exposures/hazards: No Cognitive needs: No Hearing needs: No Vision needs: No Review of Systems Const All systems reviewed & are unremarkable except as noted in HPI and below ENT Denies dizziness Card Denies chest pain, Denies chest pain at rest, Denies chest pain with activity, Denies rapid heart rate, Denies pedal edema, Denies edema, Denies leg edema, Denies lightheadedness, Denies palpitations, Denies dyspnea, Denies dyspnea on exertion and Denies orthopnea Resp Denies cough, Denies dyspnea and Denies dyspnea on exertion GI Denies hematochezia and Denies change in stool character Musc Denies abnormal gait, Denies limited range of motion, Denies muscle cramps, Denies muscle weakness, Denies numbness, Denies radiating pain into limb, Denies stiffness and Denies tingling Neuro Denies abnormal gait, Denies dizziness, Denies numbness and Denies tingling Endo Denies palpitations Physical Exam Vital Signs: Last Vital Signs Pulse 94 11/03/24 14:01 BP 128/62 11/03/24 14:01 BMI result Body Mass Index 25.5 Const General: cooperative, healthy appearing, comfortable and no acute distress Orientation/consciousness: patient oriented x3 Neck Neck: Yes normal visual inspection Resp Effort & Inspection: normal respiratory effort Auscultation: clear to auscultation bilaterally, no rales, no rhonchi and no wheezes Cardio Rate: regular rate Rhythm: abnormal rhythm Heart sounds: S1 normal heart sound present, S2 normal heart sound present, no murmurs and no rubs Neuro General: patient oriented x3 Extrem General: Yes normal to inspection, No no pedal edema and No calf tenderness Psych Appearance: grossly normal Mental Status: mental status grossly normal Speech and movement: Normal speech and movement present Office Procedures EKG Details: Today, read by me, atrial fibrillation, right bundle branch block, rate 95 [id number], Complete Quality Reporting (2019) Adult ([facility] 138/11/22/68) Smoking risk assessment performed?: Yes Patient Tobacco Use Status: Former Tobacco user Assessment & Plan Assessment & Plan (1) Atrial fibrillation: Onset Date: ~12/2023 Comment: Rate controlled with metoprolol 50 mg p.o. b.i.d., on Eliquis 5 mg p.o. b.i.d.. Active with Cardiology. Code(s): I48.91 - Unspecified atrial fibrillation Category: Medical Qualifiers: Atrial fibrillation type: paroxysmal Qualified Code(s): I48.0 - Paroxysmal atrial fibrillation Plan: Newer finding of atrial fibrillation during hospitalization December 2023. It was an incidental finding and asymptomatic. He presented with noncardiac issue. An echocardiogram showed EF 40-45%, mild LVH, moderate biatrial enlargement. Unknown how long the AFib has been present. He was not in heart failure. He was put on metoprolol for heart rate control. He was started on Eliquis for anticoagulation. Outpatient Holter monitor done 03/27/2024 for 3 days shows AFib average heart rate 83, occasional PVCs, one 4 beat NSVT. A pharmacological nuclear stress test done 03/27/2024 shows no ischemia, there is a fixed apical defect most likely attenuation artifact. He did undergo a cardioversion with Dr. Montgomery on 05/07/2024. It required 2 shocks in order to achieve sinus rhythm. Patient tells me that his pulse was steady for 1-2 days after the cardioversion during which time he felt completely unchanged. He then started to notice irregular radial pulses. EKG done on follow-up confirmed atrial fibrillation with right bundle branch block, rate 76. He was continued on metoprolol for heart rate control. Plan was to continue with rate control strategy. A repeat echocardiogram done 07/02/2024 showed EF 50-55%. A Holter monitor was done on 07/02/2024 showing atrial fibrillation with average heart rate 93. EKG done today shows AFib, right bundle branch block which is not new, rate 94. Since his EF is still low normal, I will further increase metoprolol up to 100 mg b.i.d. from 75 mg b.i.d.. This should give him better rate control and further help EF. Continue Eliquis. Cardiology follow-up 6 months, sooner if needed. 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 Improved to low normal with heart rate control. 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 No bleeding issues reported. (4) Right bundle branch block: Code(s): I45.10 - Unspecified right bundle-branch block Category: Medical Plan: Present on EKGs, not new. (5) Dizziness: Code(s): R42 - Dizziness and giddiness Category: Medical Plan: He describes having an episode of dizziness back in August. He said he felt like he was going to pass out but did not have syncope. ER evaluation confirmed no significant findings. His episode was thought to be related to orthostatic blood pressure drop or his atrial fibrillation. He has not had recurrent episodes since that time. Plan Time spent on chart review, documentation, interview and assessment. Medications: New metoprolol tartrate 100 mg PO BID 60 tabs 5RF Discontinued metoprolol tartrate Dose increased: 1.5 tablets twice daily Discontinued Reason: Doctor's Order 75 mg See Protocol PO BID 90 days 270 tabs 1RF Coding Level of Care Code Est Pt Level 4 (02987) Complex EM visit Add On G2211 Diagnoses Paroxysmal atrial fibrillation I48.0 Atrial fibrillation type: paroxysmal Cardiomyopathy, unspecified type I42.9 Cardiomyopathy type: unspecified Anticoagulated Z79.01 Right bundle branch block I45.10 Dizziness R42 CPT Codes EKG - CPT: 82373-[id number], Complete ([id number]) Time Spent (min) 28
== END 2024-11-03 14:35 | disposition home or self-care (01) ==
PROVIDERS: PCP Nurse Practitioner Family; Visit Provider Nurse Practitioner Family
DX: I48.0 Paroxysmal atrial fibrillation (principal); I42.9 Cardiomyopathy, unspecified; Z79.01 Long term (current) use of anticoagulants; I45.10 Unspecified right bundle-branch block; R42 Dizziness and giddiness
CPT/HCPCS: 93010; 99214

== ENCOUNTER → 2024-11-03 13:48 | Outpatient (BNVA) | payer OTHER, SELFPAY | PROVIDERS: PCP Nurse Practitioner Family; Visit Provider Nurse Practitioner Family | DX: I48.0 Paroxysmal atrial fibrillation (principal); I42.9 Cardiomyopathy, unspecified; I45.10 Unspecified right bundle-branch block; R42 Dizziness and giddiness; Z79.01 Long term (current) use of anticoagulants | CPT/HCPCS: 93005 ==

== ENCOUNTER 2025-02-20 09:04 | Outpatient (AMB) | payer OTHER, SELFPAY ==
--- NOTE | 2025-02-20 09:05 | A.OFFPC_ITS ---
Vital Signs 3 02/20/25 09:10 Height 6 ft 1 in Weight 200 lb 8 oz BMI 26.4 BP 108/68 Blood Pressure Location Rt brachial Position Sitting Respiration 12 Pulse 58 Pulse Source Pulse Oximeter Temp 97.6 F Temp Source Oral Pulse Oximetry (%) 99 Oxygen Delivery Method Room Air Intake Visit Reasons: 4-6 mo 30 min routine fu Intake Note: Routine follow up Sliver Former Required: No Allergies No Known Allergies Allergy (Verified 02/20/25 09:33) Medication List - Last Reconciled 02/20/25 by Lizzeth Beatty, INSULATION BLOWER- apixaban (Eliquis) 5 mg PO BID atorvastatin 40 mg PO BEDTIME blood sugar diagnostic (FreeStyle Lite Strips) Test four times a day or as directed. blood-glucose meter (FreeStyle Lite Meter kit) As Directed ipratropium-albuterol 20-100 mcg/actuation (Combivent Respimat) 1 puff inhalation QID lancets (FreeStyle Lancets) Test four times a day or as directed. metformin ER 1,000 mg (2 x 500 mg) PO BID 90 days metoprolol tartrate 100 mg PO BID Tobacco use date assessed: 02/20/25 Fall risk assessment: No Falls in past year Last assessed Fall Risk: 02/20/25 Dental Screening Dental Screen Date: 02/20/25 Did you have a dental visit in the last 12 months?: Yes Did you have a dental problem in the last 6 months where you did not have access to dental care?: No Was dental information given to patient?: Patient has dentist HPI HPI Comments 2 History of Present Illness0 Details 75-year-old male with AFib with secondar y hypercoagulable state, diabetes type 2 with complication, dilated ascending aorta 3.7 cm, CAD, former tobacco user, CHF with reduced ejection fraction and secondary hyperaldosteronism, diabetic foot ulcer with osteomyelitis, PAD s/p cardioversion for Afib with Dr Montgomery 05/07/24 - reverted back to Afib, status post right 4th toe amputation 06/16/24 Dr Gonzalez Health maintenance: DM eye exam [facility]: DM Eye Exam: 04/25/24 [facility], negative for DM retinopathy bilat TDap 2022, Declined flu shot. Recommend Shingles at the pharmacy. Declined PCV. Colon - has cologaurd + referred for colon. Lung cancer screening: CT scan 03/28/2024, There is a single noncalcified left lower lobe 3 mm nodule 03/28/[address] Vaccines: declined flu, Tdap UTD, AAA screen: has known AAA EKG: managed by [facility] . Specialists: [facility] Sarah Chen MD - March consult note reviewed, cleared from further f/u Garret Gonzalez MD -note from 02/20 and 03/27 reviewed > arterial imaging ordered, remains at risk of losing distal right 5th toe Jevon Montgomery MD: Stress test complete, 03/2024 consult note reviewed. Optho Podiatry History of Present Illness - The patient is a 75-year-old male pres enting with chronic disease management. - atrial fibrillation managed with Eliqu is. - Financial constraints affecting abilit y to afford Eliquis. - Type 2 Diabetes Mellitus with peripher al vascular complications & amputation. Recent HbA1c of 7.3%. On Metformin. Due for podiatry visit; Financial limitations - Congestive Heart Failure with reduced ejection fraction. Euvolemic. - Past amputation linked to peripheral v ascular disease. - Former tobacco user, currently under l mariah cancer screening. - Cologuard +, denies overt bleeding. [facility] GI appy 05/2025 Review of Systems - Cardiovascular: Denies chest pain - Respiratory: Denies shortness of breat h, Reports no smoking - Endocrine: Reports diabetes management - Musculoskeletal: Denies swelling in le gs - General: Denies bleeding issues Physical Exam Exam: awake alert oriented PERRLA No carotid bruit Afib LS dim throughout, wheezing in RLL that cleared w/ deep breathing Nonpalp pedal pulses bilat, skin hairless, dusky and cool to LLE and RLE. R 4th toe amp site looks good, thickened toe nails - see picture Results - Labs: Recent HbA1c 7.3% Discussion Notes I discussed the patient's current health conditions, including atrial fibrillation, diabetes, and congestive heart failure. The patient?s improved HbA1c level shows better diabetes control. However, he is experiencing financial difficulties due to medication costs, particularly Eliquis, and we talked about exploring alternatives and communicating these issues with cardiology. I recommended following up with cardiology.. The patient is recommended to see a vascular specialist due to concerning findings in the feet and potential risk of limb ischemia. We discussed challenges faced with insurance eligibility and advised contacting the [employer] program for assistance. I sent [facility] a message, too. Due for labs. Get done today. FU with care team. Take all meds as directed. Encouraged the patient to maintain consistent medication use and seek care for any acute changes in health. Assessment and Plan 1. Atrial Fibrillation - Continue Eliquis and metoprolol as pre scribed. - Explore alternatives with cardiology. 2. Type 2 Diabetes Mellitus - Maintain metformin regimen. - Recommend vascular follow-up. 3. Congestive Heart Failure - Continue current treatment. 4. Financial Challenges - Suggested seeking help through [facility]. Patient Instructions - Continue taking all prescribed medicat ions as directed. - Schedule follow-up with cardiology reg arding medication alternatives. - Follow up with vascular specialist [facility]. - Reach out to [facility] for assistance with insurance and benefits. - Complete scheduled blood tests, includ ing PSA. - Report any symptoms such as bleeding, chest pain, or difficulty breathing. - FU with GI for + cologaurd - RTO [place] Youssef PRN Consent Patient was informed and verbally consented to the use of an ambient scribe for clinic note documentation during this visit. Total time spent caring for the patient today was 44 minutes. This includes time spent before the visit reviewing the chart, time spent during the visit, and time spent after the visit on documentation, reviewing laboratory results, diagnostic imaging, medications, performing a medically necessary evaluation, counseling on diagnoses, care coordination, ordering appropriate tests, ordering appropriate medications, review of tests performed by other providers, reporting test results with the patient, communication with other healthcare providers. [facility] Medical History Yeast infection History of cardioversion Nicotine dependence, cigarettes, uncomplicated CAD (coronary artery disease) DM (diabetes mellitus), type 2 with complications (~12/2023) Anticoagulated Aortic aneurysm without rupture Chronic HFrEF (heart failure with reduced ejection fraction) Diabetic foot ulcer with osteomyelitis PAD (peripheral artery disease) Atrial fibrillation (~12/2023) Surgical History History of tonsillectomy History of angioplasty Social History Household Members: None Housing: House Are you a primary childcare worker to a significant other at home: No Do you presently have visiting nurse or other home services: No Patient Tobacco Use Status: Former Tobacco user Tobacco use type: Cigarette Years Smoked: 30 e-Cigarette/Vaping Use: Never Used Second Hand Smoke Exposure: No service: No Current occupational status: employed and retired 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 1. Little interest or pleasure in doing things: not at all 2. Feeling down, depressed, or hopeless: not at all 3. Trouble falling or staying asleep, or sleeping too much: not at all 4. Feeling tired or having little energy: not at all 5. Poor appetite or overeating: not at all 6. Feeling bad about yourself - or that you are a failure or have let yourself or your family down: not at all 7. Trouble concentrating on things, such as reading the newspaper or watching television: not at all 8. Moving or speaking so slowly that other people could have noticed. Or the opposite - being so fidgety or restless that you have been moving around a lot more than usual: not at all 9. Thoughts that you would be better off or of hurting yourself in some way: not at all Total score: 0 Depression Screening Interpretation: Negative Depression Screening Done: Yes 76109 - PHQ-9 Billing: Yes Source: Developed by Drs. Pravin Reese, Tanya Benitez, Enoch Reno and colleagues, with an educational simeon from [employer] Thrive Questionnaire Date Thrive assessed: 02/20/25 I am a: Patient What is your living situation today?: I have a steady place to live Within the past 12 months, did the food you bought not last and you didn't have the money to get more?: Sometimes True Within the past 12 months, did you worry whether your food would run out before you got money to buy more?: I choose not to answer this question Do you have trouble paying for medicines?: No Do you have trouble getting transportation to medical appointments?: No Do you have trouble paying your heating and electricity bill?: No Do you have trouble taking care of your child, family member or friend?: No Do you have trouble with day-to-day activities such as bathing, preparing meals, shopping, managing finances, etc.?: No Are you currently unemployed and looking for a job?: No Are you interested in more education?: No Please select the resources that you would like help with: None Currently or been in a relationship where the following occur: No concerns reported THRIVE Score: 1 AUDIT C Alcohol Use Questionnaire (AUDIT-C) 1. How often do you have a drink containing alcohol?: Never 3. How often do you have six or more drinks on one occasion?: Never Total Score: 0 Score Reviewed/Action Taken: Yes CHING-7 AMB Questionnaire CHING-7 Date CHING - 7 assessed: 02/20/25 Feeling nervous, anxious, or on edge: 0 = Not at all Not being able to stop or control worryin = Not at all Worrying too much about different things: 0 = Not at all Trouble relaxin = Not at all Being so restless that it is hard to sit still: 0 = Not at all Becoming easily annoyed or irritable: 0 = Not at all Feeling afraid as if something awful might happen: 0 = Not at all Total CHING-7 score (0-4 normal; 5-9 mild; 10-14 moderate; 15-21 severe): 0 Source: Developed by Drs. Pravin Reese, Tanya Benitez, Enoch Reno and colleagues, with an educational simeon from [employer] CHING-7 Assessment Billing CHING-7 Assessment Tool: CHING-7 Assessment 14937 Physical exam (Primary Care) Vital Signs: Last Vital Signs Temp 97.6 F 02/20/25 09:10 Pulse 58 02/20/25 09:10 Resp 12 02/20/25 09:10 BP 108/68 02/20/25 09:10 Pulse Ox 99 02/20/25 09:10 Oxygen Delivery Method Room Air 02/20/25 09:10 BMI result Body Mass Index 26.4 Tobacco/Smoking Status: Tobacco use Status Tobacco use date assessed 02/20/25 02/20/25 09:08 Patient Tobacco Use Status Former Tobacco user 02/20/25 09:08 Tobacco use type Cigarette 02/20/25 09:08 e-Cigarette/Vaping Use Never Used 02/20/25 09:08 PHQ-9: PHQ-9 Score PHQ-9: Total score 0 02/20/25 09:08 Depression Screening Interpretation: Negative Thrive Assessment: Date of Thrive Assessment Date Thrive assessed 02/20/25 02/20/25 09:08 Currently or been in a relationship where the following occur: No concerns reported Results AMB Hemoglobin A1c 2 AMB Hemoglobin A1c 7.3 % Last Edit by Fausto Nuno MA on 02/20/25 09:21 Results Reviewed Results Reviewed: Laboratory Last Values Hgb A1c (Clinic) 7.3 % (4.0-6.0) H 02/20/25 09:15 Coding Level of Care Code Est Pt Level 5 (28633) Complex EM visit Add On G2211 Diagnoses Paroxysmal atrial fibrillation I48.0 Atrial fibrillation type: paroxysmal Coronary artery disease involving [place] coronary artery of [place] heart without angina pectoris I25.10 Coronary Disease-Associated Artery/Lesion type: [place] artery [place] vs. 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 b.i.d., on Eliquis 5 mg p.o. b.i.d.. Active with Cardiology. Code(s): I48.91 - Unspecified atrial fibrillation Category: Medical Qualifiers: Atrial fibrillation type: paroxysmal Qualified Code(s): I48.0 - Paroxysmal atrial fibrillation (2) CAD (coronary artery disease): Comment: On aspirin and atorvastatin. Active with Cardiology. Moderate CAD on CT of chest 03/28/24 Code(s): I25.10 - Atherosclerotic heart disease of [place] coronary artery without angina pectoris Category: Medical Qualifiers: Coronary Disease-Associated Artery/Lesion type: [place] artery [place] vs. transplanted heart: [place] heart Associated angina: without angina Q ualified Code(s): I25.10 - Atherosclerotic heart disease of [place] coronary artery without angina pectoris (3) Chronic HFrEF (heart failure with reduced ejection fraction): Comment: 12/2023 echocardiogram which showed a decreased EF of 40-45% with mild LVH Not weighing self QD advised to weigh daily and call if 3 lbs gain in 24 hours or 5 lbs/week. Currently euvolemic, On beta-sae. Code(s): I50.22 - Chronic systolic (congestive) heart failure Category: Medical (4) DM (diabetes mellitus), type 2 with complications: Onset Date: ~12/2023 Comment: PVD and HLD Code(s): E11.8 - Type 2 diabetes mellitus with unspecified complications Category: Medical (5) Emphysema with chronic bronchitis: Comment: noted on ct of chest 03/28/24 Code(s): J44.89 - Other specified chronic obstructive pulmonary disease Category: Medical (6) PAD (peripheral artery disease): Comment: 02/06/2024 - right SFA plasty and stent placement 06/16/2024 - right 4th toe amputation Code(s): I73.9 - Peripheral vascular disease, unspecified Category: Medical (7) Positive colorectal cancer screening using Cologuard test: Code(s): R19.5 - Other fecal abnormalities Category: Medical (8) Secondary hypercoagulable state: Comment: On Eliquis due to secondary hypercoagulable state related to AFib Code(s): D68.69 - Other thrombophilia Category: Medical (9) Status post amputation of toe: Comment: right 4th toe, 06/16/24 Dr Gonzalez [facility] Code(s): Z89.429 - Acquired absence of other toe(s), unspecified side Category: Surgical Plan . Orders: Orders 2 Complete Blood Count no Diff Today I25.10 - Atherosclerotic heart disease of [place] coronary artery without angina pectoris, I48.0 - Paroxysmal atrial fibrillation, I73.9 - Peripheral vascular disease, unspecified, J44.89 - Other specified chronic obstructive pulmonary disease, R19.5 - Other fecal abnormalities AMB Hemoglobin A1c Today Z13.9 - Encounter for screening, unspecified Comprehensive Met. Panel Today I25.10 - Atherosclerotic heart disease of [place] coronary artery without angina pectoris, I48.0 - Paroxysmal atrial fibrillation, I73.9 - Peripheral vascular disease, unspecified, J44.89 - Other specified chronic obstructive pulmonary disease, R19.5 - Other fecal abnormalities Lipid Panel Today I25.10 - Atherosclerotic heart disease of [place] coronary artery without angina pectoris, I48.0 - Paroxysmal atrial fibrillation, I73.9 - Peripheral vascular disease, unspecified, J44.89 - Other specified chronic obstructive pulmonary disease, R19.5 - Other fecal abnormalities Vitamin B12 and Folate Today I25.10 - Atherosclerotic heart disease of [place] coronary artery without angina pectoris, I48.0 - Paroxysmal atrial fibrillation, I73.9 - Peripheral vascular disease, unspecified, J44.89 - Other specified chronic obstructive pulmonary disease, R19.5 - Other fecal abnormalities Medications: Refilled 2 metformin ER 1,000 mg (2 x 500 mg) PO BID 90 days 360 tabs 1RF Patient Instructions: About the [employer] Program The [employer] Program provides free health insurance information, counseling, and assistance to people who are eligible for Medicare and their caregivers. Certified, trained [employer] counselors, who are often volunteers, work with participants to help explore Medicare plan options and uncover ways to save money on both health insurance and prescription drug costs.?? How can a [facility]INE Counselor help me?? A [facility]INE counselor will help you:? Understand your Medicare and other health insurance and drug coverage options Find the right coverage for you? Find ways you can save money on your prescription drugs and health insurance? Help you apply for programs that will lower your costs? Provide information to help you make the best coverage selection? Find a SHINE counselor SHINE Counselors are available to meet in person at the following locations:?? Senior centers?? [facility]? SHINE counselors are also available to meet by telephone. You can find a SHINE counselor near you by calling [employer] at , or by exploring the [facility] staff directory.
[2025-02-20 09:10] VITALS: BP 108/68; PULSE 58; RESP 12; TEMP 36.4; O2SAT 99; BMI 26.4
== END 2025-02-20 09:59 | disposition home or self-care (01) ==
LOC: HO.HMCFM 09:04
PROVIDERS: PCP Nurse Practitioner Family; Visit Provider Nurse Practitioner Family
DX: I48.0 Paroxysmal atrial fibrillation (principal); I50.22 Chronic systolic (congestive) heart failure; E11.8 Type 2 diabetes mellitus with unspecified complications; J44.89 Other specified chronic obstructive pulmonary disease; I25.10 Atherosclerotic heart disease of native coronary artery without angina pectoris; I73.9 Peripheral vascular disease, unspecified; R19.5 Other fecal abnormalities; D68.69 Other thrombophilia; Z89.421 Acquired absence of other right toe(s)

== ENCOUNTER → 2025-02-20 09:04 | Outpatient (BNVA) | payer OTHER, SELFPAY | PROVIDERS: PCP Nurse Practitioner Family; Visit Provider Nurse Practitioner Family | DX: I48.0 Paroxysmal atrial fibrillation (principal); I25.10 Atherosclerotic heart disease of native coronary artery without angina pectoris; I50.22 Chronic systolic (congestive) heart failure; E11.8 Type 2 diabetes mellitus with unspecified complications; J44.89 Other specified chronic obstructive pulmonary disease; I73.9 Peripheral vascular disease, unspecified; R19.5 Other fecal abnormalities; D68.69 Other thrombophilia; Z79.01 Long term (current) use of anticoagulants; Z79.82 Long term (current) use of aspirin; Z79.84 Long term (current) use of oral hypoglycemic drugs; Z79.899 Other long term (current) drug therapy; Z89.421 Acquired absence of other right toe(s); Z13.30 Encounter for screening examination for mental health and behavioral disorders, unspecified | CPT/HCPCS: 83036; 96127 ==

== ENCOUNTER 2025-02-20 10:11 | Outpatient (REF) | payer OTHER, SELFPAY ==
[2025-02-20 14:26] LABS: Hematocrit 42.9 % (42.0-52.0); Mean Corpuscular HGB Conc 32.6 g/dl (31.0-36.0); Mean Corpuscular Hemoglobin 31.4 pg (27.0-33.0); Mean Corpuscular Volume 96.2 fL (80.0-98.0); Mean Platelet Volume 12.2 fL (9.4-12.4); Platelet Count 182 X10*3/uL (160-400); Red Blood Count 4.46 X10*6/uL (4.60-5.80); Red Cell Distribution Width 13.4 % (11.0-16.0); White Blood Count 7.7 X10*3/uL (4.8-10.8)
[2025-02-20 14:45] LABS: Alanine Aminotransferase 43 U/L (0-40); Albumin Level 4.3 g/dL (3.5-5.0); Alkaline Phosphatase 65 U/L (39-117); Anion Gap 8 (12-20); Aspartate Amino Transferase 34 U/L (5-37); Blood Urea Nitrogen 22 mg/dL (9-16); Calcium 9.2 mg/dL (8.4-10.2); Carbon Dioxide 28 mmol/L (22-29); Chloride 109 mmol/L (96-108); Cholesterol 120 mg/dL (<200); Estimated Glomerular Filt Rate > 60; Glucose Random 229 mg/dL (60-115); HDL Cholesterol 43 mg/dL (>40); LDL Cholesterol Calculated 61 mg/dL (<100); Potassium 4.3 mmol/L (3.3-5.1); Sodium 141 mmol/L (135-145); Total Protein 6.7 g/dL (6.5-8.0); Triglycerides 84 mg/dL (<150)
[2025-02-20 15:10] LABS: Prostate Specific Antigen 5.16 ng/mL (<0.05-4.0); Vitamin B12 297 pg/mL (200-900)
[2025-02-20 15:53] LABS: Folate 7.8 ng/mL (> or = 4.0)
== END 2025-02-20 10:12 | disposition home or self-care (01) ==
LOC: HO.WFDLDS 10:11
PROVIDERS: Visit Provider Nurse Practitioner Family
DX: I48.0 Paroxysmal atrial fibrillation (principal); I25.10 Atherosclerotic heart disease of native coronary artery without angina pectoris; J44.89 Other specified chronic obstructive pulmonary disease; I73.9 Peripheral vascular disease, unspecified; R19.5 Other fecal abnormalities; R97.20 Elevated prostate specific antigen [PSA]; Z12.5 Encounter for screening for malignant neoplasm of prostate
CPT/HCPCS: 36415; 80053; 80061; 82607; 82746; 84153; 85027

== ENCOUNTER 2025-04-23 14:37 | Outpatient (AMB) | payer OTHER, SELFPAY ==
--- NOTE | 2025-04-23 15:00 | MHC.OFFVIS ---
Intake Visit Reasons: elevated PSA Intake Note: Patient is present for ELEVATED PSA Urology Medication: NONE Antibiotic Allergy:NONE Blood Thinner:APIXABAN Property Loss Insurance Claim Adjuster Required: No Allergies No Known Allergies Allergy (Verified 04/23/25 21:56) Medication List - Last Reconciled 04/23/25 by GIA Alarcon apixaban (Eliquis) 5 mg PO BID atorvastatin 40 mg PO BEDTIME blood sugar diagnostic (FreeStyle Lite Strips) Test four times a day or as directed. blood-glucose meter (FreeStyle Lite Meter kit) As Directed ipratropium-albuterol 20-100 mcg/actuation (Combivent Respimat) 1 puff inhalation QID lancets (FreeStyle Lancets) Test four times a day or as directed. metformin ER 1,000 mg (2 x 500 mg) PO BID 90 days metoprolol tartrate 100 mg PO BID HPI Comments Details: Juvenal is a very pleasant 75-year-old male patient of Dr. Beatty. He has a past medical history of cardioversion, nicotine dependence quit December-2023, coronary artery disease, diabetes, aortic aneurysm without rupture, chronic heart failure with reduced ejection fracture, diabetic foot ulcer with osteomyelitis, PID, and atrial fibrillation currently on anticoagulation. He presents to the office today as a new patient for an elevated PSA. In discussion with the patient today he reports he has not had a primary care in the last 30 years however has recently established PCP care and had labs performed that noted an elevated PSA and recommendations were made for urology referral for further assessment evaluation. In review of patient's chart it appears PSAs are as follows: PSA: 10/25 5.6, 02/22 5.2 When asked he does report maternal uncle to have have had prostate cancer. He currently denies any bothersome urinary issues or concerns. He denies urinary urgency, urinary frequency, incontinence, nocturia, hematuria, dysuria, foul smelling urine, changes to urinary stream, flank pain, fever, and or chills. He is happy with his current voiding parameters. STEVE was offered however deferred. We did discussed potential causes of elevated PSA as well as further treatment options and risks and benefits of these treatment options. In office urinalysis results reviewed with the patient today. All questions were answered. He otherwise offers no other issues or concerns at this time. [facility] Medical History Yeast infection History of cardioversion Nicotine dependence, cigarettes, uncomplicated CAD (coronary artery disease) DM (diabetes mellitus), type 2 with complications (~12/2023) Anticoagulated Aortic aneurysm without rupture Chronic HFrEF (heart failure with reduced ejection fraction) Diabetic foot ulcer with osteomyelitis PAD (peripheral artery disease) Atrial fibrillation (~12/2023) Surgical History History of tonsillectomy History of angioplasty Social History Household Members: None Housing: House Are you a primary care program director to a significant other at home: No Do you presently have visiting nurse or other home services: No Patient Tobacco Use Status: Former Tobacco user Tobacco use type: Cigarette Years Smoked: 30 e-Cigarette/Vaping Use: Never Used Second Hand Smoke Exposure: No service: No Current occupational status: employed and retired 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 Current occupational exposures/hazards: No Cognitive needs: No Hearing needs: No Vision needs: No Review of Systems Const All systems reviewed & are unremarkable except as noted in HPI and below Physical Exam Const General: cooperative, comfortable, no acute distress, well developed, alert and awake Orientation/consciousness: patient oriented x3 Limitations: no limitations HEENT Head: Yes normal to inspection, Yes normocephalic and Yes atraumatic Ears: hearing grossly normal bilaterally Eyes General: appearance normal, both eyes and all related structures Neck Neck: Yes normal visual inspection and Yes trachea midline Chest Chest palpation & inspection: normal inspection of the chest Resp Effort & Inspection: normal respiratory effort and able to speak in complete sentences Cardio Rate: regular rate GI Inspection: Yes normal to inspection General: Yes no CVA tenderness Back/Spine/Pelvis Back: no CVA tenderness Skin General skin exam: no rashes or lesions noted Neuro General: patient oriented x3 Extrem General: Yes normal to inspection Psych Appearance: grossly normal and well kempt Mental Status: mental status grossly normal Speech and movement: Normal speech and movement present and Clear speech present Affect: normal affect Attitude: cooperative Thought process: Normal thought process present Thought content: Normal thought content present Insight: Fair insight present (Psych) Judgement: Fair judgement present (Psych) Results AMB Urinalysis, Automated UA Leukoctes 0 Liv/uL Last Edit by WISAM Marcus on 04/23/25 16:28 UA Nitrite Negative Last Edit by WISAM Marcus on 04/23/25 16:28 UA Urobilinogen 0.2 mg/dL Last Edit by WISAM Marcus on 04/23/25 16:28 UA Protein 15 mg/dL Last Edit by Vishnu Eugene [facility] on 04/23/25 16:28 UA pH 6.0 Last Edit by Vishnu Eugene [facility] on 04/23/25 16:28 UA Blood 0 Chaparro/uL Last Edit by Vishnu Eugene [facility] on 04/23/25 16:28 UA Specific Bowie 1.020 Last Edit by Vishnu Eugene [facility] on 04/23/25 16:28 UA Ketone Negative Last Edit by Vishnu Eugene [facility] on 04/23/25 16:28 UA Bilirubin 0 mg/dL Last Edit by Vishnu Eugene [facility] on 04/23/25 16:28 UA Glucose 0 mg/dL Last Edit [facility] on 04/23/25 16:28 Results Reviewed Results Reviewed: Laboratory Last Values Urine pH (Auto) 6.0 04/23/25 16:27 Specific Bowie (Auto) 1.020 04/23/25 16:27 Urine Protein (Auto) 15 mg/dL 04/23/25 16:27 Glucose (UA)(Auto) 0 mg/dL 04/23/25 16:27 Urine Ketones (Auto) Negative 04/23/25 16:27 Urine Blood (Auto) 0 Chaparro/uL 04/23/25 16:27 Urine Nitrite (Auto) Negative 04/23/25 16:27 Urine Bilirubin (Auto) 0 mg/dL 04/23/25 16:27 Urine Urobilinogen (Auto) 0.2 mg/dL 04/23/25 16:27 Leukocyte Esterase (Auto) 0 Liv/uL 04/23/25 16:27 Assessment & Plan Assessment & Plan (1) Elevated PSA: Code(s): R97.20 - Elevated prostate specific antigen [PSA] Category: Medical (2) Family history of prostate cancer: Code(s): Z80.42 - Family history of malignant neoplasm of prostate Category: Medical Plan In office urinalysis results with the patient today; as noted above. Recent PSA results reviewed with the patient today; as noted above. He currently denies any bothersome urinary issues or concerns. He reports be happy with current voiding parameters. We did discussed potential causes of elevated PSA as well as further treatment options and risks and benefits of these treatment options. STEVE was offered however deferred. Will obtain retroperitoneal ultrasound for further assessment evaluation. Will obtain redraw of PSA total and free with no sex the night before, no caffeine morning of, and no heavy lifting 1-2 days prior. Follow-up in 1-3 months with imaging and labs to be completed prior; or sooner with any issues, concerns, and or questions. Orders: Orders AMB Urinalysis Automated Today Z13.9 - Encounter for screening, unspecified US retroperitoneal comp Today R97.20 - Elevated prostate specific antigen [PSA] PSA,Total (Free>4and<10) Today R97.20 - Elevated prostate specific antigen [PSA] Patient Instructions: The patient had an opportunity to ask questions regarding the treatment plan. All questions were answered. Physical exam, labs, and imaging were discussed and reviewed in detail. As well as risks, benefits, and discussion of treatment choices. No major barriers to understanding were identified. The patient expressed understanding and agreement with the above treatment plan. The patient was made aware they should contact our office by phone for worsening of their current condition, the appearance of new symptoms, or with any questions or concerns. Compliance is encouraged with any medications and follow up testing that is ordered. It is a privilege to be allowed the opportunity to participate in? your urological care.? Again, if you have any questions or concerns If you have any questions or concerns please do not hesitate to contact me. The office is [phone]. This note is constructed using voice recognition software. While every effort has been made to ensure accuracy welding pantograph operator errors may have been included. Yours sincerely, GIA Alarcon Coding Level of Care Code New Pt Level 3 (26871) Diagnoses Elevated PSA R97.20 Family history of prostate cancer Z80.42
== END 2025-04-23 16:17 | disposition home or self-care (01) ==
LOC: HO.HUSH 14:38
PROVIDERS: PCP Nurse Practitioner Family; Visit Provider Nurse Practitioner Family
DX: R97.20 Elevated prostate specific antigen [PSA] (principal); Z80.42 Family history of malignant neoplasm of prostate; Z13.9 Encounter for screening, unspecified
CPT/HCPCS: 99203

== ENCOUNTER → 2025-04-23 14:37 | Outpatient (BNVA) | payer OTHER, SELFPAY | PROVIDERS: PCP Nurse Practitioner Family; Visit Provider Nurse Practitioner Family | DX: R97.20 Elevated prostate specific antigen [PSA] (principal); Z80.42 Family history of malignant neoplasm of prostate | CPT/HCPCS: 81003 ==

== ENCOUNTER 2025-04-30 07:29 | Outpatient (REF) | payer OTHER, SELFPAY ==
--- NOTE | ~2025-04-30 | CT_ITS ---
CLINICAL HISTORY: Z72.0 - Tobacco use CT lung cancer screening (LDCT) Comparison: None provided Technique: Axial CT images of the chest using low-dose technique. Referring provider counseled the patient on shared decision-making for LDCT screening. Additional counseling was provided on smoking cessation. Effective radiation dose total: DLP 49 mGycm, CTDIvol 1.4 mGy. Findings: Lung: Mild emphysema and pulmonary fibrosis. Calcified granulomas. 3.8 mm nodule of the left lower lobe series 4, image 111. Coronary artery calcifications: Moderate Limited upper abdomen: Unremarkable Other: None Impression: LungRADS 2 - Benign Appearance: Continue annual screening with low dose Chest CT in 12 months. ##L2## Category 1: Normal; continue annual screening Category 2: Benign appearance or behavior, continue annual screening Category 3: Probably benign, [address] recommended Category 4A: Suspicious, [address] recommended; may consider PET/CT Category 4B: Suspicious, Additional diagnostics and/or tissue sampling recommended Category 4X: Suspicious, Additional diagnostics and/or tissue sampling recommended Category 0: Recalls (incomplete screen due to Incomplete coverage, Noise, Respiratory motion, Expiration, Obscured by acute abnormality) This document has been electronically signed by: Juan Lima MD on 04/30/2025 14:15:58
== END 2025-04-30 07:30 | disposition home or self-care (01) ==
LOC: HO.CT 07:29
PROVIDERS: PCP Nurse Practitioner Family; Visit Provider Physician Assistant Medical
DX: Z12.2 Encounter for screening for malignant neoplasm of respiratory organs (principal); Z87.891 Personal history of nicotine dependence
CPT/HCPCS: 71271

== ENCOUNTER → 2025-04-30 07:31 | Outpatient (BNV) | payer OTHER, SELFPAY | PROVIDERS: PCP Nurse Practitioner Family; Visit Provider Nuclear Medicine | DX: Z12.2 Encounter for screening for malignant neoplasm of respiratory organs (principal); F17.210 Nicotine dependence, cigarettes, uncomplicated | CPT/HCPCS: 71271 ==

== ENCOUNTER 2025-05-04 10:03 | Outpatient (AMB) | payer OTHER, SELFPAY ==
--- NOTE | 2025-05-04 10:17 | A.OFFVIS_ITS ---
Vital Signs 05/04/25 10:21 Height 6 ft 1 in Weight 192 lb BMI 25.3 BP 124/66 Blood Pressure Location Rt brachial Position Sitting Pulse 70 Pulse Source Pulse Oximeter Pulse Oximetry (%) 100 Oxygen Delivery Method Room Air Intake Visit Reasons: colo screening Intake Note: New pt for colo screening s/p + Cologuard. CC: Pt denies any GI sx or concerns at this time. Pt reports recent stent placement 01/2025 [employer] Required: No Accompanied by: Self / Same As Patient Allergies No Known Allergies Allergy (Verified 05/04/25 10:17) HPI HPI colo screening: Details: 75 year old? male with past medical history of diabetes, positive Cologuard, RBBB, cardiomyopathy, diabetes, CAD, chronic heart failure with reduced ejection fraction, PAD, AFib, aortic aneurysm is here today for pre colonoscopy s creening.? Patient was sent to us by his PCP.? This is his first colonoscopy screening.? Patient had positive Cologuard test in November of 2024. In January of 2025 patient had R SFA plasty and stent placement. Patient is currently on Eliquis. Has appointment with Cardiology May 19. Will send message to office equipment technician to at clearance to this appointment. Denies any melena, h ematochezia. Patient denies any gastrointestinal symptoms in the past or at present.? Denies any personal or family history of gastrointestinal disease, colon polyps, or CRC.? Denies history of difficulty with sedation or anesthesia in the past.? Negative for history of sleep apnea.? Denies any history of cardiac, renal, pulmonary, or hepatic disease.?? No history of infectious? diseases like hepatitis A, B, C, HIV or tuberculosis.? PFSH Medical History Amputation toe Yeast infection History of cardioversion Nicotine dependence, cigarettes, uncomplicated CAD (coronary artery disease) DM (diabetes mellitus), type 2 with complications (~12/2023) Anticoagulated Aortic aneurysm without rupture Chronic HFrEF (heart failure with reduced ejection fraction) Diabetic foot ulcer with osteomyelitis PAD (peripheral artery disease) Atrial fibrillation (~12/2023) Surgical History History of tonsillectomy History of angioplasty Social History Household Members: None Housing: House Are you a primary healthcare economics manager to a significant other at home: No Do you presently have visiting nurse or other home services: No Patient Tobacco Use Status: Former Tobacco user Tobacco use type: Cigarette Years Smoked: 30 e-Cigarette/Vaping Use: Never Used Second Hand Smoke Exposure: No service: No Current occupational status: employed and retired 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 Denies any issues with anesthesia in the past.? Denies any history of sleep apnea.? No history infectious diseases in the past or present.?? No family or personal history of colon cancer or polyps.? Patient denies melena, hematochezia, unintentional weight loss or ribbon like stools.? Discussed at length the pre-procedure,? prep, diet & medications as well as what to expect prior, during and after the procedure.??Patient is on Eliquis. Has appointment with Cardiology in couple weeks periods message sent to hardware engineering manager to ask for clearance before sending him for colonoscopy. Message sent to surgical schedulers to book procedure for patient with patient had positive Cologuard in November. Stressed the importance of good bowel prep.? Recommended the use of Vaseline or Calmoseptine OTC & baby wipes with bowel movements to promote comfort.? ?Patient verbalizes understanding and agrees to plan of care.? He was given the opportunity to ask questions and all questions answered.? We will see him after the procedure.? Medications: New polyethylene glycol 3350 (Miralax) As directed by gastroenterology department at [facility] 238 gra ms PO ONCE 238 grams 0RF Z12.11 - Encounter for screening for malignant neoplasm of colon peg 3350-electrolytes 236-22.74-6.74 -5.86 gram (GaviLyte-G) 240 mL PO ONCE 4,000 mL 0RF bisacodyl (Dulcolax (bisacodyl)) take 4 tabs at noon the day before your colonoscopy 20 mg (4 x 5 mg) PO ONCE 4 tabs 0RF constipation 1 day Z12.11 - Encounter for screening for malignant neoplasm of colon Coding Level of Care Code New Pt Level 3 (35271) Diagnoses Screen for colon cancer Z12.11 Time Spent (min) 40 Comment 30 minutes spent with patient and additional 10 minutes spent reviewing his records
[2025-05-04 10:21] VITALS: BP 124/66; PULSE 70; O2SAT 100; BMI 25.3
== END 2025-05-04 10:50 | disposition home or self-care (01) ==
LOC: HO.HGI 10:04
PROVIDERS: PCP Nurse Practitioner Family; Visit Provider Nurse Practitioner Family
DX: Z01.818 Encounter for other preprocedural examination (principal); Z12.11 Encounter for screening for malignant neoplasm of colon
CPT/HCPCS: 99203

== ENCOUNTER 2025-05-19 09:31 | Outpatient (AMB) | payer OTHER, SELFPAY ==
[2025-05-19 09:38] VITALS: BP 142/70; PULSE 63; BMI 26.1
--- NOTE | 2025-05-19 09:38 | MHC.OFFVIS ---
Vital Signs 05/19/25 09:38 Height 6 ft 1 in Weight 197 lb 8.547 oz BMI 26.1 BP 142/70 H Blood Pressure Location Lt brachial Position Sitting Pulse 63 Pulse Source Monitor Intake Visit Reasons: 6m follow up/clear for colon/ Ale Child Support Case Officer Required: No Allergies No Known Allergies Allergy (Verified 05/19/25 09:40) Medication List - Last Reconciled 05/19/25 by Brina Taylor TACTICAL DECEPTION PLANS OFFICER-C apixaban (Eliquis) 5 mg PO BID atorvastatin 40 mg PO BEDTIME bisacodyl (Dulcolax (bisacodyl)) 20 mg (4 x 5 mg) PO ONCE 1 day blood sugar diagnostic (FreeStyle Lite Strips) Test four times a day or as directed. blood-glucose meter (FreeStyle Lite Meter kit) As Directed lancets (FreeStyle Lancets) Test four times a day or as directed. metformin ER 1,000 mg (2 x 500 mg) PO BID 90 days metoprolol tartrate 100 mg PO BID peg 3350-electrolytes 236-22.74-6.74 -5.86 gram (GaviLyte-G) 240 mL PO ONCE polyethylene glycol 3350 (Miralax) 238 grams PO ONCE HPI HPI 6m follow up/clear for colon/ Ale: Details: Juvenal is a 74-year-old male with past medical history of smoking, diabetes, peripheral vascular disease with right SFA stent, AFib with failed cardioversion now being treated with rate control who presents for follow-up. Today he reports that he has been doing well since his last visit in November. He is not notice any issues with heart palpitations. He is not having any bleeding problems. No chest discomfort at rest or with activity. No shortness of breath, PND, orthopnea or edema. He has not had any recurrent lightheadedness, presyncope, syncope, falls. He takes his meds as directed and is concerned about Eliquis cost. 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 He has been tolerating this well. [facility] Medical History Amputation toe Yeast infection History of cardioversion Nicotine dependence, cigarettes, uncomplicated CAD (coronary artery disease) DM (diabetes mellitus), type 2 with complications (~12/2023) Anticoagulated Aortic aneurysm without rupture Chronic HFrEF (heart failure with reduced ejection fraction) Diabetic foot ulcer with osteomyelitis PAD (peripheral artery disease) Atrial fibrillation (~12/2023) Surgical History History of tonsillectomy History of angioplasty Social History Household Members: None Housing: House Are you a primary animal care technician to a significant other at home: No Do you presently have visiting nurse or other home services: No Patient Tobacco Use Status: Former Tobacco user Tobacco use type: Cigarette Years Smoked: 30 e-Cigarette/Vaping Use: Never Used Second Hand Smoke Exposure: No service: No Current occupational status: employed and retired 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 Current occupational exposures/hazards: No Cognitive needs: No Hearing needs: No Vision needs: No Review of Systems Const All systems reviewed & are unremarkable except as noted in HPI and below ENT Denies dizziness Card Denies chest pain, Denies chest pain at rest, Denies chest pain with activity, Denies rapid heart rate, Denies pedal edema, Denies edema, Denies leg edema, Denies lightheadedness, Denies palpitations, Denies dyspnea, Denies dyspnea on exertion and Denies orthopnea Resp Denies cough, Denies dyspnea and Denies dyspnea on exertion GI Denies hematochezia and Denies change in stool character Musc Denies abnormal gait, Denies limited range of motion, Denies muscle cramps, Denies muscle weakness, Denies numbness, Denies radiating pain into limb, Denies stiffness and Denies tingling Neuro Denies abnormal gait, Denies dizziness, Denies numbness and Denies tingling Endo Denies palpitations Physical Exam Vital Signs: Last Vital Signs Pulse 63 05/19/25 09:38 BP 142/70 H 05/19/25 09:38 BMI result Body Mass Index 26.1 Const General: cooperative, healthy appearing, comfortable and no acute distress Orientation/consciousness: patient oriented x3 Neck Neck: Yes normal visual inspection Resp Effort & Inspection: normal respiratory effort Auscultation: clear to auscultation bilaterally, no rales, no rhonchi and no wheezes Cardio Rate: regular rate Rhythm: abnormal rhythm Heart sounds: S1 normal heart sound present, S2 normal heart sound present, no murmurs and no rubs Neuro General: patient oriented x3 Extrem General: Yes normal to inspection, No no pedal edema and No calf tenderness Psych Appearance: grossly normal Mental Status: mental status grossly normal Speech and movement: Normal speech and movement present Office Procedures EKG Details: Today, read by me, atrial fibrillation, right bundle branch block, rate 63, QTC 458 milliseconds [id number], Complete Assessment & Plan Assessment & Plan (1) Atrial fibrillation: Onset Date: ~12/2023 Comment: Rate controlled with metoprolol 100 mg p.o. b.i.d., on Eliquis 5 mg p.o. b.i.d.. Active with Cardiology. Code(s): I48.91 - Unspecified atrial fibrillation Category: Medical Qualifiers: Atrial fibrillation type: paroxysmal Qualified Code(s): I48.0 - Paroxysmal atrial fibrillation Plan: Newer finding of atrial fibrillation during hospitalization December 2023. He did undergo cardioversion and had recurrent atrial fibrillation. He is now being treated with heart rate control using metoprolol. He is on Eliquis for anticoagulation. EKG done today showing atrial fibrillation, right bundle branch block, rate 63. Last echocardiogram done 07/02/2024 showed EF 50-55%. Last Holter monitor was done on 07/02/2024 showing atrial fibrillation with average heart rate 93. Currently asymptomatic. No med changes made. medicine teacher assisted him with obtaining Eliquis at lower cost. Cardiology follow-up 6 months, sooner if needed. 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 Improved to low normal with heart rate control. Nuclear stress test done 03/28/2024 showed no reversible ischemia, EF 55%. Does not appear fluid overloaded on exam today. (3) Anticoagulated: Comment: On Eliquis due to secondary hypercoagulable state related to AFib Code(s): Z79.01 - emt intermediate (current) use of anticoagulants Category: Medical Plan: As above. No bleeding issues reported. (4) Right bundle branch block: Code(s): I45.10 - Unspecified right bundle-branch block Category: Medical Plan: Present on EKGs, not new. (5) Preop cardiovascular exam: Code(s): Z01.810 - Encounter for preprocedural cardiovascular examination Category: Medical Plan: Preop for colonoscopy. He can proceed with low cardiac risk. Continue metoprolol for heart rate control. Eliquis can be held 2 days prior to the procedure and restarted as soon as cleared by surgeon to do so. Call/consult Cardiology if needed. Plan I discussed with the patient the current management of his atrial fibrillation, emphasizing the importance of continuing metoprolol and Eliquis. We reviewed the cost issues with Eliquis and explored potential alternatives, including Coumadin, if necessary. I advised the patient to hold Eliquis two days before his colonoscopy. Patient Instructions: - Continue taking metoprolol and Eliquis as prescribed. - Discuss cost-saving options for Eliquis with the nurse. - Hold Eliquis two days before the scheduled colonoscopy in July. Patient was informed and verbally consented to the use of an ambient scribe for clinic note documentation during this visit. Visit time spent on chart review, interview, assessment, orders, documentation. Coding Level of Care Code Est Pt Level 4 (01394) Complex EM visit Add On G2211 Diagnoses Paroxysmal atrial fibrillation I48.0 Atrial fibrillation type: paroxysmal Cardiomyopathy, unspecified type I42.9 Cardiomyopathy type: unspecified Anticoagulated Z79.01 Right bundle branch block I45.10 Preop cardiovascular exam Z01.810 CPT Codes EKG - CPT: [id number], Complete ([id number]) Time Spent (min) 32
== END 2025-05-19 10:18 | disposition home or self-care (01) ==
LOC: HO.HCS 09:32
PROVIDERS: PCP Nurse Practitioner Family; Visit Provider Nurse Practitioner Family
DX: I48.0 Paroxysmal atrial fibrillation (principal); I42.9 Cardiomyopathy, unspecified; Z79.01 Long term (current) use of anticoagulants; I45.10 Unspecified right bundle-branch block; Z01.810 Encounter for preprocedural cardiovascular examination
CPT/HCPCS: 93010; 99214

== ENCOUNTER → 2025-05-19 09:31 | Outpatient (BNVA) | payer MEDICARE, SELFPAY | PROVIDERS: PCP Nurse Practitioner Family; Visit Provider Nurse Practitioner Family | DX: Z01.810 Encounter for preprocedural cardiovascular examination (principal); I45.10 Unspecified right bundle-branch block; I48.0 Paroxysmal atrial fibrillation; I42.9 Cardiomyopathy, unspecified; Z79.01 Long term (current) use of anticoagulants | CPT/HCPCS: 93005 ==

== ENCOUNTER 2025-08-19 14:15 | Outpatient (REF) | payer MEDICARE, SELFPAY ==
--- NOTE | ~2025-08-19 | US_ITS ---
EXAMINATION: US RETROPERITONEUM HISTORY: R97.20 - Elevated prostate specific antigen [PSA] TECHNIQUE: Real-time grayscale ultrasound imaging of the kidneys was performed and images were reviewed. COMPARISON: There are no prior studies available for comparison. FINDINGS: Right kidney: The right kidney measures 9.6 x 5.6 x 6.3 cm. Renal parenchymal echotexture and thickness are normal. There are no masses. There is no hydronephrosis or renal calculi. Left Kidney: The left kidney measures 9.1 x 6.4 x 5.5 cm. Renal parenchymal echotexture and thickness are normal. There are no masses. There is no hydronephrosis or renal calculi. The urinary bladder is unremarkable. Bilateral ureteral jets are identified. Before voiding, the estimated bladder volume was 182 mL. After voiding, the urinary bladder volume was estimated to be 6 mL. The prostate measures 4.3 x 2.9 x 3.7 cm, for an estimated volume of 23.8 mL. US/US retroperitoneal comp IMPRESSION: 1. Unremarkable retroperitoneal ultrasound. 2. Post void bladder volume of 6 mL. 3. Prostate volume of 23.8 mL. Electronically signed by: Pravin Jack MD 08/19/2025 03:13 PM PHUONG
--- OUTSIDE RECORDS SUMMARY | 2025-08-20 02:44 | XMS_ITS ---
Author Organization Unknown ENCOUNTERS Encounter Performer Location Date Diagnosis Diagnosis Status Emergency [facility] [address] [place] [address] [id number] [place] Pre Admit [facility] ED Physician [facility] [address] [place] [address] [id number] Pre Admit [address] [id number] Outpatient [address] [address] [id number] [place] Inpatient [facility] [address] [place] [id number] [facility] Emergency [facility] [address] [place] [address] [id number] Pre Admit [address] [address] [id number] *Note: Encounters from your own facility or health system may be excluded. Allergies, Adverse Reactions, Alerts Allergen Type Severity Identification Date Medications Name Date Quantity Days Supplied GPI Number
== END 2025-08-19 14:16 | disposition home or self-care (01) ==
LOC: HO.US 14:15
PROVIDERS: PCP Nurse Practitioner Family; Visit Provider Nurse Practitioner Family
DX: R97.20 Elevated prostate specific antigen [PSA] (principal)
CPT/HCPCS: 76770

== ENCOUNTER → 2025-08-19 14:17 | Outpatient (BNV) | payer MEDICARE, SELFPAY | PROVIDERS: PCP Nurse Practitioner Family; Visit Provider Radiology Diagnostic Radiology | DX: R97.20 Elevated prostate specific antigen [PSA] (principal) | CPT/HCPCS: 76770 ==

== ENCOUNTER 2025-08-31 08:39 | Outpatient (REF) | payer MEDICARE, SELFPAY ==
--- OUTSIDE RECORDS SUMMARY | 2025-08-31 09:12 | XMS_ITS ---
Author Organization Unknown ENCOUNTERS Encounter Performer Location Date Diagnosis Diagnosis Status Emergency [facility] [address] [place] [address] [id number] [place] Pre Admit [facility] ED Physician [facility] [address] [place] [address] [id number] Pre Admit [address] [id number] Outpatient [address] [phone] [id number] [place] Inpatient [facility] [address] [place] [id number] [facility] Emergency [facility] [address] [place] [address] [id number] Pre Admit [address] [phone] [id number] *Note: Encounters from your own facility or health system may be excluded. Allergies, Adverse Reactions, Alerts Allergen Type Severity Identification Date Medications Name Date Quantity Days Supplied GPI Number
[2025-08-31 12:50] LABS: PSA,Total (Free>4and<10) 4.11 ng/mL (0.00-4.00)
[2025-09-02 12:13] LABS: Free Prostate Spec Ag 0.4 ng/mL; Percent Free Prostate Spec Ag 10 % (calc) (>25)
== END 2025-08-31 08:40 | disposition home or self-care (01) ==
LOC: HO.WFDLDS 08:39
PROVIDERS: Visit Provider Nurse Practitioner Family
DX: R97.20 Elevated prostate specific antigen [PSA] (principal); Z12.5 Encounter for screening for malignant neoplasm of prostate
CPT/HCPCS: 36415; 84153; 84154

== ENCOUNTER 2025-09-10 10:18 | Outpatient (AMB) | payer MEDICARE, SELFPAY ==
--- NOTE | 2025-09-10 10:27 | A.OFFVIS_ITS ---
Intake Visit Reasons: PSA/US/UA Intake Note: Patient is present for PSA/US/UA PSA:4.11 IMAGIN08/19/25 Urology Medication:NONE Antibiotic Allergy:NONE Blood Thinner:APIXABAN Weight Engineer Required: No Allergies No Known Allergies Allergy (Verified 09/10/25 22:33) Medication List - Last Reconciled 09/10/25 by GIA Alarcon apixaban (Eliquis) 5 mg PO BID atorvastatin 40 mg PO BEDTIME bisacodyl (Dulcolax (bisacodyl)) 20 mg (4 x 5 mg) PO ONCE 1 day blood sugar diagnostic (FreeStyle Lite Strips) Test four times a day or as directed. blood-glucose meter (FreeStyle Lite Meter kit) As Directed lancets (FreeStyle Lancets) Test four times a day or as directed. metformin ER 1,000 mg (2 x 500 mg) PO BID 90 days metoprolol tartrate 100 mg PO BID peg 3350-electrolytes 236-22.74-6.74 -5.86 gram (GaviLyte-G) 240 mL PO ONCE polyethylene glycol 3350 (Miralax) 238 grams PO ONCE HPI Comments Details: Juvenal is a very pleasant 75-year-old male patient of Dr. Beatty. He has a past medical history of cardioversion, nicotine dependence quit December- 2023, coronary artery disease, diabetes, aortic aneurysm without rupture, chronic heart failure with reduced ejection fracture, diabetic foot ulcer with osteomyelitis, PID, and atrial fibrillation currently on anticoagulation. He presents to the office today for follow-up. Of note, patient was seen approximately 5 months ago as a new patient for an elevated PSA at which time redraw of PSA was ordered as well as a retroperitoneal ultrasound. These results were reviewed and communicated with the patient today. Retroperitoneal ultrasound retroperitoneal ultrasound 08/25 bilateral kidneys are normal in echotexture and thickness. No renal masses, hydronephrosis, and or renal calculi noted bilaterally. The urinary bladder is unremarkable. Prostate volume of approximately 24 mLs. PSAs are as follows: PSA: 10/25 5.6, 02/22 5.2, 09/24 4.1 % free PSA 10%. We did discussed decrease in PSA however still remains elevated. He does have a familial history of prostate cancer. He reports his maternal uncle had prostate cancer. He currently denies any bothersome urinary issues or concerns. He denies urinary urgency, urinary frequency, incontinence, nocturia, hematuria, dysuria, foul smelling urine, changes to urinary stream, flank pain, fever, and or chills. He is happy with his current voiding parameters. STEVE was offered however deferred. We did discussed potential causes of elevated PSA as well as further treatment options and risks and benefits of these treatment options. In office urinalysis results reviewed with the patient today. All questions were answered. PCPT risk calculator results reviewed with the patient today 29% chance negative prostate cancer, 47% chance low-grade prostate cancer, and 24 % chance of high-grade prostate cancer. He otherwise offers no other issues or concerns at this time. [facility] Medical History Amputation toe Yeast infection History of cardioversion Nicotine dependence, cigarettes, uncomplicated CAD (coronary artery disease) DM (diabetes mellitus), type 2 with complications (~12/2023) Anticoagulated Aortic aneurysm without rupture Chronic HFrEF (heart failure with reduced ejection fraction) Diabetic foot ulcer with osteomyelitis PAD (peripheral artery disease) Atrial fibrillation (~12/2023) Surgical History History of tonsillectomy History of angioplasty Social History Household Members: None Housing: House Are you a primary child adolescent care to a significant other at home: No Do you presently have visiting nurse or other home services: No Patient Tobacco Use Status: Former Tobacco user Tobacco use type: Cigarette Years Smoked: 30 e-Cigarette/Vaping Use: Never Used Second Hand Smoke Exposure: No service: No Current occupational status: employed and retired 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 Current occupational exposures/hazards: No Cognitive needs: No Hearing needs: No Vision needs: No Review of Systems Const All systems reviewed & are unremarkable except as noted in HPI and below Physical Exam Const General: cooperative, healthy appearing, comfortable, no acute distress, well developed, alert and awake Orientation/consciousness: patient oriented x3 Limitations: no limitations HEENT Head: Yes normal to inspection, Yes normocephalic and Yes atraumatic Ears: hearing grossly normal bilaterally Eyes General: appearance normal, both eyes and all related structures Neck Neck: Yes normal visual inspection and Yes trachea midline Chest Chest palpation & inspection: normal inspection of the chest Resp Effort & Inspection: normal respiratory effort and able to speak in complete sentences Cardio Rate: regular rate GI Inspection: Yes normal to inspection General: Yes no CVA tenderness Back/Spine/Pelvis Back: no CVA tenderness Skin General skin exam: no rashes or lesions noted Neuro General: patient oriented x3 Extrem General: Yes normal to inspection Psych Appearance: grossly normal and well kempt Mental Status: mental status grossly normal Speech and movement: Normal speech and movement present and Clear speech present Affect: normal affect Attitude: cooperative Thought process: Normal thought process present Thought content: Normal thought content present Insight: Fair insight present (Psych) Judgement: Fair judgement present (Psych) Results AMB Urinalysis, Automated UA Leukoctes 0 Liv/uL Last Edit by WISAM Marcus on 09/10/25 10:40 UA Nitrite Negative Last Edit by Vishnu Eugene CCM on 09/10/25 10:40 UA Urobilinogen 0.2 mg/dL Last Edit by Vishnu Eugene CCM on 09/10/25 10:4 0 UA Protein 0 mg/dL Last Edit by Vishnu Eugene CCM on 09/10/25 10:40 UA pH 6.0 Last Edit by Vishnu Eugene CCM on 09/10/25 10:40 UA Blood 0 [place]/uL Last Edit by WISAM Marcus on 09/10/25 10:40 UA Specific [place] 1.015 Last Edit by WISAM Marcus on 09/10/25 10: 40 UA Ketone Negative Last Edit by Vishnu Eugene CCM on 09/10/25 10:40 UA Bilirubin 0 mg/dL Last Edit by Vishnu Eugene CCM on 09/10/25 10:40 UA Glucose 250 mg/dL Last Edit by Vishnu Eugene CCM on 09/10/25 10:40 Results Reviewed Results Reviewed: Laboratory Last Values Urine pH (Auto) 6.0 09/10/25 10:32 Specific [place] (Auto) 1.015 09/10/25 10:32 Urine Protein (Auto) 0 mg/dL 09/10/25 10:32 Glucose (UA)(Auto) 250 mg/dL 09/10/25 10:32 Urine Ketones (Auto) Negative 09/10/25 10:32 Urine Blood (Auto) 0 [place]/uL 09/10/25 10:32 Urine Nitrite (Auto) Negative 09/10/25 10:32 Urine Bilirubin (Auto) 0 mg/dL 09/10/25 10:32 Urine Urobilinogen (Auto) 0.2 mg/dL 09/10/25 10:32 Leukocyte Esterase (Auto) 0 Liv/uL 09/10/25 10:32 Date of Service: 08/19/25 Procedure(s): US retroperitoneal comp FINDINGS: Right kidney: The right kidney measures 9.6 x 5.6 x 6.3 cm. Renal parenchymal echotexture and thickness are normal. There are no masses. There is no hydronephrosis or renal calculi. Left Kidney: The left kidney measures 9.1 x 6.4 x 5.5 cm. Renal parenchymal echotexture and thickness are normal. There are no masses. There is no hydronephrosis or renal calculi. The urinary bladder is unremarkable. Bilateral ureteral jets are identified. Before voiding, the estimated bladder volume was 182 mL. After voiding, the urinary bladder volume was estimated to be 6 mL. The prostate measures 4.3 x 2.9 x 3.7 cm, for an estimated volume of 23.8 mL. IMPRESSION: 1. Unremarkable retroperitoneal ultrasound. 2. Post void bladder volume of 6 mL. 3. Prostate volume of 23.8 mL. Assessment & Plan Assessment & Plan (1) Elevated PSA: Code(s): R97.20 - Elevated prostate specific antigen [PSA] Category: Medical (2) Family history of prostate cancer: Code(s): Z80.42 - Family history of malignant neoplasm of prostate Category: Medical Plan In office urinalysis results with the patient today; as noted above. Most recent PSA results with the patient today; as noted above. Most recent retroperitoneal ultrasound results reviewed with the patient today; as noted above. We did discuss decrease in PSA however remains slightly elevated; we did review potential causes of this finding and further treatment options and risks and benefits of these treatment options. All questions were answered. He currently denies any bothersome urinary issues or concerns. He reports be happy with current voiding parameters. PCP T risk calculator results reviewed with the patient today; as noted above. Will obtain prostate MRI for further assessment evaluation. Will obtain PSA for further assessment evaluation. Follow-up in 1-3 months with imaging and labs; or sooner with any issues, concerns, and or questions. Orders: Orders AMB Urinalysis Automated Today Z13.9 - Encounter for screening, unspecified MR pelvis wo/w con Today C61 - Malignant neoplasm of prostate Prostate Specific Antigen 3 Months R97.20 - Elevated prostate specific antigen [PSA], Z80.42 - Family history of malignant neoplasm of prostate Patient Instructions: The patient had an opportunity to ask questions regarding the treatment plan. All questions were answered. Physical exam, labs, and imaging were discussed and reviewed in detail. As well as risks, benefits, and discussion of treatment choices. No major barriers to understanding were identified. The patient expressed understanding and agreement with the above treatment plan. The patient was made aware they should contact our office by phone for worsening of their current condition, the appearance of new symptoms, or with any questions or concerns. Compliance is encouraged with any medications and follow up testing that is ordered. It is a privilege to be allowed the opportunity to participate in? your urological care.? Again, if you have any questions or concerns If you have any questions or concerns please do not hesitate to contact me. The office is [phone]. This note is constructed using voice recognition software. While every effort has been made to ensure accuracy steamfitter supervisor errors may have been included. Yours sincerely, GIA Alarcon Coding Level of Care Code Est Pt Level 3 (61048) Diagnoses Elevated PSA R97.20 Family history of prostate cancer Z80.42
== END 2025-09-10 11:14 | disposition home or self-care (01) ==
LOC: HO.HUSH 10:19
PROVIDERS: PCP Nurse Practitioner Family; Visit Provider Nurse Practitioner Family
DX: R97.20 Elevated prostate specific antigen [PSA] (principal); Z80.42 Family history of malignant neoplasm of prostate; Z13.9 Encounter for screening, unspecified
CPT/HCPCS: 99213

== ENCOUNTER → 2025-09-10 10:18 | Outpatient (BNVA) | payer MEDICARE, SELFPAY | PROVIDERS: PCP Nurse Practitioner Family; Visit Provider Nurse Practitioner Family | DX: R97.20 Elevated prostate specific antigen [PSA] (principal); Z80.42 Family history of malignant neoplasm of prostate; Z13.9 Encounter for screening, unspecified | CPT/HCPCS: 81003; 99212 ==